=== PATIENT | female | born 1955 | race Hispanic/Latino ===

== ENCOUNTER 2018-01-16 03:42 | Inpatient (IN) | payer BC, MEDICAID ==
[2018-01-16] VITALS (8 sets, daily range): BP systolic 91–148; BP diastolic 48–99
[~2018-01-16] VITALS: Ht 149.9 cm; Wt 116.7 kg
[2018-01-16] MEDS ORDERED: Vancomycin 1.5gm/D5W 250ml 250 ML IVPB ONE ×2 (04:00→04:17)
[2018-01-16] MEDS ORDERED: Morphine Sulfate 4mg/ml Inj (IV USE ONLY) IVP ONE (04:00)
[2018-01-16] MEDS ORDERED: Cefepime HCl 1 GM in D5W 55 ML IVPB ONE (04:00)
[2018-01-16] MEDS ORDERED: Acetaminophen 500mg (ES) tab ORAL ONE ×2 (04:00→04:15)
--- NOTE | 2018-01-16 04:06 | Emergency Room Report ---
History of Present Illness General Chief Complaint: Pain Source: Patient, Family Member Present Illness HPI This is a 62-year-old female who is an unfortunate history of brain and breast cancer. She has inoperable brain cancer that felt to surgery. She currently undergoing chemotherapy twice a week. Also history of breast cancer. She presents with chief complaint of body pain and fever. Start having pain yesterday mostly to the right chest area. Fever started tonight. Also with lower back pain. Pain is 10 out of 10. Nothing made it better. Nothing made it worse. No unconscious or bowel urine. No nausea no vomiting. No radiation. Patient is a DO NOT RESUSCITATE. Allergies: Coded Allergies: No Known Allergies (Unverified , 01/16/18) Patient History Past Medical History: see triage record, old chart reviewed Past Surgical History: other Pertinent Family History: none Social History: Denies: smoking Now: No Immunizations: other Reviewed Nursing Documentation: PMH: Agreed; PSxH: Agreed Nursing Documentation-PMH Hx Cancer: Yes - brain tumor, right breast cancer Review of Systems Constitutional: Reports: fever Eye: Denies: eye pain, blurred vision ENT: Denies: ear pain, nose congestion, throat swelling Respiratory: Denies: cough, shortness of breath Cardiovascular: Reports: chest pain Gastrointestinal: Denies: abdominal pain, diarrhea, nausea, vomiting Musculoskeletal: Reports: back pain Skin: Denies: rash Neurological: Denies: headache, numbness Endocrine: Denies: increased thirst, increased urine Hematologic/Lymphatic: Denies: easy bruising All Other Systems: negative except mentioned in HPI Physical Exam Vital Signs Date Time Temp Pulse Resp B/P (MAP) Pulse Ox O2 Delivery O2 Flow Rate FiO2 01/16/18 03:39 101.6 110 20 124/72 96 Room Air 101.7 vitals with fever Sp02 EP Interpretation: reviewed, normal General Appearance: well appearing, alert, mild distress, obese Head: normocephalic, atraumatic Eyes: bilateral eye PERRL, bilateral eye EOMI ENT: hearing grossly normal, normal pharynx Neck: full range of motion, supple, no meningismus Respiratory: chest non-tender, lungs clear, normal breath sounds, other - Right chest wall: She has a port for chemotherapy. There is some scabbing over that area. There is a purulent discharge around the port. Skin is red and warm to the touch. Cardiovascular #1: regular rate, rhythm, no murmur Gastrointestinal: normal bowel sounds, non tender, no mass, no organomegaly, no bruit, non-distended Musculoskeletal: back normal, gait/station normal, normal range of motion, other - She has scattered ulcerations to the lower extremities and upper extremities. Neurologic: alert, oriented x3 Psychiatric: mood/affect normal Skin: warm/dry Procedures Critical Care Time Critical Care Time Critical care is mandated in this patient who presented with severe sepsis from abscess and pneumonia. Patient require my urgent intervention to attenuate the risks of 35 which may lead to cardiovascular collapse and . Critical care time is 35 minutes excluding any reportable procedure. Critical care time included evaluation, multiple reevaluation, looking at old charts, interpreting laboratory and diagnostic data, discussing case with patient and family and consultants, and charting. Medical Decision Making Diagnostic Impression: Primary Impression: Sepsis Qualified Codes: A41.9 - Sepsis, unspecified organism Additional Impressions: Abscess of chest wall Healthcare-associated pneumonia UTI (urinary tract infection) Qualified Codes: N30.00 - Acute cystitis without hematuria Morbid obesity with BMI of 40.0-44.9, adult Brain cancer Qualified Codes: C71.9 - Malignant neoplasm of brain, unspecified Breast cancer in female Qualified Codes: C50.919 - Malignant neoplasm of unspecified site of unspecified female breast ER Course Patient present with fever and sepsis. She has an obvious source to the right chest wall where her port is. Wound culture and blood culture done from that site. Because of her poor IV access I went ahead and use support for blood work and antibiotics. Vancomycin to cover for MRSA and cefepime for gram negatives. Heart rate improved after IV fluid. Mentation improved. Antibiotic started. I contacted Dr. Christensen and Dr. Lenz for admission. Laboratory Tests Test 01/16/18 04:00 White Blood Count 5.7 K/UL (4.8-10.8) Red Blood Count 4.50 M/UL (4.20-5.40) Hemoglobin 13.4 G/DL (12.0-16.0) Hematocrit 40.4 % (37.0-47.0) Mean Corpuscular Volume 90 FL (80-99) Mean Corpuscular Hemoglobin 29.7 PG (27.0-31.0) Mean Corpuscular Hemoglobin Concent 33.0 G/DL (32.0-36.0) Red Cell Distribution Width 14.9 % (11.6-14.8) H Platelet Count 172 K/UL (150-450) Mean Platelet Volume 5.8 FL (6.5-10.1) L Neutrophils (%) (Auto) 81.6 % (45.0-75.0) H Lymphocytes (%) (Auto) 17.0 % (20.0-45.0) L Monocytes (%) (Auto) 0.7 % (1.0-10.0) L Eosinophils (%) (Auto) 0.2 % (0.0-3.0) Basophils (%) (Auto) 0.4 % (0.0-2.0) Prothrombin Time 10.7 SEC (9.30-11.50) Prothromb Time International Ratio 1.0 (0.9-1.1) Activated Partial Thromboplast Time 22 SEC (23-33) L Urine Color Pale yellow Urine Appearance Slightly cloudy Urine pH 8 (4.5-8.0) Urine Specific [place] 1.015 (1.005-1.035) Urine Protein Negative (NEGATIVE) Urine Glucose (UA) Negative (NEGATIVE) Urine Ketones Negative (NEGATIVE) Urine Occult Blood Negative (NEGATIVE) Urine Nitrite Positive (NEGATIVE) H Urine Bilirubin Negative (NEGATIVE) Urine Urobilinogen Normal MG/DL (0.0-1.0) Urine Leukocyte Esterase 2+ (NEGATIVE) H Urine RBC 2-4 /HPF (0 - 2) H Urine WBC 20-30 /HPF (0 - 2) H Urine Squamous Epithelial Cells Few /LPF (NONE/OCC) Urine Bacteria Many /HPF (NONE) H Sodium Level 136 MMOL/L (136-145) Potassium Level 3.2 MMOL/L (3.5-5.1) L Chloride Level 98 MMOL/L (98-107) Carbon Dioxide Level 25 MMOL/L (21-32) Anion Gap 13 mmol/L (5-15) Blood Urea Nitrogen 20 mg/dL (7-18) H Creatinine 1.0 MG/DL (0.55-1.30) Estimat Glomerular Filtration Rate 56.4 mL/min (>60) Glucose Level 133 MG/DL (74-106) H Lactic Acid Level 4.30 mmol/L (0.4-2.0) H Calcium Level 8.6 MG/DL (8.5-10.1) Total Bilirubin 1.2 MG/DL (0.2-1.0) H Direct Bilirubin 0.3 MG/DL (0.0-0.3) Aspartate Amino Transf (AST/SGOT) 52 U/L (15-37) H Alanine Aminotransferase (ALT/SGPT) 80 U/L (12-78) H Alkaline Phosphatase 158 U/L (46-116) H Total Creatine Kinase 23 U/L (26-308) L Creatine Kinase MB 0.5 NG/ML (0.0-3.6) Creatine Kinase MB Relative Index 2.1 Troponin I 0.000 ng/mL (0.000-0.056) Total Protein 6.9 G/DL (6.4-8.2) Albumin 3.1 G/DL (3.4-5.0) L Globulin 3.8 g/dL Albumin/Globulin Ratio 0.8 (1.0-2.7) L Lab Results Impression labs with elevated lactic acid EKG Diagnostic Results Rate: tachycardiac Rhythm: NSR ST Segments: other - RBBB Rhythm Strip Diag. Results Rhythm Strip Time: 05:33 EP Interpretation: yes Rate: 130 Rhythm: NSR, no PVC's, no ectopy Chest X-Ray Diagnostic Results Chest X-Ray Diagnostic Results : Chest X-Ray Ordered: Yes # of Views/Limited/Complete: 1 View Indication: Shortness of Breath EP Interpretation: Yes Interpretation: no effusion, no pneumothorax, other - RLLL infiltrate Impression: Other - rt lung pneumonia Electronically Signed by: Israel Uriarte MD Last Vital Signs Date Time Temp Pulse Resp B/P (MAP) Pulse Ox O2 Delivery O2 Flow Rate FiO2 01/16/18 03:39 101.6 110 20 124/72 96 Room Air 101.7 Status: improved Disposition: ADMITTED INPATIENT Condition: Serious Scripts Unable to Obtain Active Prescriptions or Reported Meds ISRAEL URIARTE M.D. Jan 16, 2018 04:06
[2018-01-16] MEDS ORDERED: Morphine Sulfate 4mg/ml Inj (IV USE ONLY) ONE (04:16)
[2018-01-16] MEDS ORDERED: Cefepime 1gm vial ONE (04:16)
--- NOTE | 2018-01-16 04:50 | Diagnostic Imaging Report ---
EXAM: XR Chest, 1 View CLINICAL HISTORY: SOB TECHNIQUE: Frontal view of the chest. COMPARISON: 04-20-08 FINDINGS: Lungs: Mild diffuse airspace opacities throughout right lung. Lungs are under inflated. Pleural space: Unremarkable. No pneumothorax. Heart: Unremarkable. No cardiomegaly. Mediastinum: Unremarkable. Bones/joints: Suspect osteopenia. Tubes, lines and devices: MediPort tip projects over the region of superior vena cava, about 2.5 cm above the level of the [place]. IMPRESSION: Right lung pneumonia versus asymmetric pulmonary edema.
[2018-01-16 05:00] LABS: ANION GAP 13 mmol/L (5-15); BILIRUBIN, URINE NEGATIVE (NEGATIVE); BLOOD UREA NITROGEN 20 mg/dL (7-18); CALCIUM 8.6 MG/DL (8.5-10.1); CARBON DIOXIDE 25 MMOL/L (21-32); CHLORIDE 98 MMOL/L (98-107); COLOR,URINE PALE YELLOW; GLUCOSE, URINE (UA) NEGATIVE (NEGATIVE); KETONES,URINE NEGATIVE (NEGATIVE); NITRITE,URINE POSITIVE (NEGATIVE); PH,URINE 8 (4.5-8.0); POTASSIUM 3.2 MMOL/L (3.5-5.1); PROTEIN,URINE NEGATIVE (NEGATIVE); SODIUM 136 MMOL/L (136-145); UROBILINOGEN,URINE NORMAL MG/DL (0.0-1.0)
[2018-01-16 05:06] LABS: BASOPHILS % (AUTO) 0.4 % (0.0-2.0); EOSINOPHILS % (AUTO) 0.2 % (0.0-3.0); HEMATOCRIT 40.4 % (37.0-47.0); HEMOGLOBIN 13.4 G/DL (12.0-16.0); MEAN CORPUSCULAR VOLUME 90 FL (80-99); MONOCYTES % (AUTO) 0.7 % (1.0-10.0); NEUTROPHILS % (AUTO) 81.6 % (45.0-75.0); PLATELET COUNT 172 K/UL (150-450); RED CELL DISTRIBUTION WIDTH 14.9 % (11.6-14.8); WHITE BLOOD COUNT 5.7 K/UL (4.8-10.8)
[2018-01-16 05:11] LABS: APPEARANCE,URINE SLIGHTLY CLOUDY
[2018-01-16 05:12] LABS: LEUKOCYTE ESTERASE ,URINE 2+ (NEGATIVE)
[2018-01-16 05:14] LABS: ALANINE AMINOTRANSFERASE 80 U/L (12-78); ALBUMIN 3.1 G/DL (3.4-5.0); ALBUMIN/GLOBULIN RATIO 0.8 (1.0-2.7); ALKALINE PHOSPHATASE 158 U/L (46-116); ASPARTATE AMINO TRANSFERASE 52 U/L (15-37); BILIRUBIN,TOTAL 1.2 MG/DL (0.2-1.0); CKMB 0.5 NG/ML (0.0-3.6); CREATINE KINASE 23 U/L (26-308)
[2018-01-16 05:20] LABS: BILIRUBIN,DIRECT 0.3 MG/DL (0.0-0.3)
[2018-01-16] MEDS ORDERED: LORazepam Inj 2mg/ml 1ml IV ONE (05:30)
[2018-01-16] MEDS ORDERED: LORazepam Inj 2mg/ml 1ml ONE (05:31)
[2018-01-16] MEDS ORDERED: Albuterol/Ipratropium 3ml neb HHN PRN ×2 (06:45→19:00)
[2018-01-16] MEDS ORDERED: Milk of Magnesia 30ml Ud ORAL PRN (06:45)
[2018-01-16] MEDS ORDERED: Piperacillin/Tazobactam 3.375 GM in NS 110 ML IVPB SCH (06:45)
[2018-01-16] MEDS ORDERED: Mylanta II UD 30ml ORAL PRN ×2 (06:45→16:45)
[2018-01-16] MEDS ORDERED: Isovue-300 100ml vial INJ PRN (06:45)
[2018-01-16] MEDS ORDERED: Morphine Sulfate 2mg/ml Inj(IV/IM USE ONLY) IVP PRN ×2 (06:45)
[2018-01-16] MEDS ORDERED: Morphine Sulfate 4mg/ml Inj (IV USE ONLY) IVP PRN ×2 (06:45→17:00)
[2018-01-16] MEDS ORDERED: Miralax 17gm pkt ORAL PRN (06:45)
[2018-01-16] MEDS ORDERED: Acetaminophen 650 MG SUPP RECTAL PRN ×3 (06:45→16:45)
[2018-01-16] MEDS ORDERED: D5W w/KCl 20mEq 1,000 ML IV SCH (07:31)
[2018-01-16] MEDS: Piperacillin/Tazobactam 3.375 GM in D5W 110 ML IVPB SCH ×3 (08:36→17:05)
[2018-01-16] MEDS ORDERED: Docusate 100mg cap ORAL SCH (09:00)
--- NOTE | 2018-01-16 11:19 | Diagnostic Imaging Report ---
EXAM: CT Chest With Intravenous Contrast CLINICAL HISTORY: Abnormal chest x-ray. Shortness of breath. TECHNIQUE: Axial computed tomography images of the chest with intravenous contrast. CTDI is 70 mGy and DLP is 960 mGy-cm. One or more of the following dose reduction techniques were used: automated exposure control, adjustment of the mA and/or kV according to patient size, use of iterative reconstruction technique. COMPARISON: CT of the chest dated 04/20/08. Chest x-ray dated 01/16/18 FINDINGS: Lungs: Dependent consolidation throughout both lungs, right greater than left, likely related to dependent atelectasis. Pleural space: Unremarkable. No pneumothorax. No significant effusion. Heart: Unremarkable. No cardiomegaly. No significant pericardial effusion. Mediastinum: Small hiatal hernia. Bones/joints: Unremarkable. No acute fracture. No dislocation. Soft tissues: Unremarkable. Vasculature: Unremarkable. No thoracic aortic aneurysm. Lymph nodes: Unremarkable. No enlarged lymph nodes. Gallbladder and bile ducts: Cholelithiasis without gallbladder wall thickening. Kidneys and ureters: Possible nephrolithiasis versus early contrast excretion in the left upper renal pole. Tubes, lines and devices: A right IJ-approach central venous catheter has its tip in the SVC/right atrial junction. IMPRESSION: 1. Dependent consolidation throughout both lungs, right greater than left, likely related to dependent atelectasis. 2. Small hiatal hernia. 3. Cholelithiasis without gallbladder wall thickening. 4. Possible nephrolithiasis versus early contrast excretion in the left upper renal pole.
[2018-01-16] MEDS ORDERED: Vancomycin 1500mg IVPB SCH (12:00)
--- NOTE | 2018-01-16 12:28 | Consultation ---
History of Present Illness General Date patient seen: Jan 16, 2018 Chief Complaint: Pain Present Illness HPI 62-year-old female with hx of brain and breast cancer, currently undergoing chemotherapy twice a week presented with chief complaint of body pain and fever. Start having pain yesterday mostly to the right chest area. She had a CT of chest in ER ruling out PE. CT showed bibasilar infiltrate and atelectasis. She is awake and looks comfortable. Allergies: Coded Allergies: No Known Allergies (Unverified , 01/16/18) Medication History Scheduled Lacosamide (Vimpat), 100 MG PO BID, (Reported) Omeprazole (Omeprazole), Unknown Dose ORAL DAILY, (Reported) Patient History Healthcare decision maker Resuscitation status Full Code Advanced Directive on File Past Medical/Surgical History Past Medical/Surgical History: (1) Breast cancer in female (2) Morbid obesity with BMI of 40.0-44.9, adult (3) Brain cancer Review of Systems Cardiovascular: Reports: chest pain All Other Systems: negative except mentioned in HPI Physical Exam General Appearance: WD/WN, no apparent distress Lines, tubes and drains: peripheral HEENT: normocephalic, atraumatic Neck: non-tender, normal alignment, supple Respiratory/Chest: chest wall non-tender, rhonchi - left, rhonchi - right Cardiovascular/Chest: normal peripheral pulses, normal rate Abdomen: normal bowel sounds, non tender Genitourinary/Rectal: normal genital exam Skin Exam: normal pigmentation Last 24 Hour Vital Signs Date Time Temp Pulse Resp B/P (MAP) Pulse Ox O2 Delivery O2 Flow Rate FiO2 01/16/18 11:38 101.8 01/16/18 11:34 101.8 135 20 130/75 (93) 97 101.8 01/16/18 09:20 97.5 01/16/18 09:13 Room Air 2.0 01/16/18 08:50 97.5 01/16/18 08:39 97.5 124 20 110/65 (80) 97 97.5 01/16/18 06:20 100.0 118 20 148/99 Room Air 100.0 01/16/18 06:00 100.0 118 20 148/99 Room Air 100.0 01/16/18 05:29 99.5 01/16/18 05:00 100.2 130 20 142/76 Room Air 100.2 01/16/18 04:32 101.6 01/16/18 04:00 101.6 145 20 139/73 Room Air 101.6 01/16/18 03:39 101.6 110 20 124/72 96 Room Air 101.7 Intake and Output 01/15/18 01/16/18 18:59 06:59 Intake Total 55 ml Output Total 200 ml Balance -145 ml IV Total 55 ml Output Urine Total 200 ml Laboratory Tests Test 01/16/18 04:00 01/16/18 05:50 White Blood Count 5.7 K/UL (4.8-10.8) Red Blood Count 4.50 M/UL (4.20-5.40) Hemoglobin 13.4 G/DL (12.0-16.0) Hematocrit 40.4 % (37.0-47.0) Mean Corpuscular Volume 90 FL (80-99) Mean Corpuscular Hemoglobin 29.7 PG (27.0-31.0) Mean Corpuscular Hemoglobin Concent 33.0 G/DL (32.0-36.0) Red Cell Distribution Width 14.9 % (11.6-14.8) H Platelet Count 172 K/UL (150-450) Mean Platelet Volume 5.8 FL (6.5-10.1) L Neutrophils (%) (Auto) 81.6 % (45.0-75.0) H Lymphocytes (%) (Auto) 17.0 % (20.0-45.0) L Monocytes (%) (Auto) 0.7 % (1.0-10.0) L Eosinophils (%) (Auto) 0.2 % (0.0-3.0) Basophils (%) (Auto) 0.4 % (0.0-2.0) Prothrombin Time 10.7 SEC (9.30-11.50) Prothromb Time International Ratio 1.0 (0.9-1.1) Activated Partial Thromboplast Time 22 SEC (23-33) L Urine Color Pale yellow Urine Appearance Slightly cloudy Urine pH 8 (4.5-8.0) Urine Specific [place] 1.015 (1.005-1.035) Urine Protein Negative (NEGATIVE) Urine Glucose (UA) Negative (NEGATIVE) Urine Ketones Negative (NEGATIVE) Urine Occult Blood Negative (NEGATIVE) Urine Nitrite Positive (NEGATIVE) H Urine Bilirubin Negative (NEGATIVE) Urine Urobilinogen Normal MG/DL (0.0-1.0) Urine Leukocyte Esterase 2+ (NEGATIVE) H Urine RBC 2-4 /HPF (0 - 2) H Urine WBC 20-30 /HPF (0 - 2) H Urine Squamous Epithelial Cells Few /LPF (NONE/OCC) Urine Bacteria Many /HPF (NONE) H Sodium Level 136 MMOL/L (136-145) Potassium Level 3.2 MMOL/L (3.5-5.1) L Chloride Level 98 MMOL/L (98-107) Carbon Dioxide Level 25 MMOL/L (21-32) Anion Gap 13 mmol/L (5-15) Blood Urea Nitrogen 20 mg/dL (7-18) H Creatinine 1.0 MG/DL (0.55-1.30) Estimat Glomerular Filtration Rate 56.4 mL/min (>60) Glucose Level 133 MG/DL (74-106) H Lactic Acid Level 4.30 mmol/L (0.4-2.0) H 4.00 mmol/L (0.66-2.22) H Calcium Level 8.6 MG/DL (8.5-10.1) Total Bilirubin 1.2 MG/DL (0.2-1.0) H Direct Bilirubin 0.3 MG/DL (0.0-0.3) Aspartate Amino Transf (AST/SGOT) 52 U/L (15-37) H Alanine Aminotransferase (ALT/SGPT) 80 U/L (12-78) H Alkaline Phosphatase 158 U/L (46-116) H Total Creatine Kinase 23 U/L (26-308) L Creatine Kinase MB 0.5 NG/ML (0.0-3.6) Creatine Kinase MB Relative Index 2.1 Troponin I 0.000 ng/mL (0.000-0.056) Total Protein 6.9 G/DL (6.4-8.2) Albumin 3.1 G/DL (3.4-5.0) L Globulin 3.8 g/dL Albumin/Globulin Ratio 0.8 (1.0-2.7) L Microbiology Date/Time Source Procedure Growth Status 01/16/18 04:00 Other Gram Stain - Final Resulted 01/16/18 04:00 Other Wound Culture Pending Resulted Height (Feet): 4 Height (Inches): 11.00 Weight (Pounds): 220 Medications Current Medications Medications (Trade) Dose Ordered Sig/Gloria Route PRN Reason Start Time Stop Time Status Last Admin Dose Admin Acetaminophen (Tylenol) 650 mg Q4H PRN ORAL Mild Pain (Pain Scale 1-3) 01/16/18 06:45 02/15/18 06:44 01/16/18 11:38 Acetaminophen (Tylenol) 650 mg Q4H PRN RECTAL Mild Pain (Pain Scale 1-3) 01/16/18 06:45 02/15/18 06:44 Al Hydroxide/Mg Hydroxide (Mylanta II) 30 ml Q6H PRN ORAL dyspepsia 01/16/18 06:45 02/15/18 06:44 Albuterol/ Ipratropium (Albuterol/ Ipratropium) 3 ml Q4HRT PRN HHN Shortness of Breath 01/16/18 06:45 01/21/18 06:44 Dextrose (Dextrose 50%) 25 ml STAT PRN IV Hypoglycemia 01/16/18 06:45 02/15/18 06:44 Dextrose (Dextrose 50%) 50 ml STAT PRN IV Hypoglycemia 01/16/18 06:45 02/15/18 06:44 Dextrose/ Electrolytes 1,000 ml @ 100 mls/hr Q10H IV 01/16/18 07:31 02/15/18 07:30 01/16/18 08:35 Diphenhydramine HCl (Benadryl) 25 mg Q6H PRN ORAL Itching/Pruritis 01/16/18 06:45 02/15/18 06:44 Docusate Sodium (Colace) 100 mg EVERY 12 HOURS ORAL 01/16/18 09:00 02/15/18 08:59 01/16/18 08:35 Heparin Sodium (Porcine) (Heparin 5000 units/ml) 5,000 units EVERY 8 HOURS SUBQ 01/16/18 14:00 02/15/18 13:59 Iopamidol (Isovue-300 100ml) 100 ml NOW PRN INJ Radiology Procedure 01/16/18 06:45 01/18/18 06:31 Magnesium Hydroxide (Mom) 30 ml HSPRN PRN ORAL Constipation 01/16/18 06:45 02/15/18 06:44 Morphine Sulfate (Morphine Sulfate) 1 mg Q4HR PRN IVP For Pain 01/16/18 06:45 01/23/18 06:44 Morphine Sulfate (Morphine Sulfate) 2 mg Q4HR PRN IVP Moderate Pain (Pain Scale 4-6) 01/16/18 06:45 01/23/18 06:44 Morphine Sulfate (Morphine Sulfate) 4 mg Q4HR PRN IVP Severe Pain (Pain Scale 7-10) 01/16/18 06:45 01/23/18 06:44 01/16/18 08:50 Ondansetron HCl (Zofran) 4 mg Q6H PRN IVP Nausea & Vomiting 01/16/18 06:45 02/15/18 06:44 Piperacillin Sod/ Tazobactam Sod 3.375 gm/Dextrose 110 ml @ 27.5 mls/hr Q8H IVPB 01/16/18 08:00 01/23/18 07:59 01/16/18 08:36 Polyethylene Glycol (Miralax) 17 gm HSPRN PRN ORAL Constipation 01/16/18 06:45 02/15/18 06:44 Vancomycin HCl (Vanco rx to dose) 1 ea DAILY PRN MISC Per rx protocol 01/16/18 06:45 02/15/18 06:44 Vancomycin HCl/ Dextrose 250 ml @ 125 mls/hr Q24H IVPB 01/16/18 12:00 01/21/18 11:59 Assessment/Plan Problem List: (1) Healthcare-associated pneumonia ICD Codes: J18.9 - Pneumonia, unspecified organism; Z68.41 - Body mass index ( BMI) 40.0-44.9, adult SNOMED: 631601928, 267513248 (2) Sepsis ICD Codes: A41.9 - Sepsis, unspecified organism SNOMED: 26727724 Qualifiers: Qualified Codes: A41.9 - Sepsis, unspecified organism (3) Tachycardia ICD Codes: R00.0 - Tachycardia, unspecified SNOMED: 5969554 (4) UTI (urinary tract infection) ICD Codes: N39.0 - Urinary tract infection, site not specified SNOMED: 79226190, 795092065 Qualifiers: Qualified Codes: N30.00 - Acute cystitis without hematuria (5) Brain cancer ICD Codes: C71.9 - Malignant neoplasm of brain, unspecified SNOMED: 936499711, 527951420 Qualifiers: Qualified Codes: C71.9 - Malignant neoplasm of brain, unspecified (6) Breast cancer in female ICD Codes: C50.919 - Malignant neoplasm of unspecified site of unspecified female breast SNOMED: 779658070, 845700787 Qualifiers: Qualified Codes: C50.919 - Malignant neoplasm of unspecified site of unspecified female breast (7) Morbid obesity with BMI of 40.0-44.9, adult ICD Codes: E66.01 - Morbid (severe) obesity due to excess calories; Z68.41 - Body mass index (BMI) 40.0-44.9, adult SNOMED: 650078475, 064941881 Assessment/Plan andrade culture iv abx check electrolytes Echo to asses cardiac function f/u Blood cultures dvt prophylaxis. Miguel A Lenz MD Jan 16, 2018 12:28
[2018-01-16] MEDS ORDERED: VIMPAT100 MG PO (13:00)
[2018-01-16] MEDS ORDERED: OMEPRAZOLE10 M1 ORAL (13:02)
[2018-01-16] MEDS ORDERED: Heparin 5000 units/ml inj SUBQ SCH (14:00)
--- NOTE | 2018-01-16 15:26 | History & Physical ---
History and Physical History & Physicial Dictated for Int med-Dr Christensen no. [id number]. Ayo Roth MD Jan 16, 2018 15:26
[2018-01-16] MEDS: D5W w/KCl 20mEq 1,000 ML IV SCH (17:06)
[2018-01-16] MEDS: Dyna-Hex 2% Top Sol 2oz TOPIC SCH (20:03)
[2018-01-16] MEDS ORDERED: Lacosamide 100 MG TABLET ORAL SCH ×2 (21:00)
[2018-01-16] MEDS: Lacosamide 100 MG TABLET ORAL SCH (21:52)
[2018-01-16] MEDS: Heparin 5000 units/ml inj SUBQ SCH (21:53)
[2018-01-17] VITALS: BP 130/79
[2018-01-17] MEDS: Piperacillin/Tazobactam 3.375 GM in D5W 110 ML IVPB SCH ×3 (00:04→15:33)
--- NOTE | 2018-01-17 00:15 | History and Physical Report ---
DATE OF ADMISSION: 01/16/2018 CHIEF COMPLAINT: The patient is a 62-year-old female, who presents with a chief complaint of back pain. HISTORY OF PRESENT ILLNESS: The patient has a history of metastatic breast cancer. The patient is currently undergoing chemotherapy every 3 weeks. The patient states history of present illness began yesterday, 01/15/2018. The patient began to experience low back pain. The patient denies trauma. The patient presented to [place] emergency room. A chest x-ray showed right-sided pneumonia. The patient is admitted for back pain and pneumonia. PAST MEDICAL HISTORY: Significant for right breast cancer with metastases to the brain diagnosed in 2014. PAST SURGICAL HISTORY: Significant for resection of brain tumor in 2016. CURRENT MEDICATIONS: 1. Vimpat 100 mg p.o. twice daily. 2. Omeprazole 40 mg p.o. daily. ALLERGIES: No known drug allergies. SOCIAL HISTORY: The patient is . The patient denies tobacco or alcohol use. REVIEW OF SYSTEMS: CONSTITUTIONAL: The patient denies weight loss or weight gain. The patient denies fevers or chills. HEENT: The patient denies ear or throat pain. The patient denies headache. CARDIOVASCULAR: The patient denies palpitations or chest pain. CHEST: The patient denies wheeze or shortness of breath. ABDOMEN: The patient denies nausea, vomiting, diarrhea, or constipation. GENITOURINARY: The patient denies dysuria or increased frequency of urination. PHYSICAL EXAMINATION: VITAL SIGNS: Temperature 97.5 to 101.8, respirations 20, pulse 135, and blood pressure 130/75. GENERAL: The patient is a well-developed and well-nourished slightly obese female, in no apparent distress. HEENT: Eyes, pupils are equal and responsive to light and accommodation. Extraocular movements are intact. NECK: Supple without lymphadenopathy. CHEST: Decreased breath sounds at bilateral bases with crackles. Otherwise, clear to auscultation without wheezes or rales. CARDIOVASCULAR: Regular rhythm and rate. S1 and S2 are normal without murmurs, rubs, or gallops. ABDOMEN: Soft, nontender, and nondistended. Positive bowel sounds. No evidence of hepatosplenomegaly. Currently, no rebound or guarding noted. EXTREMITIES: Negative for clubbing, cyanosis, or edema. RECTAL/GENITAL: Refused. NEUROLOGIC: Cranial nerves II through XII are grossly intact without focal deficits. Motor strength is 5/5 bilaterally. Deep tendon reflexes are 2+ plantar. LABORATORY STUDIES: WBC 5.7, hemoglobin 13.4, hematocrit 40.4, and platelets 132,000. Sodium 136, potassium 3.2, chloride 98, CO2 25, BUN 20, creatinine 1.0, and glucose 133. Chest x-ray revealed right pneumonia. ASSESSMENT: This is a 62-year-old female. 1. Right-sided pneumonia. 2. Fever. 3. Breast cancer with metastases to the brain. TREATMENT: 1. Right pneumonia/fever. Pulmonary consultation has been obtained with Dr. Miguel A Lenz. The patient has been started empirically on vancomycin and Zosyn. We will follow recommendations of Pulmonary. 2. Breast cancer with metastases. Hematology and Oncology consultation has been obtained with Dr. Moody. Ayo Roth M.D. DR: TINA JOB#: [id number] CC:
[2018-01-17] MEDS: D5W w/KCl 20mEq 1,000 ML IV SCH (02:54)
[2018-01-17 04:00] VITALS: BP 112/82
[2018-01-17 05:09] LABS: HEMATOCRIT 37.3 % (37.0-47.0); HEMOGLOBIN 12.6 G/DL (12.0-16.0); MEAN CORPUSCULAR VOLUME 89 FL (80-99); PLATELET COUNT 72 K/UL (150-450); RED BLOOD COUNT 4.19 M/UL (4.20-5.40); RED CELL DISTRIBUTION WIDTH 14.7 % (11.6-14.8); WHITE BLOOD COUNT 7.5 K/UL (4.8-10.8)
[2018-01-17 05:14] LABS: INR 1.6 (0.9-1.1)
[2018-01-17 05:16] LABS: ALANINE AMINOTRANSFERASE 155 U/L (12-78); ALBUMIN 1.9 G/DL (3.4-5.0); ALBUMIN/GLOBULIN RATIO 0.6 (1.0-2.7); ALKALINE PHOSPHATASE 124 U/L (46-116); ANION GAP 16 mmol/L (5-15); ASPARTATE AMINO TRANSFERASE 121 U/L (15-37); BILIRUBIN,TOTAL 3.2 MG/DL (0.2-1.0); BLOOD UREA NITROGEN 25 mg/dL (7-18); CALCIUM 6.9 MG/DL (8.5-10.1); CARBON DIOXIDE 17 MMOL/L (21-32); CHLORIDE 98 MMOL/L (98-107); CREATININE 1.4 MG/DL (0.55-1.30); PHOSPHORUS 4.5 MG/DL (2.5-4.9); POTASSIUM 3.2 MMOL/L (3.5-5.1); SODIUM 131 MMOL/L (136-145)
[2018-01-17] MEDS: Heparin 5000 units/ml inj SUBQ SCH ×3 (06:00→21:59)
[2018-01-17 06:32] LABS: BILIRUBIN,DIRECT 1.8 MG/DL (0.0-0.3)
[2018-01-17] MEDS ORDERED: Isovue-300 100ml vial INJ PRN (06:45)
[2018-01-17 08:00] VITALS: BP 93/72
[2018-01-17] MEDS: Lacosamide 100 MG TABLET ORAL SCH ×2 (09:49→21:56)
--- NOTE | 2018-01-17 10:31 | Pulmonology Progress Note ---
Assessment/Plan Problems: (1) Healthcare-associated pneumonia (2) Sepsis (3) Tachycardia (4) UTI (urinary tract infection) (5) Brain cancer (6) Breast cancer in female (7) Morbid obesity with BMI of 40.0-44.9, adult (8) Hypokalemia (9) ATN (acute tubular necrosis) Assessment/Plan iv fluids continue abx check cultures check electrolytes check urine lytes renal studies echo pending cardiology evaluation pending Subjective ROS Limited/Unobtainable: No Constitutional: Reports: no symptoms HEENT: Repors: no symptoms Respiratory: Reports: no symptoms Allergies: Coded Allergies: No Known Allergies (Unverified , 01/16/18) Objective Last 24 Hour Vital Signs Date Time Temp Pulse Resp B/P (MAP) Pulse Ox O2 Delivery O2 Flow Rate FiO2 01/17/18 04:00 98.8 130 20 112/82 (92) 100 98.8 01/17/18 04:00 134 01/17/18 04:00 Nasal Cannula 2.0 01/17/18 00:00 Nasal Cannula 2.0 01/17/18 00:00 98.2 133 20 130/79 (96) 96 98.2 01/17/18 00:00 133 01/16/18 20:00 136 01/16/18 20:00 Nasal Cannula 2.0 01/16/18 20:00 98.2 133 20 102/50 (67) 96 98.2 01/16/18 19:06 134 26 Nasal Cannula 2.0 28 01/16/18 19:03 98.2 01/16/18 16:00 139 01/16/18 16:00 98.2 141 20 91/48 (62) 96 98.2 01/16/18 15:32 101.3 01/16/18 15:11 101.3 142 20 115/65 (82) 97 101.3 01/16/18 12:37 100.8 01/16/18 11:38 101.8 01/16/18 11:34 101.8 135 20 130/75 (93) 97 101.8 Intake and Output 01/16/18 01/17/18 19:00 07:00 Intake Total 580.0 ml 1340.0 ml Output Total 300 ml Balance 580.0 ml 1040.0 ml Intake Oral 120 ml 120 ml IV Total 460.0 ml 1220.0 ml Output Urine Total 300 ml # Voids 3 General Appearance: WD/WN HEENT: normocephalic, atraumatic Respiratory/Chest: chest wall non-tender, lungs clear Cardiovascular: normal peripheral pulses, normal rate Abdomen: normal bowel sounds, soft, non tender Skin: other - cold Neurologic/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: director transportation II-XII grossly normal Microbiology Date/Time Source Procedure Growth Status 01/16/18 04:00 Blood Blood Culture - Preliminary NO GROWTH AFTER 24 HOURS Resulted 01/16/18 03:45 Blood Blood Culture - Preliminary NO GROWTH AFTER 24 HOURS Resulted 01/16/18 04:00 Other Gram Stain - Final Resulted 01/16/18 04:00 Other Wound Culture Pending Resulted 01/16/18 04:00 Urine,Clean Catch Urine Culture - Preliminary Gram Negative Bacillus 1 Resulted Laboratory Tests 01/17/18 03:20: White Blood Count 7.5, Red Blood Count 4.19L, Hemoglobin 12.6, Hematocrit 37.3, Mean Corpuscular Volume 89, Mean Corpuscular Hemoglobin 30.1, Mean Corpuscular Hemoglobin Concent 33.8, Red Cell Distribution Width 14.7, Platelet Count 72#L, Mean Platelet Volume 7.4, Neutrophils (%) (Auto) , Lymphocytes (%) (Auto) , Monocytes (%) (Auto) , Eosinophils (%) (Auto) , Basophils (%) (Auto) , Differential Total Cells Counted 100, Neutrophils % (Manual) 72, Lymphocytes % ( Manual) 6L, Monocytes % (Manual) 4, Eosinophils % (Manual) 0, Basophils % ( Manual) 0, Band Neutrophils 18H, Platelet Estimate DecreasedL, Platelet Morphology Normal, Anisocytosis 1+ 01/17/18 04:00: Prothrombin Time 16.2H, Prothromb Time International Ratio 1.6H, Activated Partial Thromboplast Time 46H, Sodium Level 131L, Potassium Level 3.2L, Chloride Level 98, Carbon Dioxide Level 17L, Anion Gap 16H, Blood Urea Nitrogen 25H, Creatinine 1.4H, Estimat Glomerular Filtration Rate 38.2, Glucose Level 89 , Calcium Level 6.9L, Phosphorus Level 4.5, Magnesium Level 1.4L, Total Bilirubin 3.2H, Direct Bilirubin 1.8H, Aspartate Amino Transf (AST/SGOT) 121H, Alanine Aminotransferase (ALT/SGPT) 155H, Alkaline Phosphatase 124H, Total Protein 5.0L, Albumin 1.9L, Globulin 3.1, Albumin/Globulin Ratio 0.6L Current Medications Medications (Trade) Dose Ordered Sig/Gloria Route PRN Reason Start Time Stop Time Status Last Admin Dose Admin Acetaminophen (Tylenol) 650 mg Q4H PRN ORAL Mild Pain (Pain Scale 1-3) 01/16/18 19:30 02/15/18 19:29 01/17/18 05:44 Acetaminophen (Tylenol) 650 mg Q4H PRN RECTAL Mild Pain (Pain Scale 1-3) 01/16/18 16:45 02/15/18 16:44 Al Hydroxide/Mg Hydroxide (Mylanta II) 30 ml Q6H PRN ORAL dyspepsia 01/16/18 16:45 02/15/18 16:44 Albuterol/ Ipratropium (Albuterol/ Ipratropium) 3 ml Q4HRT PRN HHN Shortness of Breath 01/16/18 19:00 01/21/18 06:44 Chlorhexidine Gluconate (Zuleika-Hex 2%) 1 applic DAILY@2000 TOPIC 01/16/18 20:00 02/15/18 19:59 01/16/18 20:03 Dextrose (Dextrose 50%) 25 ml STAT PRN IV Hypoglycemia 01/16/18 16:45 02/15/18 16:44 Dextrose (Dextrose 50%) 50 ml STAT PRN IV Hypoglycemia 01/16/18 16:45 02/15/18 16:44 Dextrose/ Electrolytes 1,000 ml @ 100 mls/hr Q10H IV 01/16/18 16:45 02/15/18 07:30 01/17/18 02:54 Diphenhydramine HCl (Benadryl) 25 mg Q6H PRN ORAL Itching/Pruritis 01/16/18 16:45 02/15/18 16:44 Heparin Sodium (Porcine) (Heparin 5000 units/ml) 5,000 units EVERY 8 HOURS SUBQ 01/16/18 22:00 02/15/18 13:59 01/16/18 21:53 Iopamidol (Isovue-300 100ml) 100 ml NOW PRN INJ Radiology Procedure 01/17/18 06:45 01/18/18 06:31 Lacosamide (Vimpat) 100 mg Q12HR ORAL 01/16/18 21:00 02/15/18 20:59 01/17/18 09:49 Morphine Sulfate (Morphine Sulfate) 4 mg Q4H PRN IVP Severe Pain (Pain Scale 7-10) 01/16/18 17:00 01/23/18 16:59 Ondansetron HCl (Zofran) 4 mg Q6H PRN IVP Nausea & Vomiting 01/16/18 16:45 02/15/18 16:44 Piperacillin Sod/ Tazobactam Sod 3.375 gm/Dextrose 110 ml @ 27.5 mls/hr Q8H IVPB 01/16/18 16:00 01/23/18 15:59 01/17/18 08:00 Vancomycin HCl (Vanco rx to dose) 1 ea DAILY PRN MISC Per rx protocol 01/17/18 09:00 02/15/18 06:44 Vancomycin HCl/ Dextrose 250 ml @ 125 mls/hr Q24H IVPB 01/17/18 12:00 01/21/18 11:59 Miguel A Lenz MD Jan 17, 2018 10:31
[2018-01-17] MEDS ORDERED: NS 275ml ONE (11:00)
--- NOTE | 2018-01-17 11:52 | Internal Med Progress Note ---
Subjective Date of Service: Jan 17, 2018 Physician Name RothAyo Attending Physician Sander Christensen MD Current Medications Medications (Trade) Dose Ordered Sig/Gloria Route PRN Reason Start Time Stop Time Status Last Admin Dose Admin Acetaminophen (Tylenol) 650 mg Q4H PRN ORAL Mild Pain (Pain Scale 1-3) 01/16/18 19:30 02/15/18 19:29 01/17/18 05:44 Acetaminophen (Tylenol) 650 mg Q4H PRN RECTAL Mild Pain (Pain Scale 1-3) 01/16/18 16:45 02/15/18 16:44 Al Hydroxide/Mg Hydroxide (Mylanta II) 30 ml Q6H PRN ORAL dyspepsia 01/16/18 16:45 02/15/18 16:44 Albuterol/ Ipratropium (Albuterol/ Ipratropium) 3 ml Q4HRT PRN HHN Shortness of Breath 01/16/18 19:00 01/21/18 06:44 Chlorhexidine Gluconate (Zuleika-Hex 2%) 1 applic DAILY@2000 TOPIC 01/16/18 20:00 02/15/18 19:59 01/16/18 20:03 Dextrose (Dextrose 50%) 25 ml STAT PRN IV Hypoglycemia 01/16/18 16:45 02/15/18 16:44 Dextrose (Dextrose 50%) 50 ml STAT PRN IV Hypoglycemia 01/16/18 16:45 02/15/18 16:44 Dextrose/ Electrolytes 1,000 ml @ 75 mls/hr [id number] IV 01/17/18 11:30 02/16/18 11:29 Diphenhydramine HCl (Benadryl) 25 mg Q6H PRN ORAL Itching/Pruritis 01/16/18 16:45 02/15/18 16:44 Heparin Sodium (Porcine) (Heparin 5000 units/ml) 5,000 units EVERY 8 HOURS SUBQ 01/16/18 22:00 02/15/18 13:59 01/16/18 21:53 Iopamidol (Isovue-300 100ml) 100 ml NOW PRN INJ Radiology Procedure 01/17/18 06:45 01/18/18 06:31 Lacosamide (Vimpat) 100 mg Q12HR ORAL 01/16/18 21:00 02/15/18 20:59 01/17/18 09:49 Morphine Sulfate (Morphine Sulfate) 4 mg Q4H PRN IVP Severe Pain (Pain Scale 7-10) 01/16/18 17:00 01/23/18 16:59 Ondansetron HCl (Zofran) 4 mg Q6H PRN IVP Nausea & Vomiting 01/16/18 16:45 02/15/18 16:44 Piperacillin Sod/ Tazobactam Sod 3.375 gm/Dextrose 110 ml @ 27.5 mls/hr Q8H IVPB 01/16/18 16:00 01/23/18 15:59 01/17/18 08:00 Vancomycin HCl (Vanco rx to dose) 1 ea DAILY PRN MISC Per rx protocol 01/17/18 09:00 02/15/18 06:44 Vancomycin HCl/ Dextrose 250 ml @ 125 mls/hr Q24H IVPB 01/17/18 12:00 01/21/18 11:59 Allergies: Coded Allergies: No Known Allergies (Unverified , 01/16/18) ROS Limited/Unobtainable: No Constitutional: Reports: no symptoms HEENT: Reports: no symptoms Cardiovascular: Reports: palpitations Respiratory: Reports: shortness of breath Gastrointestinal/Abdominal: Reports: no symptoms Genitourinary: Reports: no symptoms Neurologic/Psychiatric: Reports: no symptoms Subjective 62 YO F admitted with chief complaint fever. Now pneumonia, UTI and sepsis. Tachycardic. Cover for Int Med-Dr Christensen. MEHRDAD Objective Last Vital Signs Date Time Temp Pulse Resp B/P (MAP) Pulse Ox O2 Delivery O2 Flow Rate FiO2 01/17/18 08:00 Nasal Cannula 2.0 01/17/18 08:00 99.1 127 20 93/72 (79) 96 99.1 01/16/18 19:06 28 General Appearance: WD/WN, alert, mild distress EENT: PERRL/EOMI, normal ENT inspection Neck: non-tender, normal alignment, supple, normal inspection Cardiovascular: normal peripheral pulses, regular rhythm, no gallop/murmur, no JVD, tachycardia Respiratory/Chest: chest wall non-tender, accessory muscle use, crackles/rales , rhonchi - bilaterally, expiratory wheezing Abdomen: normal bowel sounds, non tender, soft, no organomegaly, no mass Extremities: normal range of motion, non-tender Neurologic: credit review officer II-XII grossly normal, no motor/sensory deficits Skin: normal pigmentation, warm/dry Laboratory Tests Test 01/17/18 03:20 01/17/18 04:00 White Blood Count 7.5 K/UL (4.8-10.8) Red Blood Count 4.19 M/UL (4.20-5.40) L Hemoglobin 12.6 G/DL (12.0-16.0) Hematocrit 37.3 % (37.0-47.0) Mean Corpuscular Volume 89 FL (80-99) Mean Corpuscular Hemoglobin 30.1 PG (27.0-31.0) Mean Corpuscular Hemoglobin Concent 33.8 G/DL (32.0-36.0) Red Cell Distribution Width 14.7 % (11.6-14.8) Platelet Count 72 K/UL (150-450) #L Mean Platelet Volume 7.4 FL (6.5-10.1) Neutrophils (%) (Auto) % (45.0-75.0) Lymphocytes (%) (Auto) % (20.0-45.0) Monocytes (%) (Auto) % (1.0-10.0) Eosinophils (%) (Auto) % (0.0-3.0) Basophils (%) (Auto) % (0.0-2.0) Differential Total Cells Counted 100 Neutrophils % (Manual) 72 % (45-75) Lymphocytes % (Manual) 6 % (20-45) L Monocytes % (Manual) 4 % (1-10) Eosinophils % (Manual) 0 % (0-3) Basophils % (Manual) 0 % (0-2) Band Neutrophils 18 % (0-8) H Platelet Estimate Decreased L Platelet Morphology Normal Anisocytosis 1+ Prothrombin Time 16.2 SEC (9.30-11.50) H Prothromb Time International Ratio 1.6 (0.9-1.1) H Activated Partial Thromboplast Time 46 SEC (23-33) H Sodium Level 131 MMOL/L (136-145) L Potassium Level 3.2 MMOL/L (3.5-5.1) L Chloride Level 98 MMOL/L (98-107) Carbon Dioxide Level 17 MMOL/L (21-32) L Anion Gap 16 mmol/L (5-15) H Blood Urea Nitrogen 25 mg/dL (7-18) H Creatinine 1.4 MG/DL (0.55-1.30) H Estimat Glomerular Filtration Rate 38.2 mL/min (>60) Glucose Level 89 MG/DL (74-106) Calcium Level 6.9 MG/DL (8.5-10.1) L Phosphorus Level 4.5 MG/DL (2.5-4.9) Magnesium Level 1.4 MG/DL (1.8-2.4) L Total Bilirubin 3.2 MG/DL (0.2-1.0) H Direct Bilirubin 1.8 MG/DL (0.0-0.3) H Aspartate Amino Transf (AST/SGOT) 121 U/L (15-37) H Alanine Aminotransferase (ALT/SGPT) 155 U/L (12-78) H Alkaline Phosphatase 124 U/L (46-116) H Total Protein 5.0 G/DL (6.4-8.2) L Albumin 1.9 G/DL (3.4-5.0) L Globulin 3.1 g/dL Albumin/Globulin Ratio 0.6 (1.0-2.7) L Microbiology Date/Time Source Procedure Growth Status 01/16/18 04:00 Blood Blood Culture - Preliminary NO GROWTH AFTER 24 HOURS Resulted 01/16/18 03:45 Blood Blood Culture - Preliminary NO GROWTH AFTER 24 HOURS Resulted 01/16/18 04:00 Other Gram Stain - Final Resulted 01/16/18 04:00 Wound Culture - Preliminary Gram Negative Bacillus 1 Gram Positive Cocci Resulted 01/16/18 04:00 Urine,Clean Catch Urine Culture - Preliminary Gram Negative Bacillus 1 Resulted Intake and Output 01/16/18 01/17/18 19:00 07:00 Intake Total 580.0 ml 1340.0 ml Output Total 300 ml Balance 580.0 ml 1040.0 ml Intake Oral 120 ml 120 ml IV Total 460.0 ml 1220.0 ml Output Urine Total 300 ml # Voids 3 Assessment/Plan Problem List: (1) UTI (urinary tract infection) Assessment & Plan: Gram neg rods. Await ID and sensitivity. Continue zosyn for now. Await Inf dis consult. (2) Hypokalemia (3) Brain cancer (4) Breast cancer in female Assessment & Plan: Await onc consult. (5) Sepsis Assessment & Plan: Urosepsis. Gram neg la / bottles-await ID and sensitivity. Cont zosyn for now. Await ID consult Status: not improved Ayo Roth MD Jan 17, 2018 11:52
[2018-01-17 12:00] VITALS: BP 135/76
--- NOTE | 2018-01-17 12:07 | Consultation ---
History of Present Illness General Date patient seen: Jan 16, 2018 Chief Complaint: Pain Present Illness HPI 62-year-old female, who presents with a chief complaint of back pain. thept is anxious and tach cardic. the pt stated that she was anxious everyday most of the day Allergies: Coded Allergies: No Known Allergies (Unverified , 01/16/18) Medication History Scheduled Lacosamide (Vimpat), 100 MG PO BID, (Reported) Omeprazole (Omeprazole), Unknown Dose ORAL DAILY, (Reported) Patient History History Provided By: Patient, Medical Record, PMD Healthcare decision maker Resuscitation status Full Code Advanced Directive on File Past Medical/Surgical History Past Medical/Surgical History: (1) Brain cancer (2) Morbid obesity with BMI of 40.0-44.9, adult (3) Breast cancer in female (4) Tachycardia (5) Sepsis (6) UTI (urinary tract infection) (7) Healthcare-associated pneumonia (8) Hypokalemia (9) ATN (acute tubular necrosis) (10) Abscess of chest wall (11) Ulcer of left lower leg Review of Systems Psychiatric: Reports: prior hx, anxiety, depressed feelings, emotional problems Physical Exam General Appearance: no apparent distress, alert Neurologic: oriented x 3, responsive, depressed affect Last 24 Hour Vital Signs Date Time Temp Pulse Resp B/P (MAP) Pulse Ox O2 Delivery O2 Flow Rate FiO2 01/17/18 08:00 Nasal Cannula 2.0 01/17/18 08:00 99.1 127 20 93/72 (79) 96 99.1 01/17/18 08:00 127 01/17/18 04:00 98.8 130 20 112/82 (92) 100 98.8 01/17/18 04:00 134 01/17/18 04:00 Nasal Cannula 2.0 01/17/18 00:00 Nasal Cannula 2.0 01/17/18 00:00 98.2 133 20 130/79 (96) 96 98.2 01/17/18 00:00 133 01/16/18 20:00 136 01/16/18 20:00 Nasal Cannula 2.0 01/16/18 20:00 98.2 133 20 102/50 (67) 96 98.2 01/16/18 19:06 134 26 Nasal Cannula 2.0 28 01/16/18 19:03 98.2 01/16/18 16:00 139 01/16/18 16:00 98.2 141 20 91/48 (62) 96 98.2 01/16/18 15:32 101.3 01/16/18 15:11 101.3 142 20 115/65 (82) 97 101.3 01/16/18 12:37 100.8 Intake and Output 01/16/18 01/17/18 19:00 07:00 Intake Total 580.0 ml 1340.0 ml Output Total 300 ml Balance 580.0 ml 1040.0 ml Intake Oral 120 ml 120 ml IV Total 460.0 ml 1220.0 ml Output Urine Total 300 ml # Voids 3 Laboratory Tests Test 01/17/18 03:20 01/17/18 04:00 White Blood Count 7.5 K/UL (4.8-10.8) Red Blood Count 4.19 M/UL (4.20-5.40) L Hemoglobin 12.6 G/DL (12.0-16.0) Hematocrit 37.3 % (37.0-47.0) Mean Corpuscular Volume 89 FL (80-99) Mean Corpuscular Hemoglobin 30.1 PG (27.0-31.0) Mean Corpuscular Hemoglobin Concent 33.8 G/DL (32.0-36.0) Red Cell Distribution Width 14.7 % (11.6-14.8) Platelet Count 72 K/UL (150-450) #L Mean Platelet Volume 7.4 FL (6.5-10.1) Neutrophils (%) (Auto) % (45.0-75.0) Lymphocytes (%) (Auto) % (20.0-45.0) Monocytes (%) (Auto) % (1.0-10.0) Eosinophils (%) (Auto) % (0.0-3.0) Basophils (%) (Auto) % (0.0-2.0) Differential Total Cells Counted 100 Neutrophils % (Manual) 72 % (45-75) Lymphocytes % (Manual) 6 % (20-45) L Monocytes % (Manual) 4 % (1-10) Eosinophils % (Manual) 0 % (0-3) Basophils % (Manual) 0 % (0-2) Band Neutrophils 18 % (0-8) H Platelet Estimate Decreased L Platelet Morphology Normal Anisocytosis 1+ Prothrombin Time 16.2 SEC (9.30-11.50) H Prothromb Time International Ratio 1.6 (0.9-1.1) H Activated Partial Thromboplast Time 46 SEC (23-33) H Sodium Level 131 MMOL/L (136-145) L Potassium Level 3.2 MMOL/L (3.5-5.1) L Chloride Level 98 MMOL/L (98-107) Carbon Dioxide Level 17 MMOL/L (21-32) L Anion Gap 16 mmol/L (5-15) H Blood Urea Nitrogen 25 mg/dL (7-18) H Creatinine 1.4 MG/DL (0.55-1.30) H Estimat Glomerular Filtration Rate 38.2 mL/min (>60) Glucose Level 89 MG/DL (74-106) Calcium Level 6.9 MG/DL (8.5-10.1) L Phosphorus Level 4.5 MG/DL (2.5-4.9) Magnesium Level 1.4 MG/DL (1.8-2.4) L Total Bilirubin 3.2 MG/DL (0.2-1.0) H Direct Bilirubin 1.8 MG/DL (0.0-0.3) H Aspartate Amino Transf (AST/SGOT) 121 U/L (15-37) H Alanine Aminotransferase (ALT/SGPT) 155 U/L (12-78) H Alkaline Phosphatase 124 U/L (46-116) H Total Protein 5.0 G/DL (6.4-8.2) L Albumin 1.9 G/DL (3.4-5.0) L Globulin 3.1 g/dL Albumin/Globulin Ratio 0.6 (1.0-2.7) L Height (Feet): 4 Height (Inches): 11.00 Weight (Pounds): 220 Medications Current Medications Medications (Trade) Dose Ordered Sig/Gloria Route PRN Reason Start Time Stop Time Status Last Admin Dose Admin Acetaminophen (Tylenol) 650 mg Q4H PRN ORAL Mild Pain (Pain Scale 1-3) 01/16/18 19:30 02/15/18 19:29 01/17/18 05:44 Acetaminophen (Tylenol) 650 mg Q4H PRN RECTAL Mild Pain (Pain Scale 1-3) 01/16/18 16:45 02/15/18 16:44 Al Hydroxide/Mg Hydroxide (Mylanta II) 30 ml Q6H PRN ORAL dyspepsia 01/16/18 16:45 02/15/18 16:44 Albuterol/ Ipratropium (Albuterol/ Ipratropium) 3 ml Q4HRT PRN HHN Shortness of Breath 01/16/18 19:00 01/21/18 06:44 Chlorhexidine Gluconate (Zuleika-Hex 2%) 1 applic DAILY@2000 TOPIC 01/16/18 20:00 02/15/18 19:59 01/16/18 20:03 Dextrose (Dextrose 50%) 25 ml STAT PRN IV Hypoglycemia 01/16/18 16:45 02/15/18 16:44 Dextrose (Dextrose 50%) 50 ml STAT PRN IV Hypoglycemia 01/16/18 16:45 02/15/18 16:44 Dextrose/ Electrolytes 1,000 ml @ 75 mls/hr [id number] IV 01/17/18 11:30 02/16/18 11:29 Diphenhydramine HCl (Benadryl) 25 mg Q6H PRN ORAL Itching/Pruritis 01/16/18 16:45 02/15/18 16:44 Heparin Sodium (Porcine) (Heparin 5000 units/ml) 5,000 units EVERY 8 HOURS SUBQ 01/16/18 22:00 02/15/18 13:59 01/16/18 21:53 Iopamidol (Isovue-300 100ml) 100 ml NOW PRN INJ Radiology Procedure 01/17/18 06:45 01/18/18 06:31 Lacosamide (Vimpat) 100 mg Q12HR ORAL 01/16/18 21:00 02/15/18 20:59 01/17/18 09:49 Morphine Sulfate (Morphine Sulfate) 4 mg Q4H PRN IVP Severe Pain (Pain Scale 7-10) 01/16/18 17:00 01/23/18 16:59 Ondansetron HCl (Zofran) 4 mg Q6H PRN IVP Nausea & Vomiting 01/16/18 16:45 02/15/18 16:44 Piperacillin Sod/ Tazobactam Sod 3.375 gm/Dextrose 110 ml @ 27.5 mls/hr Q8H IVPB 01/16/18 16:00 01/23/18 15:59 01/17/18 08:00 Potassium Chloride (K-Dur) 40 meq ONCE ORAL 01/17/18 11:45 01/17/18 12:45 Vancomycin HCl (Vanco rx to dose) 1 ea DAILY PRN MISC Per rx protocol 01/17/18 09:00 02/15/18 06:44 Vancomycin HCl/ Dextrose 250 ml @ 125 mls/hr Q24H IVPB 01/17/18 12:00 01/21/18 11:59 Assessment/Plan Assessment/Plan MDD Anxiety d/o Prozac klonopin Anna Marie Bowens MD Jan 17, 2018 12:07
--- NOTE | 2018-01-17 12:08 | General Progress Note ---
Assessment/Plan Status: stable Assessment/Plan MDD Anxiety d/o Prozac sylvainonopin ativan Subjective Date patient seen: Jan 17, 2018 Neurologic/Psychiatric: Reports: anxiety, depressed, emotional problems Allergies: Coded Allergies: No Known Allergies (Unverified , 01/16/18) Objective Last 24 Hour Vital Signs Date Time Temp Pulse Resp B/P (MAP) Pulse Ox O2 Delivery O2 Flow Rate FiO2 01/17/18 08:00 Nasal Cannula 2.0 01/17/18 08:00 99.1 127 20 93/72 (79) 96 99.1 01/17/18 08:00 127 01/17/18 04:00 98.8 130 20 112/82 (92) 100 98.8 01/17/18 04:00 134 01/17/18 04:00 Nasal Cannula 2.0 01/17/18 00:00 Nasal Cannula 2.0 01/17/18 00:00 98.2 133 20 130/79 (96) 96 98.2 01/17/18 00:00 133 01/16/18 20:00 136 01/16/18 20:00 Nasal Cannula 2.0 01/16/18 20:00 98.2 133 20 102/50 (67) 96 98.2 01/16/18 19:06 134 26 Nasal Cannula 2.0 28 01/16/18 19:03 98.2 01/16/18 16:00 139 01/16/18 16:00 98.2 141 20 91/48 (62) 96 98.2 01/16/18 15:32 101.3 01/16/18 15:11 101.3 142 20 115/65 (82) 97 101.3 01/16/18 12:37 100.8 Intake and Output 01/16/18 01/17/18 19:00 07:00 Intake Total 580.0 ml 1340.0 ml Output Total 300 ml Balance 580.0 ml 1040.0 ml Intake Oral 120 ml 120 ml IV Total 460.0 ml 1220.0 ml Output Urine Total 300 ml # Voids 3 Laboratory Tests 01/17/18 03:20: White Blood Count 7.5, Red Blood Count 4.19L, Hemoglobin 12.6, Hematocrit 37.3, Mean Corpuscular Volume 89, Mean Corpuscular Hemoglobin 30.1, Mean Corpuscular Hemoglobin Concent 33.8, Red Cell Distribution Width 14.7, Platelet Count 72#L, Mean Platelet Volume 7.4, Neutrophils (%) (Auto) , Lymphocytes (%) (Auto) , Monocytes (%) (Auto) , Eosinophils (%) (Auto) , Basophils (%) (Auto) , Differential Total Cells Counted 100, Neutrophils % (Manual) 72, Lymphocytes % ( Manual) 6L, Monocytes % (Manual) 4, Eosinophils % (Manual) 0, Basophils % ( Manual) 0, Band Neutrophils 18H, Platelet Estimate DecreasedL, Platelet Morphology Normal, Anisocytosis 1+ 01/17/18 04:00: Prothrombin Time 16.2H, Prothromb Time International Ratio 1.6H, Activated Partial Thromboplast Time 46H, Sodium Level 131L, Potassium Level 3.2L, Chloride Level 98, Carbon Dioxide Level 17L, Anion Gap 16H, Blood Urea Nitrogen 25H, Creatinine 1.4H, Estimat Glomerular Filtration Rate 38.2, Glucose Level 89 , Calcium Level 6.9L, Phosphorus Level 4.5, Magnesium Level 1.4L, Total Bilirubin 3.2H, Direct Bilirubin 1.8H, Aspartate Amino Transf (AST/SGOT) 121H, Alanine Aminotransferase (ALT/SGPT) 155H, Alkaline Phosphatase 124H, Total Protein 5.0L, Albumin 1.9L, Globulin 3.1, Albumin/Globulin Ratio 0.6L Height (Feet): 4 Height (Inches): 11.00 Weight (Pounds): 220 General Appearance: no apparent distress, alert Neurologic: oriented x 3, responsive, depressed affect Anna Marie Rodgers MD Jan 17, 2018 12:08
[2018-01-17] MEDS ORDERED: LORazepam 1mg tab ORAL SCH (12:15)
--- NOTE | 2018-01-17 14:05 | Consultation ---
History of Present Illness General Date patient seen: Jan 17, 2018 Time patient seen: 14:00 Chief Complaint: Pain Present Illness HPI 62 year old female brought in by ambulance from home with daughter for c/o acute lower back pain 01/04. Patient has a history of inoperable brain tumor which is causing left sided weakness, and breast cancer that she is currently receiving chemotherapy. She had a CT of chest in ER ruling out PE. CT showed bibasilar infiltrate and atelectasis. Cardiology consulted for tachycardia. Initial troponin negative, EKG sinus tachycardia, UA dirty with gram negative rods, antibiotics started for urosepsis . Allergies: Coded Allergies: No Known Allergies (Unverified , 01/16/18) Medication History Scheduled Lacosamide (Vimpat), 100 MG PO BID, (Reported) Omeprazole (Omeprazole), Unknown Dose ORAL DAILY, (Reported) Patient History Healthcare decision maker Resuscitation status Full Code Advanced Directive on File Review of Systems Constitutional: Reports: chills, fever, weakness Eye: Reports: no symptoms ENT: Reports: no symptoms Respiratory: Reports: no symptoms Cardiovascular: Reports: palpitations Gastrointestinal: Reports: abdominal pain Genitourinary: Reports: no symptoms Musculoskeletal: Reports: muscle pain Skin: Reports: no symptoms Psychiatric: Reports: no symptoms Neurological: Reports: headache Endocrine: Reports: no symptoms Hematologic/Lymphatic: Reports: no symptoms Physical Exam General Appearance: mild distress Lines, tubes and drains: peripheral HEENT: normocephalic Neck: non-tender Respiratory/Chest: chest wall non-tender Cardiovascular/Chest: normal peripheral pulses, tachycardia Abdomen: normal bowel sounds Extremities: normal range of motion, non-tender Skin Exam: normal pigmentation, warm/dry 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 Last 24 Hour Vital Signs Date Time Temp Pulse Resp B/P (MAP) Pulse Ox O2 Delivery O2 Flow Rate FiO2 01/17/18 12:31 99.1 01/17/18 08:00 Nasal Cannula 2.0 01/17/18 08:00 99.1 127 20 93/72 (79) 96 99.1 01/17/18 08:00 127 01/17/18 04:00 98.8 130 20 112/82 (92) 100 98.8 01/17/18 04:00 134 01/17/18 04:00 Nasal Cannula 2.0 01/17/18 00:00 Nasal Cannula 2.0 01/17/18 00:00 98.2 133 20 130/79 (96) 96 98.2 01/17/18 00:00 133 01/16/18 20:00 136 01/16/18 20:00 Nasal Cannula 2.0 01/16/18 20:00 98.2 133 20 102/50 (67) 96 98.2 01/16/18 19:06 134 26 Nasal Cannula 2.0 28 01/16/18 19:03 98.2 01/16/18 16:00 139 01/16/18 16:00 98.2 141 20 91/48 (62) 96 98.2 01/16/18 15:32 101.3 01/16/18 15:11 101.3 142 20 115/65 (82) 97 101.3 Intake and Output 01/16/18 01/17/18 19:00 07:00 Intake Total 580.0 ml 1340.0 ml Output Total 300 ml Balance 580.0 ml 1040.0 ml Intake Oral 120 ml 120 ml IV Total 460.0 ml 1220.0 ml Output Urine Total 300 ml # Voids 3 Laboratory Tests Test 01/17/18 03:20 01/17/18 04:00 White Blood Count 7.5 K/UL (4.8-10.8) Red Blood Count 4.19 M/UL (4.20-5.40) L Hemoglobin 12.6 G/DL (12.0-16.0) Hematocrit 37.3 % (37.0-47.0) Mean Corpuscular Volume 89 FL (80-99) Mean Corpuscular Hemoglobin 30.1 PG (27.0-31.0) Mean Corpuscular Hemoglobin Concent 33.8 G/DL (32.0-36.0) Red Cell Distribution Width 14.7 % (11.6-14.8) Platelet Count 72 K/UL (150-450) #L Mean Platelet Volume 7.4 FL (6.5-10.1) Neutrophils (%) (Auto) % (45.0-75.0) Lymphocytes (%) (Auto) % (20.0-45.0) Monocytes (%) (Auto) % (1.0-10.0) Eosinophils (%) (Auto) % (0.0-3.0) Basophils (%) (Auto) % (0.0-2.0) Differential Total Cells Counted 100 Neutrophils % (Manual) 72 % (45-75) Lymphocytes % (Manual) 6 % (20-45) L Monocytes % (Manual) 4 % (1-10) Eosinophils % (Manual) 0 % (0-3) Basophils % (Manual) 0 % (0-2) Band Neutrophils 18 % (0-8) H Platelet Estimate Decreased L Platelet Morphology Normal Anisocytosis 1+ Prothrombin Time 16.2 SEC (9.30-11.50) H Prothromb Time International Ratio 1.6 (0.9-1.1) H Activated Partial Thromboplast Time 46 SEC (23-33) H Sodium Level 131 MMOL/L (136-145) L Potassium Level 3.2 MMOL/L (3.5-5.1) L Chloride Level 98 MMOL/L (98-107) Carbon Dioxide Level 17 MMOL/L (21-32) L Anion Gap 16 mmol/L (5-15) H Blood Urea Nitrogen 25 mg/dL (7-18) H Creatinine 1.4 MG/DL (0.55-1.30) H Estimat Glomerular Filtration Rate 38.2 mL/min (>60) Glucose Level 89 MG/DL (74-106) Calcium Level 6.9 MG/DL (8.5-10.1) L Phosphorus Level 4.5 MG/DL (2.5-4.9) Magnesium Level 1.4 MG/DL (1.8-2.4) L Total Bilirubin 3.2 MG/DL (0.2-1.0) H Direct Bilirubin 1.8 MG/DL (0.0-0.3) H Aspartate Amino Transf (AST/SGOT) 121 U/L (15-37) H Alanine Aminotransferase (ALT/SGPT) 155 U/L (12-78) H Alkaline Phosphatase 124 U/L (46-116) H Total Protein 5.0 G/DL (6.4-8.2) L Albumin 1.9 G/DL (3.4-5.0) L Globulin 3.1 g/dL Albumin/Globulin Ratio 0.6 (1.0-2.7) L Height (Feet): 4 Height (Inches): 11.00 Weight (Pounds): 220 Medications Current Medications Medications (Trade) Dose Ordered Sig/Gloria Route PRN Reason Start Time Stop Time Status Last Admin Dose Admin Acetaminophen (Tylenol) 650 mg Q4H PRN ORAL Mild Pain (Pain Scale 1-3) 01/16/18 19:30 02/15/18 19:29 01/17/18 12:31 Acetaminophen (Tylenol) 650 mg Q4H PRN RECTAL Mild Pain (Pain Scale 1-3) 01/16/18 16:45 02/15/18 16:44 Al Hydroxide/Mg Hydroxide (Mylanta II) 30 ml Q6H PRN ORAL dyspepsia 01/16/18 16:45 02/15/18 16:44 Albuterol/ Ipratropium (Albuterol/ Ipratropium) 3 ml Q4HRT PRN HHN Shortness of Breath 01/16/18 19:00 01/21/18 06:44 Chlorhexidine Gluconate (Zuleika-Hex 2%) 1 applic DAILY@2000 TOPIC 01/16/18 20:00 02/15/18 19:59 01/16/18 20:03 Dextrose (Dextrose 50%) 25 ml STAT PRN IV Hypoglycemia 01/16/18 16:45 02/15/18 16:44 Dextrose (Dextrose 50%) 50 ml STAT PRN IV Hypoglycemia 01/16/18 16:45 02/15/18 16:44 Dextrose/ Electrolytes 1,000 ml @ 75 mls/hr [id number] IV 01/17/18 11:30 02/16/18 11:29 01/17/18 12:28 Diphenhydramine HCl (Benadryl) 25 mg Q6H PRN ORAL Itching/Pruritis 01/16/18 16:45 02/15/18 16:44 Fluoxetine HCl (PROzac) 20 mg DAILY ORAL 01/17/18 12:15 02/16/18 12:14 01/17/18 12:34 Heparin Sodium (Porcine) (Heparin 5000 units/ml) 5,000 units EVERY 8 HOURS SUBQ 01/16/18 22:00 02/15/18 13:59 01/16/18 21:53 Iopamidol (Isovue-300 100ml) 100 ml NOW PRN INJ Radiology Procedure 01/17/18 06:45 01/18/18 06:31 Lacosamide (Vimpat) 100 mg Q12HR ORAL 01/16/18 21:00 02/15/18 20:59 01/17/18 09:49 Mirtazapine (Remeron) 7.5 mg BEDTIME ORAL 01/17/18 21:00 02/16/18 20:59 Morphine Sulfate (Morphine Sulfate) 4 mg Q4H PRN IVP Severe Pain (Pain Scale 7-10) 01/16/18 17:00 01/23/18 16:59 Ondansetron HCl (Zofran) 4 mg Q6H PRN IVP Nausea & Vomiting 01/16/18 16:45 02/15/18 16:44 Piperacillin Sod/ Tazobactam Sod 3.375 gm/Dextrose 110 ml @ 27.5 mls/hr Q8H IVPB 01/16/18 16:00 01/23/18 15:59 01/17/18 08:00 Vancomycin HCl (Vanco rx to dose) 1 ea DAILY PRN MISC Per rx protocol 01/17/18 09:00 02/15/18 06:44 Vancomycin HCl/ Dextrose 250 ml @ 125 mls/hr Q24H IVPB 01/17/18 12:00 01/21/18 11:59 Assessment/Plan Status: stable Assessment/Plan Assessment (1) Healthcare-associated pneumonia (2) Sepsis (3) Tachycardia (4) UTI (urinary tract infection) (5) Brain cancer (6) Breast cancer in female (7) Morbid obesity with BMI of 40.0-44.9, adult (8) Hypokalemia (9) ATN (acute tubular necrosis) (10) Tachycardia Echocardiogram reviewed, normal LV function, troponin unremarkable, EKG with no ischemia Tachycardia from sepsis and pain, no not treat heart rate as it is compensatory Continue antibiotics Pain control physical therapy Supportive care No ischemia work up needed at this juncture. Ismael Brown M.D. Jan 17, 2018 14:05
--- NOTE | 2018-01-17 14:13 | Consultation ---
History of Present Illness General Date patient seen: Jan 17, 2018 Chief Complaint: Pain Reason for Consultation: pain Present Illness HPI 62 year old female with multiple medical comorbidities as noted below and in history presented with acutely worsening lower back pain. Admitted for care and management. Upon admission noted to have multiple wounds which were at different stages of healing. Surgery called to evaluate and assist with wound management. patient seen, chart reviewed, patient examined. Allergies: Coded Allergies: No Known Allergies (Unverified , 01/16/18) Medication History Scheduled Lacosamide (Vimpat), 100 MG PO BID, (Reported) Omeprazole (Omeprazole), Unknown Dose ORAL DAILY, (Reported) Patient History History Provided By: Patient, Medical Record, PMD Healthcare decision maker Resuscitation status Full Code Advanced Directive on File Past Medical/Surgical History Past Medical/Surgical History: (1) Abscess of chest wall (2) Brain cancer (3) Morbid obesity with BMI of 40.0-44.9, adult (4) Breast cancer in female (5) Tachycardia (6) Sepsis (7) UTI (urinary tract infection) (8) Healthcare-associated pneumonia (9) Hypokalemia (10) ATN (acute tubular necrosis) Review of Systems All Other Systems: negative except mentioned in HPI Physical Exam General Appearance: no apparent distress HEENT: mucous membranes moist Neck: normal inspection Respiratory/Chest: normal breath sounds, no respiratory distress, no accessory muscle use Cardiovascular/Chest: normal peripheral pulses, normal rate Abdomen: soft, no organomegaly, no mass Extremities: non-tender, normal inspection Skin Exam: warm/dry, other - see wound care photos Neurologic: alert, responsive Last 24 Hour Vital Signs Date Time Temp Pulse Resp B/P (MAP) Pulse Ox O2 Delivery O2 Flow Rate FiO2 01/17/18 12:31 99.1 01/17/18 08:00 Nasal Cannula 2.0 01/17/18 08:00 99.1 127 20 93/72 (79) 96 99.1 01/17/18 08:00 127 01/17/18 04:00 98.8 130 20 112/82 (92) 100 98.8 01/17/18 04:00 134 01/17/18 04:00 Nasal Cannula 2.0 01/17/18 00:00 Nasal Cannula 2.0 01/17/18 00:00 98.2 133 20 130/79 (96) 96 98.2 7/23/18 00:00 133 01/16/18 20:00 136 01/16/18 20:00 Nasal Cannula 2.0 01/16/18 20:00 98.2 133 20 102/50 (67) 96 98.2 01/16/18 19:06 134 26 Nasal Cannula 2.0 28 01/16/18 19:03 98.2 01/16/18 16:00 139 01/16/18 16:00 98.2 141 20 91/48 (62) 96 98.2 01/16/18 15:32 101.3 01/16/18 15:11 101.3 142 20 115/65 (82) 97 101.3 Intake and Output 01/16/18 01/17/18 19:00 07:00 Intake Total 580.0 ml 1340.0 ml Output Total 300 ml Balance 580.0 ml 1040.0 ml Intake Oral 120 ml 120 ml IV Total 460.0 ml 1220.0 ml Output Urine Total 300 ml # Voids 3 Laboratory Tests Test 01/17/18 03:20 01/17/18 04:00 White Blood Count 7.5 K/UL (4.8-10.8) Red Blood Count 4.19 M/UL (4.20-5.40) L Hemoglobin 12.6 G/DL (12.0-16.0) Hematocrit 37.3 % (37.0-47.0) Mean Corpuscular Volume 89 FL (80-99) Mean Corpuscular Hemoglobin 30.1 PG (27.0-31.0) Mean Corpuscular Hemoglobin Concent 33.8 G/DL (32.0-36.0) Red Cell Distribution Width 14.7 % (11.6-14.8) Platelet Count 72 K/UL (150-450) #L Mean Platelet Volume 7.4 FL (6.5-10.1) Neutrophils (%) (Auto) % (45.0-75.0) Lymphocytes (%) (Auto) % (20.0-45.0) Monocytes (%) (Auto) % (1.0-10.0) Eosinophils (%) (Auto) % (0.0-3.0) Basophils (%) (Auto) % (0.0-2.0) Differential Total Cells Counted 100 Neutrophils % (Manual) 72 % (45-75) Lymphocytes % (Manual) 6 % (20-45) L Monocytes % (Manual) 4 % (1-10) Eosinophils % (Manual) 0 % (0-3) Basophils % (Manual) 0 % (0-2) Band Neutrophils 18 % (0-8) H Platelet Estimate Decreased L Platelet Morphology Normal Anisocytosis 1+ Prothrombin Time 16.2 SEC (9.30-11.50) H Prothromb Time International Ratio 1.6 (0.9-1.1) H Activated Partial Thromboplast Time 46 SEC (23-33) H Sodium Level 131 MMOL/L (136-145) L Potassium Level 3.2 MMOL/L (3.5-5.1) L Chloride Level 98 MMOL/L (98-107) Carbon Dioxide Level 17 MMOL/L (21-32) L Anion Gap 16 mmol/L (5-15) H Blood Urea Nitrogen 25 mg/dL (7-18) H Creatinine 1.4 MG/DL (0.55-1.30) H Estimat Glomerular Filtration Rate 38.2 mL/min (>60) Glucose Level 89 MG/DL (74-106) Calcium Level 6.9 MG/DL (8.5-10.1) L Phosphorus Level 4.5 MG/DL (2.5-4.9) Magnesium Level 1.4 MG/DL (1.8-2.4) L Total Bilirubin 3.2 MG/DL (0.2-1.0) H Direct Bilirubin 1.8 MG/DL (0.0-0.3) H Aspartate Amino Transf (AST/SGOT) 121 U/L (15-37) H Alanine Aminotransferase (ALT/SGPT) 155 U/L (12-78) H Alkaline Phosphatase 124 U/L (46-116) H Total Protein 5.0 G/DL (6.4-8.2) L Albumin 1.9 G/DL (3.4-5.0) L Globulin 3.1 g/dL Albumin/Globulin Ratio 0.6 (1.0-2.7) L Height (Feet): 4 Height (Inches): 11.00 Weight (Pounds): 220 Medications Current Medications Medications (Trade) Dose Ordered Sig/Gloria Route PRN Reason Start Time Stop Time Status Last Admin Dose Admin Acetaminophen (Tylenol) 650 mg Q4H PRN ORAL Mild Pain (Pain Scale 1-3) 01/16/18 19:30 02/15/18 19:29 01/17/18 12:31 Acetaminophen (Tylenol) 650 mg Q4H PRN RECTAL Mild Pain (Pain Scale 1-3) 01/16/18 16:45 02/15/18 16:44 Al Hydroxide/Mg Hydroxide (Mylanta II) 30 ml Q6H PRN ORAL dyspepsia 01/16/18 16:45 02/15/18 16:44 Albuterol/ Ipratropium (Albuterol/ Ipratropium) 3 ml Q4HRT PRN HHN Shortness of Breath 01/16/18 19:00 01/21/18 06:44 Chlorhexidine Gluconate (Zuleika-Hex 2%) 1 applic DAILY@2000 TOPIC 01/16/18 20:00 02/15/18 19:59 01/16/18 20:03 Dextrose (Dextrose 50%) 25 ml STAT PRN IV Hypoglycemia 01/16/18 16:45 02/15/18 16:44 Dextrose (Dextrose 50%) 50 ml STAT PRN IV Hypoglycemia 01/16/18 16:45 02/15/18 16:44 Dextrose/ Electrolytes 1,000 ml @ 75 mls/hr [id number] IV 01/17/18 11:30 02/16/18 11:29 01/17/18 12:28 Diphenhydramine HCl (Benadryl) 25 mg Q6H PRN ORAL Itching/Pruritis 01/16/18 16:45 02/15/18 16:44 Fluoxetine HCl (PROzac) 20 mg DAILY ORAL 01/17/18 12:15 02/16/18 12:14 01/17/18 12:34 Heparin Sodium (Porcine) (Heparin 5000 units/ml) 5,000 units EVERY 8 HOURS SUBQ 01/16/18 22:00 02/15/18 13:59 01/16/18 21:53 Iopamidol (Isovue-300 100ml) 100 ml NOW PRN INJ Radiology Procedure 01/17/18 06:45 01/18/18 06:31 Lacosamide (Vimpat) 100 mg Q12HR ORAL 01/16/18 21:00 02/15/18 20:59 01/17/18 09:49 Mirtazapine (Remeron) 7.5 mg BEDTIME ORAL 01/17/18 21:00 02/16/18 20:59 Morphine Sulfate (Morphine Sulfate) 4 mg Q4H PRN IVP Severe Pain (Pain Scale 7-10) 01/16/18 17:00 01/23/18 16:59 Ondansetron HCl (Zofran) 4 mg Q6H PRN IVP Nausea & Vomiting 01/16/18 16:45 02/15/18 16:44 Piperacillin Sod/ Tazobactam Sod 3.375 gm/Dextrose 110 ml @ 27.5 mls/hr Q8H IVPB 01/16/18 16:00 01/23/18 15:59 01/17/18 08:00 Vancomycin HCl (Vanco rx to dose) 1 ea DAILY PRN MISC Per rx protocol 01/17/18 09:00 02/15/18 06:44 Vancomycin HCl/ Dextrose 250 ml @ 125 mls/hr Q24H IVPB 01/17/18 12:00 01/21/18 11:59 Assessment/Plan Problem List: (1) Ulcer of left lower leg Assessment & Plan: Left posterior distal loeg with 5cm x 4cm stage II slowly healing ulceration possibly from pressure or trauma. no active infection. wound bed with fibrinous tissue forming eschar no drainage no odor. present on admission Left inner proximal thigh with 4cm x 2cm stage II slowly healing skin ulceration likely from trauma no active infection. wound bed with fibrinous tissue forming eschar no drainage no odor. present on admission Right upper arm 5cm x 4cm stage III ulceration with exposed fat. slowly healing. etiology likely trauma. no active infection. no drainage no odor. present on admission wounds unlikely etiology of sepsis. clean wounds daily skin protectant and foam dressings. will monitor for need of debridement ICD Codes: L97.929 - Non-pressure chronic ulcer of unspecified part of left lower leg with unspecified severity SNOMED: [id number], [id number] Qualifiers: Qualified Codes: L97.921 - Non-pressure chronic ulcer of unspecified part of left lower leg limited to breakdown of skin (2) Sepsis Assessment & Plan: wounds unlikely etiology of sepsis. clean wounds daily skin protectant and foam dressings. will monitor for need of debridement ICD Codes: A41.9 - Sepsis, unspecified organism SNOMED: [id number] Qualifiers: Qualified Codes: A41.9 - Sepsis, unspecified organism Status: stable Juanito Rodriguez Jan 17, 2018 14:13
[2018-01-17] MEDS: Vancomycin 1.5gm/D5W 250ml 250 ML IVPB SCH (15:33)
[2018-01-17 16:00] VITALS: BP 107/60
--- NOTE | 2018-01-17 18:43 | Consultation ---
History of Present Illness General Date patient seen: Jan 17, 2018 Chief Complaint: Pain Reason for Consultation: pain Present Illness HPI 62 y/o F with hx of metastatic breast cancer (dx 2015) to brain s/p resection of brain tumor (2016) w/ resultant L side weakness currently undergoing chemotherapy twice a week, decubitus ulcers presents with acute worsening lower back pain and fever. Denies n/v, dysuria febrile to 101.7, now afebrile in 24hrs bacteremic GNRs no leukocytosis Allergies: Coded Allergies: No Known Allergies (Unverified , 01/16/18) Medication History Scheduled Lacosamide (Vimpat), 100 MG PO BID, (Reported) Omeprazole (Omeprazole), Unknown Dose ORAL DAILY, (Reported) Patient History Healthcare decision maker Resuscitation status Full Code Advanced Directive on File Patient History Narrative Pmhx: as above Shx: The patient is . The patient denies tobacco or alcohol use. Fhx: non contributory Review of Systems All Other Systems: negative except mentioned in HPI Physical Exam Physical Exam Narrative GENERAL: The patient is a well-developed and well-nourished slightly obese female, in no apparent distress. HEENT: Eyes, pupils are equal and responsive to light and accommodation. Extraocular movements are intact. NECK: Supple without lymphadenopathy. CHEST: Decreased breath sounds at bilateral bases with crackles. Otherwise, clear to auscultation without wheezes or rales. CARDIOVASCULAR: Regular rhythm and rate. S1 and S2 are normal without murmurs, rubs, or gallops. ABDOMEN: Soft, nontender, and nondistended. Positive bowel sounds. No evidence of hepatosplenomegaly. Currently, no rebound or guarding noted. EXTREMITIES: Negative for clubbing, cyanosis, or edema. Last 24 Hour Vital Signs Date Time Temp Pulse Resp B/P (MAP) Pulse Ox O2 Delivery O2 Flow Rate FiO2 01/17/18 17:58 133 01/17/18 17:52 125 28 Nasal Cannula 2.0 28 01/17/18 16:00 98.0 130 22 107/60 (76) 98 98.0 01/17/18 16:00 Nasal Cannula 2.0 01/17/18 13:30 98.0 01/17/18 12:31 99.1 01/17/18 12:00 129 01/17/18 12:00 99.5 120 20 135/76 (95) 97 99.5 01/17/18 12:00 Nasal Cannula 2.0 01/17/18 08:00 Nasal Cannula 2.0 01/17/18 08:00 99.1 127 20 93/72 (79) 96 99.1 01/17/18 08:00 127 01/17/18 04:00 98.8 130 20 112/82 (92) 100 98.8 01/17/18 04:00 134 01/17/18 04:00 Nasal Cannula 2.0 01/17/18 00:00 Nasal Cannula 2.0 01/17/18 00:00 98.2 133 20 130/79 (96) 96 98.2 01/17/18 00:00 133 01/16/18 20:00 136 01/16/18 20:00 Nasal Cannula 2.0 01/16/18 20:00 98.2 133 20 102/50 (67) 96 98.2 01/16/18 19:06 134 26 Nasal Cannula 2.0 28 01/16/18 19:03 98.2 Intake and Output 01/16/18 01/17/18 18:59 06:59 Intake Total 480.0 ml 1440.0 ml Output Total 300 ml Balance 480.0 ml 1140.0 ml Intake Oral 120 ml 120 ml IV Total 360.0 ml 1320.0 ml Output Urine Total 300 ml # Voids 3 Laboratory Tests Test 01/17/18 03:20 01/17/18 04:00 White Blood Count 7.5 K/UL (4.8-10.8) Red Blood Count 4.19 M/UL (4.20-5.40) L Hemoglobin 12.6 G/DL (12.0-16.0) Hematocrit 37.3 % (37.0-47.0) Mean Corpuscular Volume 89 FL (80-99) Mean Corpuscular Hemoglobin 30.1 PG (27.0-31.0) Mean Corpuscular Hemoglobin Concent 33.8 G/DL (32.0-36.0) Red Cell Distribution Width 14.7 % (11.6-14.8) Platelet Count 72 K/UL (150-450) #L Mean Platelet Volume 7.4 FL (6.5-10.1) Neutrophils (%) (Auto) % (45.0-75.0) Lymphocytes (%) (Auto) % (20.0-45.0) Monocytes (%) (Auto) % (1.0-10.0) Eosinophils (%) (Auto) % (0.0-3.0) Basophils (%) (Auto) % (0.0-2.0) Differential Total Cells Counted 100 Neutrophils % (Manual) 72 % (45-75) Lymphocytes % (Manual) 6 % (20-45) L Monocytes % (Manual) 4 % (1-10) Eosinophils % (Manual) 0 % (0-3) Basophils % (Manual) 0 % (0-2) Band Neutrophils 18 % (0-8) H Platelet Estimate Decreased L Platelet Morphology Normal Anisocytosis 1+ Prothrombin Time 16.2 SEC (9.30-11.50) H Prothromb Time International Ratio 1.6 (0.9-1.1) H Activated Partial Thromboplast Time 46 SEC (23-33) H Sodium Level 131 MMOL/L (136-145) L Potassium Level 3.2 MMOL/L (3.5-5.1) L Chloride Level 98 MMOL/L (98-107) Carbon Dioxide Level 17 MMOL/L (21-32) L Anion Gap 16 mmol/L (5-15) H Blood Urea Nitrogen 25 mg/dL (7-18) H Creatinine 1.4 MG/DL (0.55-1.30) H Estimat Glomerular Filtration Rate 38.2 mL/min (>60) Glucose Level 89 MG/DL (74-106) Calcium Level 6.9 MG/DL (8.5-10.1) L Phosphorus Level 4.5 MG/DL (2.5-4.9) Magnesium Level 1.4 MG/DL (1.8-2.4) L Total Bilirubin 3.2 MG/DL (0.2-1.0) H Direct Bilirubin 1.8 MG/DL (0.0-0.3) H Aspartate Amino Transf (AST/SGOT) 121 U/L (15-37) H Alanine Aminotransferase (ALT/SGPT) 155 U/L (12-78) H Alkaline Phosphatase 124 U/L (46-116) H Total Protein 5.0 G/DL (6.4-8.2) L Albumin 1.9 G/DL (3.4-5.0) L Globulin 3.1 g/dL Albumin/Globulin Ratio 0.6 (1.0-2.7) L Height (Feet): 4 Height (Inches): 11.00 Weight (Pounds): 220 Medications Current Medications Medications (Trade) Dose Ordered Sig/Gloria Route PRN Reason Start Time Stop Time Status Last Admin Dose Admin Acetaminophen (Tylenol) 650 mg Q4H PRN ORAL Mild Pain (Pain Scale 1-3) 01/16/18 19:30 02/15/18 19:29 01/17/18 12:31 Acetaminophen (Tylenol) 650 mg Q4H PRN RECTAL Mild Pain (Pain Scale 1-3) 01/16/18 16:45 02/15/18 16:44 Al Hydroxide/Mg Hydroxide (Mylanta II) 30 ml Q6H PRN ORAL dyspepsia 01/16/18 16:45 02/15/18 16:44 Albuterol/ Ipratropium (Albuterol/ Ipratropium) 3 ml Q4HRT PRN HHN Shortness of Breath 01/16/18 19:00 01/21/18 06:44 Chlorhexidine Gluconate (Zuleika-Hex 2%) 1 applic DAILY@2000 TOPIC 01/16/18 20:00 02/15/18 19:59 01/16/18 20:03 Dextrose (Dextrose 50%) 25 ml STAT PRN IV Hypoglycemia 01/16/18 16:45 02/15/18 16:44 Dextrose (Dextrose 50%) 50 ml STAT PRN IV Hypoglycemia 01/16/18 16:45 02/15/18 16:44 Dextrose/ Electrolytes 1,000 ml @ 75 mls/hr [id number] IV 01/17/18 11:30 02/16/18 11:29 01/17/18 12:28 Diphenhydramine HCl (Benadryl) 25 mg Q6H PRN ORAL Itching/Pruritis 01/16/18 16:45 02/15/18 16:44 Fluoxetine HCl (PROzac) 20 mg DAILY ORAL 01/17/18 12:15 02/16/18 12:14 01/17/18 12:34 Heparin Sodium (Porcine) (Heparin 5000 units/ml) 5,000 units EVERY 8 HOURS SUBQ 01/16/18 22:00 02/15/18 13:59 01/16/18 21:53 Iopamidol (Isovue-300 100ml) 100 ml NOW PRN INJ Radiology Procedure 01/17/18 06:45 01/18/18 06:31 Lacosamide (Vimpat) 100 mg Q12HR ORAL 01/16/18 21:00 02/15/18 20:59 01/17/18 09:49 Mirtazapine (Remeron) 7.5 mg BEDTIME ORAL 01/17/18 21:00 02/16/18 20:59 Morphine Sulfate (Morphine Sulfate) 4 mg Q4H PRN IVP Severe Pain (Pain Scale 7-10) 01/16/18 17:00 01/23/18 16:59 Ondansetron HCl (Zofran) 4 mg Q6H PRN IVP Nausea & Vomiting 01/16/18 16:45 02/15/18 16:44 Piperacillin Sod/ Tazobactam Sod 3.375 gm/Dextrose 110 ml @ 27.5 mls/hr Q8H IVPB 01/16/18 16:00 01/23/18 15:59 01/17/18 15:33 Vancomycin HCl (Vanco rx to dose) 1 ea DAILY PRN MISC Per rx protocol 01/17/18 09:00 02/15/18 06:44 Vancomycin HCl/ Dextrose 250 ml @ 125 mls/hr Q24H IVPB 01/17/18 12:00 01/21/18 11:59 01/17/18 15:33 Assessment/Plan Assessment/Plan Abx: IV Vanco 01/16- Zosyn 01/16- Cefepime x1 01/16 Levaquin x1 01/16 Assessment: Sepsis 2ry to UTI, bacteremia and PNA- ?nephrolithiasis- r/o luciana cath infection (report of purulent discharge per family member, however on my exam no pus or signs of infection) -u/a wbc 20-30, nit +, leuk +2; ucx >100k GNR -BCx 2/4 GNRs -CT chest: Dependent consolidation throughout both lungs, right greater than left, likely related to dependent atelectasis. Small hiatal hernia. Cholelithiasis without gallbladder wall thickening. Possible nephrolithiasis versus early contrast excretion in the left upper renal pole. fever, improving -no leukcoytosis RASHEED, increasing metastatic breast cancer (dx 2014) to brain s/p resection of brain tumor (2016) w/ resultant L side weakness currently undergoing chemotherapy twice a week multiple decubitus ulcers- no signs of infection -wound cx GNRs (likely colonizers) Plan: -Continue empiric IV Vanco #2 pending sputum cx -Switch Zosyn #2 to Meropenem for ESBL coverage penidng Bcx and uCx -repeat 2 sets of Bcxl; obtain 1 set for portacath -Renal US, 2d Echo -f/u cx -Monitor CBC/CMP, temperatures -aspiration precautions -wound care per hosp protocol Thank you for this consultation. Will continue to follow along with you. Discussed with PATRICIA. Yazmin Penn M.D. Jan 17, 2018 18:43
[2018-01-17 20:00] VITALS: BP 121/76
--- NOTE | 2018-01-17 20:59 | Cardiology Report ---
APPROVED REPORT EXAM: Two-dimensional and M-mode echocardiogram with Doppler and color Doppler. INDICATION Tachycardia M-Mode DIMENSIONS IVSd1.9 (0.7-1.1cm)Left Atrium (MM)3.6 (1.6-4.0cm) LVDd3.3 (3.5-5.6cm)Aortic Root3.1 (2.0-3.7cm) PWd1.4 (0.7-1.1cm)Aortic Cusp Exc.1.8 (1.5-2.0cm) LVDs2.1 (2.5-4.0cm) PWs1.4 cm Normal left ventricular chamber size, systolic function and wall motion to extent visualized. Left ventricular ejection fraction estimated to be 55-60 %. Study quality precludes accurate assessment of regional wall motion. Mild left ventricular hypertrophy by 2-D Anterior Echo-free space, may be due to pericardial fat or effusion. All other cardiac chamber sizes are within normal limits. Focal aortic valve sclerosis with adequate cusp excursion. Thickened mitral valve leaflets with normal excursion. Mitral annulus and aortic root calcification. Pulmonic valve not well visualized. Normal tricuspid valve structure. IVC at normal size with physiologic collapse. A color flow and spectral Doppler study was performed and revealed: Trace mitral regurgitation. Mitral inflow indicates normal left ventricular diastolic function. Trace to mild tricuspid regurgitation. Tricuspid systolic velocities suggests peak right ventricular systolic pressure of 33 mmHg.
[2018-01-17] MEDS: Dyna-Hex 2% Top Sol 2oz TOPIC SCH (21:56)
[2018-01-17] MEDS: Meropenem 1 GM in NS 55 ML IVPB SCH (21:58)
[2018-01-18] VITALS: BP 105/67
--- NOTE | 2018-01-18 01:00 | Consultation ---
DATE OF CONSULTATION: 01/17/2018 NOTE: POOR AUDIO HEMATOLOGY/ONCOLOGY CONSULTATION CONSULTING PHYSICIAN: Diaz Moody M.D. REASON FOR CONSULTATION: Evaluation of metastatic breast cancer. IDENTIFYING DATA: Dear Dr. Ayo Roth and Dr. Lezn, The patient is a pleasant 62-year-old female with history of metastatic breast cancer to the brain, history of low back pain, has been undergoing chemotherapy for a week and looks experiencing lower back pain, denies any trauma, who presents to the [facility]. Chest x-ray showed a right-sided pneumonia, has a history of breast cancer metastasized to the brain, diagnosed in 2016, status post resection in 2016. I have seen her back several months ago . At this time, she presents again with chest pain pneumonia. Oncology Service consulted. PAST MEDICAL HISTORY: Breast cancer with metastasis to the brain in 2016. PAST SURGICAL HISTORY: resection in 2016. CURRENT MEDICATIONS: Vimpat and omeprazole. ALLERGIES: No known drug allergies. SOCIAL HISTORY: No alcohol, tobacco, or illicit drug use. REVIEW OF SYSTEMS: CONSTITUTIONAL: No fevers, chills, or night sweats. SKIN: No rashes, bumps, or itching. HEENT: No headache, hearing or visual changes. BREASTS: . PULMONARY: No cough, sputum, or shortness of breath. GASTROINTESTINAL: No nausea, vomiting, or diarrhea. GENITOURINARY: No dysuria, frequency, or urgency. MUSCULOSKELETAL: No joint swelling, muscle pain, or trauma. PHYSICAL EXAMINATION: VITAL SIGNS: Reviewed. GENERAL: No distress. LUNGS: Decreased breath sounds. CARDIOVASCULAR: Regular rate. No S3 or S4. ABDOMEN: Soft, nontender, and nondistended. EXTREMITIES: A 1+ edema. LABORATORY AND DIAGNOSTIC DATA: Labs reviewed. WBC 7.5, hemoglobin , and platelet count . INR of 1.6. ASSESSMENT AND RECOMMENDATION: 1. Metastatic breast cancer to the brain. Continue to follow up with Oncology Service in the outpatient setting. Closely monitor for improvement. 2. Anemia due to underlying chronic disease. Continue to closely monitor. 3. Thrombocytopenia, likely secondary to urosepsis, gram-negative rods 4/4 bottles. 4. Urinary tract infection, on antibiotics. 5. Hypokalemia, replete as needed. 6. Coagulopathy, potentially secondary to decreased p.o. intake. I appreciate the consultation. Diaz Moody M.D. DR: COREY JOB#: [id number] CC:
[2018-01-18 04:00] VITALS: BP 140/55
[2018-01-18 04:34] LABS: HEMATOCRIT 34.2 % (37.0-47.0); HEMOGLOBIN 11.6 G/DL (12.0-16.0); MEAN CORPUSCULAR VOLUME 89 FL (80-99); PLATELET COUNT 63 K/UL (150-450); RED BLOOD COUNT 3.86 M/UL (4.20-5.40); RED CELL DISTRIBUTION WIDTH 14.7 % (11.6-14.8); WHITE BLOOD COUNT 6.2 K/UL (4.8-10.8)
[2018-01-18 04:58] LABS: ALANINE AMINOTRANSFERASE 156 U/L (12-78); ALBUMIN/GLOBULIN RATIO 0.6 (1.0-2.7); ALKALINE PHOSPHATASE 138 U/L (46-116); ANION GAP 12 mmol/L (5-15); ASPARTATE AMINO TRANSFERASE 93 U/L (15-37); BILIRUBIN,TOTAL 1.7 MG/DL (0.2-1.0); BLOOD UREA NITROGEN 13 mg/dL (7-18); CALCIUM 7.8 MG/DL (8.5-10.1); CARBON DIOXIDE 23 MMOL/L (21-32); CHLORIDE 105 MMOL/L (98-107); CREATININE 1.1 MG/DL (0.55-1.30); POTASSIUM 3.1 MMOL/L (3.5-5.1); SODIUM 140 MMOL/L (136-145)
[2018-01-18 05:01] LABS: BILIRUBIN,DIRECT 0.8 MG/DL (0.0-0.3)
[2018-01-18] MEDS: Heparin 5000 units/ml inj SUBQ SCH ×3 (05:57→21:36)
[2018-01-18 08:00] VITALS: BP 140/81
--- NOTE | 2018-01-18 08:55 | General Progress Note ---
Assessment/Plan Status: unchanged Assessment/Plan 1. Metastatic breast cancer to the brain. Currently on treatment with Dr. Verma --> Continue to follow up with Oncology Service in the outpatient setting. --> Closely monitor for improvement. 2. Anemia due to underlying chronic disease. --> Continue to closely monitor. --> Anemia w/u has been reviewed. Will trend cbc daily. --> Hgb goal >7 3. Thrombocytopenia, likely secondary to urosepsis, gram-negative rods 4/4 bottles. 4. Urinary tract infection, on antibiotics. 5. Hypokalemia, replete as needed. 6. Coagulopathy, potentially secondary to decreased p.o. intake. The time the note was entered does not necessarily correspond to the time the patient was seen. Subjective Date patient seen: Jan 18, 2018 ROS Limited/Unobtainable: Yes Hematologic/Lymphatic: Reports: anemia Allergies: Coded Allergies: No Known Allergies (Unverified , 01/16/18) All Systems: reviewed and negative except above Subjective Pt awake and alert. No acute events. Vitals are stable. Objective Last 24 Hour Vital Signs Date Time Temp Pulse Resp B/P (MAP) Pulse Ox O2 Delivery O2 Flow Rate FiO2 01/18/18 04:00 99.0 129 20 140/55 (83) 95 99.0 01/18/18 04:00 Nasal Cannula 2.0 01/18/18 04:00 119 01/18/18 00:00 133 01/18/18 00:00 99.4 130 22 105/67 (80) 99 99.4 01/18/18 00:00 Nasal Cannula 2.0 01/17/18 22:56 99.4 01/17/18 21:57 99.3 01/17/18 20:00 Nasal Cannula 2.0 01/17/18 20:00 99.3 129 20 121/76 (91) 97 99.3 01/17/18 20:00 127 01/17/18 17:58 133 01/17/18 17:52 125 28 Nasal Cannula 2.0 28 01/17/18 16:00 98.0 130 22 107/60 (76) 98 98.0 01/17/18 16:00 Nasal Cannula 2.0 01/17/18 12:31 99.1 01/17/18 12:00 129 01/17/18 12:00 99.5 120 20 135/76 (95) 97 99.5 01/17/18 12:00 Nasal Cannula 2.0 Intake and Output 01/17/18 01/18/18 19:00 07:00 Intake Total 325 ml 280 ml Output Total 200 ml 150 ml Balance 125 ml 130 ml IV Total 325 ml 280 ml Output Urine Total 200 ml 150 ml # Voids 2 2 # Bowel Movements 1 2 Laboratory Tests 01/18/18 03:31: White Blood Count 6.2, Red Blood Count 3.86L, Hemoglobin 11.6L, Hematocrit 34.2L , Mean Corpuscular Volume 89, Mean Corpuscular Hemoglobin 30.1, Mean Corpuscular Hemoglobin Concent 33.9, Red Cell Distribution Width 14.7, Platelet Count 63L, Mean Platelet Volume 7.6, Neutrophils (%) (Auto) , Lymphocytes (%) ( Auto) , Monocytes (%) (Auto) , Eosinophils (%) (Auto) , Basophils (%) (Auto) , Neutrophils % (Manual) [Pending], Lymphocytes % (Manual) [Pending], Platelet Estimate [Pending], Platelet Morphology [Pending], Sodium Level 140, Potassium Level 3.1L, Chloride Level 105, Carbon Dioxide Level 23, Anion Gap 12, Blood Urea Nitrogen 13, Creatinine 1.1, Estimat Glomerular Filtration Rate 50.5, Glucose Level 114H, Calcium Level 7.8L, Total Bilirubin 1.7H, Direct Bilirubin 0.8H, Aspartate Amino Transf (AST/SGOT) 93H, Alanine Aminotransferase (ALT/SGPT ) 156H, Alkaline Phosphatase 138H, Pro-B-Type Natriuretic Peptide 353H, Total Protein 5.4L, Albumin 2.0L, Globulin 3.4, Albumin/Globulin Ratio 0.6L Height (Feet): 4 Height (Inches): 11.00 Weight (Pounds): 220 General Appearance: no apparent distress, alert EENT: PERRL/EOMI Neck: normal alignment Cardiovascular: normal peripheral pulses Respiratory/Chest: no respiratory distress Abdomen: soft Diaz Moody MD Jan 18, 2018 08:55
--- NOTE | 2018-01-18 09:42 | Cardiology Progress Note ---
Assessment/Plan Status: stable Assessment/Plan Assessment (1) Healthcare-associated pneumonia (2) Sepsis (3) Tachycardia (4) UTI (urinary tract infection) (5) Brain cancer (6) Breast cancer in female (7) Morbid obesity with BMI of 40.0-44.9, adult (8) Hypokalemia (9) ATN (acute tubular necrosis) (10) Tachycardia Echocardiogram reviewed, normal LV function, troponin unremarkable, EKG with no ischemia Tachycardia from sepsis and pain, no not treat heart rate as it is compensatory Continue antibiotics Pain control physical therapy Wound care empiric antibiotics Supportive care No ischemia work up needed at this juncture. Subjective Cardiovascular: Reports: no symptoms Respiratory: Reports: no symptoms Gastrointestinal/Abdominal: Reports: no symptoms Genitourinary: Reports: no symptoms Subjective NO acute events, remains tachycardic, vitals otherwise stable. No distress, on nasal canula Objective Last 24 Hour Vital Signs Date Time Temp Pulse Resp B/P (MAP) Pulse Ox O2 Delivery O2 Flow Rate FiO2 01/18/18 07:46 133 01/18/18 04:00 99.0 129 20 140/55 (83) 95 99.0 01/18/18 04:00 Nasal Cannula 2.0 01/18/18 04:00 119 01/18/18 00:00 133 01/18/18 00:00 99.4 130 22 105/67 (80) 99 99.4 01/18/18 00:00 Nasal Cannula 2.0 01/17/18 22:56 99.4 01/17/18 21:57 99.3 01/17/18 20:00 Nasal Cannula 2.0 01/17/18 20:00 99.3 129 20 121/76 (91) 97 99.3 01/17/18 20:00 127 01/17/18 17:58 133 01/17/18 17:52 125 28 Nasal Cannula 2.0 28 01/17/18 16:00 98.0 130 22 107/60 (76) 98 98.0 01/17/18 16:00 Nasal Cannula 2.0 01/17/18 12:31 99.1 01/17/18 12:00 129 01/17/18 12:00 99.5 120 20 135/76 (95) 97 99.5 01/17/18 12:00 Nasal Cannula 2.0 General Appearance: no apparent distress EENT: PERRL/EOMI Neck: non-tender Rhythm: NSR Cardiovascular: normal peripheral pulses Respiratory/Chest: chest wall non-tender, lungs clear, normal breath sounds Abdomen: normal bowel sounds Extremities: normal range of motion 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8) Platelet Count 63 K/UL (150-450) L Mean Platelet Volume 7.6 FL (6.5-10.1) Neutrophils (%) (Auto) % (45.0-75.0) Lymphocytes (%) (Auto) % (20.0-45.0) Monocytes (%) (Auto) % (1.0-10.0) Eosinophils (%) (Auto) % (0.0-3.0) Basophils (%) (Auto) % (0.0-2.0) Neutrophils % (Manual) Pending Lymphocytes % (Manual) Pending Platelet Estimate Pending Platelet Morphology Pending Sodium Level 140 MMOL/L (136-145) Potassium Level 3.1 MMOL/L (3.5-5.1) L Chloride Level 105 MMOL/L (98-107) Carbon Dioxide Level 23 MMOL/L (21-32) Anion Gap 12 mmol/L (5-15) Blood Urea Nitrogen 13 mg/dL (7-18) Creatinine 1.1 MG/DL (0.55-1.30) Estimat Glomerular Filtration Rate 50.5 mL/min (>60) Glucose Level 114 MG/DL (74-106) H Calcium Level 7.8 MG/DL (8.5-10.1) L Total Bilirubin 1.7 MG/DL (0.2-1.0) H Direct Bilirubin 0.8 MG/DL (0.0-0.3) H Aspartate Amino Transf (AST/SGOT) 93 U/L (15-37) H Alanine Aminotransferase (ALT/SGPT) 156 U/L (12-78) H Alkaline Phosphatase 138 U/L (46-116) H Pro-B-Type Natriuretic Peptide 353 pg/mL (0-125) H Total Protein 5.4 G/DL (6.4-8.2) L Albumin 2.0 G/DL (3.4-5.0) L Globulin 3.4 g/dL Albumin/Globulin Ratio 0.6 (1.0-2.7) L Microbiology Date/Time Source Procedure Growth Status 01/16/18 04:00 Blood Blood Culture - Preliminary Gram Negative Bacillus 1 Resulted 01/16/18 03:45 Blood Blood Culture - Preliminary Gram Negative Bacillus 1 Resulted 01/16/18 04:00 Other Gram Stain - Final Resulted 01/16/18 04:00 Wound Culture - Preliminary Gram Negative Bacillus 1 Gram Positive Cocci Resulted 01/16/18 04:00 Urine,Clean Catch Urine Culture - Final Escherichia Coli Complete Ismael Brown M.D. Jan 18, 2018 09:42
[2018-01-18] MEDS: Lacosamide 100 MG TABLET ORAL SCH ×2 (09:49→20:46)
[2018-01-18] MEDS: Meropenem 1 GM in NS 55 ML IVPB SCH ×2 (10:09→20:46)
--- NOTE | 2018-01-18 10:46 | Pulmonology Progress Note ---
Assessment/Plan Problems: (1) Healthcare-associated pneumonia (2) Sepsis (3) Tachycardia (4) UTI (urinary tract infection) (5) Brain cancer (6) Breast cancer in female (7) Morbid obesity with BMI of 40.0-44.9, adult (8) Hypokalemia (9) ATN (acute tubular necrosis) Assessment/Plan iv fluids continue abx check cultures, BC positive for GNR check electrolytes check urine lytes renal studies, renal function improving echo reviewed cardiology evaluation appreciated Subjective ROS Limited/Unobtainable: Yes Interval Events: somnolent Allergies: Coded Allergies: No Known Allergies (Unverified , 01/16/18) Objective Last 24 Hour Vital Signs Date Time Temp Pulse Resp B/P (MAP) Pulse Ox O2 Delivery O2 Flow Rate FiO2 01/18/18 09:49 98.0 01/18/18 09:00 Nasal Cannula 2.0 01/18/18 07:46 133 01/18/18 04:00 99.0 129 20 140/55 (83) 95 99.0 01/18/18 04:00 Nasal Cannula 2.0 01/18/18 04:00 119 01/18/18 00:00 133 01/18/18 00:00 99.4 130 22 105/67 (80) 99 99.4 01/18/18 00:00 Nasal Cannula 2.0 01/17/18 22:56 99.4 01/17/18 21:57 99.3 01/17/18 20:00 Nasal Cannula 2.0 01/17/18 20:00 99.3 129 20 121/76 (91) 97 99.3 01/17/18 20:00 127 01/17/18 17:58 133 01/17/18 17:52 125 28 Nasal Cannula 2.0 28 01/17/18 16:00 98.0 130 22 107/60 (76) 98 98.0 01/17/18 16:00 Nasal Cannula 2.0 01/17/18 12:31 99.1 01/17/18 12:00 129 01/17/18 12:00 99.5 120 20 135/76 (95) 97 99.5 01/17/18 12:00 Nasal Cannula 2.0 Intake and Output 01/17/18 01/18/18 19:00 07:00 Intake Total 325 ml 280 ml Output Total 200 ml 150 ml Balance 125 ml 130 ml IV Total 325 ml 280 ml Output Urine Total 200 ml 150 ml # Voids 2 2 # Bowel Movements 1 2 General Appearance: WD/WN HEENT: normocephalic, atraumatic Respiratory/Chest: chest wall non-tender, lungs clear Breasts: no masses Cardiovascular: normal peripheral pulses, normal rate Abdomen: normal bowel sounds, soft, non tender, no organomegaly Genitourinary: normal external genitalia Extremities: no cyanosis, no clubbing Neurologic/Psychiatric: lockstitch lining setter II-XII grossly normal, no motor/sensory deficits Lymphatic: no neck adenopathy, no groin adenopathy Musculoskeletal: no effusion Microbiology Date/Time Source Procedure Growth Status 01/16/18 04:00 Blood Blood Culture - Preliminary Gram Negative Bacillus 1 Resulted 01/16/18 03:45 Blood Blood Culture - Preliminary Gram Negative Bacillus 1 Resulted 01/16/18 04:00 Other Gram Stain - Final Resulted 01/16/18 04:00 Wound Culture - Preliminary Gram Negative Bacillus 1 Gram Positive Cocci Resulted 01/16/18 04:00 Urine,Clean Catch Urine Culture - Final Escherichia Coli Complete Laboratory Tests 01/18/18 03:31: White Blood Count 6.2, Red Blood Count 3.86L, Hemoglobin 11.6L, Hematocrit 34.2L , Mean Corpuscular Volume 89, Mean Corpuscular Hemoglobin 30.1, Mean Corpuscular Hemoglobin Concent 33.9, Red Cell Distribution Width 14.7, Platelet Count 63L, Mean Platelet Volume 7.6, Neutrophils (%) (Auto) , Lymphocytes (%) ( Auto) , Monocytes (%) (Auto) , Eosinophils (%) (Auto) , Basophils (%) (Auto) , Differential Total Cells Counted 100, Neutrophils % (Manual) 82H, Lymphocytes % (Manual) 7L, Monocytes % (Manual) 4, Eosinophils % (Manual) 0, Basophils % ( Manual) 0, Band Neutrophils 7, Platelet Estimate DecreasedL, Platelet Morphology Normal, Anisocytosis 1+, Sodium Level 140, Potassium Level 3.1L, Chloride Level 105, Carbon Dioxide Level 23, Anion Gap 12, Blood Urea Nitrogen 13, Creatinine 1.1, Estimat Glomerular Filtration Rate 50.5, Glucose Level 114H , Calcium Level 7.8L, Total Bilirubin 1.7H, Direct Bilirubin 0.8H, Aspartate Amino Transf (AST/SGOT) 93H, Alanine Aminotransferase (ALT/SGPT) 156H, Alkaline Phosphatase 138H, Pro-B-Type Natriuretic Peptide 353H, Total Protein 5.4L, Albumin 2.0L, Globulin 3.4, Albumin/Globulin Ratio 0.6L Current Medications Medications (Trade) Dose Ordered Sig/Gloria Route PRN Reason Start Time Stop Time Status Last Admin Dose Admin Acetaminophen (Tylenol) 650 mg Q4H PRN ORAL Mild Pain (Pain Scale 1-3) 01/16/18 19:30 02/15/18 19:29 01/18/18 09:49 Acetaminophen (Tylenol) 650 mg Q4H PRN RECTAL Mild Pain (Pain Scale 1-3) 01/16/18 16:45 02/15/18 16:44 Al Hydroxide/Mg Hydroxide (Mylanta II) 30 ml Q6H PRN ORAL dyspepsia 01/16/18 16:45 02/15/18 16:44 Albuterol/ Ipratropium (Albuterol/ Ipratropium) 3 ml Q4HRT PRN HHN Shortness of Breath 01/16/18 19:00 01/21/18 06:44 Chlorhexidine Gluconate (Zuleika-Hex 2%) 1 applic DAILY@2000 TOPIC 01/16/18 20:00 02/15/18 19:59 01/17/18 21:56 Dextrose (Dextrose 50%) 25 ml STAT PRN IV Hypoglycemia 01/16/18 16:45 02/15/18 16:44 Dextrose (Dextrose 50%) 50 ml STAT PRN IV Hypoglycemia 01/16/18 16:45 02/15/18 16:44 Dextrose/ Electrolytes 1,000 ml @ 75 mls/hr [id number] IV 01/17/18 11:30 02/16/18 11:29 01/18/18 01:57 Diphenhydramine HCl (Benadryl) 25 mg Q6H PRN ORAL Itching/Pruritis 01/16/18 16:45 02/15/18 16:44 Fluoxetine HCl (PROzac) 20 mg DAILY ORAL 01/17/18 12:15 02/16/18 12:14 01/18/18 09:49 Heparin Sodium (Porcine) (Heparin 5000 units/ml) 5,000 units EVERY 8 HOURS SUBQ 01/16/18 22:00 02/15/18 13:59 01/16/18 21:53 Lacosamide (Vimpat) 100 mg Q12HR ORAL 01/16/18 21:00 02/15/18 20:59 01/18/18 09:49 Meropenem 1 gm/ Sodium Chloride 55 ml @ 110 mls/hr Q12HR IVPB 01/17/18 21:00 01/22/18 20:59 01/18/18 10:09 Mirtazapine (Remeron) 7.5 mg BEDTIME ORAL 01/17/18 21:00 02/16/18 20:59 01/17/18 21:57 Morphine Sulfate (Morphine Sulfate) 4 mg Q4H PRN IVP Severe Pain (Pain Scale 7-10) 01/16/18 17:00 01/23/18 16:59 Ondansetron HCl (Zofran) 4 mg Q6H PRN IVP Nausea & Vomiting 01/16/18 16:45 02/15/18 16:44 Vancomycin HCl (Vanco rx to dose) 1 ea DAILY PRN MISC Per rx protocol 01/17/18 09:00 02/15/18 06:44 Vancomycin HCl/ Dextrose 250 ml @ 125 mls/hr Q24H IVPB 01/17/18 12:00 01/21/18 11:59 01/17/18 15:33 Miguel A Lenz MD Jan 18, 2018 10:46
[2018-01-18 11:57] VITALS: BP 167/112
--- NOTE | 2018-01-18 12:22 | Diagnostic Imaging Report ---
Indication: Cough Technique: One view of the chest Comparison: 01/16/2018 Findings: Right chest port catheter is again demonstrated. The heart is borderline enlarged. Central bronchial wall thickening is again noted. Infiltrates currently. Previously demonstrated right sided opacities have improved No definite Impression: Improved right lung parenchymal disease. No definite acute process currently.
[2018-01-18] MEDS ORDERED: HydrALAZINE 10mg Tab ORAL SCH (12:30)
[2018-01-18] MEDS ORDERED: HydrALAZINE 10mg Tab ORAL PRN (13:00)
--- NOTE | 2018-01-18 13:14 | General Surgery Progress Note ---
General Surgery-Progress Note Subjective Additional Comments no acute events. comfortable. Objective Last 24 Hour Vital Signs Date Time Temp Pulse Resp B/P (MAP) Pulse Ox O2 Delivery O2 Flow Rate FiO2 01/18/18 12:53 167/112 01/18/18 12:47 Nasal Cannula 2.0 01/18/18 11:57 98.2 122 20 167/112 (130) 99 98.2 01/18/18 11:42 117 01/18/18 10:48 98.0 01/18/18 09:49 98.0 01/18/18 09:00 Nasal Cannula 2.0 01/18/18 08:00 97.7 130 20 140/81 (100) 98 97.7 01/18/18 07:46 133 01/18/18 04:00 99.0 129 20 140/55 (83) 95 99.0 01/18/18 04:00 Nasal Cannula 2.0 01/18/18 04:00 119 01/18/18 00:00 133 01/18/18 00:00 99.4 130 22 105/67 (80) 99 99.4 01/18/18 00:00 Nasal Cannula 2.0 01/17/18 21:57 99.3 01/17/18 20:00 Nasal Cannula 2.0 01/17/18 20:00 99.3 129 20 121/76 (91) 97 99.3 01/17/18 20:00 127 01/17/18 17:58 133 01/17/18 17:52 125 28 Nasal Cannula 2.0 28 01/17/18 16:00 98.0 130 22 107/60 (76) 98 98.0 01/17/18 16:00 Nasal Cannula 2.0 I&O Intake and Output 01/17/18 01/18/18 19:00 07:00 Intake Total 325 ml 280 ml Output Total 200 ml 150 ml Balance 125 ml 130 ml IV Total 325 ml 280 ml Output Urine Total 200 ml 150 ml # Voids 2 2 # Bowel Movements 1 2 Wound: clean, dry Drains: none Cardiovascular: RSR Respiratory: clear Abdomen: soft, flat, non-tender, present bowel sounds Extremities: edema, tenderness, pulses Laboratory Tests Test 01/18/18 03:31 01/18/18 11:15 White Blood Count 6.2 K/UL (4.8-10.8) Red Blood Count 3.86 M/UL (4.20-5.40) L Hemoglobin 11.6 G/DL (12.0-16.0) L Hematocrit 34.2 % (37.0-47.0) L Mean Corpuscular Volume 89 FL (80-99) Mean Corpuscular Hemoglobin 30.1 PG (27.0-31.0) Mean Corpuscular Hemoglobin Concent 33.9 G/DL (32.0-36.0) Red Cell Distribution Width 14.7 % (11.6-14.8) Platelet Count 63 K/UL (150-450) L Mean Platelet Volume 7.6 FL (6.5-10.1) Neutrophils (%) (Auto) % (45.0-75.0) Lymphocytes (%) (Auto) % (20.0-45.0) Monocytes (%) (Auto) % (1.0-10.0) Eosinophils (%) (Auto) % (0.0-3.0) Basophils (%) (Auto) % (0.0-2.0) Differential Total Cells Counted 100 Neutrophils % (Manual) 82 % (45-75) H Lymphocytes % (Manual) 7 % (20-45) L Monocytes % (Manual) 4 % (1-10) Eosinophils % (Manual) 0 % (0-3) Basophils % (Manual) 0 % (0-2) Band Neutrophils 7 % (0-8) Platelet Estimate Decreased L Platelet Morphology Normal Anisocytosis 1+ Sodium Level 140 MMOL/L (136-145) Potassium Level 3.1 MMOL/L (3.5-5.1) L Chloride Level 105 MMOL/L (98-107) Carbon Dioxide Level 23 MMOL/L (21-32) Anion Gap 12 mmol/L (5-15) Blood Urea Nitrogen 13 mg/dL (7-18) Creatinine 1.1 MG/DL (0.55-1.30) Estimat Glomerular Filtration Rate 50.5 mL/min (>60) Glucose Level 114 MG/DL (74-106) H Calcium Level 7.8 MG/DL (8.5-10.1) L Total Bilirubin 1.7 MG/DL (0.2-1.0) H Direct Bilirubin 0.8 MG/DL (0.0-0.3) H Aspartate Amino Transf (AST/SGOT) 93 U/L (15-37) H Alanine Aminotransferase (ALT/SGPT) 156 U/L (12-78) H Alkaline Phosphatase 138 U/L (46-116) H Pro-B-Type Natriuretic Peptide 353 pg/mL (0-125) H Total Protein 5.4 G/DL (6.4-8.2) L Albumin 2.0 G/DL (3.4-5.0) L Globulin 3.4 g/dL Albumin/Globulin Ratio 0.6 (1.0-2.7) L Vancomycin Level Trough 8.6 ug/mL (5.0-12.0) Plan Problems: (1) Ulcer of left lower leg Assessment & Plan: Left posterior distal loeg with 5cm x 4cm stage II slowly healing ulceration possibly from pressure or trauma. no active infection. wound bed with fibrinous tissue forming eschar no drainage no odor. present on admission Left inner proximal thigh with 4cm x 2cm stage II slowly healing skin ulceration likely from trauma no active infection. wound bed with fibrinous tissue forming eschar no drainage no odor. present on admission Right upper arm 5cm x 4cm stage III ulceration with exposed fat. slowly healing. etiology likely trauma. no active infection. no drainage no odor. present on admission Arterial duplex okay wounds unlikely etiology of sepsis. clean wounds daily skin protectant and foam dressings. will monitor for need of debridement (2) Sepsis Assessment & Plan: wounds unlikely etiology of sepsis. clean wounds daily skin protectant and foam dressings. will monitor for need of debridement Juanito Rodriguez Jan 18, 2018 13:14
[2018-01-18] MEDS: Vancomycin 1.5gm/D5W 250ml 250 ML IVPB SCH (13:28)
--- NOTE | 2018-01-18 14:37 | Diagnostic Imaging Report ---
Indication: Acute renal failure Technique: Grayscale and duplex images of the kidneys, retroperitoneum, and bladder were obtained. Comparison: none Findings: Right kidney measures 11.1 cm in length. Left kidney measures 11.1cm in length. Both kidneys demonstrate normal echogenicity. No hydronephrosis. No focal abnormality. Normal inferior vena cava. Bladder is normal. Impression: negative.
--- NOTE | 2018-01-18 15:37 | General Progress Note ---
Assessment/Plan Status: stable Assessment/Plan MDD Anxiety d/o Prozac klonopin ativan d/w son Subjective Date patient seen: Jan 18, 2018 Neurologic/Psychiatric: Reports: anxiety, depressed, emotional problems Allergies: Coded Allergies: No Known Allergies (Unverified , 01/16/18) Subjective the pt is anxious. has multiple organ failure Objective Last 24 Hour Vital Signs Date Time Temp Pulse Resp B/P (MAP) Pulse Ox O2 Delivery O2 Flow Rate FiO2 01/18/18 12:53 167/112 01/18/18 12:47 Nasal Cannula 2.0 01/18/18 11:57 98.2 122 20 167/112 (130) 99 98.2 01/18/18 11:42 117 01/18/18 10:48 98.0 01/18/18 09:49 98.0 01/18/18 09:00 Nasal Cannula 2.0 01/18/18 08:00 97.7 130 20 140/81 (100) 98 97.7 01/18/18 07:46 133 01/18/18 04:00 99.0 129 20 140/55 (83) 95 99.0 01/18/18 04:00 Nasal Cannula 2.0 01/18/18 04:00 119 01/18/18 00:00 133 01/18/18 00:00 99.4 130 22 105/67 (80) 99 99.4 01/18/18 00:00 Nasal Cannula 2.0 01/17/18 21:57 99.3 01/17/18 20:00 Nasal Cannula 2.0 01/17/18 20:00 99.3 129 20 121/76 (91) 97 99.3 01/17/18 20:00 127 01/17/18 17:58 133 01/17/18 17:52 125 28 Nasal Cannula 2.0 28 01/17/18 16:00 98.0 130 22 107/60 (76) 98 98.0 01/17/18 16:00 Nasal Cannula 2.0 Intake and Output 01/17/18 01/18/18 19:00 07:00 Intake Total 325 ml 280 ml Output Total 200 ml 150 ml Balance 125 ml 130 ml IV Total 325 ml 280 ml Output Urine Total 200 ml 150 ml # Voids 2 2 # Bowel Movements 1 2 Laboratory Tests 01/18/18 03:31: White Blood Count 6.2, Red Blood Count 3.86L, Hemoglobin 11.6L, Hematocrit 34.2L , Mean Corpuscular Volume 89, Mean Corpuscular Hemoglobin 30.1, Mean Corpuscular Hemoglobin Concent 33.9, Red Cell Distribution Width 14.7, Platelet Count 63L, Mean Platelet Volume 7.6, Neutrophils (%) (Auto) , Lymphocytes (%) ( Auto) , Monocytes (%) (Auto) , Eosinophils (%) (Auto) , Basophils (%) (Auto) , Differential Total Cells Counted 100, Neutrophils % (Manual) 82H, Lymphocytes % (Manual) 7L, Monocytes % (Manual) 4, Eosinophils % (Manual) 0, Basophils % ( Manual) 0, Band Neutrophils 7, Platelet Estimate DecreasedL, Platelet Morphology Normal, Anisocytosis 1+, Sodium Level 140, Potassium Level 3.1L, Chloride Level 105, Carbon Dioxide Level 23, Anion Gap 12, Blood Urea Nitrogen 13, Creatinine 1.1, Estimat Glomerular Filtration Rate 50.5, Glucose Level 114H , Calcium Level 7.8L, Total Bilirubin 1.7H, Direct Bilirubin 0.8H, Aspartate Amino Transf (AST/SGOT) 93H, Alanine Aminotransferase (ALT/SGPT) 156H, Alkaline Phosphatase 138H, Pro-B-Type Natriuretic Peptide 353H, Total Protein 5.4L, Albumin 2.0L, Globulin 3.4, Albumin/Globulin Ratio 0.6L 01/18/18 11:15: Vancomycin Level Trough 8.6 Height (Feet): 4 Height (Inches): 11.00 Weight (Pounds): 220 General Appearance: alert, agitated Anna Marie Rodgers MD Jan 18, 2018 15:37
--- NOTE | 2018-01-18 15:43 | Internal Med Progress Note ---
Subjective Date of Service: Jan 18, 2018 Physician Name Ayo Roth Attending Physician Sander Christensen MD Current Medications Medications (Trade) Dose Ordered Sig/Gloria Route PRN Reason Start Time Stop Time Status Last Admin Dose Admin Acetaminophen (Tylenol) 650 mg Q4H PRN ORAL Mild Pain (Pain Scale 1-3) 01/16/18 19:30 02/15/18 19:29 01/18/18 09:49 Acetaminophen (Tylenol) 650 mg Q4H PRN RECTAL Mild Pain (Pain Scale 1-3) 01/16/18 16:45 02/15/18 16:44 Al Hydroxide/Mg Hydroxide (Mylanta II) 30 ml Q6H PRN ORAL dyspepsia 01/16/18 16:45 02/15/18 16:44 Albuterol/ Ipratropium (Albuterol/ Ipratropium) 3 ml Q4HRT PRN HHN Shortness of Breath 01/16/18 19:00 01/21/18 06:44 Chlorhexidine Gluconate (Zuleika-Hex 2%) 1 applic DAILY@2000 TOPIC 01/16/18 20:00 02/15/18 19:59 01/17/18 21:56 Dextrose (Dextrose 50%) 25 ml STAT PRN IV Hypoglycemia 01/16/18 16:45 02/15/18 16:44 Dextrose (Dextrose 50%) 50 ml STAT PRN IV Hypoglycemia 01/16/18 16:45 02/15/18 16:44 Dextrose/ Electrolytes 1,000 ml @ 75 mls/hr [id number] IV 01/17/18 11:30 02/16/18 11:29 01/18/18 12:53 Diphenhydramine HCl (Benadryl) 25 mg Q6H PRN ORAL Itching/Pruritis 01/16/18 16:45 02/15/18 16:44 Fluoxetine HCl (PROzac) 20 mg DAILY ORAL 01/17/18 12:15 02/16/18 12:14 01/18/18 09:49 Heparin Sodium (Porcine) (Heparin 5000 units/ml) 5,000 units EVERY 8 HOURS SUBQ 01/16/18 22:00 02/15/18 13:59 01/16/18 21:53 Hydralazine HCl (Apresoline) 10 mg Q6H PRN ORAL SBP>160 01/18/18 13:00 02/17/18 12:59 01/18/18 12:53 Lacosamide (Vimpat) 100 mg Q12HR ORAL 01/16/18 21:00 02/15/18 20:59 01/18/18 09:49 Meropenem 1 gm/ Sodium Chloride 55 ml @ 110 mls/hr Q12HR IVPB 01/17/18 21:00 01/22/18 20:59 01/18/18 10:09 Mirtazapine (Remeron) 7.5 mg BEDTIME ORAL 01/17/18 21:00 02/16/18 20:59 01/17/18 21:57 Morphine Sulfate (Morphine Sulfate) 4 mg Q4H PRN IVP Severe Pain (Pain Scale 7-10) 01/16/18 17:00 01/23/18 16:59 Ondansetron HCl (Zofran) 4 mg Q6H PRN IVP Nausea & Vomiting 01/16/18 16:45 02/15/18 16:44 Vancomycin HCl (Vanco rx to dose) 1 ea DAILY PRN MISC Per rx protocol 01/17/18 09:00 02/15/18 06:44 Vancomycin HCl/ Dextrose 250 ml @ 125 mls/hr Q24H IVPB 01/17/18 12:00 01/21/18 11:59 01/18/18 13:28 Allergies: Coded Allergies: No Known Allergies (Unverified , 01/16/18) Constitutional: Reports: chills, fever HEENT: Reports: no symptoms Cardiovascular: Reports: no symptoms Respiratory: Reports: no symptoms Gastrointestinal/Abdominal: Reports: no symptoms Genitourinary: Reports: no symptoms Neurologic/Psychiatric: Reports: no symptoms Subjective 62 YO F admitted with chief complaint fever. Now pneumonia, UTI and sepsis. Tachycardic. Cover for Int [facility]-Dr Christensen. MEHRDAD Objective Last Vital Signs Date Time Temp Pulse Resp B/P (MAP) Pulse Ox O2 Delivery O2 Flow Rate FiO2 01/18/18 12:53 167/112 01/18/18 12:47 Nasal Cannula 2.0 01/18/18 11:57 98.2 122 20 99 98.2 01/17/18 17:52 28 Laboratory Tests Test 01/18/18 03:31 7/24/18 11:15 White Blood Count 6.2 K/UL (4.8-10.8) Red Blood Count 3.86 M/UL (4.20-5.40) L Hemoglobin 11.6 G/DL (12.0-16.0) L Hematocrit 34.2 % (37.0-47.0) L Mean Corpuscular Volume 89 FL (80-99) Mean Corpuscular Hemoglobin 30.1 PG (27.0-31.0) Mean Corpuscular Hemoglobin Concent 33.9 G/DL (32.0-36.0) Red Cell Distribution Width 14.7 % (11.6-14.8) Platelet Count 63 K/UL (150-450) L Mean Platelet Volume 7.6 FL (6.5-10.1) Neutrophils (%) (Auto) % (45.0-75.0) Lymphocytes (%) (Auto) % (20.0-45.0) Monocytes (%) (Auto) % (1.0-10.0) Eosinophils (%) (Auto) % (0.0-3.0) Basophils (%) (Auto) % (0.0-2.0) Differential Total Cells Counted 100 Neutrophils % (Manual) 82 % (45-75) H Lymphocytes % (Manual) 7 % (20-45) L Monocytes % (Manual) 4 % (1-10) Eosinophils % (Manual) 0 % (0-3) Basophils % (Manual) 0 % (0-2) Band Neutrophils 7 % (0-8) Platelet Estimate Decreased L Platelet Morphology Normal Anisocytosis 1+ Sodium Level 140 MMOL/L (136-145) Potassium Level 3.1 MMOL/L (3.5-5.1) L Chloride Level 105 MMOL/L (98-107) Carbon Dioxide Level 23 MMOL/L (21-32) Anion Gap 12 mmol/L (5-15) Blood Urea Nitrogen 13 mg/dL (7-18) Creatinine 1.1 MG/DL (0.55-1.30) Estimat Glomerular Filtration Rate 50.5 mL/min (>60) Glucose Level 114 MG/DL (74-106) H Calcium Level 7.8 MG/DL (8.5-10.1) L Total Bilirubin 1.7 MG/DL (0.2-1.0) H Direct Bilirubin 0.8 MG/DL (0.0-0.3) H Aspartate Amino Transf (AST/SGOT) 93 U/L (15-37) H Alanine Aminotransferase (ALT/SGPT) 156 U/L (12-78) H Alkaline Phosphatase 138 U/L (46-116) H Pro-B-Type Natriuretic Peptide 353 pg/mL (0-125) H Total Protein 5.4 G/DL (6.4-8.2) L Albumin 2.0 G/DL (3.4-5.0) L Globulin 3.4 g/dL Albumin/Globulin Ratio 0.6 (1.0-2.7) L Vancomycin Level Trough 8.6 ug/mL (5.0-12.0) Microbiology Date/Time Source Procedure Growth Status 01/16/18 04:00 Blood Blood Culture - Preliminary Gram Negative Bacillus 1 Resulted 01/16/18 03:45 Blood Blood Culture - Preliminary Gram Negative Bacillus 1 Resulted 01/18/18 07:40 Wound Gram Stain - Final Resulted 01/18/18 07:40 Wound Wound Culture Pending Resulted 01/16/18 04:00 Other Gram Stain - Final Resulted 01/16/18 04:00 Wound Culture - Preliminary Proteus Mirabilis Enterococcus Faecalis Resulted 01/16/18 04:00 Urine,Clean Catch Urine Culture - Final Escherichia Coli Complete Intake and Output 01/17/18 01/18/18 19:00 07:00 Intake Total 325 ml 280 ml Output Total 200 ml 150 ml Balance 125 ml 130 ml IV Total 325 ml 280 ml Output Urine Total 200 ml 150 ml # Voids 2 2 # Bowel Movements 1 2 Objective General Appearance: WD/WN, alert, mild distress EENT: PERRL/EOMI, normal ENT inspection Neck: non-tender, normal alignment, supple, normal inspection Cardiovascular: normal peripheral pulses, regular rhythm, no gallop/murmur, no JVD, tachycardia Respiratory/Chest: chest wall non-tender, accessory muscle use, crackles/rales , rhonchi - bilaterally, expiratory wheezing Abdomen: normal bowel sounds, non tender, soft, no organomegaly, no mass Extremities: normal range of motion, non-tender Neurologic: white spooler II-XII grossly normal, no motor/sensory deficits Skin: normal pigmentation, warm/dry Assessment/Plan Problem List: (1) UTI (urinary tract infection) Assessment & Plan: E.Coli. Continue zosyn - see Inf dis consult. (2) Hypokalemia (3) Brain cancer (4) Breast cancer in female Assessment & Plan: Await onc consult. (5) Sepsis Assessment & Plan: Urosepsis. Gram neg la 09/29 bottles-await ID and sensitivity. Cont zosyn -see ID consult Status: not improved Assessment/Plan Transfer to [facility]-Dr Maguire- per son, Watson request Ayo Roth MD Jan 18, 2018 15:42
[2018-01-18 16:00] VITALS: BP 144/90
--- NOTE | 2018-01-18 18:41 | Infectious Diseases Prog Note ---
Assessment/Plan Assessment/Plan Abx: IV Vanco 01/16- Zosyn 01/16- Cefepime x1 01/16 Levaquin x1 01/16 Assessment: Sepsis 2ry to UTI, bacteremia and PNA- ?nephrolithiasis- pOssible luciana cath infection- bloody purulent discharge- wound cx p (per family , recurrent episodes of drainage at other hospitals as well) -u/a wbc 20-30, nit +, leuk +2; ucx >100k E.coli (andrade S) -BCx 09/29 GNRs; 01/17 Bcx p -CXR 01/18: Improved right lung parenchymal disease. No definite acute process currently. -CT chest: Dependent consolidation throughout both lungs, right greater than left, likely related to dependent atelectasis. Small hiatal hernia. Cholelithiasis without gallbladder wall thickening. Possible nephrolithiasis versus early contrast excretion in the left upper renal pole. -2d E cho: no vegetations seen _Rnal US: unremarkable fever, improving -no leukcoytosis RASHEED, improving metastatic breast cancer (dx 2014) to brain s/p resection of brain tumor (2015) w/ resultant L side weakness currently undergoing chemotherapy twice a week multiple decubitus ulcers- no signs of infection -wound cx GNRs (likely colonizers) Plan: -Continue empiric IV Vanco #3 pending sputum cx -Continue Meropenem abx #3 for ESBL coverage penidng Bcx and uCx -01/17 SP Zosyn #2 -f/u repeat 2 sets of Bcxl; obtain 1 set for portacath -f/u cx -Monitor CBC/CMP, temperatures -aspiration precautions -wound care per hosp protocol -US R chest -Will likely require removal of R luciana cath Thank you for this consultation. Will continue to follow along with you. Discussed with RN. Subjective Allergies: Coded Allergies: No Known Allergies (Unverified , 01/16/18) Subjective afebrile in 48hs no leukcoytosis repeat Bcx p Objective Vital Signs Last 24 Hour Vital Signs Date Time Temp Pulse Resp B/P (MAP) Pulse Ox O2 Delivery O2 Flow Rate FiO2 01/18/18 16:00 Nasal Cannula 2.0 01/18/18 16:00 115 01/18/18 16:00 99.2 117 20 144/90 (108) 98 99.2 01/18/18 12:53 167/112 01/18/18 12:47 Nasal Cannula 2.0 01/18/18 11:57 98.2 122 20 167/112 (130) 99 98.2 01/18/18 11:42 117 01/18/18 10:48 98.0 01/18/18 09:49 98.0 01/18/18 09:00 Nasal Cannula 2.0 01/18/18 08:00 97.7 130 20 140/81 (100) 98 97.7 01/18/18 07:46 133 01/18/18 04:00 99.0 129 20 140/55 (83) 95 99.0 01/18/18 04:00 Nasal Cannula 2.0 01/18/18 04:00 119 01/18/18 00:00 133 01/18/18 00:00 99.4 130 22 105/67 (80) 99 99.4 01/18/18 00:00 Nasal Cannula 2.0 01/17/18 21:57 99.3 01/17/18 20:00 Nasal Cannula 2.0 01/17/18 20:00 99.3 129 20 121/76 (91) 97 99.3 01/17/18 20:00 127 Height (Feet): 4 Height (Inches): 11.00 Weight (Pounds): 220 Objective GENERAL: The patient is a well-developed and well-nourished slightly obese female, in no apparent distress. HEENT: Eyes, pupils are equal and responsive to light and accommodation. Extraocular movements are intact. NECK: Supple without lymphadenopathy. CHEST: Decreased breath sounds at bilateral bases with crackles. Otherwise, clear to auscultation without wheezes or rales. CARDIOVASCULAR: Regular rhythm and rate. S1 and S2 are normal without murmurs, rubs, or gallops. ABDOMEN: Soft, nontender, and nondistended. Positive bowel sounds. No evidence of hepatosplenomegaly. Currently, no rebound or guarding noted. EXTREMITIES: Negative for clubbing, cyanosis, or edema. Microbiology Date/Time Source Procedure Growth Status 01/16/18 04:00 Blood Blood Culture - Preliminary Gram Negative Bacillus 1 Resulted 01/16/18 03:45 Blood Blood Culture - Preliminary Gram Negative Bacillus 1 Resulted 01/18/18 07:40 Wound Gram Stain - Final Resulted 01/18/18 07:40 Wound Wound Culture Pending Resulted 01/16/18 04:00 Other Gram Stain - Final Resulted 01/16/18 04:00 Wound Culture - Preliminary Proteus Mirabilis Enterococcus Faecalis Resulted 01/16/18 04:00 Urine,Clean Catch Urine Culture - Final Escherichia Coli Complete Laboratory Tests Test 01/18/18 03:31 01/18/18 11:15 White Blood Count 6.2 K/UL (4.8-10.8) Red Blood Count 3.86 M/UL (4.20-5.40) L Hemoglobin 11.6 G/DL (12.0-16.0) L Hematocrit 34.2 % (37.0-47.0) L Mean Corpuscular Volume 89 FL (80-99) Mean Corpuscular Hemoglobin 30.1 PG (27.0-31.0) Mean Corpuscular Hemoglobin Concent 33.9 G/DL (32.0-36.0) Red Cell Distribution Width 14.7 % (11.6-14.8) Platelet Count 63 K/UL (150-450) L Mean Platelet Volume 7.6 FL (6.5-10.1) Neutrophils (%) (Auto) % (45.0-75.0) Lymphocytes (%) (Auto) % (20.0-45.0) Monocytes (%) (Auto) % (1.0-10.0) Eosinophils (%) (Auto) % (0.0-3.0) Basophils (%) (Auto) % (0.0-2.0) Differential Total Cells Counted 100 Neutrophils % (Manual) 82 % (45-75) H Lymphocytes % (Manual) 7 % (20-45) L Monocytes % (Manual) 4 % (1-10) Eosinophils % (Manual) 0 % (0-3) Basophils % (Manual) 0 % (0-2) Band Neutrophils 7 % (0-8) Platelet Estimate Decreased L Platelet Morphology Normal Anisocytosis 1+ Sodium Level 140 MMOL/L (136-145) Potassium Level 3.1 MMOL/L (3.5-5.1) L Chloride Level 105 MMOL/L (98-107) Carbon Dioxide Level 23 MMOL/L (21-32) Anion Gap 12 mmol/L (5-15) Blood Urea Nitrogen 13 mg/dL (7-18) Creatinine 1.1 MG/DL (0.55-1.30) Estimat Glomerular Filtration Rate 50.5 mL/min (>60) Glucose Level 114 MG/DL (74-106) H Calcium Level 7.8 MG/DL (8.5-10.1) L Total Bilirubin 1.7 MG/DL (0.2-1.0) H Direct Bilirubin 0.8 MG/DL (0.0-0.3) H Aspartate Amino Transf (AST/SGOT) 93 U/L (15-37) H Alanine Aminotransferase (ALT/SGPT) 156 U/L (12-78) H Alkaline Phosphatase 138 U/L (46-116) H Pro-B-Type Natriuretic Peptide 353 pg/mL (0-125) H Total Protein 5.4 G/DL (6.4-8.2) L Albumin 2.0 G/DL (3.4-5.0) L Globulin 3.4 g/dL Albumin/Globulin Ratio 0.6 (1.0-2.7) L Vancomycin Level Trough 8.6 ug/mL (5.0-12.0) Current Medications Medications (Trade) Dose Ordered Sig/Gloria Route PRN Reason Start Time Stop Time Status Last Admin Dose Admin Acetaminophen (Tylenol) 650 mg Q4H PRN ORAL Mild Pain (Pain Scale 1-3) 01/16/18 19:30 02/15/18 19:29 01/18/18 09:49 Acetaminophen (Tylenol) 650 mg Q4H PRN RECTAL Mild Pain (Pain Scale 1-3) 01/16/18 16:45 02/15/18 16:44 Al Hydroxide/Mg Hydroxide (Mylanta II) 30 ml Q6H PRN ORAL dyspepsia 01/16/18 16:45 02/15/18 16:44 Albuterol/ Ipratropium (Albuterol/ Ipratropium) 3 ml Q4HRT PRN HHN Shortness of Breath 01/16/18 19:00 01/21/18 06:44 Chlorhexidine Gluconate (Zuleika-Hex 2%) 1 applic DAILY@1999 TOPIC 01/16/18 20:00 02/15/18 19:59 01/17/18 21:56 Dextrose (Dextrose 50%) 25 ml STAT PRN IV Hypoglycemia 01/16/18 16:45 02/15/18 16:44 Dextrose (Dextrose 50%) 50 ml STAT PRN IV Hypoglycemia 01/16/18 16:45 02/15/18 16:44 Dextrose/ Electrolytes 1,000 ml @ 75 mls/hr [id number] IV 01/17/18 11:30 02/16/18 11:29 01/18/18 12:53 Diphenhydramine HCl (Benadryl) 25 mg Q6H PRN ORAL Itching/Pruritis 01/16/18 16:45 02/15/18 16:44 Fluoxetine HCl (PROzac) 20 mg DAILY ORAL 01/17/18 12:15 02/16/18 12:14 01/18/18 09:49 Heparin Sodium (Porcine) (Heparin 5000 units/ml) 5,000 units EVERY 8 HOURS SUBQ 01/16/18 22:00 02/15/18 13:59 01/16/18 21:53 Hydralazine HCl (Apresoline) 10 mg Q6H PRN ORAL SBP>160 01/18/18 13:00 02/17/18 12:59 01/18/18 12:53 Lacosamide (Vimpat) 100 mg Q12HR ORAL 01/16/18 21:00 02/15/18 20:59 01/18/18 09:49 Meropenem 1 gm/ Sodium Chloride 55 ml @ 110 mls/hr Q12HR IVPB 01/17/18 21:00 01/22/18 20:59 01/18/18 10:09 Mirtazapine (Remeron) 7.5 mg BEDTIME ORAL 01/17/18 21:00 02/16/18 20:59 01/17/18 21:57 Morphine Sulfate (Morphine Sulfate) 4 mg Q4H PRN IVP Severe Pain (Pain Scale 7-10) 01/16/18 17:00 01/23/18 16:59 Ondansetron HCl (Zofran) 4 mg Q6H PRN IVP Nausea & Vomiting 01/16/18 16:45 02/15/18 16:44 Vancomycin HCl (Vanco rx to dose) 1 ea DAILY PRN MISC Per rx protocol 01/17/18 09:00 02/15/18 06:44 Vancomycin/Sodium Chloride 250 ml @ 166.667 mls/hr Q12HR@0600,1800 IVPB 01/19/18 06:00 01/24/18 05:59 Yazmin Pnen M.D. Jan 18, 2018 18:41
[2018-01-18 20:00] VITALS: BP 122/88
[2018-01-18] MEDS: Dyna-Hex 2% Top Sol 2oz TOPIC SCH (20:46)
[2018-01-19] VITALS: BP 133/97
[2018-01-19 04:00] VITALS: BP 139/72
[2018-01-19 05:11] LABS: HEMATOCRIT 32.9 % (37.0-47.0); HEMOGLOBIN 10.9 G/DL (12.0-16.0); MEAN CORPUSCULAR VOLUME 90 FL (80-99); PLATELET COUNT 48 K/UL (150-450); RED BLOOD COUNT 3.65 M/UL (4.20-5.40); RED CELL DISTRIBUTION WIDTH 15.3 % (11.6-14.8)
[2018-01-19 05:34] LABS: ALANINE AMINOTRANSFERASE 128 U/L (12-78); ALBUMIN 1.9 G/DL (3.4-5.0); ALBUMIN/GLOBULIN RATIO 0.6 (1.0-2.7); ALKALINE PHOSPHATASE 123 U/L (46-116); ANION GAP 7 mmol/L (5-15); ASPARTATE AMINO TRANSFERASE 60 U/L (15-37); BLOOD UREA NITROGEN 8 mg/dL (7-18); CALCIUM 7.7 MG/DL (8.5-10.1); CARBON DIOXIDE 26 MMOL/L (21-32); CHLORIDE 102 MMOL/L (98-107); CREATININE 0.7 MG/DL (0.55-1.30); PHOSPHORUS 1.3 MG/DL (2.5-4.9); SODIUM 135 MMOL/L (136-145)
[2018-01-19] MEDS: Heparin 5000 units/ml inj SUBQ SCH ×3 (05:41→21:01)
[2018-01-19] MEDS ORDERED: Vancomycin 750mg/NS 250ml IVPB SCH (06:00)
[2018-01-19 08:00] VITALS: BP 131/70
[2018-01-19] MEDS: Meropenem 1 GM in NS 55 ML IVPB SCH (08:16)
[2018-01-19] MEDS: Vancomycin 750mg/NS 250ml IVPB SCH ×2 (09:28→20:57)
[2018-01-19] MEDS: Lacosamide 100 MG TABLET ORAL SCH ×2 (09:28→20:23)
--- NOTE | 2018-01-19 10:45 | Pulmonology Progress Note ---
Assessment/Plan Problems: (1) Healthcare-associated pneumonia (2) Sepsis (3) Tachycardia (4) UTI (urinary tract infection) (5) Brain cancer (6) Breast cancer in female (7) Morbid obesity with BMI of 40.0-44.9, adult (8) Hypokalemia (9) ATN (acute tubular necrosis) Assessment/Plan Blood cultures are available now afebrile heart rate coming down iv fluids continue abx check cultures, BC positive for GNR check electrolytes check urine lytes renal studies, renal function improving echo reviewed cardiology evaluation appreciated Subjective ROS Limited/Unobtainable: No Constitutional: Reports: no symptoms HEENT: Repors: no symptoms Allergies: Coded Allergies: No Known Allergies (Unverified , 01/16/18) Objective Last 24 Hour Vital Signs Date Time Temp Pulse Resp B/P (MAP) Pulse Ox O2 Delivery O2 Flow Rate FiO2 01/19/18 09:11 110 01/19/18 08:00 98.4 114 21 131/70 (90) 98 98.4 01/19/18 08:00 Nasal Cannula 2.0 01/19/18 04:00 Nasal Cannula 2.0 01/19/18 04:00 117 01/19/18 04:00 98.4 112 16 139/72 (94) 99 98.4 01/19/18 00:00 98.2 120 18 133/97 (109) 100 98.2 01/19/18 00:00 116 01/19/18 00:00 Nasal Cannula 2.0 01/18/18 20:00 Nasal Cannula 2.0 01/18/18 20:00 98.9 116 18 122/88 (99) 99 98.9 01/18/18 20:00 121 01/18/18 19:30 121 20 Nasal Cannula 2.0 28 01/18/18 19:30 Nasal Cannula 2.0 28 01/18/18 19:30 93 Nasal Cannula 2.0 28 01/18/18 16:00 Nasal Cannula 2.0 01/18/18 16:00 115 01/18/18 16:00 99.2 117 20 144/90 (108) 98 99.2 01/18/18 12:53 167/112 01/18/18 12:47 Nasal Cannula 2.0 01/18/18 11:57 98.2 122 20 167/112 (130) 99 98.2 01/18/18 11:42 117 01/18/18 10:48 98.0 Intake and Output 01/18/18 01/19/18 19:00 07:00 Intake Total 75 ml 960 ml Output Total 200 ml Balance -125 ml 960 ml IV Total 75 ml 960 ml Output Urine Total 200 ml # Voids 2 # Bowel Movements 1 1 General Appearance: WD/WN HEENT: normocephalic, atraumatic Respiratory/Chest: chest wall non-tender, lungs clear Breasts: no masses Cardiovascular: normal peripheral pulses Abdomen: normal bowel sounds, no organomegaly Genitourinary: normal external genitalia Extremities: no clubbing Skin: no lesions Microbiology Date/Time Source Procedure Growth Status 01/17/18 23:05 Blood Blood Culture - Preliminary NO GROWTH AFTER 24 HOURS Resulted 01/17/18 23:00 Blood Blood Culture - Preliminary NO GROWTH AFTER 24 HOURS Resulted 01/17/18 19:20 Blood Blood Culture - Preliminary NO GROWTH AFTER 24 HOURS Resulted 01/17/18 19:00 Blood Blood Culture - Preliminary NO GROWTH AFTER 24 HOURS Resulted 01/18/18 07:40 Wound Gram Stain - Final Resulted 01/18/18 07:40 Wound Wound Culture Pending Resulted Laboratory Tests 01/18/18 11:15: Vancomycin Level Trough 8.6 01/19/18 03:47: White Blood Count 4.0L, Red Blood Count 3.65L, Hemoglobin 10.9L, Hematocrit 32.9L, Mean Corpuscular Volume 90, Mean Corpuscular Hemoglobin 29.8, Mean Corpuscular Hemoglobin Concent 33.1, Red Cell Distribution Width 15.3H, Platelet Count 48L, Mean Platelet Volume 8.0, Neutrophils (%) (Auto) , Lymphocytes (%) (Auto) , Monocytes (%) (Auto) , Eosinophils (%) (Auto) , Basophils (%) (Auto) , Differential Total Cells Counted 100, Neutrophils % ( Manual) 71, Lymphocytes % (Manual) 12L, Monocytes % (Manual) 4, Eosinophils % ( Manual) 3, Basophils % (Manual) 1, Band Neutrophils 9H, Platelet Estimate DecreasedL, Platelet Morphology Normal, Anisocytosis 1+, Sodium Level 135L, Potassium Level 3.0L, Chloride Level 102, Carbon Dioxide Level 26, Anion Gap 7, Blood Urea Nitrogen 8, Creatinine 0.7, Estimat Glomerular Filtration Rate > 60, Glucose Level 124H, Calcium Level 7.7L, Phosphorus Level 1.3L, Magnesium Level 1.6L, Total Bilirubin 1.0, Aspartate Amino Transf (AST/SGOT) 60H, Alanine Aminotransferase (ALT/SGPT) 128H, Alkaline Phosphatase 123H, Total Protein 5.3L , Albumin 1.9L, Globulin 3.4, Albumin/Globulin Ratio 0.6L Current Medications Medications (Trade) Dose Ordered Sig/Gloria Route PRN Reason Start Time Stop Time Status Last Admin Dose Admin Acetaminophen (Tylenol) 650 mg Q4H PRN ORAL Mild Pain (Pain Scale 1-3) 01/16/18 19:30 02/15/18 19:29 01/18/18 09:49 Acetaminophen (Tylenol) 650 mg Q4H PRN RECTAL Mild Pain (Pain Scale 1-3) 01/16/18 16:45 02/15/18 16:44 Al Hydroxide/Mg Hydroxide (Mylanta II) 30 ml Q6H PRN ORAL dyspepsia 01/16/18 16:45 02/15/18 16:44 Albuterol/ Ipratropium (Albuterol/ Ipratropium) 3 ml Q4HRT PRN HHN Shortness of Breath 01/16/18 19:00 01/21/18 06:44 Chlorhexidine Gluconate (Zuleika-Hex 2%) 1 applic DAILY@2000 TOPIC 01/16/18 20:00 02/15/18 19:59 01/18/18 20:46 Dextrose (Dextrose 50%) 25 ml STAT PRN IV Hypoglycemia 01/16/18 16:45 02/15/18 16:44 Dextrose (Dextrose 50%) 50 ml STAT PRN IV Hypoglycemia 01/16/18 16:45 02/15/18 16:44 Dextrose/ Electrolytes 1,000 ml @ 75 mls/hr [id number] IV 01/17/18 11:30 02/16/18 11:29 01/19/18 02:41 Diphenhydramine HCl (Benadryl) 25 mg Q6H PRN ORAL Itching/Pruritis 01/16/18 16:45 02/15/18 16:44 Fluoxetine HCl (PROzac) 20 mg DAILY ORAL 01/17/18 12:15 02/16/18 12:14 01/19/18 09:28 Heparin Sodium (Porcine) (Heparin 5000 units/ml) 5,000 units EVERY 8 HOURS SUBQ 01/16/18 22:00 02/15/18 13:59 01/16/18 21:53 Hydralazine HCl (Apresoline) 10 mg Q6H PRN ORAL SBP>160 01/18/18 13:00 02/17/18 12:59 01/18/18 12:53 Lacosamide (Vimpat) 100 mg Q12HR ORAL 01/16/18 21:00 02/15/18 20:59 01/19/18 09:28 Magnesium Sulfate 100 ml @ 100 mls/hr Q1H IV 01/19/18 12:45 01/19/18 14:44 UNV Meropenem 1 gm/ Sodium Chloride 55 ml @ 110 mls/hr Q12HR IVPB 01/17/18 21:00 01/22/18 20:59 01/19/18 08:16 Mirtazapine (Remeron) 7.5 mg BEDTIME ORAL 01/17/18 21:00 02/16/18 20:59 01/18/18 20:46 Morphine Sulfate (Morphine Sulfate) 4 mg Q4H PRN IVP Severe Pain (Pain Scale 7-10) 01/16/18 17:00 01/23/18 16:59 Ondansetron HCl (Zofran) 4 mg Q6H PRN IVP Nausea & Vomiting 01/16/18 16:45 02/15/18 16:44 Potassium Chloride 40 meq/ Sodium Chloride 570 ml @ 142.5 mls/ hr ONCE ONCE IVPB 01/19/18 10:45 01/19/18 14:44 UNV Sodium Phosphate 30 mm/Sodium Chloride 285 ml @ 47.5 mls/hr ONCE ONCE IV 01/19/18 12:45 01/19/18 18:44 UNV Vancomycin HCl (Vanco rx to dose) 1 ea DAILY PRN MISC Per rx protocol 01/17/18 09:00 02/15/18 06:44 Vancomycin/Sodium Chloride 250 ml @ 166.667 mls/hr Q12HR@0800,2000 IVPB 01/19/18 08:00 01/24/18 07:59 01/19/18 09:28 Miguel A Lenz MD Jan 19, 2018 10:45
[2018-01-19] MEDS ORDERED: Potassium Chloride 40 MEQ in Sodium Chloride 500ML 550 ML IVPB ONE (11:30)
--- NOTE | 2018-01-19 11:43 | Internal Med Progress Note ---
Subjective Date of Service: Jan 19, 2018 Physician Name Ayo Roth Attending Physician Sander Christensen MD Current Medications Medications (Trade) Dose Ordered Sig/Gloria Route PRN Reason Start Time Stop Time Status Last Admin Dose Admin Acetaminophen (Tylenol) 650 mg Q4H PRN ORAL Mild Pain (Pain Scale 1-3) 01/16/18 19:30 02/15/18 19:29 01/18/18 09:49 Acetaminophen (Tylenol) 650 mg Q4H PRN RECTAL Mild Pain (Pain Scale 1-3) 01/16/18 16:45 02/15/18 16:44 Al Hydroxide/Mg Hydroxide (Mylanta II) 30 ml Q6H PRN ORAL dyspepsia 01/16/18 16:45 02/15/18 16:44 Albuterol/ Ipratropium (Albuterol/ Ipratropium) 3 ml Q4HRT PRN HHN Shortness of Breath 01/16/18 19:00 01/21/18 06:44 Chlorhexidine Gluconate (Zuleika-Hex 2%) 1 applic DAILY@2000 TOPIC 01/16/18 20:00 02/15/18 19:59 01/18/18 20:46 Dextrose (Dextrose 50%) 25 ml STAT PRN IV Hypoglycemia 01/16/18 16:45 02/15/18 16:44 Dextrose (Dextrose 50%) 50 ml STAT PRN IV Hypoglycemia 01/16/18 16:45 02/15/18 16:44 Dextrose/ Electrolytes 1,000 ml @ 75 mls/hr [id number] IV 01/17/18 11:30 02/16/18 11:29 01/19/18 02:41 Diphenhydramine HCl (Benadryl) 25 mg Q6H PRN ORAL Itching/Pruritis 01/16/18 16:45 02/15/18 16:44 Fluoxetine HCl (PROzac) 20 mg DAILY ORAL 01/17/18 12:15 02/16/18 12:14 01/19/18 09:28 Heparin Sodium (Porcine) (Heparin 5000 units/ml) 5,000 units EVERY 8 HOURS SUBQ 01/16/18 22:00 02/15/18 13:59 01/16/18 21:53 Hydralazine HCl (Apresoline) 10 mg Q6H PRN ORAL SBP>160 01/18/18 13:00 02/17/18 12:59 01/18/18 12:53 Lacosamide (Vimpat) 100 mg Q12HR ORAL 01/16/18 21:00 02/15/18 20:59 01/19/18 09:28 Magnesium Sulfate 100 ml @ 100 mls/hr Q1H IVPB 01/19/18 12:45 01/19/18 14:44 Meropenem 1 gm/ Sodium Chloride 55 ml @ 110 mls/hr Q12HR IVPB 01/17/18 21:00 01/22/18 20:59 01/19/18 08:16 Mirtazapine (Remeron) 7.5 mg BEDTIME ORAL 01/17/18 21:00 02/16/18 20:59 01/18/18 20:46 Morphine Sulfate (Morphine Sulfate) 4 mg Q4H PRN IVP Severe Pain (Pain Scale 7-10) 01/16/18 17:00 01/23/18 16:59 Ondansetron HCl (Zofran) 4 mg Q6H PRN IVP Nausea & Vomiting 01/16/18 16:45 02/15/18 16:44 Potassium Chloride 40 meq/ Sodium Chloride 570 ml @ 142.5 mls/ hr ONCE ONCE IVPB 01/19/18 11:30 01/19/18 15:29 Sodium Phosphate 30 mm/Sodium Chloride 285 ml @ 47.5 mls/hr ONCE ONCE IV 01/19/18 15:30 01/19/18 21:29 Vancomycin HCl (Vanco rx to dose) 1 ea DAILY PRN MISC Per rx protocol 01/17/18 09:00 02/15/18 06:44 Vancomycin/Sodium Chloride 250 ml @ 166.667 mls/hr Q12HR@0800,2000 IVPB 01/19/18 08:00 01/24/18 07:59 01/19/18 09:28 Allergies: Coded Allergies: No Known Allergies (Unverified , 01/16/18) ROS Limited/Unobtainable: No Constitutional: Reports: chills, fever HEENT: Reports: no symptoms Cardiovascular: Reports: no symptoms Respiratory: Reports: no symptoms Gastrointestinal/Abdominal: Reports: no symptoms Genitourinary: Reports: no symptoms Neurologic/Psychiatric: Reports: no symptoms Subjective 62 YO F admitted with chief complaint fever. Now pneumonia, UTI and sepsis. Tachycardic. Cover for Int [facility]-Dr Christensen. MEHRDAD Objective Last Vital Signs Date Time Temp Pulse Resp B/P (MAP) Pulse Ox O2 Delivery O2 Flow Rate FiO2 01/19/18 09:11 110 01/19/18 08:00 98.4 21 131/70 (90) 98 98.4 01/19/18 08:00 Nasal Cannula 2.0 01/18/18 19:30 28 Laboratory Tests Test 01/19/18 03:47 White Blood Count 4.0 K/UL (4.8-10.8) L Red Blood Count 3.65 M/UL (4.20-5.40) L Hemoglobin 10.9 G/DL (12.0-16.0) L Hematocrit 32.9 % (37.0-47.0) L Mean Corpuscular Volume 90 FL (80-99) Mean Corpuscular Hemoglobin 29.8 PG (27.0-31.0) Mean Corpuscular Hemoglobin Concent 33.1 G/DL (32.0-36.0) Red Cell Distribution Width 15.3 % (11.6-14.8) H Platelet Count 48 K/UL (150-450) L Mean Platelet Volume 8.0 FL (6.5-10.1) Neutrophils (%) (Auto) % (45.0-75.0) Lymphocytes (%) (Auto) % (20.0-45.0) Monocytes (%) (Auto) % (1.0-10.0) Eosinophils (%) (Auto) % (0.0-3.0) Basophils (%) (Auto) % (0.0-2.0) Differential Total Cells Counted 100 Neutrophils % (Manual) 71 % (45-75) Lymphocytes % (Manual) 12 % (20-45) L Monocytes % (Manual) 4 % (1-10) Eosinophils % (Manual) 3 % (0-3) Basophils % (Manual) 1 % (0-2) Band Neutrophils 9 % (0-8) H Platelet Estimate Decreased L Platelet Morphology Normal Anisocytosis 1+ Sodium Level 135 MMOL/L (136-145) L Potassium Level 3.0 MMOL/L (3.5-5.1) L Chloride Level 102 MMOL/L (98-107) Carbon Dioxide Level 26 MMOL/L (21-32) Anion Gap 7 mmol/L (5-15) Blood Urea Nitrogen 8 mg/dL (7-18) Creatinine 0.7 MG/DL (0.55-1.30) Estimat Glomerular Filtration Rate > 60 mL/min (>60) Glucose Level 124 MG/DL (74-106) H Calcium Level 7.7 MG/DL (8.5-10.1) L Phosphorus Level 1.3 MG/DL (2.5-4.9) L Magnesium Level 1.6 MG/DL (1.8-2.4) L Total Bilirubin 1.0 MG/DL (0.2-1.0) Aspartate Amino Transf (AST/SGOT) 60 U/L (15-37) H Alanine Aminotransferase (ALT/SGPT) 128 U/L (12-78) H Alkaline Phosphatase 123 U/L (46-116) H Total Protein 5.3 G/DL (6.4-8.2) L Albumin 1.9 G/DL (3.4-5.0) L Globulin 3.4 g/dL Albumin/Globulin Ratio 0.6 (1.0-2.7) L Microbiology Date/Time Source Procedure Growth Status 01/17/18 23:05 Blood Blood Culture - Preliminary NO GROWTH AFTER 24 HOURS Resulted 01/17/18 23:00 Blood Blood Culture - Preliminary NO GROWTH AFTER 24 HOURS Resulted 01/17/18 19:20 Blood Blood Culture - Preliminary NO GROWTH AFTER 24 HOURS Resulted 01/17/18 19:00 Blood Blood Culture - Preliminary NO GROWTH AFTER 24 HOURS Resulted 01/18/18 07:40 Wound Gram Stain - Final Resulted 01/18/18 07:40 Wound Wound Culture Pending Resulted Intake and Output 01/18/18 01/19/18 19:00 07:00 Intake Total 75 ml 960 ml Output Total 200 ml Balance -125 ml 960 ml IV Total 75 ml 960 ml Output Urine Total 200 ml # Voids 2 # Bowel Movements 1 1 Objective General Appearance: WD/WN, alert, mild distress EENT: PERRL/EOMI, normal ENT inspection Neck: non-tender, normal alignment, supple, normal inspection Cardiovascular: normal peripheral pulses, regular rhythm, no gallop/murmur, no JVD, tachycardia Respiratory/Chest: chest wall non-tender, accessory muscle use, crackles/rales , rhonchi - bilaterally, expiratory wheezing Abdomen: normal bowel sounds, non tender, soft, no organomegaly, no mass Extremities: normal range of motion, non-tender Neurologic: behaviorist II-XII grossly normal, no motor/sensory deficits Skin: normal pigmentation, warm/dry Assessment/Plan Problem List: (1) UTI (urinary tract infection) Assessment & Plan: E.Coli. Continue meropenem - see Inf dis consult. (2) Hypokalemia (3) Brain cancer (4) Breast cancer in female Assessment & Plan: Await onc consult. (5) Sepsis Assessment & Plan: Proteus- 4/4 bottles. Cont meropenem -see ID consult Status: not improved Assessment/Plan Transfer to [facility]-Dr Maguire- per son, Ayo Chan MD Jan 19, 2018 11:43
[2018-01-19 12:00] VITALS: BP 153/67
--- NOTE | 2018-01-19 12:09 | Diagnostic Imaging Report ---
Indication: Infected Port-A-Cath Technique: Grayscale and duplex images in the region of port catheter Comparison: none Findings: Shadowing from reservoir of right chest port catheter is demonstrated. No fluid is seen surrounding the reservoir Impression: No evidence of abnormal fluid collection to suggest abscess related to port catheter
--- NOTE | 2018-01-19 13:46 | General Surgery Progress Note ---
General Surgery-Progress Note Subjective Additional Comments concerns for line infection as well. wound stable. Objective Last 24 Hour Vital Signs Date Time Temp Pulse Resp B/P (MAP) Pulse Ox O2 Delivery O2 Flow Rate FiO2 01/19/18 13:16 109 01/19/18 12:00 98.0 94 21 153/67 (95) 97 98.0 01/19/18 12:00 Nasal Cannula 3.0 01/19/18 09:11 110 01/19/18 08:00 98.4 114 21 131/70 (90) 98 98.4 01/19/18 08:00 Nasal Cannula 2.0 01/19/18 04:00 Nasal Cannula 2.0 01/19/18 04:00 117 01/19/18 04:00 98.4 112 16 139/72 (94) 99 98.4 01/19/18 00:00 98.2 120 18 133/97 (109) 100 98.2 01/19/18 00:00 116 01/19/18 00:00 Nasal Cannula 2.0 01/18/18 20:00 Nasal Cannula 2.0 01/18/18 20:00 98.9 116 18 122/88 (99) 99 98.9 01/18/18 20:00 121 01/18/18 19:30 121 20 Nasal Cannula 2.0 28 01/18/18 19:30 Nasal Cannula 2.0 28 01/18/18 19:30 93 Nasal Cannula 2.0 28 01/18/18 16:00 Nasal Cannula 2.0 01/18/18 16:00 115 01/18/18 16:00 99.2 117 20 144/90 (108) 98 99.2 I&O Intake and Output 01/18/18 01/19/18 19:00 07:00 Intake Total 75 ml 960 ml Output Total 200 ml Balance -125 ml 960 ml IV Total 75 ml 960 ml Output Urine Total 200 ml # Voids 2 # Bowel Movements 1 1 Dressing: saturated Wound: clean Drains: none Cardiovascular: RSR Respiratory: clear Abdomen: soft, flat, distended, present bowel sounds Extremities: edema, no tenderness Laboratory Tests Test 01/19/18 03:47 White Blood Count 4.0 K/UL (4.8-10.8) L Red Blood Count 3.65 M/UL (4.20-5.40) L Hemoglobin 10.9 G/DL (12.0-16.0) L Hematocrit 32.9 % (37.0-47.0) L Mean Corpuscular Volume 90 FL (80-99) Mean Corpuscular Hemoglobin 29.8 PG (27.0-31.0) Mean Corpuscular Hemoglobin Concent 33.1 G/DL (32.0-36.0) Red Cell Distribution Width 15.3 % (11.6-14.8) H Platelet Count 48 K/UL (150-450) L Mean Platelet Volume 8.0 FL (6.5-10.1) Neutrophils (%) (Auto) % (45.0-75.0) Lymphocytes (%) (Auto) % (20.0-45.0) Monocytes (%) (Auto) % (1.0-10.0) Eosinophils (%) (Auto) % (0.0-3.0) Basophils (%) (Auto) % (0.0-2.0) Differential Total Cells Counted 100 Neutrophils % (Manual) 71 % (45-75) Lymphocytes % (Manual) 12 % (20-45) L Monocytes % (Manual) 4 % (1-10) Eosinophils % (Manual) 3 % (0-3) Basophils % (Manual) 1 % (0-2) Band Neutrophils 9 % (0-8) H Platelet Estimate Decreased L Platelet Morphology Normal Anisocytosis 1+ Sodium Level 135 MMOL/L (136-145) L Potassium Level 3.0 MMOL/L (3.5-5.1) L Chloride Level 102 MMOL/L (98-107) Carbon Dioxide Level 26 MMOL/L (21-32) Anion Gap 7 mmol/L (5-15) Blood Urea Nitrogen 8 mg/dL (7-18) Creatinine 0.7 MG/DL (0.55-1.30) Estimat Glomerular Filtration Rate > 60 mL/min (>60) Glucose Level 124 MG/DL (74-106) H Calcium Level 7.7 MG/DL (8.5-10.1) L Phosphorus Level 1.3 MG/DL (2.5-4.9) L Magnesium Level 1.6 MG/DL (1.8-2.4) L Total Bilirubin 1.0 MG/DL (0.2-1.0) Aspartate Amino Transf (AST/SGOT) 60 U/L (15-37) H Alanine Aminotransferase (ALT/SGPT) 128 U/L (12-78) H Alkaline Phosphatase 123 U/L (46-116) H Total Protein 5.3 G/DL (6.4-8.2) L Albumin 1.9 G/DL (3.4-5.0) L Globulin 3.4 g/dL Albumin/Globulin Ratio 0.6 (1.0-2.7) L Plan Problems: (1) Ulcer of left lower leg Assessment & Plan: Left posterior distal loeg with 5cm x 4cm stage II slowly healing ulceration possibly from pressure or trauma. no active infection. wound bed with fibrinous tissue forming eschar no drainage no odor. present on admission Left inner proximal thigh with 4cm x 2cm stage II slowly healing skin ulceration likely from trauma no active infection. wound bed with fibrinous tissue forming eschar no drainage no odor. present on admission Right upper arm 5cm x 4cm stage III ulceration with exposed fat. slowly healing. etiology likely trauma. no active infection. no drainage no odor. present on admission Arterial duplex okay wounds unlikely etiology of sepsis. clean wounds daily skin protectant and foam dressings. will monitor for need of debridement (2) Sepsis Assessment & Plan: wounds unlikely etiology of sepsis. clean wounds daily skin protectant and foam dressings. will monitor for need of debridement concerns for port line infection. no abscess on ultrasound. will consider removing line and placing new line a few days later. thank you Juanito Rodriguez Jan 19, 2018 13:46
--- NOTE | 2018-01-19 14:38 | Cardiology Progress Note ---
Assessment/Plan Status: stable Assessment/Plan Assessment (1) Healthcare-associated pneumonia (2) Sepsis (3) Tachycardia (4) UTI (urinary tract infection) (5) Brain cancer (6) Breast cancer in female (7) Morbid obesity with BMI of 40.0-44.9, adult (8) Hypokalemia (9) ATN (acute tubular necrosis) (10) Tachycardia Echocardiogram reviewed, normal LV function, troponin unremarkable, EKG with no ischemia No clinical findings to suggest endocarditis Tachycardia from sepsis and pain, do not treat heart rate as it is compensatory Continue antibiotics, follow culturs Wound care Pain control physical therapy Supportive care No ischemia work up needed at this juncture. Transfer to [facility] in progress Subjective Cardiovascular: Reports: no symptoms Respiratory: Reports: no symptoms Gastrointestinal/Abdominal: Reports: no symptoms Genitourinary: Reports: no symptoms Subjective NO acute events, on IV abx, no distress, WBC normal. recent cultures negative Objective Last 24 Hour Vital Signs Date Time Temp Pulse Resp B/P (MAP) Pulse Ox O2 Delivery O2 Flow Rate FiO2 01/19/18 13:16 109 01/19/18 12:00 98.0 94 21 153/67 (95) 97 98.0 01/19/18 12:00 Nasal Cannula 3.0 01/19/18 09:11 110 01/19/18 08:00 98.4 114 21 131/70 (90) 98 98.4 01/19/18 08:00 Nasal Cannula 2.0 01/19/18 04:00 Nasal Cannula 2.0 01/19/18 04:00 117 01/19/18 04:00 98.4 112 16 139/72 (94) 99 98.4 01/19/18 00:00 98.2 120 18 133/97 (109) 100 98.2 01/19/18 00:00 116 01/19/18 00:00 Nasal Cannula 2.0 01/18/18 20:00 Nasal Cannula 2.0 01/18/18 20:00 98.9 116 18 122/88 (99) 99 98.9 01/18/18 20:00 121 01/18/18 19:30 121 20 Nasal Cannula 2.0 28 01/18/18 19:30 Nasal Cannula 2.0 28 01/18/18 19:30 93 Nasal Cannula 2.0 28 01/18/18 16:00 Nasal Cannula 2.0 01/18/18 16:00 115 01/18/18 16:00 99.2 117 20 144/90 (108) 98 99.2 General Appearance: no apparent distress EENT: PERRL/EOMI Neck: non-tender Rhythm: ST Cardiovascular: normal peripheral pulses Respiratory/Chest: chest wall non-tender Abdomen: normal bowel sounds Extremities: normal range of motion Neurologic: dress operator II-XII grossly normal Intake and Output 01/18/18 01/19/18 19:00 07:00 Intake Total 75 ml 960 ml Output Total 200 ml Balance -125 ml 960 ml IV Total 75 ml 960 ml Output Urine Total 200 ml # Voids 2 # Bowel Movements 1 1 Laboratory Tests Test 01/19/18 03:47 White Blood Count 4.0 K/UL (4.8-10.8) L Red Blood Count 3.65 M/UL (4.20-5.40) L Hemoglobin 10.9 G/DL (12.0-16.0) L Hematocrit 32.9 % (37.0-47.0) L Mean Corpuscular Volume 90 FL (80-99) Mean Corpuscular Hemoglobin 29.8 PG (27.0-31.0) Mean Corpuscular Hemoglobin Concent 33.1 G/DL (32.0-36.0) Red Cell Distribution Width 15.3 % (11.6-14.8) H Platelet Count 48 K/UL (150-450) L Mean Platelet Volume 8.0 FL (6.5-10.1) Neutrophils (%) (Auto) % (45.0-75.0) Lymphocytes (%) (Auto) % (20.0-45.0) Monocytes (%) (Auto) % (1.0-10.0) Eosinophils (%) (Auto) % (0.0-3.0) Basophils (%) (Auto) % (0.0-2.0) Differential Total Cells Counted 100 Neutrophils % (Manual) 71 % (45-75) Lymphocytes % (Manual) 12 % (20-45) L Monocytes % (Manual) 4 % (1-10) Eosinophils % (Manual) 3 % (0-3) Basophils % (Manual) 1 % (0-2) Band Neutrophils 9 % (0-8) H Platelet Estimate Decreased L Platelet Morphology Normal Anisocytosis 1+ Sodium Level 135 MMOL/L (136-145) L Potassium Level 3.0 MMOL/L (3.5-5.1) L Chloride Level 102 MMOL/L (98-107) Carbon Dioxide Level 26 MMOL/L (21-32) Anion Gap 7 mmol/L (5-15) Blood Urea Nitrogen 8 mg/dL (7-18) Creatinine 0.7 MG/DL (0.55-1.30) Estimat Glomerular Filtration Rate > 60 mL/min (>60) Glucose Level 124 MG/DL (74-106) H Calcium Level 7.7 MG/DL (8.5-10.1) L Phosphorus Level 1.3 MG/DL (2.5-4.9) L Magnesium Level 1.6 MG/DL (1.8-2.4) L Total Bilirubin 1.0 MG/DL (0.2-1.0) Aspartate Amino Transf (AST/SGOT) 60 U/L (15-37) H Alanine Aminotransferase (ALT/SGPT) 128 U/L (12-78) H Alkaline Phosphatase 123 U/L (46-116) H Total Protein 5.3 G/DL (6.4-8.2) L Albumin 1.9 G/DL (3.4-5.0) L Globulin 3.4 g/dL Albumin/Globulin Ratio 0.6 (1.0-2.7) L Microbiology Date/Time Source Procedure Growth Status 01/17/18 23:05 Blood Blood Culture - Preliminary NO GROWTH AFTER 24 HOURS Resulted 01/17/18 23:00 Blood Blood Culture - Preliminary NO GROWTH AFTER 24 HOURS Resulted 01/17/18 19:20 Blood Blood Culture - Preliminary NO GROWTH AFTER 24 HOURS Resulted 01/17/18 19:00 Blood Blood Culture - Preliminary NO GROWTH AFTER 24 HOURS Resulted 01/18/18 07:40 Wound Gram Stain - Final Resulted 01/18/18 07:40 Wound Wound Culture Pending Resulted Ismael Brown M.D. Jan 19, 2018 14:38
--- NOTE | 2018-01-19 14:45 | General Progress Note ---
Assessment/Plan Status: stable, progressing Assessment/Plan MDD Anxiety d/o Prozac klonopin ativan d/w son Subjective Allergies: Coded Allergies: No Known Allergies (Unverified , 01/16/18) Subjective the pt is improved no anxiety Objective Last 24 Hour Vital Signs Date Time Temp Pulse Resp B/P (MAP) Pulse Ox O2 Delivery O2 Flow Rate FiO2 01/19/18 13:16 109 01/19/18 12:00 98.0 94 21 153/67 (95) 97 98.0 01/19/18 12:00 Nasal Cannula 3.0 01/19/18 09:11 110 01/19/18 08:00 98.4 114 21 131/70 (90) 98 98.4 01/19/18 08:00 Nasal Cannula 2.0 01/19/18 04:00 Nasal Cannula 2.0 01/19/18 04:00 117 01/19/18 04:00 98.4 112 16 139/72 (94) 99 98.4 01/19/18 00:00 98.2 120 18 133/97 (109) 100 98.2 01/19/18 00:00 116 01/19/18 00:00 Nasal Cannula 2.0 01/18/18 20:00 Nasal Cannula 2.0 01/18/18 20:00 98.9 116 18 122/88 (99) 99 98.9 01/18/18 20:00 121 01/18/18 19:30 121 20 Nasal Cannula 2.0 28 01/18/18 19:30 Nasal Cannula 2.0 28 01/18/18 19:30 93 Nasal Cannula 2.0 28 01/18/18 16:00 Nasal Cannula 2.0 01/18/18 16:00 115 01/18/18 16:00 99.2 117 20 144/90 (108) 98 99.2 Intake and Output 01/18/18 01/19/18 19:00 07:00 Intake Total 75 ml 960 ml Output Total 200 ml Balance -125 ml 960 ml IV Total 75 ml 960 ml Output Urine Total 200 ml # Voids 2 # Bowel Movements 1 1 Laboratory Tests 01/19/18 03:47: White Blood Count 4.0L, Red Blood Count 3.65L, Hemoglobin 10.9L, Hematocrit 32.9L, Mean Corpuscular Volume 90, Mean Corpuscular Hemoglobin 29.8, Mean Corpuscular Hemoglobin Concent 33.1, Red Cell Distribution Width 15.3H, Platelet Count 48L, Mean Platelet Volume 8.0, Neutrophils (%) (Auto) , Lymphocytes (%) (Auto) , Monocytes (%) (Auto) , Eosinophils (%) (Auto) , Basophils (%) (Auto) , Differential Total Cells Counted 100, Neutrophils % ( Manual) 71, Lymphocytes % (Manual) 12L, Monocytes % (Manual) 4, Eosinophils % ( Manual) 3, Basophils % (Manual) 1, Band Neutrophils 9H, Platelet Estimate DecreasedL, Platelet Morphology Normal, Anisocytosis 1+, Sodium Level 135L, Potassium Level 3.0L, Chloride Level 102, Carbon Dioxide Level 26, Anion Gap 7, Blood Urea Nitrogen 8, Creatinine 0.7, Estimat Glomerular Filtration Rate > 60, Glucose Level 124H, Calcium Level 7.7L, Phosphorus Level 1.3L, Magnesium Level 1.6L, Total Bilirubin 1.0, Aspartate Amino Transf (AST/SGOT) 60H, Alanine Aminotransferase (ALT/SGPT) 128H, Alkaline Phosphatase 123H, Total Protein 5.3L , Albumin 1.9L, Globulin 3.4, Albumin/Globulin Ratio 0.6L Height (Feet): 4 Height (Inches): 11.00 Weight (Pounds): 257 General Appearance: no apparent distress, alert Neurologic: alert, oriented x 3, depressed affect Anna Marie Rodgers MD Jan 19, 2018 14:45
[2018-01-19] MEDS ORDERED: Sodium Phosphate 30 MM in NS 275 ML IV ONE (15:30)
[2018-01-19 16:00] VITALS: BP 141/68
--- NOTE | 2018-01-19 17:05 | Infectious Diseases Prog Note ---
Assessment/Plan Assessment/Plan Assessment: Sepsis 2ry to UTI, bacteremia and PNA- ?nephrolithiasis- pOssible luciana cath infection- bloody purulent discharge- wound cx p (per family , recurrent episodes of drainage at other hospitals as well) -u/a wbc 20-30, nit +, leuk +2; ucx >100k E.coli (andrade S) -BCx 09/29 P. mirabilis (S Ceftriaxone, R amp, Bactrim; I Ancef); 01/17 Bcx NTD ( peripheral) x4, NTD x4 (luciana cath); Pathogen in blood different from urine, while this same pathogen was isolated from wound culture there is no signs of infection in the wound and possibly patient colonized with proteus on the skin; suspicious for infected luciana cath -CXR 01/18: Improved right lung parenchymal disease. No definite acute process currently. -CT chest: Dependent consolidation throughout both lungs, right greater than left, likely related to dependent atelectasis. Small hiatal hernia. Cholelithiasis without gallbladder wall thickening. Possible nephrolithiasis versus early contrast excretion in the left upper renal pole. -2d E cho: no vegetations seen _Rnal US: unremarkable fever, recurrent Pancytopenia RASHEED, improving metastatic breast cancer (dx 2015) to brain s/p resection of brain tumor (2016) w/ resultant L side weakness currently undergoing chemotherapy twice a week multiple decubitus ulcers- no signs of infection -wound cx P. mirabilis (S Ceftriaxone, R amp, Bactrim; I Ancef), E, fecalis (S Vanco, amp) (likely colonizers) Plan: -Continue empiric IV Vanco #4 pending sputum cx and luciana cath wound cx -Switch Meropenem abx #4 to Ceftriaxone for E.coli UTI and Proteus Bacteremia based on sensitivities -01/17 SP Zosyn #2 -01/16 SP Cefepime x1, Levaquin x1 -Repeat 2 sets of Bcx -f/u cx -Monitor CBC/CMP, temperatures -aspiration precautions -wound care per hosp protocol -ESR, CRP am -f/u luciana cath wound cx -will likely need removal of luciana cath Thank you for this consultation. Will continue to follow along with you. Discussed with RN and Dr Rodriguez. Subjective Allergies: Coded Allergies: No Known Allergies (Unverified , 01/16/18) Subjective Tm 101.5 pancytopenic repeat BCx NTD Objective Vital Signs Last 24 Hour Vital Signs Date Time Temp Pulse Resp B/P (MAP) Pulse Ox O2 Delivery O2 Flow Rate FiO2 01/19/18 16:00 101.5 103 17 141/68 (92) 99 101.5 01/19/18 16:00 Nasal Cannula 3.0 01/19/18 15:25 104 01/19/18 13:16 109 01/19/18 12:00 98.0 94 21 153/67 (95) 97 98.0 01/19/18 12:00 Nasal Cannula 3.0 01/19/18 09:43 99 20 Nasal Cannula 2.0 28 01/19/18 09:43 Nasal Cannula 2.0 28 01/19/18 09:43 94 Nasal Cannula 2.0 28 01/19/18 09:11 110 01/19/18 08:00 98.4 114 21 131/70 (90) 98 98.4 01/19/18 08:00 Nasal Cannula 2.0 01/19/18 04:00 Nasal Cannula 2.0 01/19/18 04:00 117 01/19/18 04:00 98.4 112 16 139/72 (94) 99 98.4 01/19/18 00:00 98.2 120 18 133/97 (109) 100 98.2 01/19/18 00:00 116 01/19/18 00:00 Nasal Cannula 2.0 01/18/18 20:00 Nasal Cannula 2.0 01/18/18 20:00 98.9 116 18 122/88 (99) 99 98.9 01/18/18 20:00 121 01/18/18 19:30 121 20 Nasal Cannula 2.0 28 01/18/18 19:30 Nasal Cannula 2.0 28 01/18/18 19:30 93 Nasal Cannula 2.0 28 Height (Feet): 4 Height (Inches): 11.00 Weight (Pounds): 257 Objective GENERAL: The patient is a well-developed and well-nourished slightly obese female, in no apparent distress. HEENT: Eyes, pupils are equal and responsive to light and accommodation. Extraocular movements are intact. NECK: Supple without lymphadenopathy. CHEST: Decreased breath sounds at bilateral bases with crackles. Otherwise, clear to auscultation without wheezes or rales. CARDIOVASCULAR: Regular rhythm and rate. S1 and S2 are normal without murmurs, rubs, or gallops. ABDOMEN: Soft, nontender, and nondistended. Positive bowel sounds. No evidence of hepatosplenomegaly. Currently, no rebound or guarding noted. EXTREMITIES: Negative for clubbing, cyanosis, or edema. Microbiology Date/Time Source Procedure Growth Status 01/17/18 23:05 Blood Blood Culture - Preliminary NO GROWTH AFTER 24 HOURS Resulted 01/17/18 23:00 Blood Blood Culture - Preliminary NO GROWTH AFTER 24 HOURS Resulted 01/17/18 19:20 Blood Blood Culture - Preliminary NO GROWTH AFTER 24 HOURS Resulted 01/17/18 19:00 Blood Blood Culture - Preliminary NO GROWTH AFTER 24 HOURS Resulted 01/18/18 07:40 Wound Gram Stain - Final Resulted 01/18/18 07:40 Wound Wound Culture Pending Resulted Laboratory Tests Test 01/19/18 03:47 White Blood Count 4.0 K/UL (4.8-10.8) L Red Blood Count 3.65 M/UL (4.20-5.40) L Hemoglobin 10.9 G/DL (12.0-16.0) L Hematocrit 32.9 % (37.0-47.0) L Mean Corpuscular Volume 90 FL (80-99) Mean Corpuscular Hemoglobin 29.8 PG (27.0-31.0) Mean Corpuscular Hemoglobin Concent 33.1 G/DL (32.0-36.0) Red Cell Distribution Width 15.3 % (11.6-14.8) H Platelet Count 48 K/UL (150-450) L Mean Platelet Volume 8.0 FL (6.5-10.1) Neutrophils (%) (Auto) % (45.0-75.0) Lymphocytes (%) (Auto) % (20.0-45.0) Monocytes (%) (Auto) % (1.0-10.0) Eosinophils (%) (Auto) % (0.0-3.0) Basophils (%) (Auto) % (0.0-2.0) Differential Total Cells Counted 100 Neutrophils % (Manual) 71 % (45-75) Lymphocytes % (Manual) 12 % (20-45) L Monocytes % (Manual) 4 % (1-10) Eosinophils % (Manual) 3 % (0-3) Basophils % (Manual) 1 % (0-2) Band Neutrophils 9 % (0-8) H Platelet Estimate Decreased L Platelet Morphology Normal Anisocytosis 1+ Sodium Level 135 MMOL/L (136-145) L Potassium Level 3.0 MMOL/L (3.5-5.1) L Chloride Level 102 MMOL/L (98-107) Carbon Dioxide Level 26 MMOL/L (21-32) Anion Gap 7 mmol/L (5-15) Blood Urea Nitrogen 8 mg/dL (7-18) Creatinine 0.7 MG/DL (0.55-1.30) Estimat Glomerular Filtration Rate > 60 mL/min (>60) Glucose Level 124 MG/DL (74-106) H Calcium Level 7.7 MG/DL (8.5-10.1) L Phosphorus Level 1.3 MG/DL (2.5-4.9) L Magnesium Level 1.6 MG/DL (1.8-2.4) L Total Bilirubin 1.0 MG/DL (0.2-1.0) Aspartate Amino Transf (AST/SGOT) 60 U/L (15-37) H Alanine Aminotransferase (ALT/SGPT) 128 U/L (12-78) H Alkaline Phosphatase 123 U/L (46-116) H Total Protein 5.3 G/DL (6.4-8.2) L Albumin 1.9 G/DL (3.4-5.0) L Globulin 3.4 g/dL Albumin/Globulin Ratio 0.6 (1.0-2.7) L Current Medications Medications (Trade) Dose Ordered Sig/Gloria Route PRN Reason Start Time Stop Time Status Last Admin Dose Admin Acetaminophen (Tylenol) 650 mg Q4H PRN RECTAL Mild Pain (Pain Scale 1-3) 01/16/18 16:45 02/15/18 16:44 Acetaminophen (Tylenol) 650 mg Q6H PRN ORAL Mild Pain/Temp > 100.5 01/19/18 16:30 02/18/18 16:29 Al Hydroxide/Mg Hydroxide (Mylanta II) 30 ml Q6H PRN ORAL dyspepsia 01/16/18 16:45 02/15/18 16:44 Albuterol/ Ipratropium (Albuterol/ Ipratropium) 3 ml Q4HRT PRN HHN Shortness of Breath 01/16/18 19:00 01/21/18 06:44 Chlorhexidine Gluconate (Zuleika-Hex 2%) 1 applic DAILY@2000 TOPIC 01/16/18 20:00 02/15/18 19:59 01/18/18 20:46 Dextrose (Dextrose 50%) 25 ml STAT PRN IV Hypoglycemia 01/16/18 16:45 02/15/18 16:44 Dextrose (Dextrose 50%) 50 ml STAT PRN IV Hypoglycemia 01/16/18 16:45 02/15/18 16:44 Dextrose/ Electrolytes 1,000 ml @ 75 mls/hr [id number] IV 01/17/18 11:30 02/16/18 11:29 01/19/18 02:41 Diphenhydramine HCl (Benadryl) 25 mg Q6H PRN ORAL Itching/Pruritis 01/16/18 16:45 02/15/18 16:44 Fluoxetine HCl (PROzac) 20 mg DAILY ORAL 01/17/18 12:15 02/16/18 12:14 01/19/18 09:28 Heparin Sodium (Porcine) (Heparin 5000 units/ml) 5,000 units EVERY 8 HOURS SUBQ 01/16/18 22:00 02/15/18 13:59 01/16/18 21:53 Hydralazine HCl (Apresoline) 10 mg Q6H PRN ORAL SBP>160 01/18/18 13:00 02/17/18 12:59 01/18/18 12:53 Lacosamide (Vimpat) 100 mg Q12HR ORAL 01/16/18 21:00 02/15/18 20:59 01/19/18 09:28 Meropenem 1 gm/ Sodium Chloride 55 ml @ 110 mls/hr Q12HR IVPB 01/17/18 21:00 01/22/18 20:59 01/19/18 08:16 Mirtazapine (Remeron) 7.5 mg BEDTIME ORAL 01/17/18 21:00 02/16/18 20:59 01/18/18 20:46 Morphine Sulfate (Morphine Sulfate) 4 mg Q4H PRN IVP Severe Pain (Pain Scale 7-10) 01/16/18 17:00 01/23/18 16:59 Ondansetron HCl (Zofran) 4 mg Q6H PRN IVP Nausea & Vomiting 01/16/18 16:45 02/15/18 16:44 Pantoprazole (Protonix) 40 mg EVERY 12 HOURS ORAL 01/19/18 21:00 02/18/18 20:59 Sodium Phosphate 30 mm/Sodium Chloride 285 ml @ 47.5 mls/hr ONCE ONCE IV 01/19/18 15:30 01/19/18 21:29 Vancomycin HCl (Vanco rx to dose) 1 ea DAILY PRN MISC Per rx protocol 01/17/18 09:00 02/15/18 06:44 Vancomycin/Sodium Chloride 250 ml @ 166.667 mls/hr Q12HR@0800,2000 IVPB 01/19/18 08:00 01/24/18 07:59 01/19/18 09:28 Yazmin Penn M.D. Jan 19, 2018 17:04
--- NOTE | 2018-01-19 18:17 | General Progress Note ---
Assessment/Plan Status: unchanged Assessment/Plan 1. Metastatic breast cancer to the brain. Currently on treatment with Dr. Verma --> Continue to follow up with Oncology Service in the outpatient setting. --> Closely monitor for improvement. 2. Anemia due to underlying chronic disease. --> Continue to closely monitor. --> Anemia w/u has been reviewed. Will trend cbc daily. --> Hgb goal >7 3. Thrombocytopenia, likely secondary to urosepsis, gram-negative rods 4/4 bottles. 4. Urinary tract infection, on antibiotics. 5. Hypokalemia, replete as needed. 6. Coagulopathy, potentially secondary to decreased p.o. intake. The time the note was entered does not necessarily correspond to the time the patient was seen. Subjective Date patient seen: Jan 19, 2018 ROS Limited/Unobtainable: Yes Constitutional: Reports: fever Hematologic/Lymphatic: Reports: anemia Allergies: Coded Allergies: No Known Allergies (Unverified , 01/16/18) All Systems: reviewed and negative except above Subjective Pt awake and alert. No acute events. Vitals are stable. H/H stable. Unable to transfer pt to [facility] today. Objective Last 24 Hour Vital Signs Date Time Temp Pulse Resp B/P (MAP) Pulse Ox O2 Delivery O2 Flow Rate FiO2 01/19/18 16:51 101.5 01/19/18 16:00 101.5 103 17 141/68 (92) 99 101.5 01/19/18 16:00 Nasal Cannula 3.0 01/19/18 15:25 104 01/19/18 13:16 109 01/19/18 12:00 98.0 94 21 153/67 (95) 97 98.0 01/19/18 12:00 Nasal Cannula 3.0 01/19/18 09:43 99 20 Nasal Cannula 2.0 28 01/19/18 09:43 Nasal Cannula 2.0 28 01/19/18 09:43 94 Nasal Cannula 2.0 28 01/19/18 09:11 110 01/19/18 08:00 98.4 114 21 131/70 (90) 98 98.4 01/19/18 08:00 Nasal Cannula 2.0 01/19/18 04:00 Nasal Cannula 2.0 01/19/18 04:00 117 01/19/18 04:00 98.4 112 16 139/72 (94) 99 98.4 01/19/18 00:00 98.2 120 18 133/97 (109) 100 98.2 01/19/18 00:00 116 01/19/18 00:00 Nasal Cannula 2.0 01/18/18 20:00 Nasal Cannula 2.0 01/18/18 20:00 98.9 116 18 122/88 (99) 99 98.9 01/18/18 20:00 121 01/18/18 19:30 121 20 Nasal Cannula 2.0 28 01/18/18 19:30 Nasal Cannula 2.0 28 01/18/18 19:30 93 Nasal Cannula 2.0 28 Intake and Output 01/18/18 01/19/18 19:00 07:00 Intake Total 75 ml 960 ml Output Total 200 ml Balance -125 ml 960 ml IV Total 75 ml 960 ml Output Urine Total 200 ml # Voids 2 # Bowel Movements 1 1 Laboratory Tests 01/19/18 03:47: White Blood Count 4.0L, Red Blood Count 3.65L, Hemoglobin 10.9L, Hematocrit 32.9L, Mean Corpuscular Volume 90, Mean Corpuscular Hemoglobin 29.8, Mean Corpuscular Hemoglobin Concent 33.1, Red Cell Distribution Width 15.3H, Platelet Count 48L, Mean Platelet Volume 8.0, Neutrophils (%) (Auto) , Lymphocytes (%) (Auto) , Monocytes (%) (Auto) , Eosinophils (%) (Auto) , Basophils (%) (Auto) , Differential Total Cells Counted 100, Neutrophils % ( Manual) 71, Lymphocytes % (Manual) 12L, Monocytes % (Manual) 4, Eosinophils % ( Manual) 3, Basophils % (Manual) 1, Band Neutrophils 9H, Platelet Estimate DecreasedL, Platelet Morphology Normal, Anisocytosis 1+, Sodium Level 135L, Potassium Level 3.0L, Chloride Level 102, Carbon Dioxide Level 26, Anion Gap 7, Blood Urea Nitrogen 8, Creatinine 0.7, Estimat Glomerular Filtration Rate > 60, Glucose Level 124H, Calcium Level 7.7L, Phosphorus Level 1.3L, Magnesium Level 1.6L, Total Bilirubin 1.0, Aspartate Amino Transf (AST/SGOT) 60H, Alanine Aminotransferase (ALT/SGPT) 128H, Alkaline Phosphatase 123H, Total Protein 5.3L , Albumin 1.9L, Globulin 3.4, Albumin/Globulin Ratio 0.6L Height (Feet): 4 Height (Inches): 11.00 Weight (Pounds): 257 General Appearance: no apparent distress EENT: PERRL/EOMI Neck: normal alignment Cardiovascular: tachycardia Respiratory/Chest: no respiratory distress Abdomen: normal bowel sounds Diaz Moody MD Jan 19, 2018 18:17
[2018-01-19 20:00] VITALS: BP_SYST 130; BP_SYST 136; BP_DIAS 67
[2018-01-19] MEDS ORDERED: cefTRIAXone 2 GM in D5W 110 ML IVPB SCH (20:00)
[2018-01-19] MEDS: Dyna-Hex 2% Top Sol 2oz TOPIC SCH (20:22)
[2018-01-20] VITALS: BP 152/75
[2018-01-20 04:00] VITALS: BP 132/71
[2018-01-20] MEDS: Heparin 5000 units/ml inj SUBQ SCH ×3 (05:01→21:50)
[2018-01-20 05:18] LABS: HEMATOCRIT 31.4 % (37.0-47.0); HEMOGLOBIN 10.3 G/DL (12.0-16.0); MEAN CORPUSCULAR VOLUME 90 FL (80-99); PLATELET COUNT 51 K/UL (150-450); RED BLOOD COUNT 3.48 M/UL (4.20-5.40); RED CELL DISTRIBUTION WIDTH 15.8 % (11.6-14.8); WHITE BLOOD COUNT 3.8 K/UL (4.8-10.8)
[2018-01-20 05:44] LABS: ANION GAP 6 mmol/L (5-15); BLOOD UREA NITROGEN 5 mg/dL (7-18); CALCIUM 7.7 MG/DL (8.5-10.1); CARBON DIOXIDE 27 MMOL/L (21-32); CHLORIDE 105 MMOL/L (98-107); CREATININE 0.6 MG/DL (0.55-1.30); POTASSIUM 3.1 MMOL/L (3.5-5.1); SODIUM 138 MMOL/L (136-145)
[2018-01-20 08:00] VITALS: BP 130/67
[2018-01-20] MEDS: Vancomycin 750mg/NS 250ml IVPB SCH (08:22)
[2018-01-20] MEDS: Lacosamide 100 MG TABLET ORAL SCH ×2 (08:22→21:51)
--- NOTE | 2018-01-20 11:42 | Pulmonology Progress Note ---
Assessment/Plan Problems: (1) Healthcare-associated pneumonia (2) Sepsis (3) Tachycardia (4) UTI (urinary tract infection) (5) Brain cancer (6) Breast cancer in female (7) Morbid obesity with BMI of 40.0-44.9, adult (8) Hypokalemia (9) ATN (acute tubular necrosis) Assessment/Plan Blood cultures are available now, Ecoli in wound and blood afebrile heart rate coming down iv fluids continue abx check cultures, BC positive for GNR check electrolytes check urine lytes renal studies, renal function improving echo reviewed Subjective ROS Limited/Unobtainable: No Constitutional: Reports: no symptoms HEENT: Repors: no symptoms Respiratory: Reports: no symptoms Allergies: Coded Allergies: No Known Allergies (Unverified , 01/16/18) Objective Last 24 Hour Vital Signs Date Time Temp Pulse Resp B/P (MAP) Pulse Ox O2 Delivery O2 Flow Rate FiO2 01/20/18 08:00 111 01/20/18 08:00 Nasal Cannula 3.0 01/20/18 08:00 100.2 112 19 130/67 (88) 100 100.2 24 01/20/18 04:00 111 01/20/18 04:00 99.1 117 20 132/71 (91) 100 99.1 24 01/20/18 04:00 Nasal Cannula 3.0 01/20/18 00:00 98.3 102 20 152/75 (100) 100 98.3 01/20/18 00:00 104 01/20/18 00:00 Nasal Cannula 3.0 01/19/18 20:00 Nasal Cannula 3.0 01/19/18 20:00 98.4 109 24 136/67 (90) 98 98.4 01/19/18 20:00 107 01/19/18 18:53 Nasal Cannula 2.0 28 01/19/18 18:53 115 20 Nasal Cannula 2.0 28 01/19/18 18:53 96 Nasal Cannula 2.0 28 01/19/18 17:50 97.5 01/19/18 16:51 101.5 01/19/18 16:00 101.5 103 17 141/68 (92) 99 101.5 01/19/18 16:00 Nasal Cannula 3.0 01/19/18 15:25 104 01/19/18 13:16 109 01/19/18 12:00 98.0 94 21 153/67 (95) 97 98.0 01/19/18 12:00 Nasal Cannula 3.0 Intake and Output 01/19/18 01/20/18 19:00 07:00 Intake Total 1647.500 ml 1498.2 ml Balance 1647.500 ml 1498.2 ml IV Total 1647.500 ml 1498.2 ml # Voids 2 2 # Bowel Movements 1 Objective still tachycardic HEENT: normocephalic Respiratory/Chest: chest wall non-tender, lungs clear Breasts: no masses Cardiovascular: normal rate Abdomen: normal bowel sounds, soft, non tender Genitourinary: normal external genitalia Extremities: no cyanosis Skin: no rash 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 Lymphatic: no neck adenopathy Musculoskeletal: normal muscle bulk Microbiology Date/Time Source Procedure Growth Status 01/17/18 23:05 Blood Blood Culture - Preliminary NO GROWTH AFTER 48 HOURS Resulted 01/17/18 23:00 Blood Blood Culture - Preliminary NO GROWTH AFTER 48 HOURS Resulted 01/17/18 19:20 Blood Blood Culture - Preliminary NO GROWTH AFTER 48 HOURS Resulted 01/17/18 19:00 Blood Blood Culture - Preliminary NO GROWTH AFTER 48 HOURS Resulted 01/18/18 07:40 Wound Gram Stain - Final Resulted 01/18/18 07:40 Wound Culture - Preliminary Gram Negative Bacillus 1 Resulted Laboratory Tests 01/20/18 04:38: White Blood Count 3.8L, Red Blood Count 3.48L, Hemoglobin 10.3L, Hematocrit 31.4L, Mean Corpuscular Volume 90, Mean Corpuscular Hemoglobin 29.5, Mean Corpuscular Hemoglobin Concent 32.6, Red Cell Distribution Width 15.8H, Platelet Count 51L, Mean Platelet Volume 7.1, Neutrophils (%) (Auto) , Lymphocytes (%) (Auto) , Monocytes (%) (Auto) , Eosinophils (%) (Auto) , Basophils (%) (Auto) , Differential Total Cells Counted 100, Neutrophils % ( Manual) 76H, Lymphocytes % (Manual) 15L, Monocytes % (Manual) 6, Eosinophils % ( Manual) 2, Basophils % (Manual) 0, Band Neutrophils 1, Platelet Estimate DecreasedL, Platelet Morphology Normal, Anisocytosis 1+, Erythrocyte Sedimentation Rate 72H, Sodium Level 138, Potassium Level 3.1L, Chloride Level 105, Carbon Dioxide Level 27, Anion Gap 6, Blood Urea Nitrogen 5L, Creatinine 0.6, Estimat Glomerular Filtration Rate > 60, Glucose Level 112H, Calcium Level 7.7L, Magnesium Level 1.8, C-Reactive Protein, Quantitative 12.2H Current Medications Medications (Trade) Dose Ordered Sig/Gloria Route PRN Reason Start Time Stop Time Status Last Admin Dose Admin Acetaminophen (Tylenol) 650 mg Q4H PRN RECTAL Mild Pain (Pain Scale 1-3) 01/16/18 16:45 02/15/18 16:44 Acetaminophen (Tylenol) 650 mg Q6H PRN ORAL Mild Pain/Temp > 100.5 01/19/18 16:30 02/18/18 16:29 01/19/18 16:51 Al Hydroxide/Mg Hydroxide (Mylanta II) 30 ml Q6H PRN ORAL dyspepsia 01/16/18 16:45 02/15/18 16:44 Albuterol/ Ipratropium (Albuterol/ Ipratropium) 3 ml Q4HRT PRN HHN Shortness of Breath 01/16/18 19:00 01/21/18 06:44 Ceftriaxone Sodium 2 gm/ Dextrose 110 ml @ 220 mls/hr Q24H IVPB 01/19/18 20:00 01/26/18 19:59 01/19/18 20:23 Chlorhexidine Gluconate (Zuleika-Hex 2%) 1 applic DAILY@2000 TOPIC 01/16/18 20:00 02/15/18 19:59 01/19/18 20:22 Dextrose (Dextrose 50%) 25 ml STAT PRN IV Hypoglycemia 01/16/18 16:45 02/15/18 16:44 Dextrose (Dextrose 50%) 50 ml STAT PRN IV Hypoglycemia 01/16/18 16:45 02/15/18 16:44 Dextrose/ Electrolytes 1,000 ml @ 75 mls/hr [id number] IV 01/17/18 11:30 02/16/18 11:29 01/20/18 05:40 Diphenhydramine HCl (Benadryl) 25 mg Q6H PRN ORAL Itching/Pruritis 01/16/18 16:45 02/15/18 16:44 Fluoxetine HCl (PROzac) 20 mg DAILY ORAL 01/17/18 12:15 02/16/18 12:14 01/20/18 08:22 Heparin Sodium (Porcine) (Heparin 5000 units/ml) 5,000 units EVERY 8 HOURS SUBQ 01/16/18 22:00 02/15/18 13:59 01/16/18 21:53 Hydralazine HCl (Apresoline) 10 mg Q6H PRN ORAL SBP>160 01/18/18 13:00 02/17/18 12:59 01/18/18 12:53 Lacosamide (Vimpat) 100 mg Q12HR ORAL 01/16/18 21:00 02/15/18 20:59 01/20/18 08:22 Mirtazapine (Remeron) 7.5 mg BEDTIME ORAL 01/17/18 21:00 02/16/18 20:59 01/19/18 20:23 Morphine Sulfate (Morphine Sulfate) 4 mg Q4H PRN IVP Severe Pain (Pain Scale 7-10) 01/16/18 17:00 01/23/18 16:59 Ondansetron HCl (Zofran) 4 mg Q6H PRN IVP Nausea & Vomiting 01/16/18 16:45 02/15/18 16:44 Pantoprazole (Protonix) 40 mg EVERY 12 HOURS ORAL 01/19/18 21:00 02/18/18 20:59 01/20/18 08:22 Vancomycin HCl (Vanco rx to dose) 1 ea DAILY PRN MISC Per rx protocol 01/17/18 09:00 02/15/18 06:44 Vancomycin/Sodium Chloride 250 ml @ 166.667 mls/hr Q12HR@0800,2000 IVPB 01/19/18 08:00 01/24/18 07:59 01/20/18 08:22 Miguel A Lenz MD Jan 20, 2018 11:42
[2018-01-20 12:00] VITALS: BP 137/88
--- NOTE | 2018-01-20 12:43 | Diagnostic Imaging Report ---
APPROVED REPORT CPT Code: 94257 Symptoms Comments: Injury R/O Ischemia Comments Technically limited visualization in proximal junction of the left superficial femoral artery, due to a bandage. BILATERAL: Common femoral artery waveform analysis is within normal limits at rest. Color flow duplex sonography reveals patency of the superficial femoral and popliteal, and tibial arteries. There is no evidence of stenosis or occlusion within these segments. Doppler tibial artery waveform analysis is within normal limits bilaterally.
--- NOTE | 2018-01-20 12:45 | General Progress Note ---
Assessment/Plan Assessment/Plan 1. Metastatic breast cancer to the brain. Currently on treatment with Dr. Verma --> Continue to follow up with Oncology Service in the outpatient setting. --> Closely monitor for improvement. 2. Anemia due to underlying chronic disease. --> Continue to closely monitor. --> Anemia w/u has been reviewed. Will trend cbc daily. --> Hgb goal >7 3. Thrombocytopenia, likely secondary to urosepsis, gram-negative rods 4/4 bottles. 4. Urinary tract infection, on antibiotics. 5. Hypokalemia, replete as needed. 6. Coagulopathy, potentially secondary to decreased p.o. intake. The time the note was entered does not necessarily correspond to the time the patient was seen. Subjective Date patient seen: Jan 20, 2018 ROS Limited/Unobtainable: Yes Hematologic/Lymphatic: Reports: anemia Allergies: Coded Allergies: No Known Allergies (Unverified , 01/16/18) All Systems: reviewed and negative except above Subjective Pt awake and alert. No acute events. Vitals are stable. H/H stable. DC planning. Objective Last 24 Hour Vital Signs Date Time Temp Pulse Resp B/P (MAP) Pulse Ox O2 Delivery O2 Flow Rate FiO2 01/20/18 12:32 100.2 01/20/18 08:00 111 01/20/18 08:00 Nasal Cannula 3.0 01/20/18 08:00 100.2 112 19 130/67 (88) 100 100.2 24 01/20/18 04:00 111 01/20/18 04:00 99.1 117 20 132/71 (91) 100 99.1 24 01/20/18 04:00 Nasal Cannula 3.0 01/20/18 00:00 98.3 102 20 152/75 (100) 100 98.3 01/20/18 00:00 104 01/20/18 00:00 Nasal Cannula 3.0 01/19/18 20:00 Nasal Cannula 3.0 01/19/18 20:00 98.4 109 24 136/67 (90) 98 98.4 01/19/18 20:00 107 01/19/18 18:53 Nasal Cannula 2.0 28 01/19/18 18:53 115 20 Nasal Cannula 2.0 28 01/19/18 18:53 96 Nasal Cannula 2.0 28 01/19/18 17:50 97.5 01/19/18 16:51 101.5 01/19/18 16:00 101.5 103 17 141/68 (92) 99 101.5 01/19/18 16:00 Nasal Cannula 3.0 01/19/18 15:25 104 01/19/18 13:16 109 Intake and Output 01/19/18 01/20/18 19:00 07:00 Intake Total 1647.500 ml 1498.2 ml Balance 1647.500 ml 1498.2 ml IV Total 1647.500 ml 1498.2 ml # Voids 2 2 # Bowel Movements 1 Laboratory Tests 01/20/18 04:38: White Blood Count 3.8L, Red Blood Count 3.48L, Hemoglobin 10.3L, Hematocrit 31.4L, Mean Corpuscular Volume 90, Mean Corpuscular Hemoglobin 29.5, Mean Corpuscular Hemoglobin Concent 32.6, Red Cell Distribution Width 15.8H, Platelet Count 51L, Mean Platelet Volume 7.1, Neutrophils (%) (Auto) , Lymphocytes (%) (Auto) , Monocytes (%) (Auto) , Eosinophils (%) (Auto) , Basophils (%) (Auto) , Differential Total Cells Counted 100, Neutrophils % ( Manual) 76H, Lymphocytes % (Manual) 15L, Monocytes % (Manual) 6, Eosinophils % ( Manual) 2, Basophils % (Manual) 0, Band Neutrophils 1, Platelet Estimate DecreasedL, Platelet Morphology Normal, Anisocytosis 1+, Erythrocyte Sedimentation Rate 72H, Sodium Level 138, Potassium Level 3.1L, Chloride Level 105, Carbon Dioxide Level 27, Anion Gap 6, Blood Urea Nitrogen 5L, Creatinine 0.6, Estimat Glomerular Filtration Rate > 60, Glucose Level 112H, Calcium Level 7.7L, Magnesium Level 1.8, C-Reactive Protein, Quantitative 12.2H Height (Feet): 4 Height (Inches): 11.00 Weight (Pounds): 257 General Appearance: no apparent distress, alert EENT: PERRL/EOMI Neck: normal alignment Cardiovascular: tachycardia Respiratory/Chest: no respiratory distress Abdomen: soft Diaz Moody MD Jan 20, 2018 12:45
[2018-01-20] MEDS ORDERED: Morphine Sulfate 4mg/ml Inj (IV USE ONLY) IVP PRN (16:00)
[2018-01-20] MEDS ORDERED: Mylanta II UD 30ml ORAL PRN (16:00)
[2018-01-20] MEDS ORDERED: HydrALAZINE 10mg Tab ORAL PRN (16:00)
[2018-01-20] MEDS ORDERED: Acetaminophen 650 MG SUPP RECTAL PRN (16:00)
--- NOTE | 2018-01-20 16:02 | General Surgery Progress Note ---
General Surgery-Progress Note Subjective Additional Comments no acute events. comfortable. son states pus from right chest port noted prior Objective Last 24 Hour Vital Signs Date Time Temp Pulse Resp B/P (MAP) Pulse Ox O2 Delivery O2 Flow Rate FiO2 01/20/18 13:31 100.2 01/20/18 12:32 100.2 01/20/18 12:00 Nasal Cannula 3.0 01/20/18 12:00 100.2 110 20 137/88 (104) 98 100.2 24 01/20/18 12:00 106 01/20/18 08:00 111 01/20/18 08:00 Nasal Cannula 3.0 01/20/18 08:00 100.2 112 19 130/67 (88) 100 100.2 24 01/20/18 06:55 98 Nasal Cannula 2.0 28 01/20/18 06:55 Nasal Cannula 2.0 28 01/20/18 06:55 110 20 Nasal Cannula 2.0 28 01/20/18 04:00 111 01/20/18 04:00 99.1 117 20 132/71 (91) 100 99.1 24 01/20/18 04:00 Nasal Cannula 3.0 01/20/18 00:00 98.3 102 20 152/75 (100) 100 98.3 01/20/18 00:00 104 01/20/18 00:00 Nasal Cannula 3.0 01/19/18 20:00 Nasal Cannula 3.0 01/19/18 20:00 98.4 109 24 136/67 (90) 98 98.4 01/19/18 20:00 107 01/19/18 18:53 Nasal Cannula 2.0 28 01/19/18 18:53 115 20 Nasal Cannula 2.0 28 01/19/18 18:53 96 Nasal Cannula 2.0 28 01/19/18 16:51 101.5 I&O Intake and Output 01/19/18 01/20/18 19:00 07:00 Intake Total 1647.500 ml 1498.2 ml Balance 1647.500 ml 1498.2 ml IV Total 1647.500 ml 1498.2 ml # Voids 2 2 # Bowel Movements 1 Dressing: saturated Wound: clean Drains: none Cardiovascular: RSR Respiratory: clear Abdomen: soft, non-tender, present bowel sounds Extremities: no cyanosis Laboratory Tests Test 01/20/18 04:38 White Blood Count 3.8 K/UL (4.8-10.8) L Red Blood Count 3.48 M/UL (4.20-5.40) L Hemoglobin 10.3 G/DL (12.0-16.0) L Hematocrit 31.4 % (37.0-47.0) L Mean Corpuscular Volume 90 FL (80-99) Mean Corpuscular Hemoglobin 29.5 PG (27.0-31.0) Mean Corpuscular Hemoglobin Concent 32.6 G/DL (32.0-36.0) Red Cell Distribution Width 15.8 % (11.6-14.8) H Platelet Count 51 K/UL (150-450) L Mean Platelet Volume 7.1 FL (6.5-10.1) Neutrophils (%) (Auto) % (45.0-75.0) Lymphocytes (%) (Auto) % (20.0-45.0) Monocytes (%) (Auto) % (1.0-10.0) Eosinophils (%) (Auto) % (0.0-3.0) Basophils (%) (Auto) % (0.0-2.0) Differential Total Cells Counted 100 Neutrophils % (Manual) 76 % (45-75) H Lymphocytes % (Manual) 15 % (20-45) L Monocytes % (Manual) 6 % (1-10) Eosinophils % (Manual) 2 % (0-3) Basophils % (Manual) 0 % (0-2) Band Neutrophils 1 % (0-8) Platelet Estimate Decreased L Platelet Morphology Normal Anisocytosis 1+ Erythrocyte Sedimentation Rate 72 MM/HR (0-30) H Sodium Level 138 MMOL/L (136-145) Potassium Level 3.1 MMOL/L (3.5-5.1) L Chloride Level 105 MMOL/L (98-107) Carbon Dioxide Level 27 MMOL/L (21-32) Anion Gap 6 mmol/L (5-15) Blood Urea Nitrogen 5 mg/dL (7-18) L Creatinine 0.6 MG/DL (0.55-1.30) Estimat Glomerular Filtration Rate > 60 mL/min (>60) Glucose Level 112 MG/DL (74-106) H Calcium Level 7.7 MG/DL (8.5-10.1) L Magnesium Level 1.8 MG/DL (1.8-2.4) C-Reactive Protein, Quantitative 12.2 mg/dL (0.00-0.90) H Plan Problems: (1) Ulcer of left lower leg Assessment & Plan: Left posterior distal loeg with 5cm x 4cm stage II slowly healing ulceration possibly from pressure or trauma. no active infection. wound bed with fibrinous tissue forming eschar no drainage no odor. present on admission Left inner proximal thigh with 4cm x 2cm stage II slowly healing skin ulceration likely from trauma no active infection. wound bed with fibrinous tissue forming eschar no drainage no odor. present on admission Right upper arm 5cm x 4cm stage III ulceration with exposed fat. slowly healing. etiology likely trauma. no active infection. no drainage no odor. present on admission Arterial duplex okay wounds unlikely etiology of sepsis. clean wounds daily skin protectant and foam dressings. will monitor for need of debridement (2) Sepsis Assessment & Plan: wounds unlikely etiology of sepsis. clean wounds daily skin protectant and foam dressings. will monitor for need of debridement concerns for port line infection. no abscess on ultrasound. will consider removing line and placing new line a few days later. son states pus from site prior. wound dehiscence noted on exam esr and crp elevated. will discuss with ID and primary for port removal as I do believe there is good possibility of it being source of infection thank you Juanito Rodriguez Jan 20, 2018 16:02
[2018-01-20 16:19] VITALS: BP 126/79
--- NOTE | 2018-01-20 16:24 | Infectious Diseases Prog Note ---
Assessment/Plan Assessment/Plan Assessment: Sepsis 2ry to UTI, bacteremia and PNA- ?nephrolithiasis- Likely luciana cath infection- bloody purulent discharge- wound cx <1+ GNR (per family, recurrent episodes of drainage at other hospitals as well) -u/a wbc 20-30, nit +, leuk +2; ucx >100k E.coli (andrade S) -BCx 09/29 P. mirabilis (S Ceftriaxone, R amp, Bactrim; I Ancef); 01/17 Bcx NTD ( peripheral) x4, NTD x4 (luciana cath); Pathogen in blood different from urine, while this same pathogen was isolated from wound culture there is no signs of infection in the wound and possibly patient colonized with proteus on the skin; suspicious for infected luciana cath -CXR 01/18: Improved right lung parenchymal disease. No definite acute process currently. -CT chest: Dependent consolidation throughout both lungs, right greater than left, likely related to dependent atelectasis. Small hiatal hernia. Cholelithiasis without gallbladder wall thickening. Possible nephrolithiasis versus early contrast excretion in the left upper renal pole. -2d E cho: no vegetations seen _Renal US: unremarkable -ESR ~70, CRP ~12 fever, recurrent Pancytopenia RASHEED, resolving metastatic breast cancer (dx 2015) to brain s/p resection of brain tumor (2016) w/ resultant L side weakness currently undergoing chemotherapy twice a week multiple decubitus ulcers- no signs of infection -wound cx P. mirabilis (S Ceftriaxone, R amp, Bactrim; I Ancef), E, fecalis (S Vanco, amp) (likely colonizers) Plan: -Continue empiric IV Vanco #4 pending sputum cx and luciana cath wound cx -Continue Ceftriaxone abx #5 for E.coli UTI and Proteus Bacteremia based on sensitivities; will treat for 10-14 from removal of luciana cath -01/18 SP Meropenem #3 -01/17 SP Zosyn #2 -01/16 SP Cefepime x1, Levaquin x1 -f/u Repeat 2 sets of Bcx -f/u cx -Monitor CBC/CMP, temperatures -aspiration precautions -wound care per hosp protocol -Sx f/u: for removal of Luciana cath -culture tip of catheter Thank you for this consultation. Will continue to follow along with you. Discussed with RN, Dr Lenz and Dr Rodriguez. Subjective Allergies: Coded Allergies: No Known Allergies (Unverified , 01/16/18) Subjective remains febrile and tachycardic Tm 100.5 repeat Bcx NTD Pancytopenic elevated ESR and CRP Objective Vital Signs Last 24 Hour Vital Signs Date Time Temp Pulse Resp B/P (MAP) Pulse Ox O2 Delivery O2 Flow Rate FiO2 01/20/18 13:31 100.2 01/20/18 12:32 100.2 01/20/18 12:00 Nasal Cannula 3.0 01/20/18 12:00 100.2 110 20 137/88 (104) 98 100.2 24 01/20/18 12:00 106 01/20/18 08:00 111 01/20/18 08:00 Nasal Cannula 3.0 01/20/18 08:00 100.2 112 19 130/67 (88) 100 100.2 24 01/20/18 06:55 98 Nasal Cannula 2.0 28 01/20/18 06:55 Nasal Cannula 2.0 28 01/20/18 06:55 110 20 Nasal Cannula 2.0 28 01/20/18 04:00 111 01/20/18 04:00 99.1 117 20 132/71 (91) 100 99.1 24 01/20/18 04:00 Nasal Cannula 3.0 01/20/18 00:00 98.3 102 20 152/75 (100) 100 98.3 01/20/18 00:00 104 01/20/18 00:00 Nasal Cannula 3.0 01/19/18 20:00 Nasal Cannula 3.0 01/19/18 20:00 98.4 109 24 136/67 (90) 98 98.4 01/19/18 20:00 107 01/19/18 18:53 Nasal Cannula 2.0 28 01/19/18 18:53 115 20 Nasal Cannula 2.0 28 01/19/18 18:53 96 Nasal Cannula 2.0 28 01/19/18 16:51 101.5 Height (Feet): 4 Height (Inches): 11.00 Weight (Pounds): 257 Objective GENERAL: The patient is a well-developed and well-nourished slightly obese female, in no apparent distress. HEENT: Eyes, pupils are equal and responsive to light and accommodation. Extraocular movements are intact. NECK: Supple without lymphadenopathy. CHEST: Decreased breath sounds at bilateral bases with crackles. Otherwise, clear to auscultation without wheezes or rales. CARDIOVASCULAR: Regular rhythm and rate. S1 and S2 are normal without murmurs, rubs, or gallops. ABDOMEN: Soft, nontender, and nondistended. Positive bowel sounds. No evidence of hepatosplenomegaly. Currently, no rebound or guarding noted. EXTREMITIES: Negative for clubbing, cyanosis, or edema. Microbiology Date/Time Source Procedure Growth Status 01/17/18 23:05 Blood Blood Culture - Preliminary NO GROWTH AFTER 48 HOURS Resulted 01/17/18 23:00 Blood Blood Culture - Preliminary NO GROWTH AFTER 48 HOURS Resulted 01/17/18 19:20 Blood Blood Culture - Preliminary NO GROWTH AFTER 48 HOURS Resulted 01/17/18 19:00 Blood Blood Culture - Preliminary NO GROWTH AFTER 48 HOURS Resulted 01/18/18 07:40 Wound Gram Stain - Final Resulted 01/18/18 07:40 Wound Culture - Preliminary Gram Negative Bacillus 1 Resulted 01/19/18 19:00 Sputum Induced Gram Stain - Final Resulted 01/19/18 19:00 Sputum Induced Sputum Culture Pending Resulted Laboratory Tests Test 01/20/18 04:38 White Blood Count 3.8 K/UL (4.8-10.8) L Red Blood Count 3.48 M/UL (4.20-5.40) L Hemoglobin 10.3 G/DL (12.0-16.0) L Hematocrit 31.4 % (37.0-47.0) L Mean Corpuscular Volume 90 FL (80-99) Mean Corpuscular Hemoglobin 29.5 PG (27.0-31.0) Mean Corpuscular Hemoglobin Concent 32.6 G/DL (32.0-36.0) Red Cell Distribution Width 15.8 % (11.6-14.8) H Platelet Count 51 K/UL (150-450) L Mean Platelet Volume 7.1 FL (6.5-10.1) Neutrophils (%) (Auto) % (45.0-75.0) Lymphocytes (%) (Auto) % (20.0-45.0) Monocytes (%) (Auto) % (1.0-10.0) Eosinophils (%) (Auto) % (0.0-3.0) Basophils (%) (Auto) % (0.0-2.0) Differential Total Cells Counted 100 Neutrophils % (Manual) 76 % (45-75) H Lymphocytes % (Manual) 15 % (20-45) L Monocytes % (Manual) 6 % (1-10) Eosinophils % (Manual) 2 % (0-3) Basophils % (Manual) 0 % (0-2) Band Neutrophils 1 % (0-8) Platelet Estimate Decreased L Platelet Morphology Normal Anisocytosis 1+ Erythrocyte Sedimentation Rate 72 MM/HR (0-30) H Sodium Level 138 MMOL/L (136-145) Potassium Level 3.1 MMOL/L (3.5-5.1) L Chloride Level 105 MMOL/L (98-107) Carbon Dioxide Level 27 MMOL/L (21-32) Anion Gap 6 mmol/L (5-15) Blood Urea Nitrogen 5 mg/dL (7-18) L Creatinine 0.6 MG/DL (0.55-1.30) Estimat Glomerular Filtration Rate > 60 mL/min (>60) Glucose Level 112 MG/DL (74-106) H Calcium Level 7.7 MG/DL (8.5-10.1) L Magnesium Level 1.8 MG/DL (1.8-2.4) C-Reactive Protein, Quantitative 12.2 mg/dL (0.00-0.90) H Current Medications Medications (Trade) Dose Ordered Sig/Gloria Route PRN Reason Start Time Stop Time Status Last Admin Dose Admin Acetaminophen (Tylenol) 650 mg Q4H PRN RECTAL Mild Pain (Pain Scale 1-3) 01/20/18 16:00 02/15/18 15:59 Acetaminophen (Tylenol) 650 mg Q6H PRN ORAL Mild Pain/Temp > 100.5 01/20/18 18:30 02/18/18 18:29 Al Hydroxide/Mg Hydroxide (Mylanta II) 30 ml Q6H PRN ORAL dyspepsia 01/20/18 16:00 02/15/18 15:59 Albuterol/ Ipratropium (Albuterol/ Ipratropium) 3 ml Q4HRT PRN HHN Shortness of Breath 01/20/18 19:00 01/21/18 06:44 Ceftriaxone Sodium 2 gm/ Dextrose 110 ml @ 220 mls/hr Q24H IVPB 01/20/18 20:00 01/26/18 19:59 Chlorhexidine Gluconate (Zuleika-Hex 2%) 1 applic DAILY@2000 TOPIC 01/20/18 20:00 02/15/18 19:59 Dextrose (Dextrose 50%) 25 ml STAT PRN IV Hypoglycemia 01/20/18 16:00 02/15/18 15:59 Dextrose (Dextrose 50%) 50 ml STAT PRN IV Hypoglycemia 01/20/18 16:00 02/15/18 15:59 Dextrose/ Electrolytes 1,000 ml @ 75 mls/hr [id number] IV 01/20/18 16:15 02/16/18 11:29 Diphenhydramine HCl (Benadryl) 25 mg Q6H PRN ORAL Itching/Pruritis 01/20/18 16:00 02/15/18 15:59 Fluoxetine HCl (PROzac) 20 mg DAILY ORAL 01/21/18 09:00 02/16/18 12:14 Heparin Sodium (Porcine) (Heparin 5000 units/ml) 5,000 units EVERY 8 HOURS SUBQ 01/20/18 22:00 02/15/18 13:59 UNV Hydralazine HCl (Apresoline) 10 mg Q6H PRN ORAL SBP>160 01/20/18 16:00 02/17/18 15:59 Lacosamide (Vimpat) 100 mg Q12HR ORAL 01/20/18 21:00 02/15/18 20:59 Mirtazapine (Remeron) 7.5 mg BEDTIME ORAL 01/20/18 21:00 02/16/18 20:59 Morphine Sulfate (Morphine Sulfate) 4 mg Q4H PRN IVP Severe Pain (Pain Scale 7-10) 01/20/18 16:00 01/23/18 15:59 Ondansetron HCl (Zofran) 4 mg Q6H PRN IVP Nausea & Vomiting 01/20/18 16:00 02/15/18 15:59 Pantoprazole (Protonix) 40 mg EVERY 12 HOURS ORAL 01/20/18 21:00 02/18/18 20:59 Vancomycin HCl (Vanco rx to dose) 1 ea DAILY PRN MISC Per rx protocol 01/21/18 09:00 02/15/18 06:44 Vancomycin/Sodium Chloride 250 ml @ 166.667 mls/hr Q12HR@0800,1999 IVPB 01/20/18 20:00 01/24/18 07:59 Yazmin Penn M.D. Jan 20, 2018 16:24
--- NOTE | 2018-01-20 17:09 | Internal Med Progress Note ---
Subjective Date of Service: Jan 20, 2018 Physician Name Ayo Roth Attending Physician Sander Christensen MD Current Medications Medications (Trade) Dose Ordered Sig/Gloria Route PRN Reason Start Time Stop Time Status Last Admin Dose Admin Acetaminophen (Tylenol) 650 mg Q4H PRN RECTAL Mild Pain (Pain Scale 1-3) 01/20/18 16:00 02/15/18 15:59 Acetaminophen (Tylenol) 650 mg Q6H PRN ORAL Mild Pain/Temp > 100.5 01/20/18 18:30 02/18/18 18:29 Al Hydroxide/Mg Hydroxide (Mylanta II) 30 ml Q6H PRN ORAL dyspepsia 01/20/18 16:00 02/15/18 15:59 Albuterol/ Ipratropium (Albuterol/ Ipratropium) 3 ml Q4HRT PRN HHN Shortness of Breath 01/20/18 19:00 01/21/18 06:44 Ceftriaxone Sodium 2 gm/ Dextrose 110 ml @ 220 mls/hr Q24H IVPB 01/20/18 20:00 01/26/18 19:59 Chlorhexidine Gluconate (Zuleika-Hex 2%) 1 applic DAILY@2000 TOPIC 01/20/18 20:00 02/15/18 19:59 Dextrose (Dextrose 50%) 25 ml STAT PRN IV Hypoglycemia 01/20/18 16:00 02/15/18 15:59 Dextrose (Dextrose 50%) 50 ml STAT PRN IV Hypoglycemia 01/20/18 16:00 02/15/18 15:59 Dextrose/ Electrolytes 1,000 ml @ 75 mls/hr [id number] IV 01/20/18 16:15 02/16/18 11:29 01/20/18 16:32 Diphenhydramine HCl (Benadryl) 25 mg Q6H PRN ORAL Itching/Pruritis 01/20/18 16:00 02/15/18 15:59 Fluoxetine HCl (PROzac) 20 mg DAILY ORAL 01/21/18 09:00 02/16/18 12:14 Heparin Sodium (Porcine) (Heparin 5000 units/ml) 5,000 units EVERY 8 HOURS SUBQ 01/20/18 22:00 02/15/18 13:59 Hydralazine HCl (Apresoline) 10 mg Q6H PRN ORAL SBP>160 01/20/18 16:00 02/17/18 15:59 Lacosamide (Vimpat) 100 mg Q12HR ORAL 01/20/18 21:00 02/15/18 20:59 Mirtazapine (Remeron) 7.5 mg BEDTIME ORAL 01/20/18 21:00 02/16/18 20:59 Morphine Sulfate (Morphine Sulfate) 4 mg Q4H PRN IVP Severe Pain (Pain Scale 7-10) 01/20/18 16:00 01/23/18 15:59 Ondansetron HCl (Zofran) 4 mg Q6H PRN IVP Nausea & Vomiting 01/20/18 16:00 02/15/18 15:59 Pantoprazole (Protonix) 40 mg EVERY 12 HOURS ORAL 01/20/18 21:00 02/18/18 20:59 Vancomycin HCl (Vanco rx to dose) 1 ea DAILY PRN MISC Per rx protocol 01/21/18 09:00 02/15/18 06:44 Vancomycin/Sodium Chloride 250 ml @ 166.667 mls/hr Q12HR@0800,2000 IVPB 01/20/18 20:00 01/24/18 07:59 Allergies: Coded Allergies: No Known Allergies (Unverified , 01/16/18) ROS Limited/Unobtainable: No Constitutional: Reports: no symptoms HEENT: Reports: no symptoms Cardiovascular: Reports: no symptoms Respiratory: Reports: no symptoms Gastrointestinal/Abdominal: Reports: no symptoms Genitourinary: Reports: no symptoms Neurologic/Psychiatric: Reports: no symptoms Subjective 62 YO F admitted with chief complaint fever. Now pneumonia, UTI and sepsis. Tachycardic. Cover for Int Yosef-Dr Christensen. C/O insomnia Objective Last Vital Signs Date Time Temp Pulse Resp B/P (MAP) Pulse Ox O2 Delivery O2 Flow Rate FiO2 01/20/18 16:19 98.4 115 18 126/79 (95) 96 98.4 01/20/18 12:00 Nasal Cannula 3.0 01/20/18 06:55 28 Laboratory Tests Test 01/20/18 04:38 White Blood Count 3.8 K/UL (4.8-10.8) L Red Blood Count 3.48 M/UL (4.20-5.40) L Hemoglobin 10.3 G/DL (12.0-16.0) L Hematocrit 31.4 % (37.0-47.0) L Mean Corpuscular Volume 90 FL (80-99) Mean Corpuscular Hemoglobin 29.5 PG (27.0-31.0) Mean Corpuscular Hemoglobin Concent 32.6 G/DL (32.0-36.0) Red Cell Distribution Width 15.8 % (11.6-14.8) H Platelet Count 51 K/UL (150-450) L Mean Platelet Volume 7.1 FL (6.5-10.1) Neutrophils (%) (Auto) % (45.0-75.0) Lymphocytes (%) (Auto) % (20.0-45.0) Monocytes (%) (Auto) % (1.0-10.0) Eosinophils (%) (Auto) % (0.0-3.0) Basophils (%) (Auto) % (0.0-2.0) Differential Total Cells Counted 100 Neutrophils % (Manual) 76 % (45-75) H Lymphocytes % (Manual) 15 % (20-45) L Monocytes % (Manual) 6 % (1-10) Eosinophils % (Manual) 2 % (0-3) Basophils % (Manual) 0 % (0-2) Band Neutrophils 1 % (0-8) Platelet Estimate Decreased L Platelet Morphology Normal Anisocytosis 1+ Erythrocyte Sedimentation Rate 72 MM/HR (0-30) H Sodium Level 138 MMOL/L (136-145) Potassium Level 3.1 MMOL/L (3.5-5.1) L Chloride Level 105 MMOL/L (98-107) Carbon Dioxide Level 27 MMOL/L (21-32) Anion Gap 6 mmol/L (5-15) Blood Urea Nitrogen 5 mg/dL (7-18) L Creatinine 0.6 MG/DL (0.55-1.30) Estimat Glomerular Filtration Rate > 60 mL/min (>60) Glucose Level 112 MG/DL (74-106) H Calcium Level 7.7 MG/DL (8.5-10.1) L Magnesium Level 1.8 MG/DL (1.8-2.4) C-Reactive Protein, Quantitative 12.2 mg/dL (0.00-0.90) H Microbiology Date/Time Source Procedure Growth Status 01/17/18 23:05 Blood Blood Culture - Preliminary NO GROWTH AFTER 48 HOURS Resulted 01/17/18 23:00 Blood Blood Culture - Preliminary NO GROWTH AFTER 48 HOURS Resulted 01/17/18 19:20 Blood Blood Culture - Preliminary NO GROWTH AFTER 48 HOURS Resulted 01/17/18 19:00 Blood Blood Culture - Preliminary NO GROWTH AFTER 48 HOURS Resulted 01/18/18 07:40 Wound Gram Stain - Final Resulted 01/18/18 07:40 Wound Culture - Preliminary Gram Negative Bacillus 1 Resulted 01/19/18 19:00 Sputum Induced Gram Stain - Final Resulted 01/19/18 19:00 Sputum Induced Sputum Culture Pending Resulted Intake and Output 01/19/18 01/20/18 19:00 07:00 Intake Total 1647.500 ml 1498.2 ml Balance 1647.500 ml 1498.2 ml IV Total 1647.500 ml 1498.2 ml # Voids 2 2 # Bowel Movements 1 Objective General Appearance: WD/WN, alert, mild distress EENT: PERRL/EOMI, normal ENT inspection Neck: non-tender, normal alignment, supple, normal inspection Cardiovascular: normal peripheral pulses, regular rhythm, no gallop/murmur, no JVD, tachycardia Respiratory/Chest: chest wall non-tender, accessory muscle use, crackles/rales , rhonchi - bilaterally, expiratory wheezing Abdomen: normal bowel sounds, non tender, soft, no organomegaly, no mass Extremities: normal range of motion, non-tender 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 Continue vanco and ceftriaxone- see Inf dis consult. (2) Hypokalemia (3) Brain cancer (4) Breast cancer in female Assessment & Plan: Await onc consult. (5) Sepsis Assessment & Plan: Proteus- 4/4 bottles. Cont meropenem -see ID consult Status: Ayo Price MD Jan 20, 2018 17:09
[2018-01-20] MEDS ORDERED: Promethazine/Codeine 5ml UD ORAL PRN (17:15)
--- NOTE | 2018-01-20 18:04 | Cardiology Progress Note ---
Assessment/Plan Status: stable, progressing Assessment/Plan Assessment (1) Healthcare-associated pneumonia (2) Sepsis (3) Tachycardia (4) UTI (urinary tract infection) (5) Brain cancer (6) Breast cancer in female (7) Morbid obesity with BMI of 40.0-44.9, adult (8) Hypokalemia (9) ATN (acute tubular necrosis) (10) Tachycardia Echocardiogram reviewed, normal LV function, troponin unremarkable, EKG with no ischemia No clinical findings to suggest endocarditis Tachycardia from sepsis and pain, do not treat heart rate as it is compensatory Continue antibiotics, follow cultures Remove lines and culture Wound care Pain control physical therapy Supportive care No ischemia work up needed at this juncture. Transfer to [facility] in progress Subjective Cardiovascular: Reports: no symptoms Respiratory: Reports: no symptoms Gastrointestinal/Abdominal: Reports: no symptoms Genitourinary: Reports: no symptoms Subjective NO acute events, on IV abx, no distress, WBC normal. recent cultures negative Complain of fatigue and pain Objective Last 24 Hour Vital Signs Date Time Temp Pulse Resp B/P (MAP) Pulse Ox O2 Delivery O2 Flow Rate FiO2 01/20/18 16:19 98.4 115 18 126/79 (95) 96 98.4 01/20/18 16:00 113 01/20/18 13:31 100.2 01/20/18 12:32 100.2 01/20/18 12:00 Nasal Cannula 3.0 01/20/18 12:00 100.2 110 20 137/88 (104) 98 100.2 24 01/20/18 12:00 106 01/20/18 08:00 111 01/20/18 08:00 Nasal Cannula 3.0 01/20/18 08:00 100.2 112 19 130/67 (88) 100 100.2 24 01/20/18 06:55 98 Nasal Cannula 2.0 28 01/20/18 06:55 Nasal Cannula 2.0 28 01/20/18 06:55 110 20 Nasal Cannula 2.0 28 01/20/18 04:00 111 01/20/18 04:00 99.1 117 20 132/71 (91) 100 99.1 24 01/20/18 04:00 Nasal Cannula 3.0 01/20/18 00:00 98.3 102 20 152/75 (100) 100 98.3 01/20/18 00:00 104 01/20/18 00:00 Nasal Cannula 3.0 01/19/18 20:00 Nasal Cannula 3.0 01/19/18 20:00 98.4 109 24 136/67 (90) 98 98.4 01/19/18 20:00 107 01/19/18 18:53 Nasal Cannula 2.0 28 01/19/18 18:53 115 20 Nasal Cannula 2.0 28 01/19/18 18:53 96 Nasal Cannula 2.0 28 General Appearance: no apparent distress EENT: PERRL/EOMI, normal ENT inspection Neck: non-tender, normal alignment Rhythm: NSR Cardiovascular: normal peripheral pulses Respiratory/Chest: chest wall non-tender Abdomen: normal bowel sounds Extremities: normal range of motion 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 grossly normal, no motor/sensory deficits Intake and Output 01/19/18 01/20/18 19:00 07:00 Intake Total 1647.500 ml 1498.2 ml Balance 1647.500 ml 1498.2 ml IV Total 1647.500 ml 1498.2 ml # Voids 2 2 # Bowel Movements 1 Laboratory Tests Test 01/20/18 04:38 White Blood Count 3.8 K/UL (4.8-10.8) L Red Blood Count 3.48 M/UL (4.20-5.40) L Hemoglobin 10.3 G/DL (12.0-16.0) L Hematocrit 31.4 % (37.0-47.0) L Mean Corpuscular Volume 90 FL (80-99) Mean Corpuscular Hemoglobin 29.5 PG (27.0-31.0) Mean Corpuscular Hemoglobin Concent 32.6 G/DL (32.0-36.0) Red Cell Distribution Width 15.8 % (11.6-14.8) H Platelet Count 51 K/UL (150-450) L Mean Platelet Volume 7.1 FL (6.5-10.1) Neutrophils (%) (Auto) % (45.0-75.0) Lymphocytes (%) (Auto) % (20.0-45.0) Monocytes (%) (Auto) % (1.0-10.0) Eosinophils (%) (Auto) % (0.0-3.0) Basophils (%) (Auto) % (0.0-2.0) Differential Total Cells Counted 100 Neutrophils % (Manual) 76 % (45-75) H Lymphocytes % (Manual) 15 % (20-45) L Monocytes % (Manual) 6 % (1-10) Eosinophils % (Manual) 2 % (0-3) Basophils % (Manual) 0 % (0-2) Band Neutrophils 1 % (0-8) Platelet Estimate Decreased L Platelet Morphology Normal Anisocytosis 1+ Erythrocyte Sedimentation Rate 72 MM/HR (0-30) H Sodium Level 138 MMOL/L (136-145) Potassium Level 3.1 MMOL/L (3.5-5.1) L Chloride Level 105 MMOL/L (98-107) Carbon Dioxide Level 27 MMOL/L (21-32) Anion Gap 6 mmol/L (5-15) Blood Urea Nitrogen 5 mg/dL (7-18) L Creatinine 0.6 MG/DL (0.55-1.30) Estimat Glomerular Filtration Rate > 60 mL/min (>60) Glucose Level 112 MG/DL (74-106) H Calcium Level 7.7 MG/DL (8.5-10.1) L Magnesium Level 1.8 MG/DL (1.8-2.4) C-Reactive Protein, Quantitative 12.2 mg/dL (0.00-0.90) H Microbiology Date/Time Source Procedure Growth Status 01/17/18 23:05 Blood Blood Culture - Preliminary NO GROWTH AFTER 48 HOURS Resulted 01/17/18 23:00 Blood Blood Culture - Preliminary NO GROWTH AFTER 48 HOURS Resulted 01/17/18 19:20 Blood Blood Culture - Preliminary NO GROWTH AFTER 48 HOURS Resulted 01/17/18 19:00 Blood Blood Culture - Preliminary NO GROWTH AFTER 48 HOURS Resulted 01/18/18 07:40 Wound Gram Stain - Final Resulted 01/18/18 07:40 Wound Culture - Preliminary Gram Negative Bacillus 1 Resulted 01/19/18 19:00 Sputum Induced Gram Stain - Final Resulted 01/19/18 19:00 Sputum Induced Sputum Culture Pending Resulted Ismael Brown M.D. Jan 20, 2018 18:04
[2018-01-20] MEDS ORDERED: Albuterol/Ipratropium 3ml neb HHN PRN (19:00)
[2018-01-20 20:00] VITALS: BP 127/66
[2018-01-20] MEDS ORDERED: Vancomycin 750mg/NS 250ml 250 ML IVPB SCH (20:00)
[2018-01-20] MEDS: Dyna-Hex 2% Top Sol 2oz TOPIC SCH (20:18)
[2018-01-20] MEDS: Vancomycin 1250mg/D5W 250ml 250 ML IVPB SCH (20:28)
[2018-01-20] MEDS: cefTRIAXone 2 GM in D5W 110 ML IVPB SCH (20:29)
[2018-01-20] MEDS: Zolpidem 5mg tab ORAL PRN (21:56)
[2018-01-21] VITALS (9 sets, daily range): BP systolic 125–144; BP diastolic 64–86
[2018-01-21] MEDS: Heparin 5000 units/ml inj SUBQ SCH ×3 (05:44→20:53)
[2018-01-21 07:28] LABS: HEMATOCRIT 30.2 % (37.0-47.0); HEMOGLOBIN 9.8 G/DL (12.0-16.0); MEAN CORPUSCULAR VOLUME 90 FL (80-99); PLATELET COUNT 85 K/UL (150-450); RED BLOOD COUNT 3.35 M/UL (4.20-5.40); RED CELL DISTRIBUTION WIDTH 15.4 % (11.6-14.8); WHITE BLOOD COUNT 3.5 K/UL (4.8-10.8)
[2018-01-21 07:57] LABS: ALANINE AMINOTRANSFERASE 75 U/L (12-78); ALBUMIN 1.8 G/DL (3.4-5.0); ALBUMIN/GLOBULIN RATIO 0.6 (1.0-2.7); ALKALINE PHOSPHATASE 103 U/L (46-116); ANION GAP 6 mmol/L (5-15); ASPARTATE AMINO TRANSFERASE 30 U/L (15-37); BILIRUBIN,TOTAL 0.6 MG/DL (0.2-1.0); BLOOD UREA NITROGEN 5 mg/dL (7-18); CALCIUM 7.6 MG/DL (8.5-10.1); CARBON DIOXIDE 27 MMOL/L (21-32); CHLORIDE 102 MMOL/L (98-107); CREATININE 0.7 MG/DL (0.55-1.30); PHOSPHORUS 1.2 MG/DL (2.5-4.9); SODIUM 135 MMOL/L (136-145)
[2018-01-21] MEDS: Vancomycin 1250mg/D5W 250ml 250 ML IVPB SCH ×2 (08:25→20:29)
[2018-01-21] MEDS: Lacosamide 100 MG TABLET ORAL SCH ×2 (08:25→20:50)
--- NOTE | 2018-01-21 11:00 | Pulmonology Progress Note ---
Assessment/Plan Problems: (1) Sepsis (2) Healthcare-associated pneumonia (3) Tachycardia (4) UTI (urinary tract infection) (5) Brain cancer (6) Breast cancer in female (7) Morbid obesity with BMI of 40.0-44.9, adult (8) Hypokalemia (9) ATN (acute tubular necrosis) Assessment/Plan no0 new complains Blood cultures are available now, Ecoli in wound and blood afebrile heart rate coming down iv fluids continue abx check cultures, BC positive for GNR check electrolytes check urine lytes renal studies, renal function improving echo reviewed Subjective ROS Limited/Unobtainable: No Constitutional: Reports: no symptoms HEENT: Repors: no symptoms Respiratory: Reports: no symptoms Allergies: Coded Allergies: No Known Allergies (Unverified , 01/16/18) Objective Last 24 Hour Vital Signs Date Time Temp Pulse Resp B/P (MAP) Pulse Ox O2 Delivery O2 Flow Rate FiO2 01/21/18 09:00 Room Air 01/21/18 08:00 116 01/21/18 08:00 98.4 114 20 128/64 (85) 92 98.4 01/21/18 04:00 99.1 116 24 125/73 (90) 99 99.1 24 01/21/18 04:00 113 01/21/18 00:00 77 01/21/18 00:00 99.0 115 24 141/67 (91) 93 99.0 24 01/20/18 21:00 Nasal Cannula 3.0 01/20/18 20:19 97 Nasal Cannula 2.0 28 01/20/18 20:19 Nasal Cannula 2.0 28 01/20/18 20:19 108 20 Nasal Cannula 2.0 28 01/20/18 20:00 99.2 94 20 127/66 (86) 93 99.2 24 01/20/18 20:00 111 01/20/18 16:19 98.4 115 18 126/79 (95) 96 98.4 01/20/18 16:00 113 01/20/18 13:31 100.2 01/20/18 12:32 100.2 01/20/18 12:00 Nasal Cannula 3.0 01/20/18 12:00 100.2 110 20 137/88 (104) 98 100.2 24 01/20/18 12:00 106 Intake and Output 01/20/18 01/21/18 19:00 07:00 Intake Total 1041.000 ml 900 ml Balance 1041.000 ml 900 ml Intake Oral 120 ml IV Total 921.000 ml 900 ml # Bowel Movements 1 Objective still tachycardic General Appearance: WD/WN HEENT: normocephalic Respiratory/Chest: chest wall non-tender, lungs clear Cardiovascular: normal peripheral pulses, normal rate Abdomen: normal bowel sounds, soft, non tender Genitourinary: normal external genitalia Extremities: no cyanosis 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/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 normal Microbiology Date/Time Source Procedure Growth Status 01/19/18 21:15 Blood Blood Culture - Preliminary NO GROWTH AFTER 24 HOURS Resulted 01/19/18 21:00 Blood Blood Culture - Preliminary NO GROWTH AFTER 24 HOURS Resulted 01/19/18 19:00 Sputum Induced Gram Stain - Final Resulted 01/19/18 19:00 Sputum Culture - Preliminary Germaine Albicans Resulted Laboratory Tests 01/20/18 17:40: Vancomycin Level Trough 9.7 01/21/18 07:10: White Blood Count 3.5L, Red Blood Count 3.35L, Hemoglobin 9.8L, Hematocrit 30.2L , Mean Corpuscular Volume 90, Mean Corpuscular Hemoglobin 29.1, Mean Corpuscular Hemoglobin Concent 32.4, Red Cell Distribution Width 15.4H, Platelet Count 85#L, Mean Platelet Volume 7.4, Neutrophils (%) (Auto) , Lymphocytes (%) (Auto) , Monocytes (%) (Auto) , Eosinophils (%) (Auto) , Basophils (%) (Auto) , Differential Total Cells Counted 100, Neutrophils % ( Manual) 52, Lymphocytes % (Manual) 27, Monocytes % (Manual) 16H, Eosinophils % ( Manual) 5H, Basophils % (Manual) 0, Band Neutrophils 0, Platelet Estimate DecreasedL, Platelet Morphology Normal, Sodium Level 135L, Potassium Level 3.0L , Chloride Level 102, Carbon Dioxide Level 27, Anion Gap 6, Blood Urea Nitrogen 5L, Creatinine 0.7, Estimat Glomerular Filtration Rate > 60, Glucose Level 111H , Calcium Level 7.6L, Phosphorus Level 1.2L, Magnesium Level 1.5L, Total Bilirubin 0.6, Aspartate Amino Transf (AST/SGOT) 30, Alanine Aminotransferase ( ALT/SGPT) 75, Alkaline Phosphatase 103, Total Protein 5.0L, Albumin 1.8L, Globulin 3.2, Albumin/Globulin Ratio 0.6L Current Medications Medications (Trade) Dose Ordered Sig/Gloria Route PRN Reason Start Time Stop Time Status Last Admin Dose Admin Acetaminophen (Tylenol) 650 mg Q4H PRN RECTAL Mild Pain (Pain Scale 1-3) 01/20/18 16:00 02/15/18 15:59 Acetaminophen (Tylenol) 650 mg Q6H PRN ORAL Mild Pain/Temp > 100.5 01/20/18 18:30 02/18/18 18:29 Al Hydroxide/Mg Hydroxide (Mylanta II) 30 ml Q6H PRN ORAL dyspepsia 01/20/18 16:00 02/15/18 15:59 Ceftriaxone Sodium 2 gm/ Dextrose 110 ml @ 220 mls/hr Q24H IVPB 01/20/18 20:00 01/26/18 19:59 01/20/18 20:29 Chlorhexidine Gluconate (Zuleika-Hex 2%) 1 applic DAILY@2000 TOPIC 01/20/18 20:00 02/15/18 19:59 01/20/18 20:18 Dextrose (Dextrose 50%) 25 ml STAT PRN IV Hypoglycemia 01/20/18 16:00 02/15/18 15:59 Dextrose (Dextrose 50%) 50 ml STAT PRN IV Hypoglycemia 01/20/18 16:00 02/15/18 15:59 Dextrose/ Electrolytes 1,000 ml @ 75 mls/hr [id number] IV 01/20/18 16:15 02/16/18 11:29 01/20/18 23:22 Diphenhydramine HCl (Benadryl) 25 mg Q6H PRN ORAL Itching/Pruritis 01/20/18 16:00 02/15/18 15:59 Fluoxetine HCl (PROzac) 20 mg DAILY ORAL 01/21/18 09:00 02/16/18 12:14 01/21/18 08:25 Heparin Sodium (Porcine) (Heparin 5000 units/ml) 5,000 units EVERY 8 HOURS SUBQ 01/20/18 22:00 02/15/18 13:59 Hydralazine HCl (Apresoline) 10 mg Q6H PRN ORAL SBP>160 01/20/18 16:00 02/17/18 15:59 Lacosamide (Vimpat) 100 mg Q12HR ORAL 01/20/18 21:00 02/15/18 20:59 01/21/18 08:25 Mirtazapine (Remeron) 7.5 mg BEDTIME ORAL 01/20/18 21:00 02/16/18 20:59 01/20/18 20:29 Morphine Sulfate (Morphine Sulfate) 4 mg Q4H PRN IVP Severe Pain (Pain Scale 7-10) 01/20/18 16:00 01/23/18 15:59 Ondansetron HCl (Zofran) 4 mg Q6H PRN IVP Nausea & Vomiting 01/20/18 16:00 02/15/18 15:59 Pantoprazole (Protonix) 40 mg EVERY 12 HOURS ORAL 01/20/18 21:00 02/18/18 20:59 01/21/18 08:25 Promethazine HCl/ Codeine (Phenergan with Codeine) 5 ml Q4H PRN ORAL For Cough 01/20/18 17:15 02/19/18 17:14 Vancomycin HCl (Vanco rx to dose) 1 ea DAILY PRN MISC Per rx protocol 01/21/18 09:00 02/15/18 06:44 Vancomycin HCl/ Dextrose 250 ml @ 166.667 mls/hr Q12HR@0800,2000 IVPB 01/20/18 20:00 01/25/18 19:59 01/21/18 08:25 Zolpidem Tartrate (Ambien) 5 mg HSPRN PRN ORAL Insomnia 01/20/18 21:00 01/27/18 20:59 01/20/18 21:56 Miguel A Lenz MD Jan 21, 2018 11:00
--- NOTE | 2018-01-21 11:15 | Pre-Procedure Note/Attestation ---
Pre-Procedure Note/Attestation Complete Prior to Procedure Planned Procedure: right Procedure Narrative: removal of infected right chest wall port Indications for Procedure Pre-Operative Diagnosis: infected right chest wall port Attestation I attest that I discussed the nature of the procedure; its benefits; risks and complications; and alternatives (and the risks and benefits of such alternatives ), prior to the procedure, with the patient (or the patient's legal help desk representative). I attest that, if there was a reasonable possibility of needing a blood transfusion, the patient (or the patient's legal help desk representative) was given the [facility] standardized written summary, pursuant to the [place] Blood Safety Act ([place] Health and Safety Code # 1645, as amended). I attest that I re-evaluated the patient just prior to the surgery and that there has been no change in the patient's H&P, except as documented below: Juanito Rodriguez Jan 21, 2018 11:15
--- NOTE | 2018-01-21 12:05 | General Progress Note ---
Assessment/Plan Status: unchanged Assessment/Plan 1. Metastatic breast cancer to the brain. Currently on treatment with Dr. Verma --> Continue to follow up with Oncology Service in the outpatient setting. --> Closely monitor for improvement. 2. Anemia due to underlying chronic disease. --> Continue to closely monitor. --> Anemia w/u has been reviewed. Will trend cbc daily. --> Hgb goal >7 3. Thrombocytopenia, likely secondary to urosepsis, gram-negative rods 4/4 bottles. 4. Urinary tract infection, on IV antibiotics. 5. Hypokalemia, replete as needed. 6. Coagulopathy, potentially secondary to decreased p.o. intake. The time the note was entered does not necessarily correspond to the time the patient was seen. Subjective Date patient seen: Jan 21, 2018 ROS Limited/Unobtainable: Yes Hematologic/Lymphatic: Reports: anemia Allergies: Coded Allergies: No Known Allergies (Unverified , 01/16/18) All Systems: reviewed and negative except above Subjective Pt awake and alert. No acute events. Vitals are stable. H/H stable. DC planning. Objective Last 24 Hour Vital Signs Date Time Temp Pulse Resp B/P (MAP) Pulse Ox O2 Delivery O2 Flow Rate FiO2 01/21/18 09:00 Room Air 01/21/18 08:00 116 01/21/18 08:00 98.4 114 20 128/64 (85) 92 98.4 01/21/18 04:00 99.1 116 24 125/73 (90) 99 99.1 24 01/21/18 04:00 113 01/21/18 00:00 77 01/21/18 00:00 99.0 115 24 141/67 (91) 93 99.0 24 01/20/18 21:00 Nasal Cannula 3.0 01/20/18 20:19 97 Nasal Cannula 2.0 28 01/20/18 20:19 Nasal Cannula 2.0 28 01/20/18 20:19 108 20 Nasal Cannula 2.0 28 01/20/18 20:00 99.2 94 20 127/66 (86) 93 99.2 24 01/20/18 20:00 111 01/20/18 16:19 98.4 115 18 126/79 (95) 96 98.4 01/20/18 16:00 113 01/20/18 13:31 100.2 01/20/18 12:32 100.2 Intake and Output 01/20/18 01/21/18 19:00 07:00 Intake Total 1041.000 ml 900 ml Balance 1041.000 ml 900 ml Intake Oral 120 ml IV Total 921.000 ml 900 ml # Bowel Movements 1 Laboratory Tests 01/20/18 17:40: Vancomycin Level Trough 9.7 01/21/18 07:10: White Blood Count 3.5L, Red Blood Count 3.35L, Hemoglobin 9.8L, Hematocrit 30.2L , Mean Corpuscular Volume 90, Mean Corpuscular Hemoglobin 29.1, Mean Corpuscular Hemoglobin Concent 32.4, Red Cell Distribution Width 15.4H, Platelet Count 85#L, Mean Platelet Volume 7.4, Neutrophils (%) (Auto) , Lymphocytes (%) (Auto) , Monocytes (%) (Auto) , Eosinophils (%) (Auto) , Basophils (%) (Auto) , Differential Total Cells Counted 100, Neutrophils % ( Manual) 52, Lymphocytes % (Manual) 27, Monocytes % (Manual) 16H, Eosinophils % ( Manual) 5H, Basophils % (Manual) 0, Band Neutrophils 0, Platelet Estimate DecreasedL, Platelet Morphology Normal, Sodium Level 135L, Potassium Level 3.0L , Chloride Level 102, Carbon Dioxide Level 27, Anion Gap 6, Blood Urea Nitrogen 5L, Creatinine 0.7, Estimat Glomerular Filtration Rate > 60, Glucose Level 111H , Calcium Level 7.6L, Phosphorus Level 1.2L, Magnesium Level 1.5L, Total Bilirubin 0.6, Aspartate Amino Transf (AST/SGOT) 30, Alanine Aminotransferase ( ALT/SGPT) 75, Alkaline Phosphatase 103, Total Protein 5.0L, Albumin 1.8L, Globulin 3.2, Albumin/Globulin Ratio 0.6L Height (Feet): 4 Height (Inches): 11.00 Weight (Pounds): 257 General Appearance: no apparent distress EENT: PERRL/EOMI Neck: normal alignment Cardiovascular: tachycardia Respiratory/Chest: no respiratory distress Abdomen: soft Diaz Moody MD Jan 21, 2018 12:05
--- NOTE | 2018-01-21 12:23 | Infectious Diseases Prog Note ---
Assessment/Plan Assessment/Plan Assessment: Sepsis; improving- 2ry to UTI, bacteremia and PNA- ?nephrolithiasis- Luciana cath infection- bloody purulent discharge- wound cx <1+ P. mirabilis (per family, recurrent episodes of drainage at other hospitals as well) -u/a wbc 20-30, nit +, leuk +2; ucx >100k E.coli (andrade S) -BCx 09/29 P. mirabilis (S Ceftriaxone, R amp, Bactrim; I Ancef); 01/17 Bcx NTD ( peripheral) x4, NTD x4 (luciana cath); Pathogen in blood different from urine, while this same pathogen was isolated from wound culture there is no signs of infection in the wound and possibly patient colonized with proteus on the skin; suspicious for infected luciana cath -CXR 01/18: Improved right lung parenchymal disease. No definite acute process currently. -CT chest: Dependent consolidation throughout both lungs, right greater than left, likely related to dependent atelectasis. Small hiatal hernia. Cholelithiasis without gallbladder wall thickening. Possible nephrolithiasis versus early contrast excretion in the left upper renal pole. -2d E cho: no vegetations seen _Renal US: unremarkable -ESR ~70, CRP ~12 fever, recurrent; improving Pancytopenia RASHEED, resolving metastatic breast cancer (dx 2015) to brain s/p resection of brain tumor (2016) w/ resultant L side weakness currently undergoing chemotherapy twice a week multiple decubitus ulcers- no signs of infection -wound cx P. mirabilis (S Ceftriaxone, R amp, Bactrim; I Ancef), E, fecalis (S Vanco, amp) (likely colonizers) Plan: -Continue empiric IV Vanco #5 pending sputum cx -if final sputum cx neg for MRSA, will d/c -Continue Ceftriaxone abx #6 for E.coli UTI and Proteus Bacteremia based on sensitivities; will treat for 10-14 from removal of lucaina cath -01/18 SP Meropenem #3 -01/17 SP Zosyn #2 -01/16 SP Cefepime x1, Levaquin x1 -f/u Repeat 2 sets of Bcx -f/u cx -Monitor CBC/CMP, temperatures -aspiration precautions -wound care per hosp protocol -Sx f/u: for removal of Luciana cath today -culture tip of catheter Thank you for this consultation. Will continue to follow along with you. Discussed with RN Subjective Allergies: Coded Allergies: No Known Allergies (Unverified , 01/16/18) Subjective remains febrile and tachycardic Tm 100.5 repeat Bcx NTD Pancytopenic elevated ESR and CRP Objective Vital Signs Last 24 Hour Vital Signs Date Time Temp Pulse Resp B/P (MAP) Pulse Ox O2 Delivery O2 Flow Rate FiO2 01/21/18 09:00 Room Air 01/21/18 08:00 116 01/21/18 08:00 98.4 114 20 128/64 (85) 92 98.4 01/21/18 04:00 99.1 116 24 125/73 (90) 99 99.1 24 01/21/18 04:00 113 01/21/18 00:00 77 01/21/18 00:00 99.0 115 24 141/67 (91) 93 99.0 24 01/20/18 21:00 Nasal Cannula 3.0 01/20/18 20:19 97 Nasal Cannula 2.0 28 01/20/18 20:19 Nasal Cannula 2.0 28 01/20/18 20:19 108 20 Nasal Cannula 2.0 28 01/20/18 20:00 99.2 94 20 127/66 (86) 93 99.2 24 01/20/18 20:00 111 01/20/18 16:19 98.4 115 18 126/79 (95) 96 98.4 01/20/18 16:00 113 01/20/18 13:31 100.2 01/20/18 12:32 100.2 Height (Feet): 4 Height (Inches): 11.00 Weight (Pounds): 257 Objective GENERAL: The patient is a well-developed and well-nourished slightly obese female, in no apparent distress. HEENT: Eyes, pupils are equal and responsive to light and accommodation. Extraocular movements are intact. NECK: Supple without lymphadenopathy. CHEST: Decreased breath sounds at bilateral bases with crackles. Otherwise, clear to auscultation without wheezes or rales. CARDIOVASCULAR: Regular rhythm and rate. S1 and S2 are normal without murmurs, rubs, or gallops. ABDOMEN: Soft, nontender, and nondistended. Positive bowel sounds. No evidence of hepatosplenomegaly. Currently, no rebound or guarding noted. EXTREMITIES: Negative for clubbing, cyanosis, or edema. Microbiology Date/Time Source Procedure Growth Status 01/19/18 21:15 Blood Blood Culture - Preliminary NO GROWTH AFTER 24 HOURS Resulted 01/19/18 21:00 Blood Blood Culture - Preliminary NO GROWTH AFTER 24 HOURS Resulted 01/19/18 19:00 Sputum Induced Gram Stain - Final Resulted 01/19/18 19:00 Sputum Culture - Preliminary Germaine Albicans Resulted Laboratory Tests Test 01/20/18 17:40 01/21/18 07:10 Vancomycin Level Trough 9.7 ug/mL (5.0-12.0) White Blood Count 3.5 K/UL (4.8-10.8) L Red Blood Count 3.35 M/UL (4.20-5.40) L Hemoglobin 9.8 G/DL (12.0-16.0) L Hematocrit 30.2 % (37.0-47.0) L Mean Corpuscular Volume 90 FL (80-99) Mean Corpuscular Hemoglobin 29.1 PG (27.0-31.0) Mean Corpuscular Hemoglobin Concent 32.4 G/DL (32.0-36.0) Red Cell Distribution Width 15.4 % (11.6-14.8) H Platelet Count 85 K/UL (150-450) #L Mean Platelet Volume 7.4 FL (6.5-10.1) Neutrophils (%) (Auto) % (45.0-75.0) Lymphocytes (%) (Auto) % (20.0-45.0) Monocytes (%) (Auto) % (1.0-10.0) Eosinophils (%) (Auto) % (0.0-3.0) Basophils (%) (Auto) % (0.0-2.0) Differential Total Cells Counted 100 Neutrophils % (Manual) 52 % (45-75) Lymphocytes % (Manual) 27 % (20-45) Monocytes % (Manual) 16 % (1-10) H Eosinophils % (Manual) 5 % (0-3) H Basophils % (Manual) 0 % (0-2) Band Neutrophils 0 % (0-8) Platelet Estimate Decreased L Platelet Morphology Normal Sodium Level 135 MMOL/L (136-145) L Potassium Level 3.0 MMOL/L (3.5-5.1) L Chloride Level 102 MMOL/L (98-107) Carbon Dioxide Level 27 MMOL/L (21-32) Anion Gap 6 mmol/L (5-15) Blood Urea Nitrogen 5 mg/dL (7-18) L Creatinine 0.7 MG/DL (0.55-1.30) Estimat Glomerular Filtration Rate > 60 mL/min (>60) Glucose Level 111 MG/DL (74-106) H Calcium Level 7.6 MG/DL (8.5-10.1) L Phosphorus Level 1.2 MG/DL (2.5-4.9) L Magnesium Level 1.5 MG/DL (1.8-2.4) L Total Bilirubin 0.6 MG/DL (0.2-1.0) Aspartate Amino Transf (AST/SGOT) 30 U/L (15-37) Alanine Aminotransferase (ALT/SGPT) 75 U/L (12-78) Alkaline Phosphatase 103 U/L (46-116) Total Protein 5.0 G/DL (6.4-8.2) L Albumin 1.8 G/DL (3.4-5.0) L Globulin 3.2 g/dL Albumin/Globulin Ratio 0.6 (1.0-2.7) L Current Medications Medications (Trade) Dose Ordered Sig/Gloria Route PRN Reason Start Time Stop Time Status Last Admin Dose Admin Acetaminophen (Tylenol) 650 mg Q4H PRN RECTAL Mild Pain (Pain Scale 1-3) 01/20/18 16:00 02/15/18 15:59 Acetaminophen (Tylenol) 650 mg Q6H PRN ORAL Mild Pain/Temp > 100.5 01/20/18 18:30 02/18/18 18:29 Al Hydroxide/Mg Hydroxide (Mylanta II) 30 ml Q6H PRN ORAL dyspepsia 01/20/18 16:00 02/15/18 15:59 Ceftriaxone Sodium 2 gm/ Dextrose 110 ml @ 220 mls/hr Q24H IVPB 01/20/18 20:00 01/26/18 19:59 01/20/18 20:29 Chlorhexidine Gluconate (Zuleika-Hex 2%) 1 applic DAILY@2000 TOPIC 01/20/18 20:00 02/15/18 19:59 01/20/18 20:18 Dexamethasone (Decadron) 2 mg TWICE A DAY ONCE ORAL 01/21/18 18:00 01/21/18 18:01 Dextrose (Dextrose 50%) 25 ml STAT PRN IV Hypoglycemia 01/20/18 16:00 02/15/18 15:59 Dextrose (Dextrose 50%) 50 ml STAT PRN IV Hypoglycemia 01/20/18 16:00 02/15/18 15:59 Dextrose/ Electrolytes 1,000 ml @ 75 mls/hr [id number] IV 01/20/18 16:15 02/16/18 11:29 01/20/18 23:22 Diphenhydramine HCl (Benadryl) 25 mg Q6H PRN ORAL Itching/Pruritis 01/20/18 16:00 02/15/18 15:59 Fluoxetine HCl (PROzac) 20 mg DAILY ORAL 01/21/18 09:00 02/16/18 12:14 01/21/18 08:25 Heparin Sodium (Porcine) (Heparin 5000 units/ml) 5,000 units EVERY 8 HOURS SUBQ 01/20/18 22:00 02/15/18 13:59 Hydralazine HCl (Apresoline) 10 mg Q6H PRN ORAL SBP>160 01/20/18 16:00 02/17/18 15:59 Lacosamide (Vimpat) 100 mg Q12HR ORAL 01/20/18 21:00 02/15/18 20:59 01/21/18 08:25 Magnesium Sulfate 100 ml @ 100 mls/hr Q1H IVPB 01/21/18 13:00 01/21/18 14:59 Mirtazapine (Remeron) 7.5 mg BEDTIME ORAL 01/20/18 21:00 02/16/18 20:59 01/20/18 20:29 Morphine Sulfate (Morphine Sulfate) 4 mg Q4H PRN IVP Severe Pain (Pain Scale 7-10) 01/20/18 16:00 01/23/18 15:59 Ondansetron HCl (Zofran) 4 mg Q6H PRN IVP Nausea & Vomiting 01/20/18 16:00 02/15/18 15:59 Pantoprazole (Protonix) 40 mg EVERY 12 HOURS ORAL 01/20/18 21:00 02/18/18 20:59 01/21/18 08:25 Potassium Chloride 100 ml @ 50 mls/hr Q2H IVPB 01/21/18 12:00 01/21/18 15:59 01/21/18 11:27 Promethazine HCl/ Codeine (Phenergan with Codeine) 5 ml Q4H PRN ORAL For Cough 01/20/18 17:15 02/19/18 17:14 Sodium Phosphate 30 mm/Sodium Chloride 285 ml @ 47.5 mls/hr ONCE ONCE IV 01/21/18 16:00 01/21/18 21:59 Vancomycin HCl (Vanco rx to dose) 1 ea DAILY PRN MISC Per rx protocol 01/21/18 09:00 02/15/18 06:44 Vancomycin HCl/ Dextrose 250 ml @ 166.667 mls/hr Q12HR@0800,2000 IVPB 01/20/18 20:00 01/25/18 19:59 01/21/18 08:25 Zolpidem Tartrate (Ambien) 5 mg HSPRN PRN ORAL Insomnia 01/20/18 21:00 01/27/18 20:59 01/20/18 21:56 Yazmin Penn M.D. Jan 21, 2018 12:23
--- NOTE | 2018-01-21 12:33 | General Progress Note ---
Assessment/Plan Status: stable Assessment/Plan MDD Anxiety d/o Prozac klonopin ativan d/w son Subjective Date patient seen: Jan 21, 2018 Neurologic/Psychiatric: Reports: anxiety, depressed, emotional problems Allergies: Coded Allergies: No Known Allergies (Unverified , 01/16/18) Subjective the pt is improved no anxiety family in room Objective Last 24 Hour Vital Signs Date Time Temp Pulse Resp B/P (MAP) Pulse Ox O2 Delivery O2 Flow Rate FiO2 01/21/18 09:00 Room Air 01/21/18 08:00 116 01/21/18 08:00 98.4 114 20 128/64 (85) 92 98.4 01/21/18 04:00 99.1 116 24 125/73 (90) 99 99.1 24 01/21/18 04:00 113 01/21/18 00:00 77 01/21/18 00:00 99.0 115 24 141/67 (91) 93 99.0 24 01/20/18 21:00 Nasal Cannula 3.0 01/20/18 20:19 97 Nasal Cannula 2.0 28 01/20/18 20:19 Nasal Cannula 2.0 28 01/20/18 20:19 108 20 Nasal Cannula 2.0 28 01/20/18 20:00 99.2 94 20 127/66 (86) 93 99.2 24 01/20/18 20:00 111 01/20/18 16:19 98.4 115 18 126/79 (95) 96 98.4 01/20/18 16:00 113 01/20/18 13:31 100.2 Intake and Output 01/20/18 01/21/18 19:00 07:00 Intake Total 1041.000 ml 900 ml Balance 1041.000 ml 900 ml Intake Oral 120 ml IV Total 921.000 ml 900 ml # Bowel Movements 1 Laboratory Tests 01/20/18 17:40: Vancomycin Level Trough 9.7 01/21/18 07:10: White Blood Count 3.5L, Red Blood Count 3.35L, Hemoglobin 9.8L, Hematocrit 30.2L , Mean Corpuscular Volume 90, Mean Corpuscular Hemoglobin 29.1, Mean Corpuscular Hemoglobin Concent 32.4, Red Cell Distribution Width 15.4H, Platelet Count 85#L, Mean Platelet Volume 7.4, Neutrophils (%) (Auto) , Lymphocytes (%) (Auto) , Monocytes (%) (Auto) , Eosinophils (%) (Auto) , Basophils (%) (Auto) , Differential Total Cells Counted 100, Neutrophils % ( Manual) 52, Lymphocytes % (Manual) 27, Monocytes % (Manual) 16H, Eosinophils % ( Manual) 5H, Basophils % (Manual) 0, Band Neutrophils 0, Platelet Estimate DecreasedL, Platelet Morphology Normal, Sodium Level 135L, Potassium Level 3.0L , Chloride Level 102, Carbon Dioxide Level 27, Anion Gap 6, Blood Urea Nitrogen 5L, Creatinine 0.7, Estimat Glomerular Filtration Rate > 60, Glucose Level 111H , Calcium Level 7.6L, Phosphorus Level 1.2L, Magnesium Level 1.5L, Total Bilirubin 0.6, Aspartate Amino Transf (AST/SGOT) 30, Alanine Aminotransferase ( ALT/SGPT) 75, Alkaline Phosphatase 103, Total Protein 5.0L, Albumin 1.8L, Globulin 3.2, Albumin/Globulin Ratio 0.6L Height (Feet): 4 Height (Inches): 11.00 Weight (Pounds): 257 General Appearance: no apparent distress, alert Neurologic: oriented x 3, responsive, depressed affect Anna Marie Rodgers MD Jan 21, 2018 12:33
[2018-01-21] MEDS ORDERED: Bacitracin 50000 Units Vial ONE (12:51)
[2018-01-21] MEDS ORDERED: Lidocaine 1% Plain 30 ml INJ ONE ×2 (12:51→13:58)
[2018-01-21] MEDS ORDERED: Ketorolac 30mg Inj ONE (14:00)
[2018-01-21] MEDS ORDERED: Heparin 2000 units/Ns 1000ml INJ SCH (14:00)
[2018-01-21] MEDS: Lidocaine 1% Plain 30 ml INJ SCH ×2 (14:00→14:03)
[2018-01-21] MEDS ORDERED: NS Irrig 1000ml ONE (14:00)
[2018-01-21] MEDS ORDERED: LR 1000ml ONE (14:00)
[2018-01-21] MEDS ORDERED: fentaNYL 100 mcg/2 mL IV ONE (14:05)
[2018-01-21] MEDS ORDERED: NS Irrig 1000ml IRRIG ONE (14:21)
--- NOTE | 2018-01-21 14:22 | Immediate Post-Op Evaluation ---
Immediate Post-Op Evalulation Immediate Post-Op Evalulation Procedure: removal of luciana cath. Date of Evaluation: Jan 21, 2018 Time of Evaluation: 14:21 IV Fluids: 300 Blood Pressure Systolic: 129 Blood Pressure Diastolic: 72 Pulse Rate: 111 Respiratory Rate: 14 O2 Sat by Pulse Oximetry: 97 Nausea: No Vomiting: No Complications none Patient Status: awake, reacts, patent Drug: none Darby Owen CRNA Jan 21, 2018 14:21
--- NOTE | 2018-01-21 14:25 | Anethesia Preoperative Eval ---
Anesthesia Pre-op PMH/ROS General Date of Evaluation: Jan 21, 2018 Time of Evaluation: 14:00 Anesthesiologist: endy ASA Score: ASA 4 Mallampati Score Class I : Soft palate, uvula, fauces, pillars visible Class II: Soft palate, uvula, fauces visible Class III: Soft palate, base of uvula visible Class IV: Only hard plate visible Mallampati Classification: Class III Surgeon: Sky Diagnosis: Infected luciana cath Surgical Procedure: removal of luciana cath Anesthesia History: none Family History: no anesthesia problems Allergies: Coded Allergies: No Known Allergies (Unverified , 01/16/18) Medications: see eMAR Past Medical History Cardiovascular: Reports: HTN, CAD Pulmonary: Reports: COPD Gastrointestinal/Genitourinary: Denies: GERD, CRI, ESRD, other Neurologic/Psychiatric: Denies: dementia, CVA, depression/anxiety, TIA, other Endocrine: Reports: hypothyroidism; Denies: DM, steroids, other HEENT: Denies: cataract (L), cataract (R), glaucoma, AKHIOK (L), AKHIOK (R), other Hematology/Immune: Reports: anemia, bleeding disorder; Denies: DVT, other Musculoskeletal/Integumentary: Denies: OA, RA, DJD, DDD, edema, other Other: obesity PMH Narrative: Morbid Obesity; tachycardic; sepsis; pneumonia (2) Hypokalemia (3) Brain cancer (4) Breast cancer in female (5) Sepsis PSxH Narrative: denies Anesthesia Pre-op Phys. Exam Physician Exam Last Vital Signs Date Time Temp Pulse Resp B/P (MAP) Pulse Ox O2 Delivery O2 Flow Rate FiO2 01/21/18 13:15 99.1 01/21/18 12:00 116 24 134/76 (95) 95 01/21/18 09:00 Room Air 01/20/18 21:00 3.0 01/20/18 20:19 28 Constitutional: NAD Neurologic: CN 2-12 intact Cardiovascular: other - ST Respiratory: other - Ronchi Gastrointestinal: S/NT/ND Airway Exam Mallampati Classification 3 Mallampati Score: Class III MO: limited Neck: thick TMD: 1fb ROM: limited Dentures: no upper, no lower Anesthesia Pre-op A/P Labs Hematology Test 01/21/18 07:10 White Blood Count 3.5 K/UL (4.8-10.8) L Red Blood Count 3.35 M/UL (4.20-5.40) L Hemoglobin 9.8 G/DL (12.0-16.0) L Hematocrit 30.2 % (37.0-47.0) L Mean Corpuscular Volume 90 FL (80-99) Mean Corpuscular Hemoglobin 29.1 PG (27.0-31.0) Mean Corpuscular Hemoglobin Concent 32.4 G/DL (32.0-36.0) Red Cell Distribution Width 15.4 % (11.6-14.8) H Platelet Count 85 K/UL (150-450) #L Mean Platelet Volume 7.4 FL (6.5-10.1) Neutrophils (%) (Auto) % (45.0-75.0) Lymphocytes (%) (Auto) % (20.0-45.0) Monocytes (%) (Auto) % (1.0-10.0) Eosinophils (%) (Auto) % (0.0-3.0) Basophils (%) (Auto) % (0.0-2.0) Differential Total Cells Counted 100 Neutrophils % (Manual) 52 % (45-75) Lymphocytes % (Manual) 27 % (20-45) Monocytes % (Manual) 16 % (1-10) H Eosinophils % (Manual) 5 % (0-3) H Basophils % (Manual) 0 % (0-2) Band Neutrophils 0 % (0-8) Platelet Estimate Decreased L Platelet Morphology Normal Chemistry Test 01/21/18 07:10 Sodium Level 135 MMOL/L (136-145) L Potassium Level 3.0 MMOL/L (3.5-5.1) L Chloride Level 102 MMOL/L (98-107) Carbon Dioxide Level 27 MMOL/L (21-32) Anion Gap 6 mmol/L (5-15) Blood Urea Nitrogen 5 mg/dL (7-18) L Creatinine 0.7 MG/DL (0.55-1.30) Estimat Glomerular Filtration Rate > 60 mL/min (>60) Glucose Level 111 MG/DL (74-106) H Calcium Level 7.6 MG/DL (8.5-10.1) L Phosphorus Level 1.2 MG/DL (2.5-4.9) L Magnesium Level 1.5 MG/DL (1.8-2.4) L Total Bilirubin 0.6 MG/DL (0.2-1.0) Aspartate Amino Transf (AST/SGOT) 30 U/L (15-37) Alanine Aminotransferase (ALT/SGPT) 75 U/L (12-78) Alkaline Phosphatase 103 U/L (46-116) Total Protein 5.0 G/DL (6.4-8.2) L Albumin 1.8 G/DL (3.4-5.0) L Globulin 3.2 g/dL Albumin/Globulin Ratio 0.6 (1.0-2.7) L Studies Pre-op Studies: EKG - ST Risk Assessment & Plan Assessment: Morbidly obese female; ST on tele; here for removal of infected luciana cath Plan: local mac Status Change Before Surgery: No Pre-Antibiotics Drug: none Darby Owen CRNA Jan 21, 2018 14:25
--- NOTE | 2018-01-21 14:45 | Brief Operative Note ---
Immediate Post Operative Note Operative Note Pre-op Diagnosis: infected right chest wall port Procedure: removal of infected right chest wall port excisional debridement of right chest wall wound Post-op Diagnosis: same Post-op Diagnosis: same as pre-op Surgeon: shashank Anesthesiologist: kita Anesthesia: local, moderate sedation Specimen: yes Complications: none Condition: stable Fluids: n/a Estimated Blood Loss: minimal Drains: none Implant(s) used?: No Juanito Rodriguez Jan 21, 2018 14:45
--- NOTE | 2018-01-21 15:40 | Internal Med Progress Note ---
Subjective Date of Service: Jan 21, 2018 Physician Name RothAyo Attending Physician Sander Christensen MD Current Medications Medications (Trade) Dose Ordered Sig/Gloria Route PRN Reason Start Time Stop Time Status Last Admin Dose Admin Acetaminophen (Tylenol) 650 mg Q4H PRN RECTAL Mild Pain (Pain Scale 1-3) 01/20/18 16:00 02/15/18 15:59 Acetaminophen (Tylenol) 650 mg Q6H PRN ORAL Mild Pain/Temp > 100.5 01/20/18 18:30 02/18/18 18:29 01/21/18 12:43 Al Hydroxide/Mg Hydroxide (Mylanta II) 30 ml Q6H PRN ORAL dyspepsia 01/20/18 16:00 02/15/18 15:59 Ceftriaxone Sodium 2 gm/ Dextrose 110 ml @ 220 mls/hr Q24H IVPB 01/20/18 20:00 01/26/18 19:59 01/20/18 20:29 Chlorhexidine Gluconate (Zuleika-Hex 2%) 1 applic DAILY@2000 TOPIC 01/20/18 20:00 02/15/18 19:59 01/20/18 20:18 Dexamethasone (Decadron) 2 mg TWICE A DAY ONCE ORAL 01/21/18 18:00 01/21/18 18:01 Dextrose (Dextrose 50%) 25 ml STAT PRN IV Hypoglycemia 01/20/18 16:00 02/15/18 15:59 Dextrose (Dextrose 50%) 50 ml STAT PRN IV Hypoglycemia 01/20/18 16:00 02/15/18 15:59 Dextrose/ Electrolytes 1,000 ml @ 75 mls/hr [id number] IV 01/20/18 16:15 02/16/18 11:29 01/20/18 23:22 Diphenhydramine HCl (Benadryl) 25 mg Q6H PRN ORAL Itching/Pruritis 01/20/18 16:00 02/15/18 15:59 Fluoxetine HCl (PROzac) 20 mg DAILY ORAL 01/21/18 09:00 02/16/18 12:14 01/21/18 08:25 Heparin Sodium (Porcine) (Heparin 5000 units/ml) 5,000 units EVERY 8 HOURS SUBQ 01/20/18 22:00 02/15/18 13:59 Heparin Sodium/ Sodium Chloride (Heparin 2000 units/Ns 1000ml premix) 2,000 unit ONCE INJ 01/21/18 14:00 02/20/18 13:59 Hydralazine HCl (Apresoline) 10 mg Q6H PRN ORAL SBP>160 01/20/18 16:00 02/17/18 15:59 Lacosamide (Vimpat) 100 mg Q12HR ORAL 01/20/18 21:00 02/15/18 20:59 01/21/18 08:25 Lidocaine HCl (Xylocaine 1% 30ml) 30 ml ONCE INJ 01/21/18 14:00 02/20/18 13:59 01/21/18 14:03 Magnesium Sulfate 100 ml @ 100 mls/hr Q1H IVPB 01/21/18 15:00 01/21/18 16:59 Mirtazapine (Remeron) 7.5 mg BEDTIME ORAL 01/20/18 21:00 02/16/18 20:59 01/20/18 20:29 Morphine Sulfate (Morphine Sulfate) 4 mg Q4H PRN IVP Severe Pain (Pain Scale 7-10) 01/20/18 16:00 01/23/18 15:59 Ondansetron HCl (Zofran) 4 mg Q6H PRN IVP Nausea & Vomiting 01/20/18 16:00 02/15/18 15:59 Pantoprazole (Protonix) 40 mg EVERY 12 HOURS ORAL 01/20/18 21:00 02/18/18 20:59 01/21/18 08:25 Potassium Chloride 100 ml @ 50 mls/hr Q2H IVPB 01/21/18 12:00 01/21/18 15:59 01/21/18 11:27 Promethazine HCl/ Codeine (Phenergan with Codeine) 5 ml Q4H PRN ORAL For Cough 01/20/18 17:15 02/19/18 17:14 Sodium Phosphate 30 mm/Sodium Chloride 285 ml @ 47.5 mls/hr ONCE ONCE IV 01/21/18 16:00 01/21/18 21:59 Vancomycin HCl (Vanco rx to dose) 1 ea DAILY PRN MISC Per rx protocol 01/21/18 09:00 02/15/18 06:44 Vancomycin HCl/ Dextrose 250 ml @ 166.667 mls/hr Q12HR@0800,2000 IVPB 01/20/18 20:00 01/25/18 19:59 01/21/18 08:25 Zolpidem Tartrate (Ambien) 5 mg HSPRN PRN ORAL Insomnia 01/20/18 21:00 01/27/18 20:59 01/20/18 21:56 Allergies: Coded Allergies: No Known Allergies (Unverified , 01/16/18) ROS Limited/Unobtainable: No Constitutional: Reports: no symptoms HEENT: Reports: no symptoms Cardiovascular: Reports: no symptoms Respiratory: Reports: no symptoms Gastrointestinal/Abdominal: Reports: no symptoms Genitourinary: Reports: no symptoms Neurologic/Psychiatric: Reports: no symptoms Subjective 62 YO F admitted with chief complaint fever. Now pneumonia, UTI and sepsis. Cover for Int Med-Dr Christensen. S/P removal chest port a cath 01/21/18 Objective Last Vital Signs Date Time Temp Pulse Resp B/P (MAP) Pulse Ox O2 Delivery O2 Flow Rate FiO2 01/21/18 14:21 111 14 97 01/21/18 14:20 98 144/68 Room Air 98.0 01/20/18 21:00 3.0 01/20/18 20:19 28 Laboratory Tests Test 01/20/18 17:40 01/21/18 07:10 Vancomycin Level Trough 9.7 ug/mL (5.0-12.0) White Blood Count 3.5 K/UL (4.8-10.8) L Red Blood Count 3.35 M/UL (4.20-5.40) L Hemoglobin 9.8 G/DL (12.0-16.0) L Hematocrit 30.2 % (37.0-47.0) L Mean Corpuscular Volume 90 FL (80-99) Mean Corpuscular Hemoglobin 29.1 PG (27.0-31.0) Mean Corpuscular Hemoglobin Concent 32.4 G/DL (32.0-36.0) Red Cell Distribution Width 15.4 % (11.6-14.8) H Platelet Count 85 K/UL (150-450) #L Mean Platelet Volume 7.4 FL (6.5-10.1) Neutrophils (%) (Auto) % (45.0-75.0) Lymphocytes (%) (Auto) % (20.0-45.0) Monocytes (%) (Auto) % (1.0-10.0) Eosinophils (%) (Auto) % (0.0-3.0) Basophils (%) (Auto) % (0.0-2.0) Differential Total Cells Counted 100 Neutrophils % (Manual) 52 % (45-75) Lymphocytes % (Manual) 27 % (20-45) Monocytes % (Manual) 16 % (1-10) H Eosinophils % (Manual) 5 % (0-3) H Basophils % (Manual) 0 % (0-2) Band Neutrophils 0 % (0-8) Platelet Estimate Decreased L Platelet Morphology Normal Sodium Level 135 MMOL/L (136-145) L Potassium Level 3.0 MMOL/L (3.5-5.1) L Chloride Level 102 MMOL/L (98-107) Carbon Dioxide Level 27 MMOL/L (21-32) Anion Gap 6 mmol/L (5-15) Blood Urea Nitrogen 5 mg/dL (7-18) L Creatinine 0.7 MG/DL (0.55-1.30) Estimat Glomerular Filtration Rate > 60 mL/min (>60) Glucose Level 111 MG/DL (74-106) H Calcium Level 7.6 MG/DL (8.5-10.1) L Phosphorus Level 1.2 MG/DL (2.5-4.9) L Magnesium Level 1.5 MG/DL (1.8-2.4) L Total Bilirubin 0.6 MG/DL (0.2-1.0) Aspartate Amino Transf (AST/SGOT) 30 U/L (15-37) Alanine Aminotransferase (ALT/SGPT) 75 U/L (12-78) Alkaline Phosphatase 103 U/L (46-116) Total Protein 5.0 G/DL (6.4-8.2) L Albumin 1.8 G/DL (3.4-5.0) L Globulin 3.2 g/dL Albumin/Globulin Ratio 0.6 (1.0-2.7) L Microbiology Date/Time Source Procedure Growth Status 01/19/18 21:15 Blood Blood Culture - Preliminary NO GROWTH AFTER 24 HOURS Resulted 01/19/18 21:00 Blood Blood Culture - Preliminary NO GROWTH AFTER 24 HOURS Resulted 01/19/18 19:00 Sputum Induced Gram Stain - Final Resulted 01/19/18 19:00 Sputum Culture - Preliminary Germaine Albicans Resulted Intake and Output 01/20/18 01/21/18 19:00 07:00 Intake Total 1041.000 ml 900 ml Balance 1041.000 ml 900 ml Intake Oral 120 ml IV Total 921.000 ml 900 ml # Bowel Movements 1 Objective General Appearance: WD/WN, alert, mild distress EENT: PERRL/EOMI, normal ENT inspection Neck: non-tender, normal alignment, supple, normal inspection Cardiovascular: normal peripheral pulses, regular rhythm, no gallop/murmur, no JVD, tachycardia Respiratory/Chest: chest wall non-tender, accessory muscle use, crackles/rales , rhonchi - bilaterally, expiratory wheezing Abdomen: normal bowel sounds, non tender, soft, no organomegaly, no mass Extremities: normal range of motion, non-tender 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 Continue vanco and ceftriaxone- see Inf dis consult. (2) Hypokalemia (3) Brain cancer (4) Breast cancer in female Assessment & Plan: Await onc consult. (5) Sepsis Assessment & Plan: S/P removal of chest port a cath. Proteus- 4/4 bottles. Cont meropenem -see ID consult Status: progressing Ayo Roth MD Jan 21, 2018 15:40
[2018-01-21] MEDS ORDERED: Sodium Phosphate 30 MM in NS 275 ML IV ONE (16:00)
--- NOTE | 2018-01-21 16:58 | Diagnostic Imaging Report ---
Indications: Needs long-term IV access Technique: Ultrasound confirms patent compressible left basilic vein. Total sterile technique, including sterile probe cover and sterile gel, hat, mask, sterile gown, large sterile drape, and preparation with 2% chlorhexidine utilized. Local anesthesia with 1% lidocaine. Under real-time ultrasound guidance, puncture basilic vein using 21-gauge needle, documented and archived, passage 0.018 guidewire under direct fluoroscopy, which was used to determine appropriate catheter length, exchange for 5 Filipino peel-away sheath. 5 Filipino Bard dual-lumen power PICC cut to 45 cm. It was inserted through the peel-away sheath. Peel-away sheath and guidewire removed. Catheter fixed to the skin. Both catheter ports aspirated and flushed. Patient tolerated procedure well, without immediate complication. Digital radiograph documents satisfactory catheter tip position, at the cavoatrial junction. Total fluoroscopy time 0.6 minutes. Total dose area product 36 dGycm2 Total number of images: 1 Impression: Successful placement of left arm PICC under sonographic and fluoroscopic guidance, as described above.
--- NOTE | 2018-01-21 17:00 | Operative Note - Dictated ---
DATE OF OPERATION: 01/21/2018 PREOPERATIVE DIAGNOSES: 1. Sepsis. 2. Infected right chest wall port. POSTOPERATIVE DIAGNOSES: 1. Sepsis. 2. Infected right chest wall port. OPERATION PERFORMED: 1. Chest wall tunneled implantable port with central catheter. 2. Incisional debridement of right chest wall infected wound 3 cm x 2 cm x 2 cm. ATTENDING SURGEON: Juanito Rodriguez M.D. INSPECTOR FABRIC: None. ANESTHESIA: Darby Owen CRNA. ANESTHESIA: Moderate sedation and local. ESTIMATED BLOOD LOSS: Minimal. IV FLUIDS: Please see anesthesia records. COMPLICATIONS: None. WOUND CLASSIFICATION: Class 3. SPECIMENS: 1. Port. 2. Cultures. COMPLICATIONS: None. COUNTS: Sponge and needle count correct x2. ANTIBIOTICS: The patient is on scheduled antibiotics as per Infectious Disease. INDICATIONS FOR PROCEDURE: This is a 62-year-old female with a complex medical history including brain tumor prior and a more recently diagnosed breast cancer, for which had a right chest wall port placed at an outside facility few weeks back to initiate chemotherapy, which she received 2 cycles of. The patient presented to the hospital with sepsis and has since been cared for and monitored by primary team consultants. It was believed and noted the patient had a right chest wall port that could potentially be etiology of sepsis and the source of infection and therefore, surgery was called for evaluation. In speaking with the family, the patient's family states that they had concerns about the prior, which was expressed at an outside facility as well as a noted purulent drainage in the past and on dressings. On my evaluation, the wound from the right chest port had to be dehisced with some drainage. Given above, rectal surgery was indicated and recommended. Risks, benefits, and alternatives were discussed with the patient's family in detail and consented to procedure. OPERATIVE NOTE: The patient was taken to the operating room and made comfortable within the operating room. SCDs were placed. Preoperative time-out was taken in identifying the patient, procedure, operative staff, and surgical staff. The patient is already on scheduled antibiotics prior to entering the operating room. The patient was made comfortable by the anesthesiologist with moderate sedation. The right chest was prepped and draped in standard surgical fashion. Local anesthetic was infiltrated through proposed skin site and around the catheter site. A 1% lidocaine was used. Following this, the prior port site area had been noted and there was dehiscence of the wound with areas of eschar and necrosis. The port was visualized and upon evaluation noted to have a purulent drainage in the port cavity. Cultures were taken. The incision was made in the prior incision and carried down with electrocautery. The port was identified and removed with pressure being held in the access site. The port was sent to pathology for review. Cultures were taken. A 3-0 Vicryl suture was placed at the catheter site entrance. Excision debridement of the necrotic and fibrinous tissues of the wound was carried out in the wound bed and cavity, which was approximately 3 cm x 2 cm x 2 cm using a fresh #15 scalpel. Following this, hemostasis was achieved with electrocautery. The wound was irrigated with copious amounts of warm sterile saline. Given the wound appearance and above, decision was made to leave the wound open with packing and dressing. Gauze packing was placed followed by dressings. The patient tolerated the procedure well. She was taken to postanesthetic care unit in stable condition. Juanito Rodriguez M.D. DR: BLANCA JOB#: [id number] CC:
--- NOTE | 2018-01-21 19:48 | Cardiology Progress Note ---
Assessment/Plan Status: stable Assessment/Plan Assessment (1) Healthcare-associated pneumonia (2) Sepsis (3) Tachycardia (4) UTI (urinary tract infection) (5) Brain cancer (6) Breast cancer in female (7) Morbid obesity with BMI of 40.0-44.9, adult (8) Hypokalemia (9) ATN (acute tubular necrosis) (10) Tachycardia Echocardiogram reviewed, normal LV function, troponin unremarkable, EKG with no ischemia No clinical findings to suggest endocarditis Tachycardia from sepsis and pain, do not treat heart rate as it is compensatory Continue antibiotics, follow cultures Removed [place] and sent for culture , PICC line placed Wound care Pain control physical therapy Supportive care No ischemia work up needed at this juncture. Subjective Cardiovascular: Reports: no symptoms Respiratory: Reports: no symptoms Gastrointestinal/Abdominal: Reports: no symptoms Genitourinary: Reports: no symptoms Subjective Patient is stable after removal of chest wall port and radiology transferred the patient for PICC line insertion. No acute events, no complaints Objective Last 24 Hour Vital Signs Date Time Temp Pulse Resp B/P (MAP) Pulse Ox O2 Delivery O2 Flow Rate FiO2 01/21/18 16:10 108 20 Nasal Cannula 01/21/18 16:10 94 Room Air 21 01/21/18 16:10 21 01/21/18 16:00 111 01/21/18 16:00 100.0 109 24 140/71 (94) 96 100.0 01/21/18 14:21 111 14 97 01/21/18 14:20 98 111 20 144/68 93 Room Air 98.0 01/21/18 14:15 111 18 131/71 93 Room Air 01/21/18 14:10 98 114 14 129/72 93 Room Air 98.0 01/21/18 13:15 99.1 01/21/18 12:43 101.2 01/21/18 12:00 116 01/21/18 12:00 101.2 116 24 134/76 (95) 95 101.2 01/21/18 09:00 Room Air 01/21/18 08:00 116 01/21/18 08:00 98.4 114 20 128/64 (85) 92 98.4 01/21/18 04:00 99.1 116 24 125/73 (90) 99 99.1 24 01/21/18 04:00 113 01/21/18 00:00 77 01/21/18 00:00 99.0 115 24 141/67 (91) 93 99.0 24 01/20/18 21:00 Nasal Cannula 3.0 01/20/18 20:19 97 Nasal Cannula 2.0 28 01/20/18 20:19 Nasal Cannula 2.0 28 01/20/18 20:19 108 20 Nasal Cannula 2.0 28 01/20/18 20:00 99.2 94 20 127/66 (86) 93 99.2 24 01/20/18 20:00 111 General Appearance: WD/WN EENT: PERRL/EOMI Neck: non-tender, normal alignment, supple, no JVD Rhythm: NSR Cardiovascular: normal peripheral pulses, regular rhythm Respiratory/Chest: chest wall non-tender, lungs clear Abdomen: non tender Extremities: normal range of motion 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 Intake and Output 01/20/18 01/21/18 19:00 07:00 Intake Total 1041.000 ml 900 ml Balance 1041.000 ml 900 ml Intake Oral 120 ml IV Total 921.000 ml 900 ml # Bowel Movements 1 Laboratory Tests Test 01/21/18 07:10 White Blood Count 3.5 K/UL (4.8-10.8) L Red Blood Count 3.35 M/UL (4.20-5.40) L Hemoglobin 9.8 G/DL (12.0-16.0) L Hematocrit 30.2 % (37.0-47.0) L Mean Corpuscular Volume 90 FL (80-99) Mean Corpuscular Hemoglobin 29.1 PG (27.0-31.0) Mean Corpuscular Hemoglobin Concent 32.4 G/DL (32.0-36.0) Red Cell Distribution Width 15.4 % (11.6-14.8) H Platelet Count 85 K/UL (150-450) #L Mean Platelet Volume 7.4 FL (6.5-10.1) Neutrophils (%) (Auto) % (45.0-75.0) Lymphocytes (%) (Auto) % (20.0-45.0) Monocytes (%) (Auto) % (1.0-10.0) Eosinophils (%) (Auto) % (0.0-3.0) Basophils (%) (Auto) % (0.0-2.0) Differential Total Cells Counted 100 Neutrophils % (Manual) 52 % (45-75) Lymphocytes % (Manual) 27 % (20-45) Monocytes % (Manual) 16 % (1-10) H Eosinophils % (Manual) 5 % (0-3) H Basophils % (Manual) 0 % (0-2) Band Neutrophils 0 % (0-8) Platelet Estimate Decreased L Platelet Morphology Normal Sodium Level 135 MMOL/L (136-145) L Potassium Level 3.0 MMOL/L (3.5-5.1) L Chloride Level 102 MMOL/L (98-107) Carbon Dioxide Level 27 MMOL/L (21-32) Anion Gap 6 mmol/L (5-15) Blood Urea Nitrogen 5 mg/dL (7-18) L Creatinine 0.7 MG/DL (0.55-1.30) Estimat Glomerular Filtration Rate > 60 mL/min (>60) Glucose Level 111 MG/DL (74-106) H Calcium Level 7.6 MG/DL (8.5-10.1) L Phosphorus Level 1.2 MG/DL (2.5-4.9) L Magnesium Level 1.5 MG/DL (1.8-2.4) L Total Bilirubin 0.6 MG/DL (0.2-1.0) Aspartate Amino Transf (AST/SGOT) 30 U/L (15-37) Alanine Aminotransferase (ALT/SGPT) 75 U/L (12-78) Alkaline Phosphatase 103 U/L (46-116) Total Protein 5.0 G/DL (6.4-8.2) L Albumin 1.8 G/DL (3.4-5.0) L Globulin 3.2 g/dL Albumin/Globulin Ratio 0.6 (1.0-2.7) L Microbiology Date/Time Source Procedure Growth Status 01/19/18 21:15 Blood Blood Culture - Preliminary NO GROWTH AFTER 24 HOURS Resulted 01/19/18 21:00 Blood Blood Culture - Preliminary NO GROWTH AFTER 24 HOURS Resulted 01/19/18 19:00 Sputum Induced Gram Stain - Final Resulted 01/19/18 19:00 Sputum Culture - Preliminary Germaine Albicans Resulted Ismael Brown M.D. Jan 21, 2018 19:48
[2018-01-21] MEDS ORDERED: Dyna-Hex 2% Top Sol 2oz TOPIC SCH (20:00)
[2018-01-21] MEDS: Dyna-Hex 2% Top Sol 2oz TOPIC SCH (20:29)
[2018-01-21] MEDS: cefTRIAXone 2 GM in D5W 110 ML IVPB SCH (20:29)
[2018-01-22] VITALS: BP 161/99
[2018-01-22 04:00] VITALS: BP 167/105
[2018-01-22] MEDS: Heparin 5000 units/ml inj SUBQ SCH ×3 (05:49→22:00)
[2018-01-22 06:40] LABS: HEMATOCRIT 31.1 % (37.0-47.0); HEMOGLOBIN 10.8 G/DL (12.0-16.0); MEAN CORPUSCULAR VOLUME 89 FL (80-99); PLATELET COUNT 146 K/UL (150-450); RED BLOOD COUNT 3.49 M/UL (4.20-5.40); WHITE BLOOD COUNT 2.5 K/UL (4.8-10.8)
[2018-01-22 06:57] LABS: ALANINE AMINOTRANSFERASE 65 U/L (12-78); ALBUMIN 2.1 G/DL (3.4-5.0); ALBUMIN/GLOBULIN RATIO 0.6 (1.0-2.7); ALKALINE PHOSPHATASE 108 U/L (46-116); ANION GAP 5 mmol/L (5-15); ASPARTATE AMINO TRANSFERASE 29 U/L (15-37); BILIRUBIN,TOTAL 0.5 MG/DL (0.2-1.0); BLOOD UREA NITROGEN 4 mg/dL (7-18); CARBON DIOXIDE 28 MMOL/L (21-32); CHLORIDE 106 MMOL/L (98-107); CREATININE 0.7 MG/DL (0.55-1.30); PHOSPHORUS 2.5 MG/DL (2.5-4.9); POTASSIUM 3.4 MMOL/L (3.5-5.1); SODIUM 139 MMOL/L (136-145)
--- NOTE | 2018-01-22 07:09 | Pulmonology Progress Note ---
Assessment/Plan Assessment/Plan ASSESSMENT Sepsis with Proteus bacteremia ( secondary to UTI , pneumonia and infected PAC) Healthcare associated pneumonia Escherichia coli UTI Infected luciana-cath ( s/p removal) Metastatic breast CA to brain Anemia of underlying chronic disease Pancytopenia Morbid obesity Acute tubular necrosis-resolved Electrolyte imbalance)( hypokalemia, hypophosphatemia, hypomagnesemia) Tachycardia-compensatory Transaminitis-resolved Seizure disorder PLAN OF CARE Abx ID follows blood culture +Proteus wound cx Port site drainage +Proteus urine cx +E coli repeated blood culture negative O2 HHN prn f/up CXR some improvement Antitussive prn f/up with CXR on Wednesday strict aspiration reflux precaution DVT prophylaxis pain management cardio follows tachycardia secondary to sepsis, compensatory no treatment needed no ischemia eval at this time ECHO with pEF, no WMA seizure precaution continue Vimpat steroids bowel regimen GI prophylaxis monitor renal parameters electrolytes , avoid nephrotoxic, correct electrolytes as needed acute tubular necrosis resolved, likely secondary to unstable hemodynamics renal ultrasound negative floor tiling professional follows thrombocytopenia likely secondary to sepsis and coagulopathy likely secondary to poor oral intake monitor HH, goal to keep Hgb above 7 ? transfer to [facility] case discussed and evaluated by supervising physician Subjective Allergies: Coded Allergies: No Known Allergies (Unverified , 01/16/18) Subjective afebrile, leukopenic remained tachy, ST on tele no CP no SOB Objective Last 24 Hour Vital Signs Date Time Temp Pulse Resp B/P (MAP) Pulse Ox O2 Delivery O2 Flow Rate FiO2 01/22/18 04:00 100 01/22/18 00:00 97.7 108 20 161/99 (119) 99 97.7 20 01/22/18 00:00 116 01/21/18 21:00 Nasal Cannula 3.0 01/21/18 20:00 113 01/21/18 20:00 99.2 113 20 138/86 (103) 99 99.2 24 01/21/18 16:10 108 20 Nasal Cannula 01/21/18 16:10 94 Room Air 21 01/21/18 16:10 21 01/21/18 16:00 111 01/21/18 16:00 100.0 109 24 140/71 (94) 96 100.0 01/21/18 14:21 111 14 97 01/21/18 14:20 98 111 20 144/68 93 Room Air 98.0 01/21/18 14:15 111 18 131/71 93 Room Air 01/21/18 14:10 98 114 14 129/72 93 Room Air 98.0 01/21/18 13:15 99.1 01/21/18 12:43 101.2 01/21/18 12:00 116 01/21/18 12:00 101.2 116 24 134/76 (95) 95 101.2 01/21/18 09:00 Room Air 01/21/18 08:00 116 01/21/18 08:00 98.4 114 20 128/64 (85) 92 98.4 Intake and Output 01/21/18 01/22/18 19:00 07:00 Intake Total 1062.500 ml 647.5 ml Output Total 0 ml 1400 ml Balance 1062.500 ml -752.5 ml Intake Oral 0 ml IV Total 1062.500 ml 647.5 ml Output Urine Total 1400 ml Estimated Blood Loss 0 ml # Voids 5 General Appearance: no acute distress, other - A/A/O x 3 morbidly obese Latvian speaking female HEENT: normocephalic, atraumatic, anicteric Respiratory/Chest: lungs clear, no respiratory distress Cardiovascular: regular rhythm - SR, tachycardia - ST on yele, other - LUE PICC intact Abdomen: normal bowel sounds, soft, non tender - obese Extremities: other Neurologic/Psychiatric: abnormal gait, alert, responsive Microbiology Date/Time Source Procedure Growth Status 01/19/18 21:15 Blood Blood Culture - Preliminary NO GROWTH AFTER 48 HOURS Resulted 01/19/18 21:00 Blood Blood Culture - Preliminary NO GROWTH AFTER 48 HOURS Resulted 01/19/18 19:00 Sputum Induced Gram Stain - Final Resulted 01/19/18 19:00 Sputum Culture - Preliminary Germaine Albicans Resulted 01/21/18 16:00 Chest Gram Stain - Final Resulted 01/21/18 16:00 Chest Aerobic Culture Pending Resulted 01/21/18 16:00 Chest Anaerobic Culture Pending Resulted Laboratory Tests 01/21/18 07:10: White Blood Count 3.5L, Red Blood Count 3.35L, Hemoglobin 9.8L, Hematocrit 30.2L , Mean Corpuscular Volume 90, Mean Corpuscular Hemoglobin 29.1, Mean Corpuscular Hemoglobin Concent 32.4, Red Cell Distribution Width 15.4H, Platelet Count 85#L, Mean Platelet Volume 7.4, Neutrophils (%) (Auto) , Lymphocytes (%) (Auto) , Monocytes (%) (Auto) , Eosinophils (%) (Auto) , Basophils (%) (Auto) , Differential Total Cells Counted 100, Neutrophils % ( Manual) 52, Lymphocytes % (Manual) 27, Monocytes % (Manual) 16H, Eosinophils % ( Manual) 5H, Basophils % (Manual) 0, Band Neutrophils 0, Platelet Estimate DecreasedL, Platelet Morphology Normal, Sodium Level 135L, Potassium Level 3.0L , Chloride Level 102, Carbon Dioxide Level 27, Anion Gap 6, Blood Urea Nitrogen 5L, Creatinine 0.7, Estimat Glomerular Filtration Rate > 60, Glucose Level 111H , Calcium Level 7.6L, Phosphorus Level 1.2L, Magnesium Level 1.5L, Total Bilirubin 0.6, Aspartate Amino Transf (AST/SGOT) 30, Alanine Aminotransferase ( ALT/SGPT) 75, Alkaline Phosphatase 103, Total Protein 5.0L, Albumin 1.8L, Globulin 3.2, Albumin/Globulin Ratio 0.6L 01/22/18 06:31: White Blood Count 2.5L, Red Blood Count 3.49L, Hemoglobin 10.8L, Hematocrit 31.1L, Mean Corpuscular Volume 89, Mean Corpuscular Hemoglobin 31.0, Mean Corpuscular Hemoglobin Concent 34.8, Red Cell Distribution Width 15.0H, Platelet Count 146#L, Mean Platelet Volume 6.3L, Neutrophils (%) (Auto) , Lymphocytes (%) (Auto) , Monocytes (%) (Auto) , Eosinophils (%) (Auto) , Basophils (%) (Auto) , Neutrophils % (Manual) [Pending], Lymphocytes % (Manual) [Pending], Platelet Estimate [Pending], Platelet Morphology [Pending], Sodium Level 139, Potassium Level 3.4L, Chloride Level 106, Carbon Dioxide Level 28, Anion Gap 5, Blood Urea Nitrogen 4L, Creatinine 0.7, Estimat Glomerular Filtration Rate > 60, Glucose Level 142H, Calcium Level 8.0L, Phosphorus Level 2.5, Magnesium Level 2.1, Total Bilirubin 0.5, Aspartate Amino Transf (AST/SGOT ) 29, Alanine Aminotransferase (ALT/SGPT) 65, Alkaline Phosphatase 108, Total Protein 5.9L, Albumin 2.1L, Globulin 3.8, Albumin/Globulin Ratio 0.6L, Vancomycin Level Trough 17.4H Current Medications Medications (Trade) Dose Ordered Sig/Gloria Route PRN Reason Start Time Stop Time Status Last Admin Dose Admin Acetaminophen (Tylenol) 650 mg Q4H PRN RECTAL Mild Pain (Pain Scale 1-3) 01/20/18 16:00 02/15/18 15:59 Acetaminophen (Tylenol) 650 mg Q6H PRN ORAL Mild Pain/Temp > 100.5 01/20/18 18:30 02/18/18 18:29 01/21/18 20:51 Al Hydroxide/Mg Hydroxide (Mylanta II) 30 ml Q6H PRN ORAL dyspepsia 01/20/18 16:00 02/15/18 15:59 Ceftriaxone Sodium 2 gm/ Dextrose 110 ml @ 220 mls/hr Q24H IVPB 01/20/18 20:00 01/26/18 19:59 01/21/18 20:29 Chlorhexidine Gluconate (Zuleika-Hex 2%) 1 applic DAILY@2000 TOPIC 01/20/18 20:00 02/15/18 19:59 01/21/18 20:29 Dextrose (Dextrose 50%) 25 ml STAT PRN IV Hypoglycemia 01/20/18 16:00 02/15/18 15:59 Dextrose (Dextrose 50%) 50 ml STAT PRN IV Hypoglycemia 01/20/18 16:00 02/15/18 15:59 Dextrose/ Electrolytes 1,000 ml @ 75 mls/hr [id number] IV 01/20/18 16:15 02/16/18 11:29 01/21/18 20:30 Diphenhydramine HCl (Benadryl) 25 mg Q6H PRN ORAL Itching/Pruritis 01/20/18 16:00 02/15/18 15:59 Fluoxetine HCl (PROzac) 20 mg DAILY ORAL 01/21/18 09:00 02/16/18 12:14 01/21/18 08:25 Heparin Sodium (Porcine) (Heparin 5000 units/ml) 5,000 units EVERY 8 HOURS SUBQ 01/20/18 22:00 02/15/18 13:59 Hydralazine HCl (Apresoline) 10 mg Q6H PRN ORAL SBP>160 01/20/18 16:00 02/17/18 15:59 Lacosamide (Vimpat) 100 mg Q12HR ORAL 01/20/18 21:00 02/15/18 20:59 01/21/18 20:50 Lidocaine HCl (Xylocaine 1% 30ml) 30 ml ONCE INJ 01/21/18 14:00 02/20/18 13:59 01/21/18 14:03 Mirtazapine (Remeron) 7.5 mg BEDTIME ORAL 01/20/18 21:00 02/16/18 20:59 01/21/18 20:50 Morphine Sulfate (Morphine Sulfate) 4 mg Q4H PRN IVP Severe Pain (Pain Scale 7-10) 01/20/18 16:00 01/23/18 15:59 Ondansetron HCl (Zofran) 4 mg Q6H PRN IVP Nausea & Vomiting 01/20/18 16:00 02/15/18 15:59 Pantoprazole (Protonix) 40 mg EVERY 12 HOURS ORAL 01/20/18 21:00 02/18/18 20:59 01/21/18 20:50 Promethazine HCl/ Codeine (Phenergan with Codeine) 5 ml Q4H PRN ORAL For Cough 01/20/18 17:15 02/19/18 17:14 Vancomycin HCl (Vanco rx to dose) 1 ea DAILY PRN MISC Per rx protocol 01/21/18 09:00 02/15/18 06:44 Vancomycin HCl/ Dextrose 250 ml @ 166.667 mls/hr Q12HR@0800,2000 IVPB 01/20/18 20:00 01/25/18 19:59 01/21/18 20:29 Zolpidem Tartrate (Ambien) 5 mg HSPRN PRN ORAL Insomnia 01/20/18 21:00 01/27/18 20:59 01/20/18 21:56 Diana Virk [employer] DEV[employer]OP[employer] Jan 22, 2018 07:09
[2018-01-22 08:34] VITALS: BP 162/95
[2018-01-22] MEDS: Lacosamide 100 MG TABLET ORAL SCH ×2 (09:04→21:11)
[2018-01-22] MEDS: Vancomycin 1250mg/D5W 250ml 250 ML IVPB SCH ×2 (09:04→19:42)
--- NOTE | 2018-01-22 10:09 | Cardiology Progress Note ---
Assessment/Plan Status: stable, progressing Assessment/Plan Assessment (1) Healthcare-associated pneumonia (2) Sepsis (3) Tachycardia (4) UTI (urinary tract infection) (5) Brain cancer (6) Breast cancer in female (7) Morbid obesity with BMI of 40.0-44.9, adult (8) Hypokalemia (9) ATN (acute tubular necrosis) (10) Tachycardia Echocardiogram reviewed, normal LV function, troponin unremarkable, EKG with no ischemia No clinical findings to suggest endocarditis Tachycardia from sepsis and pain, do not treat heart rate as it is compensatory Continue antibiotics, follow cultures Removed [place] and sent for culture , PICC line placed Wound care Pain control physical therapy Supportive care No ischemia work up needed at this juncture. Start anti hypertensive therapy Subjective Cardiovascular: Reports: no symptoms Respiratory: Reports: no symptoms Gastrointestinal/Abdominal: Reports: no symptoms Genitourinary: Reports: no symptoms Subjective No acute events, no complaints, vitals stable Objective Last 24 Hour Vital Signs Date Time Temp Pulse Resp B/P (MAP) Pulse Ox O2 Delivery O2 Flow Rate FiO2 01/22/18 09:42 21 01/22/18 09:42 106 20 Room Air 01/22/18 09:42 95 Room Air 21 01/22/18 09:00 Nasal Cannula 3.0 01/22/18 08:34 98.3 119 20 162/95 (117) 96 98.3 01/22/18 04:00 100 01/22/18 04:00 98.1 108 24 167/105 (125) 96 98.1 01/22/18 00:00 97.7 108 20 161/99 (119) 99 97.7 20 01/22/18 00:00 116 01/21/18 21:00 Nasal Cannula 3.0 01/21/18 20:00 113 01/21/18 20:00 99.2 113 20 138/86 (103) 99 99.2 24 01/21/18 16:10 108 20 Nasal Cannula 01/21/18 16:10 94 Room Air 21 01/21/18 16:10 21 01/21/18 16:00 111 01/21/18 16:00 100.0 109 24 140/71 (94) 96 100.0 01/21/18 14:21 111 14 97 01/21/18 14:20 98 111 20 144/68 93 Room Air 98.0 01/21/18 14:15 111 18 131/71 93 Room Air 01/21/18 14:10 98 114 14 129/72 93 Room Air 98.0 01/21/18 13:15 99.1 01/21/18 12:43 101.2 01/21/18 12:00 116 01/21/18 12:00 101.2 116 24 134/76 (95) 95 101.2 General Appearance: no apparent distress, alert EENT: PERRL/EOMI, normal ENT inspection Neck: non-tender, normal alignment Rhythm: NSR Cardiovascular: normal peripheral pulses, normal rate, regular rhythm Respiratory/Chest: chest wall non-tender, lungs clear Abdomen: normal bowel sounds, non tender Extremities: normal range of motion, non-tender Neurologic: hospital staff pharmacist II-XII grossly normal Intake and Output 01/21/18 01/22/18 19:00 07:00 Intake Total 1062.500 ml 647.5 ml Output Total 0 ml 1400 ml Balance 1062.500 ml -752.5 ml Intake Oral 0 ml IV Total 1062.500 ml 647.5 ml Output Urine Total 1400 ml Estimated Blood Loss 0 ml # Voids 5 Laboratory Tests Test 01/22/18 06:31 White Blood Count 2.5 K/UL (4.8-10.8) L Red Blood Count 3.49 M/UL (4.20-5.40) L Hemoglobin 10.8 G/DL (12.0-16.0) L Hematocrit 31.1 % (37.0-47.0) L Mean Corpuscular Volume 89 FL (80-99) Mean Corpuscular Hemoglobin 31.0 PG (27.0-31.0) Mean Corpuscular Hemoglobin Concent 34.8 G/DL (32.0-36.0) Red Cell Distribution Width 15.0 % (11.6-14.8) H Platelet Count 146 K/UL (150-450) #L Mean Platelet Volume 6.3 FL (6.5-10.1) L Neutrophils (%) (Auto) % (45.0-75.0) Lymphocytes (%) (Auto) % (20.0-45.0) Monocytes (%) (Auto) % (1.0-10.0) Eosinophils (%) (Auto) % (0.0-3.0) Basophils (%) (Auto) % (0.0-2.0) Differential Total Cells Counted 100 Neutrophils % (Manual) 42 % (45-75) L Lymphocytes % (Manual) 41 % (20-45) Monocytes % (Manual) 17 % (1-10) H Eosinophils % (Manual) 0 % (0-3) Basophils % (Manual) 0 % (0-2) Band Neutrophils 0 % (0-8) Platelet Estimate Decreased L Platelet Morphology Normal Hypochromasia Anisocytosis 1+ Sodium Level 139 MMOL/L (136-145) Potassium Level 3.4 MMOL/L (3.5-5.1) L Chloride Level 106 MMOL/L (98-107) Carbon Dioxide Level 28 MMOL/L (21-32) Anion Gap 5 mmol/L (5-15) Blood Urea Nitrogen 4 mg/dL (7-18) L Creatinine 0.7 MG/DL (0.55-1.30) Estimat Glomerular Filtration Rate > 60 mL/min (>60) Glucose Level 142 MG/DL (74-106) H Calcium Level 8.0 MG/DL (8.5-10.1) L Phosphorus Level 2.5 MG/DL (2.5-4.9) Magnesium Level 2.1 MG/DL (1.8-2.4) Total Bilirubin 0.5 MG/DL (0.2-1.0) Aspartate Amino Transf (AST/SGOT) 29 U/L (15-37) Alanine Aminotransferase (ALT/SGPT) 65 U/L (12-78) Alkaline Phosphatase 108 U/L (46-116) Total Protein 5.9 G/DL (6.4-8.2) L Albumin 2.1 G/DL (3.4-5.0) L Globulin 3.8 g/dL Albumin/Globulin Ratio 0.6 (1.0-2.7) L Vancomycin Level Trough 17.4 ug/mL (5.0-12.0) H Microbiology Date/Time Source Procedure Growth Status 01/19/18 21:15 Blood Blood Culture - Preliminary NO GROWTH AFTER 48 HOURS Resulted 01/19/18 21:00 Blood Blood Culture - Preliminary NO GROWTH AFTER 48 HOURS Resulted 01/19/18 19:00 Sputum Induced Gram Stain - Final Complete 01/19/18 19:00 Sputum Culture - Final Germaine Albicans Complete 01/21/18 16:00 Chest Gram Stain - Final Resulted 01/21/18 16:00 Chest Aerobic Culture Pending Resulted 01/21/18 16:00 Chest Anaerobic Culture Pending Resulted Ismael Brown M.D. Jan 22, 2018 10:09
[2018-01-22] MEDS ORDERED: Lisinopril 20mg tab ORAL ONE (10:15)
--- NOTE | 2018-01-22 10:20 | 48 Hour Post Anesthesia Eval ---
Post Anesthesia Evaluation Procedure: removal of luciana cath. Date of Evaluation: Jan 22, 2018 Time of Evaluation: 10:19 Blood Pressure Systolic: 156 0: 78 Pulse Rate: 64 Respiratory Rate: 22 Temperature (Fahrenheit): 97.6 O2 Sat by Pulse Oximetry: 98 Airway: patent Nausea: No Vomiting: No Pain Intensity: 3 Hydration Status: adequate Cardiopulmonary Status: stable Mental Status/LOC: patient returned to baseline Follow-up Care/Observations: n/a Post-Anesthesia Complications: none Follow-up care needed: N/A Irving Epps MD Jan 22, 2018 10:20
--- NOTE | 2018-01-22 10:31 | General Progress Note ---
Assessment/Plan Status: stable Assessment/Plan 1. Metastatic breast cancer to the brain. Currently on treatment with Dr. Verma --> Continue to follow up with Oncology Service in the outpatient setting. --> Closely monitor for improvement. 2. Anemia due to underlying chronic disease. --> Continue to closely monitor. --> Anemia w/u has been reviewed. Will trend cbc daily. --> Hgb goal >7 3. Thrombocytopenia, likely secondary to urosepsis, gram-negative rods 4/4 bottles. 4. Urinary tract infection, on IV antibiotics. 5. Hypokalemia, replete as needed. 6. Coagulopathy, potentially secondary to decreased p.o. intake. The time the note was entered does not necessarily correspond to the time the patient was seen. Subjective Date patient seen: Jan 22, 2018 ROS Limited/Unobtainable: Yes Allergies: Coded Allergies: No Known Allergies (Unverified , 01/16/18) All Systems: reviewed and negative except above Subjective Pt now on tele unit. Pt awake and alert. No acute events. Objective Last 24 Hour Vital Signs Date Time Temp Pulse Resp B/P (MAP) Pulse Ox O2 Delivery O2 Flow Rate FiO2 01/22/18 10:20 207.7 64 22 98 01/22/18 09:42 21 01/22/18 09:42 106 20 Room Air 01/22/18 09:42 95 Room Air 21 01/22/18 09:00 Nasal Cannula 3.0 01/22/18 08:34 98.3 119 20 162/95 (117) 96 98.3 01/22/18 04:00 100 01/22/18 04:00 98.1 108 24 167/105 (125) 96 98.1 01/22/18 00:00 97.7 108 20 161/99 (119) 99 97.7 20 01/22/18 00:00 116 01/21/18 21:00 Nasal Cannula 3.0 01/21/18 20:00 113 01/21/18 20:00 99.2 113 20 138/86 (103) 99 99.2 24 01/21/18 16:10 108 20 Nasal Cannula 01/21/18 16:10 94 Room Air 21 01/21/18 16:10 21 01/21/18 16:00 111 01/21/18 16:00 100.0 109 24 140/71 (94) 96 100.0 01/21/18 14:21 111 14 97 01/21/18 14:20 98 111 20 144/68 93 Room Air 98.0 01/21/18 14:15 111 18 131/71 93 Room Air 01/21/18 14:10 98 114 14 129/72 93 Room Air 98.0 01/21/18 13:15 99.1 01/21/18 12:43 101.2 01/21/18 12:00 116 01/21/18 12:00 101.2 116 24 134/76 (95) 95 101.2 Intake and Output 01/21/18 01/22/18 19:00 07:00 Intake Total 1062.500 ml 647.5 ml Output Total 0 ml 1400 ml Balance 1062.500 ml -752.5 ml Intake Oral 0 ml IV Total 1062.500 ml 647.5 ml Output Urine Total 1400 ml Estimated Blood Loss 0 ml # Voids 5 Laboratory Tests 01/22/18 06:31: White Blood Count 2.5L, Red Blood Count 3.49L, Hemoglobin 10.8L, Hematocrit 31.1L, Mean Corpuscular Volume 89, Mean Corpuscular Hemoglobin 31.0, Mean Corpuscular Hemoglobin Concent 34.8, Red Cell Distribution Width 15.0H, Platelet Count 146#L, Mean Platelet Volume 6.3L, Neutrophils (%) (Auto) , Lymphocytes (%) (Auto) , Monocytes (%) (Auto) , Eosinophils (%) (Auto) , Basophils (%) (Auto) , Differential Total Cells Counted 100, Neutrophils % ( Manual) 42L, Lymphocytes % (Manual) 41, Monocytes % (Manual) 17H, Eosinophils % (Manual) 0, Basophils % (Manual) 0, Band Neutrophils 0, Platelet Estimate DecreasedL, Platelet Morphology Normal, Hypochromasia , Anisocytosis 1+, Sodium Level 139, Potassium Level 3.4L, Chloride Level 106, Carbon Dioxide Level 28, Anion Gap 5, Blood Urea Nitrogen 4L, Creatinine 0.7, Estimat Glomerular Filtration Rate > 60, Glucose Level 142H, Calcium Level 8.0L, Phosphorus Level 2.5, Magnesium Level 2.1, Total Bilirubin 0.5, Aspartate Amino Transf (AST/SGOT ) 29, Alanine Aminotransferase (ALT/SGPT) 65, Alkaline Phosphatase 108, Total Protein 5.9L, Albumin 2.1L, Globulin 3.8, Albumin/Globulin Ratio 0.6L, Vancomycin Level Trough 17.4H Height (Feet): 4 Height (Inches): 11.00 Weight (Pounds): 257 General Appearance: no apparent distress EENT: PERRL/EOMI Neck: normal alignment Cardiovascular: tachycardia Respiratory/Chest: no respiratory distress Abdomen: normal bowel sounds, no mass Diaz Moody MD Jan 22, 2018 10:31
[2018-01-22 12:00] VITALS: BP 138/77
--- NOTE | 2018-01-22 12:31 | Infectious Diseases Prog Note ---
Assessment/Plan Assessment/Plan Assessment: Sepsis; improving- 2ry to UTI, bacteremia and PNA- ?nephrolithiasis- and luciana cath infection -u/a wbc 20-30, nit +, leuk +2; ucx >100k E.coli (andrade S) -CXR 01/18: Improved right lung parenchymal disease. No definite acute process currently. -CT chest: Dependent consolidation throughout both lungs, right greater than left, likely related to dependent atelectasis. Small hiatal hernia. Cholelithiasis without gallbladder wall thickening. Possible nephrolithiasis versus early contrast excretion in the left upper renal pole. -Renal US: unremarkable Luciana cath infection- bloody purulent discharge- wound cx <1+ P. mirabilis (per family, recurrent episodes of drainage at other hospitals as well) -s/p removal luciana cath and I+D infected wound 3 cm x 2 cm x 2 cm. 01/21 -OR findings: dehiscence of the wound with areas of eschar and necrosis. purulent drainage in the port cavity; cx p -BCx 09/29 P. mirabilis (S Ceftriaxone, R amp, Bactrim; I Ancef); 01/17 Bcx NTD ( peripheral) x4, NTD x4 (lcuiana cath); Pathogen in blood different from urine, while this same pathogen was isolated from wound culture there is no signs of infection in the wound and possibly patient colonized with proteus on the skin; suspicious for infected luciana cath -2d E cho: no vegetations seen -ESR ~70, CRP ~12 fever, recurrent; improving Pancytopenia RASHEED, resolving metastatic breast cancer (dx 2015) to brain s/p resection of brain tumor (2016) w/ resultant L side weakness currently undergoing chemotherapy twice a week multiple decubitus ulcers- no signs of infection -wound cx P. mirabilis (S Ceftriaxone, R amp, Bactrim; I Ancef), E, fecalis (S Vanco, amp) (likely colonizers) Plan: -D/c empiric IV Vanco #6 -Continue Ceftriaxone abx #7 for E.coli UTI and Proteus Bacteremia and luciana cath infection based on sensitivities; will treat for 14 days from removal of luciana cath; expected end date 02/03/18 -01/18 SP Meropenem #3 -01/17 SP Zosyn #2 -01/16 SP Cefepime x1, Levaquin x1 -f/u Repeat 2 sets of Bcx -f/u cx, port wound cx (OR) -Monitor CBC/CMP, temperatures -aspiration precautions -wound care per hosp protocol -Bcx if T>100 Thank you for this consultation. Will continue to follow along with you. Discussed with RN Subjective Allergies: Coded Allergies: No Known Allergies (Unverified , 01/16/18) Subjective Tm 100 at RA s/p luciana cath removed yesterday, purulent discharge upon exploration Objective Vital Signs Last 24 Hour Vital Signs Date Time Temp Pulse Resp B/P (MAP) Pulse Ox O2 Delivery O2 Flow Rate FiO2 01/22/18 11:26 156/78 01/22/18 10:20 207.7 64 22 98 01/22/18 09:42 21 01/22/18 09:42 106 20 Room Air 01/22/18 09:42 95 Room Air 21 01/22/18 09:00 Nasal Cannula 3.0 01/22/18 08:34 98.3 119 20 162/95 (117) 96 98.3 01/22/18 04:00 100 01/22/18 04:00 98.1 108 24 167/105 (125) 96 98.1 01/22/18 00:00 97.7 108 20 161/99 (119) 99 97.7 20 01/22/18 00:00 116 01/21/18 21:00 Nasal Cannula 3.0 01/21/18 20:00 113 01/21/18 20:00 99.2 113 20 138/86 (103) 99 99.2 24 01/21/18 16:10 108 20 Nasal Cannula 01/21/18 16:10 94 Room Air 21 01/21/18 16:10 21 01/21/18 16:00 111 01/21/18 16:00 100.0 109 24 140/71 (94) 96 100.0 01/21/18 14:21 111 14 97 01/21/18 14:20 98 111 20 144/68 93 Room Air 98.0 01/21/18 14:15 111 18 131/71 93 Room Air 01/21/18 14:10 98 114 14 129/72 93 Room Air 98.0 01/21/18 13:15 99.1 01/21/18 12:43 101.2 Height (Feet): 4 Height (Inches): 11.00 Weight (Pounds): 257 Objective GENERAL: The patient is a well-developed and well-nourished slightly obese female, in no apparent distress. HEENT: Eyes, pupils are equal and responsive to light and accommodation. Extraocular movements are intact. NECK: Supple without lymphadenopathy. CHEST: Decreased breath sounds at bilateral bases with crackles. Otherwise, clear to auscultation without wheezes or rales. CARDIOVASCULAR: Regular rhythm and rate. S1 and S2 are normal without murmurs, rubs, or gallops. ABDOMEN: Soft, nontender, and nondistended. Positive bowel sounds. No evidence of hepatosplenomegaly. Currently, no rebound or guarding noted. EXTREMITIES: Negative for clubbing, cyanosis, or edema. Microbiology Date/Time Source Procedure Growth Status 01/19/18 21:15 Blood Blood Culture - Preliminary NO GROWTH AFTER 48 HOURS Resulted 01/19/18 21:00 Blood Blood Culture - Preliminary NO GROWTH AFTER 48 HOURS Resulted 01/19/18 19:00 Sputum Induced Gram Stain - Final Complete 01/19/18 19:00 Sputum Culture - Final Germaine Albicans Complete 01/21/18 16:00 Chest Gram Stain - Final Resulted 01/21/18 16:00 Chest Aerobic Culture - Preliminary NO GROWTH Resulted 01/21/18 16:00 Chest Anaerobic Culture Pending Resulted Laboratory Tests Test 01/22/18 06:31 White Blood Count 2.5 K/UL (4.8-10.8) L Red Blood Count 3.49 M/UL (4.20-5.40) L Hemoglobin 10.8 G/DL (12.0-16.0) L Hematocrit 31.1 % (37.0-47.0) L Mean Corpuscular Volume 89 FL (80-99) Mean Corpuscular Hemoglobin 31.0 PG (27.0-31.0) Mean Corpuscular Hemoglobin Concent 34.8 G/DL (32.0-36.0) Red Cell Distribution Width 15.0 % (11.6-14.8) H Platelet Count 146 K/UL (150-450) #L Mean Platelet Volume 6.3 FL (6.5-10.1) L Neutrophils (%) (Auto) % (45.0-75.0) Lymphocytes (%) (Auto) % (20.0-45.0) Monocytes (%) (Auto) % (1.0-10.0) Eosinophils (%) (Auto) % (0.0-3.0) Basophils (%) (Auto) % (0.0-2.0) Differential Total Cells Counted 100 Neutrophils % (Manual) 42 % (45-75) L Lymphocytes % (Manual) 41 % (20-45) Monocytes % (Manual) 17 % (1-10) H Eosinophils % (Manual) 0 % (0-3) Basophils % (Manual) 0 % (0-2) Band Neutrophils 0 % (0-8) Platelet Estimate Decreased L Platelet Morphology Normal Hypochromasia Anisocytosis 1+ Sodium Level 139 MMOL/L (136-145) Potassium Level 3.4 MMOL/L (3.5-5.1) L Chloride Level 106 MMOL/L (98-107) Carbon Dioxide Level 28 MMOL/L (21-32) Anion Gap 5 mmol/L (5-15) Blood Urea Nitrogen 4 mg/dL (7-18) L Creatinine 0.7 MG/DL (0.55-1.30) Estimat Glomerular Filtration Rate > 60 mL/min (>60) Glucose Level 142 MG/DL (74-106) H Calcium Level 8.0 MG/DL (8.5-10.1) L Phosphorus Level 2.5 MG/DL (2.5-4.9) Magnesium Level 2.1 MG/DL (1.8-2.4) Total Bilirubin 0.5 MG/DL (0.2-1.0) Aspartate Amino Transf (AST/SGOT) 29 U/L (15-37) Alanine Aminotransferase (ALT/SGPT) 65 U/L (12-78) Alkaline Phosphatase 108 U/L (46-116) Total Protein 5.9 G/DL (6.4-8.2) L Albumin 2.1 G/DL (3.4-5.0) L Globulin 3.8 g/dL Albumin/Globulin Ratio 0.6 (1.0-2.7) L Vancomycin Level Trough 17.4 ug/mL (5.0-12.0) H Current Medications Medications (Trade) Dose Ordered Sig/Gloria Route PRN Reason Start Time Stop Time Status Last Admin Dose Admin Acetaminophen (Tylenol) 650 mg Q4H PRN RECTAL Mild Pain (Pain Scale 1-3) 01/20/18 16:00 02/15/18 15:59 Acetaminophen (Tylenol) 650 mg Q6H PRN ORAL Mild Pain/Temp > 100.5 01/20/18 18:30 02/18/18 18:29 01/21/18 20:51 Al Hydroxide/Mg Hydroxide (Mylanta II) 30 ml Q6H PRN ORAL dyspepsia 01/20/18 16:00 02/15/18 15:59 Ceftriaxone Sodium 2 gm/ Dextrose 110 ml @ 220 mls/hr Q24H IVPB 01/20/18 20:00 01/26/18 19:59 01/21/18 20:29 Chlorhexidine Gluconate (Zuleika-Hex 2%) 1 applic DAILY@2000 TOPIC 01/20/18 20:00 02/15/18 19:59 01/21/18 20:29 Dextrose (Dextrose 50%) 25 ml STAT PRN IV Hypoglycemia 01/20/18 16:00 02/15/18 15:59 Dextrose (Dextrose 50%) 50 ml STAT PRN IV Hypoglycemia 01/20/18 16:00 02/15/18 15:59 Dextrose/ Electrolytes 1,000 ml @ 75 mls/hr [id number] IV 01/20/18 16:15 02/16/18 11:29 01/22/18 09:03 Diphenhydramine HCl (Benadryl) 25 mg Q6H PRN ORAL Itching/Pruritis 01/20/18 16:00 02/15/18 15:59 Fluoxetine HCl (PROzac) 20 mg DAILY ORAL 01/21/18 09:00 02/16/18 12:14 01/22/18 09:04 Heparin Sodium (Porcine) (Heparin 5000 units/ml) 5,000 units EVERY 8 HOURS SUBQ 01/20/18 22:00 02/15/18 13:59 Hydralazine HCl (Apresoline) 10 mg Q6H PRN ORAL SBP>160 01/20/18 16:00 02/17/18 15:59 Lacosamide (Vimpat) 100 mg Q12HR ORAL 01/20/18 21:00 02/15/18 20:59 01/22/18 09:04 Lidocaine HCl (Xylocaine 1% 30ml) 30 ml ONCE INJ 01/21/18 14:00 02/20/18 13:59 01/21/18 14:03 Mirtazapine (Remeron) 7.5 mg BEDTIME ORAL 01/20/18 21:00 02/16/18 20:59 01/21/18 20:50 Morphine Sulfate (Morphine Sulfate) 4 mg Q4H PRN IVP Severe Pain (Pain Scale 7-10) 01/20/18 16:00 01/23/18 15:59 Ondansetron HCl (Zofran) 4 mg Q6H PRN IVP Nausea & Vomiting 01/20/18 16:00 02/15/18 15:59 Pantoprazole (Protonix) 40 mg EVERY 12 HOURS ORAL 01/20/18 21:00 02/18/18 20:59 01/22/18 09:04 Promethazine HCl/ Codeine (Phenergan with Codeine) 5 ml Q4H PRN ORAL For Cough 01/20/18 17:15 02/19/18 17:14 Vancomycin HCl (Vanco rx to dose) 1 ea DAILY PRN MISC Per rx protocol 01/21/18 09:00 02/15/18 06:44 Vancomycin HCl/ Dextrose 250 ml @ 166.667 mls/hr Q12HR@0800,2000 IVPB 01/20/18 20:00 01/25/18 19:59 01/22/18 09:04 Zolpidem Tartrate (Ambien) 5 mg HSPRN PRN ORAL Insomnia 01/20/18 21:00 01/27/18 20:59 01/20/18 21:56 Yazmin Penn M.D. Jan 22, 2018 12:31
--- NOTE | 2018-01-22 13:13 | Internal Med Progress Note ---
Subjective Date of Service: Jan 22, 2018 Physician Name RothAyo Attending Physician Sander Christensen MD Current Medications Medications (Trade) Dose Ordered Sig/Gloria Route PRN Reason Start Time Stop Time Status Last Admin Dose Admin Acetaminophen (Tylenol) 650 mg Q4H PRN RECTAL Mild Pain (Pain Scale 1-3) 01/20/18 16:00 02/15/18 15:59 Acetaminophen (Tylenol) 650 mg Q6H PRN ORAL Mild Pain/Temp > 100.5 01/20/18 18:30 02/18/18 18:29 01/21/18 20:51 Al Hydroxide/Mg Hydroxide (Mylanta II) 30 ml Q6H PRN ORAL dyspepsia 01/20/18 16:00 02/15/18 15:59 Ceftriaxone Sodium 2 gm/ Dextrose 110 ml @ 220 mls/hr Q24H IVPB 01/20/18 20:00 01/26/18 19:59 01/21/18 20:29 Chlorhexidine Gluconate (Zuleika-Hex 2%) 1 applic DAILY@2000 TOPIC 01/20/18 20:00 02/15/18 19:59 01/21/18 20:29 Dextrose (Dextrose 50%) 25 ml STAT PRN IV Hypoglycemia 01/20/18 16:00 02/15/18 15:59 Dextrose (Dextrose 50%) 50 ml STAT PRN IV Hypoglycemia 01/20/18 16:00 02/15/18 15:59 Dextrose/ Electrolytes 1,000 ml @ 75 mls/hr [id number] IV 01/20/18 16:15 02/16/18 11:29 01/22/18 09:03 Diphenhydramine HCl (Benadryl) 25 mg Q6H PRN ORAL Itching/Pruritis 01/20/18 16:00 02/15/18 15:59 Fluoxetine HCl (PROzac) 20 mg DAILY ORAL 01/21/18 09:00 02/16/18 12:14 01/22/18 09:04 Heparin Sodium (Porcine) (Heparin 5000 units/ml) 5,000 units EVERY 8 HOURS SUBQ 01/20/18 22:00 02/15/18 13:59 Hydralazine HCl (Apresoline) 10 mg Q6H PRN ORAL SBP>160 01/20/18 16:00 02/17/18 15:59 Lacosamide (Vimpat) 100 mg Q12HR ORAL 01/20/18 21:00 02/15/18 20:59 01/22/18 09:04 Lidocaine HCl (Xylocaine 1% 30ml) 30 ml ONCE INJ 01/21/18 14:00 02/20/18 13:59 01/21/18 14:03 Mirtazapine (Remeron) 7.5 mg BEDTIME ORAL 01/20/18 21:00 02/16/18 20:59 01/21/18 20:50 Morphine Sulfate (Morphine Sulfate) 4 mg Q4H PRN IVP Severe Pain (Pain Scale 7-10) 01/20/18 16:00 01/23/18 15:59 Ondansetron HCl (Zofran) 4 mg Q6H PRN IVP Nausea & Vomiting 01/20/18 16:00 02/15/18 15:59 Pantoprazole (Protonix) 40 mg EVERY 12 HOURS ORAL 01/20/18 21:00 02/18/18 20:59 01/22/18 09:04 Promethazine HCl/ Codeine (Phenergan with Codeine) 5 ml Q4H PRN ORAL For Cough 01/20/18 17:15 02/19/18 17:14 Vancomycin HCl (Vanco rx to dose) 1 ea DAILY PRN MISC Per rx protocol 01/21/18 09:00 02/15/18 06:44 Vancomycin HCl/ Dextrose 250 ml @ 166.667 mls/hr Q12HR@0800,2000 IVPB 01/20/18 20:00 01/25/18 19:59 01/22/18 09:04 Zolpidem Tartrate (Ambien) 5 mg HSPRN PRN ORAL Insomnia 01/20/18 21:00 01/27/18 20:59 01/20/18 21:56 Allergies: Coded Allergies: No Known Allergies (Unverified , 01/16/18) ROS Limited/Unobtainable: No Constitutional: Reports: no symptoms HEENT: Reports: no symptoms Respiratory: Reports: no symptoms Gastrointestinal/Abdominal: Reports: no symptoms Genitourinary: Reports: no symptoms Neurologic/Psychiatric: Reports: no symptoms Subjective 62 YO F admitted with chief complaint fever. Now pneumonia, UTI and sepsis. Cover for Int Med-Dr Christensen. S/P removal chest port a cath 01/21/18 Objective Last Vital Signs Date Time Temp Pulse Resp B/P (MAP) Pulse Ox O2 Delivery O2 Flow Rate FiO2 01/22/18 11:26 156/78 01/22/18 10:20 207.7 64 22 98 01/22/18 09:42 21 01/22/18 09:42 Room Air 01/22/18 09:00 3.0 Laboratory Tests Test 01/22/18 06:31 White Blood Count 2.5 K/UL (4.8-10.8) L Red Blood Count 3.49 M/UL (4.20-5.40) L Hemoglobin 10.8 G/DL (12.0-16.0) L Hematocrit 31.1 % (37.0-47.0) L Mean Corpuscular Volume 89 FL (80-99) Mean Corpuscular Hemoglobin 31.0 PG (27.0-31.0) Mean Corpuscular Hemoglobin Concent 34.8 G/DL (32.0-36.0) Red Cell Distribution Width 15.0 % (11.6-14.8) H Platelet Count 146 K/UL (150-450) #L Mean Platelet Volume 6.3 FL (6.5-10.1) L Neutrophils (%) (Auto) % (45.0-75.0) Lymphocytes (%) (Auto) % (20.0-45.0) Monocytes (%) (Auto) % (1.0-10.0) Eosinophils (%) (Auto) % (0.0-3.0) Basophils (%) (Auto) % (0.0-2.0) Differential Total Cells Counted 100 Neutrophils % (Manual) 42 % (45-75) L Lymphocytes % (Manual) 41 % (20-45) Monocytes % (Manual) 17 % (1-10) H Eosinophils % (Manual) 0 % (0-3) Basophils % (Manual) 0 % (0-2) Band Neutrophils 0 % (0-8) Platelet Estimate Decreased L Platelet Morphology Normal Hypochromasia Anisocytosis 1+ Sodium Level 139 MMOL/L (136-145) Potassium Level 3.4 MMOL/L (3.5-5.1) L Chloride Level 106 MMOL/L (98-107) Carbon Dioxide Level 28 MMOL/L (21-32) Anion Gap 5 mmol/L (5-15) Blood Urea Nitrogen 4 mg/dL (7-18) L Creatinine 0.7 MG/DL (0.55-1.30) Estimat Glomerular Filtration Rate > 60 mL/min (>60) Glucose Level 142 MG/DL (74-106) H Calcium Level 8.0 MG/DL (8.5-10.1) L Phosphorus Level 2.5 MG/DL (2.5-4.9) Magnesium Level 2.1 MG/DL (1.8-2.4) Total Bilirubin 0.5 MG/DL (0.2-1.0) Aspartate Amino Transf (AST/SGOT) 29 U/L (15-37) Alanine Aminotransferase (ALT/SGPT) 65 U/L (12-78) Alkaline Phosphatase 108 U/L (46-116) Total Protein 5.9 G/DL (6.4-8.2) L Albumin 2.1 G/DL (3.4-5.0) L Globulin 3.8 g/dL Albumin/Globulin Ratio 0.6 (1.0-2.7) L Vancomycin Level Trough 17.4 ug/mL (5.0-12.0) H Microbiology Date/Time Source Procedure Growth Status 01/19/18 21:15 Blood Blood Culture - Preliminary NO GROWTH AFTER 48 HOURS Resulted 01/19/18 21:00 Blood Blood Culture - Preliminary NO GROWTH AFTER 48 HOURS Resulted 01/19/18 19:00 Sputum Induced Gram Stain - Final Complete 01/19/18 19:00 Sputum Culture - Final Germaine Albicans Complete 01/21/18 16:00 Chest Gram Stain - Final Resulted 01/21/18 16:00 Chest Aerobic Culture - Preliminary NO GROWTH Resulted 01/21/18 16:00 Chest Anaerobic Culture Pending Resulted Intake and Output 01/21/18 01/22/18 19:00 07:00 Intake Total 1062.500 ml 647.5 ml Output Total 0 ml 1400 ml Balance 1062.500 ml -752.5 ml Intake Oral 0 ml IV Total 1062.500 ml 647.5 ml Output Urine Total 1400 ml Estimated Blood Loss 0 ml # Voids 5 Objective General Appearance: WD/WN, alert, mild distress EENT: PERRL/EOMI, normal ENT inspection Neck: non-tender, normal alignment, supple, normal inspection Cardiovascular: normal peripheral pulses, regular rhythm, no gallop/murmur, no JVD, tachycardia Respiratory/Chest: chest wall non-tender, accessory muscle use, crackles/rales , rhonchi - bilaterally, expiratory wheezing Abdomen: normal bowel sounds, non tender, soft, no organomegaly, no mass Extremities: normal range of motion, non-tender 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 Continue vanco and ceftriaxone- see Inf dis consult. (2) Hypokalemia Assessment & Plan: Replace potassium. (3) Brain cancer (4) Breast cancer in female Assessment & Plan: Await onc consult. (5) Sepsis Assessment & Plan: S/P removal of chest port a cath. Proteus- 4/4 bottles. Cont meropenem -see ID consult (6) Tachycardia Assessment & Plan: see cardiology note. Status: progressing Ayo Roth MD Jan 22, 2018 13:13
[2018-01-22] MEDS: Lidocaine 1% Plain 30 ml INJ SCH (14:00)
--- NOTE | 2018-01-22 14:35 | General Surgery Progress Note ---
General Surgery-Progress Note Subjective Procedure Performed removal of infected right chest wall port excisional debridement of right chest wall wound Additional Comments no acute events. doing well. wound site clean Objective Last 24 Hour Vital Signs Date Time Temp Pulse Resp B/P (MAP) Pulse Ox O2 Delivery O2 Flow Rate FiO2 01/22/18 12:00 111 01/22/18 12:00 97.5 56 20 138/77 (97) 99 97.5 01/22/18 11:26 156/78 01/22/18 10:20 207.7 64 22 98 01/22/18 09:42 21 01/22/18 09:42 106 20 Room Air 01/22/18 09:42 95 Room Air 21 01/22/18 09:00 Nasal Cannula 3.0 01/22/18 08:34 98.3 119 20 162/95 (117) 96 98.3 01/22/18 08:00 115 01/22/18 04:00 100 01/22/18 04:00 98.1 108 24 167/105 (125) 96 98.1 01/22/18 00:00 97.7 108 20 161/99 (119) 99 97.7 20 01/22/18 00:00 116 01/21/18 21:00 Nasal Cannula 3.0 01/21/18 20:00 113 01/21/18 20:00 99.2 113 20 138/86 (103) 99 99.2 24 01/21/18 16:10 108 20 Nasal Cannula 01/21/18 16:10 94 Room Air 21 01/21/18 16:10 21 01/21/18 16:00 111 01/21/18 16:00 100.0 109 24 140/71 (94) 96 100.0 I&O Intake and Output 01/21/18 01/22/18 19:00 07:00 Intake Total 1062.500 ml 647.5 ml Output Total 0 ml 1400 ml Balance 1062.500 ml -752.5 ml Intake Oral 0 ml IV Total 1062.500 ml 647.5 ml Output Urine Total 1400 ml Estimated Blood Loss 0 ml # Voids 5 Wound: clean, dry Drains: none Cardiovascular: RSR Respiratory: clear Abdomen: soft, non-tender, present bowel sounds Extremities: no cyanosis Laboratory Tests Test 01/22/18 06:31 White Blood Count 2.5 K/UL (4.8-10.8) L Red Blood Count 3.49 M/UL (4.20-5.40) L Hemoglobin 10.8 G/DL (12.0-16.0) L Hematocrit 31.1 % (37.0-47.0) L Mean Corpuscular Volume 89 FL (80-99) Mean Corpuscular Hemoglobin 31.0 PG (27.0-31.0) Mean Corpuscular Hemoglobin Concent 34.8 G/DL (32.0-36.0) Red Cell Distribution Width 15.0 % (11.6-14.8) H Platelet Count 146 K/UL (150-450) #L Mean Platelet Volume 6.3 FL (6.5-10.1) L Neutrophils (%) (Auto) % (45.0-75.0) Lymphocytes (%) (Auto) % (20.0-45.0) Monocytes (%) (Auto) % (1.0-10.0) Eosinophils (%) (Auto) % (0.0-3.0) Basophils (%) (Auto) % (0.0-2.0) Differential Total Cells Counted 100 Neutrophils % (Manual) 42 % (45-75) L Lymphocytes % (Manual) 41 % (20-45) Monocytes % (Manual) 17 % (1-10) H Eosinophils % (Manual) 0 % (0-3) Basophils % (Manual) 0 % (0-2) Band Neutrophils 0 % (0-8) Platelet Estimate Decreased L Platelet Morphology Normal Hypochromasia Anisocytosis 1+ Sodium Level 139 MMOL/L (136-145) Potassium Level 3.4 MMOL/L (3.5-5.1) L Chloride Level 106 MMOL/L (98-107) Carbon Dioxide Level 28 MMOL/L (21-32) Anion Gap 5 mmol/L (5-15) Blood Urea Nitrogen 4 mg/dL (7-18) L Creatinine 0.7 MG/DL (0.55-1.30) Estimat Glomerular Filtration Rate > 60 mL/min (>60) Glucose Level 142 MG/DL (74-106) H Calcium Level 8.0 MG/DL (8.5-10.1) L Phosphorus Level 2.5 MG/DL (2.5-4.9) Magnesium Level 2.1 MG/DL (1.8-2.4) Total Bilirubin 0.5 MG/DL (0.2-1.0) Aspartate Amino Transf (AST/SGOT) 29 U/L (15-37) Alanine Aminotransferase (ALT/SGPT) 65 U/L (12-78) Alkaline Phosphatase 108 U/L (46-116) Total Protein 5.9 G/DL (6.4-8.2) L Albumin 2.1 G/DL (3.4-5.0) L Globulin 3.8 g/dL Albumin/Globulin Ratio 0.6 (1.0-2.7) L Vancomycin Level Trough 17.4 ug/mL (5.0-12.0) H Assessment Post-op Diagnosis same Plan Problems: (1) Ulcer of left lower leg Assessment & Plan: Left posterior distal loeg with 5cm x 4cm stage II slowly healing ulceration possibly from pressure or trauma. no active infection. wound bed with fibrinous tissue forming eschar no drainage no odor. present on admission Left inner proximal thigh with 4cm x 2cm stage II slowly healing skin ulceration likely from trauma no active infection. wound bed with fibrinous tissue forming eschar no drainage no odor. present on admission Right upper arm 5cm x 4cm stage III ulceration with exposed fat. slowly healing. etiology likely trauma. no active infection. no drainage no odor. present on admission Arterial duplex okay wounds unlikely etiology of sepsis. clean wounds daily skin protectant and foam dressings. will monitor for need of debridement (2) Sepsis Assessment & Plan: wounds unlikely etiology of sepsis. clean wounds daily skin protectant and foam dressings. will monitor for need of debridement concerns for port line infection. no abscess on ultrasound. will consider removing line and placing new line a few days later. son states pus from site prior. wound dehiscence noted on exam esr and crp elevated. POD #1 s/p removal of infected right chest wall port. cultures pending wound clean packing and dressings BID thank you thank you Juanito Rodriguez Jan 22, 2018 14:35
[2018-01-22] MEDS ORDERED: Tubing IV Secondary IV ONE (15:33)
[2018-01-22 16:00] VITALS: BP 143/80
[2018-01-22] MEDS: cefTRIAXone 2 GM in D5W 110 ML IVPB SCH (19:41)
[2018-01-22] MEDS: Dyna-Hex 2% Top Sol 2oz TOPIC SCH (19:50)
[2018-01-22 20:00] VITALS: BP 157/80
[2018-01-23] VITALS: BP 152/90
[2018-01-23] MEDS: Zolpidem 5mg tab ORAL PRN (01:22)
[2018-01-23 04:00] VITALS: BP 158/96
[2018-01-23] MEDS: Heparin 5000 units/ml inj SUBQ SCH (05:16)
[2018-01-23 07:16] LABS: BASOPHILS % (AUTO) 2.4 % (0.0-2.0); EOSINOPHILS % (AUTO) 6.6 % (0.0-3.0); HEMATOCRIT 28.9 % (37.0-47.0); HEMOGLOBIN 9.6 G/DL (12.0-16.0); LYMPHOCYTES % (AUTO) 34.9 % (20.0-45.0); MEAN CORPUSCULAR VOLUME 91 FL (80-99); MONOCYTES % (AUTO) 19.3 % (1.0-10.0); NEUTROPHILS % (AUTO) 36.8 % (45.0-75.0); PLATELET COUNT 208 K/UL (150-450); RED BLOOD COUNT 3.18 M/UL (4.20-5.40); RED CELL DISTRIBUTION WIDTH 15.9 % (11.6-14.8); WHITE BLOOD COUNT 4.6 K/UL (4.8-10.8)
[2018-01-23 07:31] LABS: ANION GAP 8 mmol/L (5-15); BLOOD UREA NITROGEN 4 mg/dL (7-18); CARBON DIOXIDE 27 MMOL/L (21-32); CHLORIDE 109 MMOL/L (98-107); CREATININE 0.7 MG/DL (0.55-1.30); POTASSIUM 3.1 MMOL/L (3.5-5.1); SODIUM 144 MMOL/L (136-145)
--- NOTE | 2018-01-23 07:59 | Pulmonology Progress Note ---
Assessment/Plan Assessment/Plan ASSESSMENT Sepsis with Proteus bacteremia ( secondary to UTI , pneumonia and infected PAC) Healthcare associated pneumonia Escherichia coli UTI Infected luciana-cath ( s/p removal) Metastatic breast CA to brain Anemia of underlying chronic disease Pancytopenia Morbid obesity Acute tubular necrosis-resolved Electrolyte imbalance)( hypokalemia, hypophosphatemia, hypomagnesemia) Tachycardia-compensatory Transaminitis-resolved Seizure disorder Hypokalemia PLAN OF CARE Abx ID follows blood culture +Proteus wound cx Port site drainage +Proteus urine cx +E coli repeated blood culture negative O2 HHN prn f/up CXR some improvement Antitussive prn f/up with CXR on Wednesday strict aspiration reflux precaution DVT prophylaxis pain management cardio follows tachycardia secondary to sepsis, compensatory no treatment needed as per cardio no ischemia eval at this time ECHO with pEF, no WMA seizure precaution continue Vimpat steroids bowel regimen GI prophylaxis monitor renal parameters electrolytes , avoid nephrotoxic, correct electrolytes as needed replace K today, check K and Mg in am acute tubular necrosis resolved, likely secondary to unstable hemodynamics renal ultrasound negative core winder follows thrombocytopenia likely secondary to sepsis, resolved and coagulopathy likely secondary to poor oral intake monitor HH, goal to keep Hgb above 7 WBC trending up,leukopenia resolving ? transfer to [facility] transfer to [place] floor if ok with cardio case discussed and evaluated by supervising physician Subjective Allergies: Coded Allergies: No Known Allergies (Unverified , 01/16/18) Subjective afebrile, remained tachy, ST on tele no CP no SOB K-3.1 Objective Last 24 Hour Vital Signs Date Time Temp Pulse Resp B/P (MAP) Pulse Ox O2 Delivery O2 Flow Rate FiO2 01/23/18 04:00 115 01/23/18 04:00 98.2 115 18 158/96 (116) 94 98.2 01/23/18 00:00 98.3 115 20 152/90 (110) 94 98.3 01/23/18 00:00 108 01/22/18 21:00 Nasal Cannula 3.0 01/22/18 20:00 99.2 109 20 157/80 (105) 95 99.2 01/22/18 20:00 108 01/22/18 19:24 Room Air 21 01/22/18 19:24 94 Room Air 21 01/22/18 19:23 108 18 Room Air 21 01/22/18 16:00 98.2 111 20 143/80 (101) 93 98.2 01/22/18 16:00 112 01/22/18 12:00 111 01/22/18 12:00 97.5 56 20 138/77 (97) 99 97.5 01/22/18 11:26 156/78 01/22/18 10:20 207.7 64 22 98 01/22/18 09:42 21 01/22/18 09:42 106 20 Room Air 01/22/18 09:42 95 Room Air 21 01/22/18 09:00 Nasal Cannula 3.0 01/22/18 08:34 98.3 119 20 162/95 (117) 96 98.3 01/22/18 08:00 115 Intake and Output 01/22/18 01/23/18 19:00 07:00 Intake Total 1350 ml 195 ml Output Total 2200 ml 1100 ml Balance -850 ml -905 ml Intake Oral 600 ml 120 ml IV Total 750 ml 75 ml Output Urine Total 2200 ml 1100 ml # Bowel Movements 3 1 Objective General Appearance: no acute distress, A/A/O x 3 morbidly obese Austrian speaking female HEENT: normocephalic, atraumatic, anicteric Respiratory/Chest: lungs clear, no respiratory distress Cardiovascular: regular rhythm - SR, tachycardia - ST on tele, LUE PICC intact Abdomen: normal bowel sounds, soft, non tender - obese Extremities: other Neurologic/Psychiatric: abnormal gait, alert, responsive Microbiology Date/Time Source Procedure Growth Status 01/21/18 16:00 Chest Gram Stain - Final Resulted 01/21/18 16:00 Chest Aerobic Culture - Preliminary NO GROWTH Resulted 01/21/18 16:00 Chest Anaerobic Culture Pending Resulted Laboratory Tests 01/23/18 05:20: White Blood Count 4.6#L, Red Blood Count 3.18L, Hemoglobin 9.6L, Hematocrit 28.9L, Mean Corpuscular Volume 91, Mean Corpuscular Hemoglobin 30.3, Mean Corpuscular Hemoglobin Concent 33.3, Red Cell Distribution Width 15.9H, Platelet Count 208, Mean Platelet Volume 6.1L, Neutrophils (%) (Auto) 36.8L, Lymphocytes (%) (Auto) 34.9, Monocytes (%) (Auto) 19.3H, Eosinophils (%) (Auto) 6.6H, Basophils (%) (Auto) 2.4H, Sodium Level 144, Potassium Level 3.1L, Chloride Level 109H, Carbon Dioxide Level 27, Anion Gap 8, Blood Urea Nitrogen 4L, Creatinine 0.7, Estimat Glomerular Filtration Rate > 60, Glucose Level 110H , Calcium Level 8.0L Current Medications Medications (Trade) Dose Ordered Sig/Gloria Route PRN Reason Start Time Stop Time Status Last Admin Dose Admin Acetaminophen (Tylenol) 650 mg Q4H PRN RECTAL Mild Pain (Pain Scale 1-3) 01/20/18 16:00 02/15/18 15:59 Acetaminophen (Tylenol) 650 mg Q6H PRN ORAL Mild Pain/Temp > 100.5 01/20/18 18:30 02/18/18 18:29 01/21/18 20:51 Al Hydroxide/Mg Hydroxide (Mylanta II) 30 ml Q6H PRN ORAL dyspepsia 01/20/18 16:00 02/15/18 15:59 Ceftriaxone Sodium 2 gm/ Dextrose 110 ml @ 220 mls/hr Q24H IVPB 01/20/18 20:00 01/26/18 19:59 01/22/18 19:41 Chlorhexidine Gluconate (Zuleika-Hex 2%) 1 applic DAILY@2000 TOPIC 01/20/18 20:00 02/15/18 19:59 01/22/18 19:50 Dextrose (Dextrose 50%) 25 ml STAT PRN IV Hypoglycemia 01/20/18 16:00 02/15/18 15:59 Dextrose (Dextrose 50%) 50 ml STAT PRN IV Hypoglycemia 01/20/18 16:00 02/15/18 15:59 Dextrose/ Electrolytes 1,000 ml @ 75 mls/hr [id number] IV 01/20/18 16:15 02/16/18 11:29 01/23/18 05:16 Diphenhydramine HCl (Benadryl) 25 mg Q6H PRN ORAL Itching/Pruritis 01/20/18 16:00 02/15/18 15:59 Fluoxetine HCl (PROzac) 20 mg DAILY ORAL 01/21/18 09:00 02/16/18 12:14 01/22/18 09:04 Heparin Sodium (Porcine) (Heparin 5000 units/ml) 5,000 units EVERY 8 HOURS SUBQ 01/20/18 22:00 02/15/18 13:59 Hydralazine HCl (Apresoline) 10 mg Q6H PRN ORAL SBP>160 01/20/18 16:00 02/17/18 15:59 Lacosamide (Vimpat) 100 mg Q12HR ORAL 01/20/18 21:00 02/15/18 20:59 01/22/18 21:11 Lidocaine HCl (Xylocaine 1% 30ml) 30 ml ONCE INJ 01/21/18 14:00 02/20/18 13:59 01/21/18 14:03 Mirtazapine (Remeron) 7.5 mg BEDTIME ORAL 01/20/18 21:00 02/16/18 20:59 01/22/18 21:11 Morphine Sulfate (Morphine Sulfate) 4 mg Q4H PRN IVP Severe Pain (Pain Scale 7-10) 01/20/18 16:00 01/23/18 15:59 Ondansetron HCl (Zofran) 4 mg Q6H PRN IVP Nausea & Vomiting 01/20/18 16:00 02/15/18 15:59 Pantoprazole (Protonix) 40 mg EVERY 12 HOURS ORAL 01/20/18 21:00 02/18/18 20:59 01/22/18 21:11 Promethazine HCl/ Codeine (Phenergan with Codeine) 5 ml Q4H PRN ORAL For Cough 01/20/18 17:15 02/19/18 17:14 Vancomycin HCl (Vanco rx to dose) 1 ea DAILY PRN MISC Per rx protocol 01/21/18 09:00 02/15/18 06:44 Vancomycin HCl/ Dextrose 250 ml @ 166.667 mls/hr Q12HR@0800,2000 IVPB 01/20/18 20:00 01/25/18 19:59 01/22/18 19:42 Zolpidem Tartrate (Ambien) 5 mg HSPRN PRN ORAL Insomnia 01/20/18 21:00 01/27/18 20:59 01/23/18 01:22 Diana Virk [employer]INE [employer] Jan 23, 2018 07:59
[2018-01-23 08:00] VITALS: BP_SYST 142; BP_SYST 163; BP_DIAS 80; BP_DIAS 99
[2018-01-23] MEDS ORDERED: Morphine Sulfate 4mg/ml Inj (IV USE ONLY) IVP PRN ×2 (08:00→16:00)
[2018-01-23] MEDS: Vancomycin 1250mg/D5W 250ml 250 ML IVPB SCH (08:35)
[2018-01-23] MEDS: Lacosamide 100 MG TABLET ORAL SCH (08:35)
[2018-01-23 12:00] VITALS: BP 109/52
--- NOTE | 2018-01-23 12:28 | General Progress Note ---
Progress Note Progress Note Surgery: no acute events. had left upper arm PICC line placed which is functional. right chest wall wound clean. slow healing; on chronic steroids. -packing and dressings to right chest wall wound BID and prn -can use PICC for meds and treatment. will need to discuss with her oncologist and outside treatment team about another port placement after discharge. -thank you. Juanito Rodriguez Jan 23, 2018 12:28
[2018-01-23] MEDS: Lidocaine 1% Plain 30 ml INJ SCH (13:33)
[2018-01-23] MEDS ORDERED: Mylanta II UD 30ml ORAL PRN (13:44)
[2018-01-23] MEDS ORDERED: Heparin 5000 units/ml inj SUBQ SCH (14:00)
--- NOTE | 2018-01-23 14:04 | Internal Med Progress Note ---
Subjective Date of Service: Jan 23, 2018 Physician Name RothAyo Attending Physician Sander Christensen MD Current Medications Medications (Trade) Dose Ordered Sig/Gloria Route PRN Reason Start Time Stop Time Status Last Admin Dose Admin Acetaminophen (Tylenol) 650 mg Q4H PRN RECTAL Mild Pain (Pain Scale 1-3) 01/23/18 16:00 02/15/18 15:59 Acetaminophen (Tylenol) 650 mg Q6H PRN ORAL Mild Pain/Temp > 100.5 01/23/18 18:30 02/18/18 18:29 Al Hydroxide/Mg Hydroxide (Mylanta II) 30 ml Q6H PRN ORAL dyspepsia 01/23/18 13:44 02/15/18 13:43 Ceftriaxone Sodium 2 gm/ Dextrose 110 ml @ 220 mls/hr Q24H IVPB 01/23/18 20:00 01/26/18 19:59 Chlorhexidine Gluconate (Zuleika-Hex 2%) 1 applic DAILY@2000 TOPIC 01/23/18 20:00 02/15/18 19:59 Dextrose (Dextrose 50%) 25 ml STAT PRN IV Hypoglycemia 01/23/18 13:45 02/15/18 13:44 Dextrose (Dextrose 50%) 50 ml STAT PRN IV Hypoglycemia 01/23/18 13:45 02/15/18 13:44 Dextrose/ Electrolytes 1,000 ml @ 75 mls/hr [id number] IV 01/23/18 13:43 02/16/18 13:42 Diphenhydramine HCl (Benadryl) 25 mg Q6H PRN ORAL Itching/Pruritis 01/23/18 16:00 02/15/18 15:59 Fluoxetine HCl (PROzac) 20 mg DAILY ORAL 01/24/18 09:00 02/16/18 12:14 Heparin Sodium (Porcine) (Heparin 5000 units/ml) 5,000 units EVERY 8 HOURS SUBQ 01/23/18 14:00 02/15/18 13:59 Hydralazine HCl (Apresoline) 10 mg Q6H PRN ORAL SBP>160 01/23/18 13:46 02/17/18 13:45 Lacosamide (Vimpat) 100 mg Q12HR ORAL 01/23/18 21:00 02/15/18 20:59 Mirtazapine (Remeron) 7.5 mg BEDTIME ORAL 01/23/18 21:00 02/16/18 20:59 Morphine Sulfate (Morphine Sulfate) 4 mg Q4H PRN IVP Severe Pain (Pain Scale 7-10) 01/23/18 16:00 01/26/18 07:59 Ondansetron HCl (Zofran) 4 mg Q6H PRN IVP Nausea & Vomiting 01/23/18 16:00 02/15/18 15:59 Pantoprazole (Protonix) 40 mg EVERY 12 HOURS ORAL 01/23/18 21:00 02/18/18 20:59 Promethazine HCl/ Codeine (Phenergan with Codeine) 5 ml Q4H PRN ORAL For Cough 01/23/18 17:15 02/19/18 17:14 Zolpidem Tartrate (Ambien) 5 mg HSPRN PRN ORAL Insomnia 01/23/18 21:00 01/27/18 20:59 Allergies: Coded Allergies: No Known Allergies (Unverified , 01/16/18) ROS Limited/Unobtainable: No Constitutional: Reports: chills, fever HEENT: Reports: no symptoms Cardiovascular: Reports: no symptoms Respiratory: Reports: shortness of breath Gastrointestinal/Abdominal: Reports: no symptoms Genitourinary: Reports: no symptoms Neurologic/Psychiatric: Reports: no symptoms Subjective 62 YO F admitted with chief complaint fever. Now pneumonia, UTI and sepsis. Cover for Int Med-Dr Christensen. S/P removal chest port a cath 01/21/18 Objective Last Vital Signs Date Time Temp Pulse Resp B/P (MAP) Pulse Ox O2 Delivery O2 Flow Rate FiO2 01/23/18 12:00 97.6 96 24 109/52 (71) 94 97.6 01/23/18 09:00 Room Air 01/23/18 07:15 21 01/22/18 21:00 3.0 Laboratory Tests Test 01/23/18 05:20 White Blood Count 4.6 K/UL (4.8-10.8) #L Red Blood Count 3.18 M/UL (4.20-5.40) L Hemoglobin 9.6 G/DL (12.0-16.0) L Hematocrit 28.9 % (37.0-47.0) L Mean Corpuscular Volume 91 FL (80-99) Mean Corpuscular Hemoglobin 30.3 PG (27.0-31.0) Mean Corpuscular Hemoglobin Concent 33.3 G/DL (32.0-36.0) Red Cell Distribution Width 15.9 % (11.6-14.8) H Platelet Count 208 K/UL (150-450) Mean Platelet Volume 6.1 FL (6.5-10.1) L Neutrophils (%) (Auto) 36.8 % (45.0-75.0) L Lymphocytes (%) (Auto) 34.9 % (20.0-45.0) Monocytes (%) (Auto) 19.3 % (1.0-10.0) H Eosinophils (%) (Auto) 6.6 % (0.0-3.0) H Basophils (%) (Auto) 2.4 % (0.0-2.0) H Sodium Level 144 MMOL/L (136-145) Potassium Level 3.1 MMOL/L (3.5-5.1) L Chloride Level 109 MMOL/L (98-107) H Carbon Dioxide Level 27 MMOL/L (21-32) Anion Gap 8 mmol/L (5-15) Blood Urea Nitrogen 4 mg/dL (7-18) L Creatinine 0.7 MG/DL (0.55-1.30) Estimat Glomerular Filtration Rate > 60 mL/min (>60) Glucose Level 110 MG/DL (74-106) H Calcium Level 8.0 MG/DL (8.5-10.1) L Microbiology Date/Time Source Procedure Growth Status 01/21/18 16:00 Chest Gram Stain - Final Resulted 01/21/18 16:00 Chest Aerobic Culture - Preliminary NO GROWTH AFTER 48 HOURS Resulted 01/21/18 16:00 Chest Anaerobic Culture - Preliminary NO GROWTH AFTER 48 HOURS Resulted Intake and Output 01/22/18 01/23/18 19:00 07:00 Intake Total 1350 ml 195 ml Output Total 2200 ml 1100 ml Balance -850 ml -905 ml Intake Oral 600 ml 120 ml IV Total 750 ml 75 ml Output Urine Total 2200 ml 1100 ml # Bowel Movements 3 1 Objective General Appearance: WD/WN, alert, mild distress EENT: PERRL/EOMI, normal ENT inspection Neck: non-tender, normal alignment, supple, normal inspection Cardiovascular: normal peripheral pulses, regular rhythm, no gallop/murmur, no JVD, tachycardia Respiratory/Chest: chest wall non-tender, accessory muscle use, crackles/rales , rhonchi - bilaterally, expiratory wheezing Abdomen: normal bowel sounds, non tender, soft, no organomegaly, no mass Extremities: normal range of motion, non-tender Neurologic: search engine optimizer II-XII grossly normal, no motor/sensory deficits Skin: normal pigmentation, warm/dry Assessment/Plan Problem List: (1) UTI (urinary tract infection) Assessment & Plan: E.Coli. D/C vanco and continue ceftriaxone- see Inf dis consult. (2) Hypokalemia Assessment & Plan: Replace potassium. (3) Brain cancer (4) Breast cancer in female Assessment & Plan: Await onc consult. (5) Sepsis Assessment & Plan: S/P removal of chest port a cath. Proteus- 4/4 bottles. Cont ceftriaxone -see ID consult (6) Tachycardia Assessment & Plan: see cardiology note. Status: progressing Ayo Roth MD Jan 23, 2018 14:04
[2018-01-23 15:57] VITALS: BP 122/73
[2018-01-23] MEDS ORDERED: Acetaminophen 650 MG SUPP RECTAL PRN (16:00)
[2018-01-23] MEDS ORDERED: Tubing IV Secondary IV ONE (16:02)
[2018-01-23] MEDS ORDERED: NS 275ml ONE (16:02)
[2018-01-23] MEDS ORDERED: Promethazine/Codeine 5ml UD ORAL PRN (17:15)
--- NOTE | 2018-01-23 17:23 | General Progress Note ---
Assessment/Plan Status: not improved Assessment/Plan 1. Metastatic breast cancer to the brain. Currently on treatment with Dr. Verma --> Continue to follow up with Oncology Service in the outpatient setting. --> Closely monitor for improvement. 2. Anemia due to underlying chronic disease. --> Continue to closely monitor. --> Anemia w/u has been reviewed. Will trend cbc daily. --> Hgb goal >7 3. Thrombocytopenia, likely secondary to urosepsis, gram-negative rods 4/4 bottles. 4. Urinary tract infection, on IV antibiotics. 5. Hypokalemia, replete as needed. 6. Coagulopathy, potentially secondary to decreased p.o. intake. The time the note was entered does not necessarily correspond to the time the patient was seen. Subjective Date patient seen: Jan 23, 2018 ROS Limited/Unobtainable: Yes Hematologic/Lymphatic: Reports: anemia Allergies: Coded Allergies: No Known Allergies (Unverified , 01/16/18) All Systems: reviewed and negative except above Subjective Pt awake and alert. No acute events. WBC trending upwards. Objective Last 24 Hour Vital Signs Date Time Temp Pulse Resp B/P (MAP) Pulse Ox O2 Delivery O2 Flow Rate FiO2 01/23/18 15:57 99.2 112 20 122/73 (89) 90 99.2 01/23/18 12:00 97.6 96 24 109/52 (71) 94 97.6 01/23/18 12:00 101 01/23/18 09:00 Room Air 01/23/18 08:00 116 01/23/18 08:00 98.2 114 24 142/80 (100) 94 98.2 01/23/18 07:15 Room Air 01/23/18 07:15 94 Room Air 21 01/23/18 04:00 115 01/23/18 04:00 98.2 115 18 158/96 (116) 94 98.2 01/23/18 00:00 98.3 115 20 152/90 (110) 94 98.3 01/23/18 00:00 108 01/22/18 21:00 Nasal Cannula 3.0 01/22/18 20:00 99.2 109 20 157/80 (105) 95 99.2 01/22/18 20:00 108 01/22/18 19:24 Room Air 21 01/22/18 19:24 94 Room Air 21 01/22/18 19:23 108 18 Room Air 21 Intake and Output 01/22/18 01/23/18 19:00 07:00 Intake Total 1350 ml 195 ml Output Total 2200 ml 1100 ml Balance -850 ml -905 ml Intake Oral 600 ml 120 ml IV Total 750 ml 75 ml Output Urine Total 2200 ml 1100 ml # Bowel Movements 3 1 Laboratory Tests 01/23/18 05:20: White Blood Count 4.6#L, Red Blood Count 3.18L, Hemoglobin 9.6L, Hematocrit 28.9L, Mean Corpuscular Volume 91, Mean Corpuscular Hemoglobin 30.3, Mean Corpuscular Hemoglobin Concent 33.3, Red Cell Distribution Width 15.9H, Platelet Count 208, Mean Platelet Volume 6.1L, Neutrophils (%) (Auto) 36.8L, Lymphocytes (%) (Auto) 34.9, Monocytes (%) (Auto) 19.3H, Eosinophils (%) (Auto) 6.6H, Basophils (%) (Auto) 2.4H, Sodium Level 144, Potassium Level 3.1L, Chloride Level 109H, Carbon Dioxide Level 27, Anion Gap 8, Blood Urea Nitrogen 4L, Creatinine 0.7, Estimat Glomerular Filtration Rate > 60, Glucose Level 110H , Calcium Level 8.0L Height (Feet): 4 Height (Inches): 11.00 Weight (Pounds): 257 General Appearance: no apparent distress, alert EENT: PERRL/EOMI Neck: normal alignment Cardiovascular: tachycardia, irregularly irregular Respiratory/Chest: no respiratory distress Abdomen: soft Diaz Moody MD Jan 23, 2018 17:23
--- NOTE | 2018-01-23 17:56 | Cardiology Progress Note ---
Assessment/Plan Status: stable Assessment/Plan Assessment (1) Healthcare-associated pneumonia (2) Sepsis (3) Tachycardia (4) UTI (urinary tract infection) (5) Brain cancer (6) Breast cancer in female (7) Morbid obesity with BMI of 40.0-44.9, adult (8) Hypokalemia (9) ATN (acute tubular necrosis) (10) Tachycardia Echocardiogram reviewed, normal LV function, troponin unremarkable, EKG with no ischemia No clinical findings to suggest endocarditis Tachycardia from sepsis and pain, do not treat heart rate as it is compensatory Continue antibiotics, follow cultures Removed [place] and sent for culture , PICC line placed Wound care Pain control physical therapy Supportive care No ischemia work up needed at this juncture. Start anti hypertensive therapy Subjective Cardiovascular: Reports: no symptoms Respiratory: Reports: no symptoms Gastrointestinal/Abdominal: Reports: no symptoms Genitourinary: Reports: no symptoms Subjective Pt awake/alert in bed, breathing easily on room air, denies SOB and denies pain at this time. IV D5NS + 20K running into lumen of PICC line at 75 ml/hr. Abx running into other lumen. Portacath removal with dry/intact dressing on upper right chest Objective Last 24 Hour Vital Signs Date Time Temp Pulse Resp B/P (MAP) Pulse Ox O2 Delivery O2 Flow Rate FiO2 01/23/18 15:57 99.2 112 20 122/73 (89) 90 99.2 01/23/18 12:00 97.6 96 24 109/52 (71) 94 97.6 01/23/18 12:00 101 01/23/18 09:00 Room Air 01/23/18 08:00 116 01/23/18 08:00 98.2 114 24 142/80 (100) 94 98.2 01/23/18 07:15 Room Air 01/23/18 07:15 94 Room Air 21 01/23/18 04:00 115 01/23/18 04:00 98.2 115 18 158/96 (116) 94 98.2 01/23/18 00:00 98.3 115 20 152/90 (110) 94 98.3 01/23/18 00:00 108 01/22/18 21:00 Nasal Cannula 3.0 01/22/18 20:00 99.2 109 20 157/80 (105) 95 99.2 01/22/18 20:00 108 7/28/18 19:24 Room Air 21 01/22/18 19:24 94 Room Air 21 01/22/18 19:23 108 18 Room Air 21 General Appearance: no apparent distress, alert EENT: PERRL/EOMI, normal ENT inspection, TMs normal, pharynx normal Neck: non-tender, normal alignment, supple Rhythm: NSR Cardiovascular: normal peripheral pulses, normal rate, regular rhythm Respiratory/Chest: chest wall non-tender, lungs clear, normal breath sounds, no respiratory distress Abdomen: normal bowel sounds, non tender, soft, no organomegaly Extremities: normal range of motion, non-tender Neurologic: learning development specialist II-XII grossly normal, no motor/sensory deficits Intake and Output 01/22/18 01/23/18 19:00 07:00 Intake Total 1350 ml 195 ml Output Total 2200 ml 1100 ml Balance -850 ml -905 ml Intake Oral 600 ml 120 ml IV Total 750 ml 75 ml Output Urine Total 2200 ml 1100 ml # Bowel Movements 3 1 Laboratory Tests Test 01/23/18 05:20 White Blood Count 4.6 K/UL (4.8-10.8) #L Red Blood Count 3.18 M/UL (4.20-5.40) L Hemoglobin 9.6 G/DL (12.0-16.0) L Hematocrit 28.9 % (37.0-47.0) L Mean Corpuscular Volume 91 FL (80-99) Mean Corpuscular Hemoglobin 30.3 PG (27.0-31.0) Mean Corpuscular Hemoglobin Concent 33.3 G/DL (32.0-36.0) Red Cell Distribution Width 15.9 % (11.6-14.8) H Platelet Count 208 K/UL (150-450) Mean Platelet Volume 6.1 FL (6.5-10.1) L Neutrophils (%) (Auto) 36.8 % (45.0-75.0) L Lymphocytes (%) (Auto) 34.9 % (20.0-45.0) Monocytes (%) (Auto) 19.3 % (1.0-10.0) H Eosinophils (%) (Auto) 6.6 % (0.0-3.0) H Basophils (%) (Auto) 2.4 % (0.0-2.0) H Sodium Level 144 MMOL/L (136-145) Potassium Level 3.1 MMOL/L (3.5-5.1) L Chloride Level 109 MMOL/L (98-107) H Carbon Dioxide Level 27 MMOL/L (21-32) Anion Gap 8 mmol/L (5-15) Blood Urea Nitrogen 4 mg/dL (7-18) L Creatinine 0.7 MG/DL (0.55-1.30) Estimat Glomerular Filtration Rate > 60 mL/min (>60) Glucose Level 110 MG/DL (74-106) H Calcium Level 8.0 MG/DL (8.5-10.1) L Microbiology Date/Time Source Procedure Growth Status 01/21/18 16:00 Chest Gram Stain - Final Resulted 01/21/18 16:00 Chest Aerobic Culture - Preliminary NO GROWTH AFTER 48 HOURS Resulted 01/21/18 16:00 Chest Anaerobic Culture - Preliminary NO GROWTH AFTER 48 HOURS Resulted Ismael Brown M.D. Jan 23, 2018 17:56
[2018-01-23 20:22] VITALS: BP 151/83
[2018-01-23] MEDS: cefTRIAXone 2 GM in D5W 110 ML IVPB SCH (20:23)
[2018-01-23] MEDS: Dyna-Hex 2% Top Sol 2oz TOPIC SCH (20:38)
[2018-01-23] MEDS: Lacosamide 50mg tablet ORAL SCH (20:39)
[2018-01-23] MEDS ORDERED: Zolpidem 5mg tab ORAL PRN (21:00)
[2018-01-24] VITALS (8 sets, daily range): BP systolic 130–165; BP diastolic 69–96
[2018-01-24] MEDS: Heparin 5000 units/ml inj SUBQ SCH ×2 (06:23→18:01)
[2018-01-24 07:07] LABS: BASOPHILS % (AUTO) 3.6 % (0.0-2.0); EOSINOPHILS % (AUTO) 7.7 % (0.0-3.0); HEMATOCRIT 29.7 % (37.0-47.0); HEMOGLOBIN 9.7 G/DL (12.0-16.0); LYMPHOCYTES % (AUTO) 33.9 % (20.0-45.0); MEAN CORPUSCULAR VOLUME 92 FL (80-99); MONOCYTES % (AUTO) 18.1 % (1.0-10.0); NEUTROPHILS % (AUTO) 36.7 % (45.0-75.0); PLATELET COUNT 248 K/UL (150-450); RED BLOOD COUNT 3.24 M/UL (4.20-5.40); RED CELL DISTRIBUTION WIDTH 16.1 % (11.6-14.8); WHITE BLOOD COUNT 5.9 K/UL (4.8-10.8)
[2018-01-24 07:19] LABS: ANION GAP 7 mmol/L (5-15); BLOOD UREA NITROGEN 4 mg/dL (7-18); CALCIUM 8.3 MG/DL (8.5-10.1); CARBON DIOXIDE 29 MMOL/L (21-32); CHLORIDE 106 MMOL/L (98-107); CREATININE 0.8 MG/DL (0.55-1.30); POTASSIUM 3.3 MMOL/L (3.5-5.1); SODIUM 142 MMOL/L (136-145)
[2018-01-24] MEDS: Lacosamide 50mg tablet ORAL SCH ×2 (07:44→20:15)
--- NOTE | 2018-01-24 10:36 | Internal Med Progress Note ---
Subjective Date of Service: Jan 24, 2018 Physician Name Ayo Roth Attending Physician Sander Christensen MD Current Medications Medications (Trade) Dose Ordered Sig/Gloria Route PRN Reason Start Time Stop Time Status Last Admin Dose Admin Acetaminophen (Tylenol) 650 mg Q4H PRN RECTAL Mild Pain (Pain Scale 1-3) 01/23/18 16:00 02/15/18 15:59 Acetaminophen (Tylenol) 650 mg Q6H PRN ORAL Mild Pain/Temp > 100.5 01/23/18 18:30 02/18/18 18:29 Al Hydroxide/Mg Hydroxide (Mylanta II) 30 ml Q6H PRN ORAL dyspepsia 01/23/18 13:44 02/15/18 13:43 Ceftriaxone Sodium 2 gm/ Dextrose 110 ml @ 220 mls/hr Q24H IVPB 01/23/18 20:00 01/26/18 19:59 01/23/18 20:23 Chlorhexidine Gluconate (Zuleika-Hex 2%) 1 applic DAILY@2000 TOPIC 01/23/18 20:00 02/15/18 19:59 01/23/18 20:38 Dextrose (Dextrose 50%) 25 ml STAT PRN IV Hypoglycemia 01/23/18 13:45 02/15/18 13:44 Dextrose (Dextrose 50%) 50 ml STAT PRN IV Hypoglycemia 01/23/18 13:45 02/15/18 13:44 Dextrose/ Electrolytes 1,000 ml @ 75 mls/hr [id number] IV 01/23/18 13:43 02/16/18 13:42 01/23/18 18:57 Diphenhydramine HCl (Benadryl) 25 mg Q6H PRN ORAL Itching/Pruritis 01/23/18 16:00 02/15/18 15:59 Fluoxetine HCl (PROzac) 20 mg DAILY ORAL 01/24/18 09:00 02/16/18 12:14 01/24/18 08:22 Heparin Sodium (Porcine) (Heparin 5000 units/ml) 5,000 units Q12H SUBQ 01/24/18 05:00 02/23/18 04:59 01/24/18 06:23 Hydralazine HCl (Apresoline) 10 mg Q6H PRN ORAL SBP>160 01/23/18 13:46 02/17/18 13:45 Lacosamide (Vimpat) 100 mg Q12HR ORAL 01/23/18 21:00 02/15/18 20:59 01/24/18 07:44 Mirtazapine (Remeron) 7.5 mg BEDTIME ORAL 01/23/18 21:00 02/16/18 20:59 01/23/18 20:38 Morphine Sulfate (Morphine Sulfate) 4 mg Q4H PRN IVP Severe Pain (Pain Scale 7-10) 01/23/18 16:00 01/26/18 07:59 Ondansetron HCl (Zofran) 4 mg Q6H PRN IVP Nausea & Vomiting 01/23/18 16:00 02/15/18 15:59 Pantoprazole (Protonix) 40 mg EVERY 12 HOURS ORAL 01/23/18 21:00 02/18/18 20:59 01/24/18 07:44 Promethazine HCl/ Codeine (Phenergan with Codeine) 5 ml Q4H PRN ORAL For Cough 01/23/18 17:15 02/19/18 17:14 Zolpidem Tartrate (Ambien) 5 mg HSPRN PRN ORAL Insomnia 01/23/18 21:00 01/27/18 20:59 01/24/18 00:05 Allergies: Coded Allergies: No Known Allergies (Unverified , 01/16/18) ROS Limited/Unobtainable: No Constitutional: Reports: no symptoms HEENT: Reports: no symptoms Cardiovascular: Reports: no symptoms Respiratory: Reports: no symptoms Gastrointestinal/Abdominal: Reports: no symptoms Genitourinary: Reports: no symptoms Neurologic/Psychiatric: Reports: no symptoms Subjective 62 YO F admitted with chief complaint fever. Now pneumonia, UTI and sepsis. Cover for Int Med-Dr Christensen. S/P removal chest port a cath 01/21/18. Await discharge home. Objective Last Vital Signs Date Time Temp Pulse Resp B/P (MAP) Pulse Ox O2 Delivery O2 Flow Rate FiO2 01/24/18 08:00 97.9 100 20 130/77 (94) 95 97.9 01/24/18 07:00 Room Air 01/23/18 19:03 21 01/22/18 21:00 3.0 Laboratory Tests Test 01/24/18 06:30 White Blood Count 5.9 K/UL (4.8-10.8) Red Blood Count 3.24 M/UL (4.20-5.40) L Hemoglobin 9.7 G/DL (12.0-16.0) L Hematocrit 29.7 % (37.0-47.0) L Mean Corpuscular Volume 92 FL (80-99) Mean Corpuscular Hemoglobin 29.9 PG (27.0-31.0) Mean Corpuscular Hemoglobin Concent 32.6 G/DL (32.0-36.0) Red Cell Distribution Width 16.1 % (11.6-14.8) H Platelet Count 248 K/UL (150-450) Mean Platelet Volume 5.4 FL (6.5-10.1) L Neutrophils (%) (Auto) 36.7 % (45.0-75.0) L Lymphocytes (%) (Auto) 33.9 % (20.0-45.0) Monocytes (%) (Auto) 18.1 % (1.0-10.0) H Eosinophils (%) (Auto) 7.7 % (0.0-3.0) H Basophils (%) (Auto) 3.6 % (0.0-2.0) H Erythrocyte Sedimentation Rate 64 MM/HR (0-30) H Sodium Level 142 MMOL/L (136-145) Potassium Level 3.3 MMOL/L (3.5-5.1) L Chloride Level 106 MMOL/L (98-107) Carbon Dioxide Level 29 MMOL/L (21-32) Anion Gap 7 mmol/L (5-15) Blood Urea Nitrogen 4 mg/dL (7-18) L Creatinine 0.8 MG/DL (0.55-1.30) Estimat Glomerular Filtration Rate > 60 mL/min (>60) Glucose Level 89 MG/DL (74-106) Calcium Level 8.3 MG/DL (8.5-10.1) L Magnesium Level 1.6 MG/DL (1.8-2.4) L C-Reactive Protein, Quantitative 2.6 mg/dL (0.00-0.90) H Microbiology Date/Time Source Procedure Growth Status 01/21/18 16:00 Chest Gram Stain - Final Resulted 01/21/18 16:00 Chest Aerobic Culture - Preliminary NO GROWTH AFTER 48 HOURS Resulted 01/21/18 16:00 Chest Anaerobic Culture - Preliminary NO GROWTH AFTER 48 HOURS Resulted Intake and Output 01/23/18 01/24/18 19:00 07:00 Intake Total 120 ml 1265 ml Output Total 1000 ml 650 ml Balance -880 ml 615 ml Intake Oral 120 ml 180 ml IV Total 1085 ml Output Urine Total 1000 ml 650 ml # Voids 1 1 # Bowel Movements 1 1 Objective General Appearance: WD/WN, alert, mild distress EENT: PERRL/EOMI, normal ENT inspection Neck: non-tender, normal alignment, supple, normal inspection Cardiovascular: normal peripheral pulses, regular rhythm, no gallop/murmur, no JVD, tachycardia Respiratory/Chest: chest wall non-tender, accessory muscle use, crackles/rales , rhonchi - bilaterally, expiratory wheezing Abdomen: normal bowel sounds, non tender, soft, no organomegaly, no mass Extremities: normal range of motion, non-tender 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 D/C vanco and continue ceftriaxone until 02/03/18- see Inf dis consult. (2) Hypokalemia Assessment & Plan: Replace potassium. (3) Brain cancer (4) Breast cancer in female Assessment & Plan: Await onc consult. (5) Sepsis Assessment & Plan: S/P removal of chest port a cath. Proteus- 4/4 bottles. Cont ceftriaxone -see ID consult (6) Tachycardia Assessment & Plan: see cardiology note. Status: stable Assessment/Plan Discharge home today with home health; previous provider. Will need IV ceftriaxone unitl 02/03/18 by home health Ayo Roth MD Jan 24, 2018 10:36
--- NOTE | 2018-01-24 10:37 | Infectious Diseases Prog Note ---
Assessment/Plan Assessment/Plan Assessment: Sepsis; improving- 2ry to UTI, bacteremia and PNA- ?nephrolithiasis- and luciana cath infection -u/a wbc 20-30, nit +, leuk +2; ucx >100k E.coli (andrade S) -CXR 01/18: Improved right lung parenchymal disease. No definite acute process currently. -CT chest: Dependent consolidation throughout both lungs, right greater than left, likely related to dependent atelectasis. Small hiatal hernia. Cholelithiasis without gallbladder wall thickening. Possible nephrolithiasis versus early contrast excretion in the left upper renal pole. -Renal US: unremarkable Luciana cath infection- bloody purulent discharge- wound cx <1+ P. mirabilis (per family, recurrent episodes of drainage at other hospitals as well) -s/p removal luciana cath and I+D infected wound 3 cm x 2 cm x 2 cm. 01/21 -OR findings: dehiscence of the wound with areas of eschar and necrosis. purulent drainage in the port cavity; cx p -BCx 09/29 P. mirabilis (S Ceftriaxone, R amp, Bactrim; I Ancef); 01/17 Bcx NTD ( peripheral) x4, NTD x4 (luciana cath); Pathogen in blood different from urine, while this same pathogen was isolated from wound culture there is no signs of infection in the wound and possibly patient colonized with proteus on the skin; suspicious for infected luciana cath -2d E cho: no vegetations seen -ESR ~70, CRP ~12 fever, recurrent; improving Pancytopenia RASHEED, resolving metastatic breast cancer (dx 2015) to brain s/p resection of brain tumor (2016) w/ resultant L side weakness currently undergoing chemotherapy twice a week multiple decubitus ulcers- no signs of infection -wound cx P. mirabilis (S Ceftriaxone, R amp, Bactrim; I Ancef), E, fecalis (S Vanco, amp) (likely colonizers) Plan: -D/c empiric IV Vanco #6 -Continue Ceftriaxone abx #9 for E.coli UTI and Proteus Bacteremia and luciana cath infection based on sensitivities; will treat for 14 days from removal of luciana cath; expected end date 02/03/18 -01/18 SP Meropenem #3 -01/17 SP Zosyn #2 -01/16 SP Cefepime x1, Levaquin x1 -f/u Repeat 2 sets of Bcx - NGTD -f/u cx, port wound cx (OR) -Monitor CBC/CMP, temperatures -aspiration precautions -wound care per hosp protocol -Bcx if T>100 Thank you for this consultation. Will continue to follow along with you. Subjective Allergies: Coded Allergies: No Known Allergies (Unverified , 01/16/18) Subjective Patient please with NAD Denies N/V/D and fever Objective Vital Signs Last 24 Hour Vital Signs Date Time Temp Pulse Resp B/P (MAP) Pulse Ox O2 Delivery O2 Flow Rate FiO2 01/24/18 08:00 97.9 100 20 130/77 (94) 95 97.9 01/24/18 07:00 Room Air 01/24/18 04:00 98.8 108 20 137/69 (91) 92 98.8 01/24/18 00:00 98.9 106 20 158/86 (110) 96 98.9 01/23/18 21:00 Room Air 01/23/18 20:22 98.2 111 20 151/83 (105) 96 98.2 111 01/23/18 19:03 Room Air 21 01/23/18 19:03 94 Room Air 21 01/23/18 15:57 99.2 112 20 122/73 (89) 90 99.2 01/23/18 12:00 97.6 96 24 109/52 (71) 94 97.6 01/23/18 12:00 101 Height (Feet): 4 Height (Inches): 11.00 Weight (Pounds): 257 Objective GENERAL: no apparent distress. HEENT: Eyes, pupils are equal and responsive to light and accommodation. Extraocular movements are intact. No oral lesions NECK: Supple without lymphadenopathy. CHEST: CTAB. CARDIOVASCULAR: Regular rhythm and rate. S1 and S2 are normal without murmurs, rubs, or gallops. ABDOMEN: Soft, nontender, and nondistended. Positive bowel sounds. EXTREMITIES: Negative for clubbing, cyanosis, or edema. Microbiology Date/Time Source Procedure Growth Status 01/21/18 16:00 Chest Gram Stain - Final Resulted 01/21/18 16:00 Chest Aerobic Culture - Preliminary NO GROWTH AFTER 48 HOURS Resulted 01/21/18 16:00 Chest Anaerobic Culture - Preliminary NO GROWTH AFTER 48 HOURS Resulted Laboratory Tests Test 01/24/18 06:30 White Blood Count 5.9 K/UL (4.8-10.8) Red Blood Count 3.24 M/UL (4.20-5.40) L Hemoglobin 9.7 G/DL (12.0-16.0) L Hematocrit 29.7 % (37.0-47.0) L Mean Corpuscular Volume 92 FL (80-99) Mean Corpuscular Hemoglobin 29.9 PG (27.0-31.0) Mean Corpuscular Hemoglobin Concent 32.6 G/DL (32.0-36.0) Red Cell Distribution Width 16.1 % (11.6-14.8) H Platelet Count 248 K/UL (150-450) Mean Platelet Volume 5.4 FL (6.5-10.1) L Neutrophils (%) (Auto) 36.7 % (45.0-75.0) L Lymphocytes (%) (Auto) 33.9 % (20.0-45.0) Monocytes (%) (Auto) 18.1 % (1.0-10.0) H Eosinophils (%) (Auto) 7.7 % (0.0-3.0) H Basophils (%) (Auto) 3.6 % (0.0-2.0) H Erythrocyte Sedimentation Rate 64 MM/HR (0-30) H Sodium Level 142 MMOL/L (136-145) Potassium Level 3.3 MMOL/L (3.5-5.1) L Chloride Level 106 MMOL/L (98-107) Carbon Dioxide Level 29 MMOL/L (21-32) Anion Gap 7 mmol/L (5-15) Blood Urea Nitrogen 4 mg/dL (7-18) L Creatinine 0.8 MG/DL (0.55-1.30) Estimat Glomerular Filtration Rate > 60 mL/min (>60) Glucose Level 89 MG/DL (74-106) Calcium Level 8.3 MG/DL (8.5-10.1) L Magnesium Level 1.6 MG/DL (1.8-2.4) L C-Reactive Protein, Quantitative 2.6 mg/dL (0.00-0.90) H Current Medications Medications (Trade) Dose Ordered Sig/Gloria Route PRN Reason Start Time Stop Time Status Last Admin Dose Admin Acetaminophen (Tylenol) 650 mg Q4H PRN RECTAL Mild Pain (Pain Scale 1-3) 01/23/18 16:00 02/15/18 15:59 Acetaminophen (Tylenol) 650 mg Q6H PRN ORAL Mild Pain/Temp > 100.5 01/23/18 18:30 02/18/18 18:29 Al Hydroxide/Mg Hydroxide (Mylanta II) 30 ml Q6H PRN ORAL dyspepsia 01/23/18 13:44 02/15/18 13:43 Ceftriaxone Sodium 2 gm/ Dextrose 110 ml @ 220 mls/hr Q24H IVPB 01/23/18 20:00 01/26/18 19:59 01/23/18 20:23 Chlorhexidine Gluconate (Zuleika-Hex 2%) 1 applic DAILY@2000 TOPIC 01/23/18 20:00 02/15/18 19:59 01/23/18 20:38 Dextrose (Dextrose 50%) 25 ml STAT PRN IV Hypoglycemia 01/23/18 13:45 02/15/18 13:44 Dextrose (Dextrose 50%) 50 ml STAT PRN IV Hypoglycemia 01/23/18 13:45 02/15/18 13:44 Dextrose/ Electrolytes 1,000 ml @ 75 mls/hr [id number] IV 01/23/18 13:43 02/16/18 13:42 01/23/18 18:57 Diphenhydramine HCl (Benadryl) 25 mg Q6H PRN ORAL Itching/Pruritis 01/23/18 16:00 02/15/18 15:59 Fluoxetine HCl (PROzac) 20 mg DAILY ORAL 01/24/18 09:00 02/16/18 12:14 01/24/18 08:22 Heparin Sodium (Porcine) (Heparin 5000 units/ml) 5,000 units Q12H SUBQ 01/24/18 05:00 02/23/18 04:59 01/24/18 06:23 Hydralazine HCl (Apresoline) 10 mg Q6H PRN ORAL SBP>160 01/23/18 13:46 02/17/18 13:45 Lacosamide (Vimpat) 100 mg Q12HR ORAL 01/23/18 21:00 02/15/18 20:59 01/24/18 07:44 Mirtazapine (Remeron) 7.5 mg BEDTIME ORAL 01/23/18 21:00 02/16/18 20:59 01/23/18 20:38 Morphine Sulfate (Morphine Sulfate) 4 mg Q4H PRN IVP Severe Pain (Pain Scale 7-10) 01/23/18 16:00 01/26/18 07:59 Ondansetron HCl (Zofran) 4 mg Q6H PRN IVP Nausea & Vomiting 01/23/18 16:00 02/15/18 15:59 Pantoprazole (Protonix) 40 mg EVERY 12 HOURS ORAL 01/23/18 21:00 02/18/18 20:59 01/24/18 07:44 Promethazine HCl/ Codeine (Phenergan with Codeine) 5 ml Q4H PRN ORAL For Cough 01/23/18 17:15 02/19/18 17:14 Zolpidem Tartrate (Ambien) 5 mg HSPRN PRN ORAL Insomnia 01/23/18 21:00 01/27/18 20:59 01/24/18 00:05 Ismael Galeana M.D. Jan 24, 2018 10:37
[2018-01-24] MEDS ORDERED: FLUOXETINE HCL20 MG ORAL (10:44)
[2018-01-24] MEDS ORDERED: VIMPAT50 MG ORAL (10:44)
[2018-01-24] MEDS ORDERED: MIRTAZAPINE15 M3 ORAL (10:44)
--- NOTE | 2018-01-24 10:57 | Diagnostic Imaging Report ---
Indication: Shortness of breath Technique: One view of the chest Comparison: 01/18/2018 Findings: Interim removal of previously demonstrated port catheter. Interim placement of left arm PICC. Lungs and pleural spaces remain clear. The heart is borderline enlarged Impression: No acute process
[2018-01-24] MEDS ORDERED: ROCEPHIN2 GM/50 ML IV (11:10)
--- NOTE | 2018-01-24 14:24 | General Progress Note ---
Assessment/Plan Status: stable Assessment/Plan 1. Metastatic breast cancer to the brain. Currently on treatment with Dr. Verma --> Continue to follow up with Oncology Service in the outpatient setting. --> Closely monitor for improvement. 2. Anemia due to underlying chronic disease. --> Continue to closely monitor. --> Anemia w/u has been reviewed. Will trend cbc daily. --> Hgb goal >7 3. Thrombocytopenia, likely secondary to urosepsis, gram-negative rods 4/4 bottles. --> 01/24 PLT count normalized. 4. Urinary tract infection, on IV antibiotics. --> Improved. 5. Hypokalemia, replete as needed. 6. Coagulopathy, potentially secondary to decreased p.o. intake. The time the note was entered does not necessarily correspond to the time the patient was seen. Subjective Date patient seen: Jan 24, 2018 ROS Limited/Unobtainable: Yes Allergies: Coded Allergies: No Known Allergies (Unverified , 01/16/18) All Systems: reviewed and negative except above Subjective Pt awake and alert. No acute events. WBC normalized. CXR today shows no acute process. Objective Last 24 Hour Vital Signs Date Time Temp Pulse Resp B/P (MAP) Pulse Ox O2 Delivery O2 Flow Rate FiO2 01/24/18 12:00 97.7 107 20 138/87 (104) 94 97.7 01/24/18 08:00 97.9 100 20 130/77 (94) 95 97.9 01/24/18 07:00 Room Air 01/24/18 04:00 98.8 108 20 137/69 (91) 92 98.8 01/24/18 00:00 98.9 106 20 158/86 (110) 96 98.9 01/23/18 21:00 Room Air 01/23/18 20:22 98.2 111 20 151/83 (105) 96 98.2 111 01/23/18 19:03 Room Air 21 01/23/18 19:03 94 Room Air 21 01/23/18 15:57 99.2 112 20 122/73 (89) 90 99.2 Intake and Output 01/23/18 01/24/18 19:00 07:00 Intake Total 120 ml 1265 ml Output Total 1000 ml 650 ml Balance -880 ml 615 ml Intake Oral 120 ml 180 ml IV Total 1085 ml Output Urine Total 1000 ml 650 ml # Voids 1 1 # Bowel Movements 1 1 Laboratory Tests 01/24/18 06:30: White Blood Count 5.9, Red Blood Count 3.24L, Hemoglobin 9.7L, Hematocrit 29.7L , Mean Corpuscular Volume 92, Mean Corpuscular Hemoglobin 29.9, Mean Corpuscular Hemoglobin Concent 32.6, Red Cell Distribution Width 16.1H, Platelet Count 248, Mean Platelet Volume 5.4L, Neutrophils (%) (Auto) 36.7L, Lymphocytes (%) (Auto) 33.9, Monocytes (%) (Auto) 18.1H, Eosinophils (%) (Auto) 7.7H, Basophils (%) (Auto) 3.6H, Erythrocyte Sedimentation Rate 64H, Sodium Level 142, Potassium Level 3.3L, Chloride Level 106, Carbon Dioxide Level 29, Anion Gap 7, Blood Urea Nitrogen 4L, Creatinine 0.8, Estimat Glomerular Filtration Rate > 60, Glucose Level 89, Calcium Level 8.3L, Magnesium Level 1.6L , C-Reactive Protein, Quantitative 2.6H Height (Feet): 4 Height (Inches): 11.00 Weight (Pounds): 257 General Appearance: no apparent distress EENT: PERRL/EOMI Neck: normal alignment Cardiovascular: tachycardia Respiratory/Chest: normal breath sounds, no respiratory distress Abdomen: soft Diaz Moody MD Jan 24, 2018 14:24
--- NOTE | 2018-01-24 15:30 | Pulmonology Progress Note ---
Assessment/Plan Problems: (1) Sepsis (2) Healthcare-associated pneumonia (3) Tachycardia (4) UTI (urinary tract infection) (5) Brain cancer (6) Breast cancer in female (7) Morbid obesity with BMI of 40.0-44.9, adult (8) Hypokalemia (9) ATN (acute tubular necrosis) Assessment/Plan bibiana cath was removedno new complains Blood cultures are available now, Ecoli in wound and blood afebrile heart rate coming down iv fluids continue abx check cultures, BC positive for GNR check electrolytes check urine lytes renal studies, renal function improving echo reviewed Subjective ROS Limited/Unobtainable: No Constitutional: Reports: no symptoms HEENT: Repors: no symptoms Allergies: Coded Allergies: No Known Allergies (Unverified , 01/16/18) Objective Last 24 Hour Vital Signs Date Time Temp Pulse Resp B/P (MAP) Pulse Ox O2 Delivery O2 Flow Rate FiO2 01/24/18 12:00 97.7 107 20 138/87 (104) 94 97.7 01/24/18 08:00 97.9 100 20 130/77 (94) 95 97.9 01/24/18 07:00 Room Air 01/24/18 04:00 98.8 108 20 137/69 (91) 92 98.8 01/24/18 00:00 98.9 106 20 158/86 (110) 96 98.9 01/23/18 21:00 Room Air 01/23/18 20:22 98.2 111 20 151/83 (105) 96 98.2 111 01/23/18 19:03 Room Air 21 01/23/18 19:03 94 Room Air 21 01/23/18 15:57 99.2 112 20 122/73 (89) 90 99.2 Intake and Output 01/23/18 01/24/18 19:00 07:00 Intake Total 120 ml 1265 ml Output Total 1000 ml 650 ml Balance -880 ml 615 ml Intake Oral 120 ml 180 ml IV Total 1085 ml Output Urine Total 1000 ml 650 ml # Voids 1 1 # Bowel Movements 1 1 Objective still tachycardic General Appearance: WD/WN HEENT: normocephalic, atraumatic Breasts: no masses Cardiovascular: normal rate Abdomen: soft, non tender, non distended Extremities: no cyanosis 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4L, Neutrophils (%) (Auto) 36.7L, Lymphocytes (%) (Auto) 33.9, Monocytes (%) (Auto) 18.1H, Eosinophils (%) (Auto) 7.7H, Basophils (%) (Auto) 3.6H, Erythrocyte Sedimentation Rate 64H, Sodium Level 142, Potassium Level 3.3L, Chloride Level 106, Carbon Dioxide Level 29, Anion Gap 7, Blood Urea Nitrogen 4L, Creatinine 0.8, Estimat Glomerular Filtration Rate > 60, Glucose Level 89, Calcium Level 8.3L, Magnesium Level 1.6L , C-Reactive Protein, Quantitative 2.6H Current Medications Medications (Trade) Dose Ordered Sig/Glroia Route PRN Reason Start Time Stop Time Status Last Admin Dose Admin Acetaminophen (Tylenol) 650 mg Q4H PRN RECTAL Mild Pain (Pain Scale 1-3) 01/23/18 16:00 02/15/18 15:59 Acetaminophen (Tylenol) 650 mg Q6H PRN ORAL Mild Pain/Temp > 100.5 01/23/18 18:30 02/18/18 18:29 Al Hydroxide/Mg Hydroxide (Mylanta II) 30 ml Q6H PRN ORAL dyspepsia 01/23/18 13:44 02/15/18 13:43 Ceftriaxone Sodium 2 gm/ Dextrose 110 ml @ 220 mls/hr Q24H IVPB 01/23/18 20:00 01/26/18 19:59 01/23/18 20:23 Chlorhexidine Gluconate (Zuleika-Hex 2%) 1 applic DAILY@1999 TOPIC 01/23/18 20:00 02/15/18 19:59 01/23/18 20:38 Dextrose (Dextrose 50%) 25 ml STAT PRN IV Hypoglycemia 01/23/18 13:45 02/15/18 13:44 Dextrose (Dextrose 50%) 50 ml STAT PRN IV Hypoglycemia 01/23/18 13:45 02/15/18 13:44 Dextrose/ Electrolytes 1,000 ml @ 75 mls/hr [id number] IV 01/23/18 13:43 02/16/18 13:42 01/24/18 12:22 Diphenhydramine HCl (Benadryl) 25 mg Q6H PRN ORAL Itching/Pruritis 01/23/18 16:00 02/15/18 15:59 Fluoxetine HCl (PROzac) 20 mg DAILY ORAL 01/24/18 09:00 02/16/18 12:14 01/24/18 08:22 Heparin Sodium (Porcine) (Heparin 5000 units/ml) 5,000 units Q12H SUBQ 01/24/18 05:00 02/23/18 04:59 01/24/18 06:23 Hydralazine HCl (Apresoline) 10 mg Q6H PRN ORAL SBP>160 01/23/18 13:46 02/17/18 13:45 Lacosamide (Vimpat) 100 mg Q12HR ORAL 01/23/18 21:00 02/15/18 20:59 01/24/18 07:44 Mirtazapine (Remeron) 7.5 mg BEDTIME ORAL 01/23/18 21:00 02/16/18 20:59 01/23/18 20:38 Morphine Sulfate (Morphine Sulfate) 4 mg Q4H PRN IVP Severe Pain (Pain Scale 7-10) 01/23/18 16:00 01/26/18 07:59 Ondansetron HCl (Zofran) 4 mg Q6H PRN IVP Nausea & Vomiting 01/23/18 16:00 02/15/18 15:59 Pantoprazole (Protonix) 40 mg EVERY 12 HOURS ORAL 01/23/18 21:00 02/18/18 20:59 01/24/18 07:44 Promethazine HCl/ Codeine (Phenergan with Codeine) 5 ml Q4H PRN ORAL For Cough 01/23/18 17:15 8/25/18 17:14 Zolpidem Tartrate (Ambien) 5 mg HSPRN PRN ORAL Insomnia 01/23/18 21:00 01/27/18 20:59 01/24/18 00:05 Miguel A Lenz MD Jan 24, 2018 15:30
[2018-01-24] MEDS: HydrALAZINE 10mg Tab ORAL PRN ×2 (15:52→21:24)
--- NOTE | 2018-01-24 19:48 | Cardiology Report ---
APPROVED REPORT EKG Measurement Heart [id number] [place] [id number] Sinus tachycardia Right bundle branch block Abnormal ECG
--- NOTE | 2018-01-24 19:50 | Cardiology Report ---
APPROVED REPORT EKG Measurement Heart [id number] [place] 118P4 [id number] Sinus tachycardia Left axis deviation Right bundle branch block and left anterior hemiblock (Bifascicular block) T wave abnormality, consider lateral ischemia Abnormal ECG
[2018-01-24] MEDS: Dyna-Hex 2% Top Sol 2oz TOPIC SCH (20:14)
[2018-01-24] MEDS: cefTRIAXone 2 GM in D5W 110 ML IVPB SCH (20:14)
[2018-01-24] MEDS ORDERED: HydrALAZINE 10mg Tab ORAL SCH (21:30)
--- NOTE | 2018-01-26 08:46 | Discharge Summary ---
Discharge Summary Discharge Summary _ DATE OF ADMISSION: 01/16/2018 DATE OF DISCHARGE: 01/24/2018 REASON FOR ADMISSION: 62 years old female with history of metastatic breast cancer with metastasis to brain, status post resection of brain tumor at 2016 with resulting left-sided weakness, seizure disorder, presented with chief complaint of fever and generalized body pain. Pain was present for 1 day and moved to the right chest area. Patient also reported low back pain . Pain described as 10 out of 10 on a scale 1-10 . No shortness of breath, no loss of consciousness ,no dizziness, no blackouts, no seizures. c No bowel or urine incontinence. No nausea ,no vomiting . Patient with DNR/DNI status. Upon evaluation patient was febrile and tachycardic. No leukocytosis, stable hemoglobin and hematocrit . Urinalysis with evidence of infection. Lactic acid 4.3. Potassium 3.2. Troponin negative. EKG revealed sinus tachycardia with right bundle branch block. Chest x-ray revealed right lower lobe infiltrate. Patient admitted with diagnoses of sepsis, healthcare associated pneumonia, urinary tract infection, chest wall infection, metastatic breast cancer with metastasis to brain. CONSULTANTS: seafood and service meat manager dr. Brown pulmonary Dr. Lenz ID specialist Dr. Boateng curb setter helper/oncologist Dr. Moody surgery Dr. Rodriguez psychiatrist [facility] COURSE: Patient admitted . Patient started on IV fluids and empiric antibiotics. ID specialist closely followed. Initial blood culture grew Proteus mirabilis. Urine culture was positive for Escherichia coli. Sputum culture revealed Germaine. Repeated blood culture were negative. Patient with evidence of infected port with bloody purulent discharge. Wound culture grew Proteus mirabilis . Surgeon closely followed. Patient undergone removal of luciana-catheter and incisional debridement of right chest wall infected wound. Wound care provided as per surgeon's recommendations. Repeated blood culture were negative. Patient will need antibiotic for 14 days from removal of luciana-catheter, estimated end of the therapy February 03. Supplemental oxygen provided as needed to keep pulse oximetry above 92%. Pulmonary toilet provided as needed basis. Unbundler closely followed. Follow-up chest x-ray showed some improvement. Antitussive provided as needed. Strict aspiration reflux precautions were maintained. DVT prophylaxis provided. Last chest x-ray revealed resolution of acute process. Pain management was addressed , and pain was controlled. Sonography Technologist closely followed. Echocardiogram revealed preserved ejection fraction and normal wall motion. Per seafood and service meat manager , tachycardia was secondary to sepsis ,compensatory, no treatment was needed. Per seafood and service meat manager, no ischemic evaluation at this time required, as chest wall pain was due to infected site. Seizure precautions were maintained. Patient was on steroids . Vimpat was continued . No seizure activity while in the hospital . Bowel regimen instituted . GI prophylaxis provided. On 01/17 patient had evidence of acute renal failure with creatinine 1.4 from 1.0 on previous day. Patient was on IV hydration, renal parameters and electrolytes were closely monitored. Nephrotoxins were avoided. Electrolytes replaced as needed. Acute kidney injury resolved, likely acute tubular necrosis due to unstable hemodynamics. Renal ultrasound was negative. Design Printer Balloon /oncologist closely follow. Thrombocytopenia was likely secondary to sepsis and resolved. Hemoglobin and hematocrit were closely monitored with goal to keep hemoglobin above 7. Patient had anemia of chronic disease. Leukopenia resolved. Pancytopenia was transient, likely due to undergoing chemotherapy, resolved.. Wound care was provided as per surgeon's recommendation for multiply pressure ulcers present on admission. No evidence of active infection, no drainage, no odor. Psychiatrist seen and evaluated patient. Psychiatrist diagnosed patient with major depressive disorder and anxiety disorder. Reality orientation and supportive therapy provided. Psychiatrist optimized psychiatric medication regimen. Patient clinically improved and was stable for discharge home with home health services for IV antibiotics. FINAL DIAGNOSES: Sepsis with Proteus bacteremia Healthcare associated pneumonia Escherichia coli UTI Infected port, Status post removal of portal, and incisional debridement of right chest wall Metastatic breast cancer to brain Anemia of underlying chronic disease Pancytopenia, resolved Morbid obesity Acute tubular necrosis, resolved Electrolyte imbalance) hypomagnesemia, hypophosphatemia, hypomagnesemia) Tachycardia, compensatory Transaminitis, resolved Seizure disorder Multiply pressure ulcer present on admission Major depressive disorder and anxiety disorder DISCHARGE MEDICATIONS: See Medication Reconciliation list. DISCHARGE INSTRUCTIONS: Patient was discharged home with home health services. Follow-up with primary care provider and oncologist Diana Virk NP Jan 26, 2018 08:46
== END 2018-01-24 21:30 | disposition home health service (06) | DRG 264 ==
LOC: EDBD 03:42 → EMR 04:23 → 4W 04:35 → EDBEDREQ 05:10 → 2W 15:50 → 2E 01-20 16:03 → 4W 01-23 13:14
PROC: 02HV33Z Insertion of Infusion Device into Superior Vena Cava, Percutaneous Approach (ICD-10-PCS; principal; 2018-01-21 13:00)
PROC: B518ZZA Fluoroscopy of Superior Vena Cava, Guidance (ICD-10-PCS; principal; 2018-01-21 13:00)
PROC: 0JB60ZZ Excision of Chest Subcutaneous Tissue and Fascia, Open Approach (ICD-10-PCS; principal; 2018-01-21 13:00)
PROC: 0JPT3WZ Removal of Totally Implantable Vascular Access Device from Trunk Subcutaneous Tissue and Fascia, Percutaneous Approach (ICD-10-PCS; principal; 2018-01-21 13:00)
DX: T80.211A Bloodstream infection due to central venous catheter, initial encounter (principal); A41.9 Sepsis, unspecified organism; L89.893 Pressure ulcer of other site, stage 3; J18.9 Pneumonia, unspecified organism; N17.0 Acute kidney failure with tubular necrosis; D61.810 Antineoplastic chemotherapy induced pancytopenia; N39.0 Urinary tract infection, site not specified; C79.31 Secondary malignant neoplasm of brain; J98.11 Atelectasis; Z68.41 Body mass index [BMI] 40.0-44.9, adult; D68.9 Coagulation defect, unspecified; T81.31XA Disruption of external operation (surgical) wound, not elsewhere classified, initial encounter; C50.919 Malignant neoplasm of unspecified site of unspecified female breast; M54.5 Low back pain; B96.20 Unspecified Escherichia coli [E. coli] as the cause of diseases classified elsewhere; E66.01 Morbid (severe) obesity due to excess calories; F32.9 Major depressive disorder, single episode, unspecified; F41.9 Anxiety disorder, unspecified; E87.6 Hypokalemia; L89.892 Pressure ulcer of other site, stage 2; D64.9 Anemia, unspecified; E83.42 Hypomagnesemia; E83.39 Other disorders of phosphorus metabolism; G40.909 Epilepsy, unspecified, not intractable, without status epilepticus; Z66 Do not resuscitate; D69.6 Thrombocytopenia, unspecified
CPT/HCPCS: 36415; 36569; 71045; 71260; 76604; 76770; 76937; 80048; 80053; 80202; 81003; 82248; 82550; 82553; 83605; 83735; 83880; 84100; 84484; 85007; 85025; 85610; 85651; 85730; 86140; 87040; 87070; 87075; 87086; 87181; 87205; 93005; 93306; 93925; 94003; 94150; 94664; 94760; 99291; J2405; J8499

== ENCOUNTER 2018-06-07 22:17 | Inpatient (IN) | payer MEDICARE, MEDICAID ==
[~2018-06-07] VITALS: Ht 152.4 cm; Wt 111.6 kg
[~2018-06-07 22:17] MED LIST: FLUOXETINE HCL20 MG ORAL; MIRTAZAPINE15 M3 ORAL; OMEPRAZOLE10 M1 ORAL; ROCEPHIN2 GM/50 ML IV; VIMPAT100 MG PO; VIMPAT50 MG ORAL
[2018-06-08 00:30] VITALS: BP 154/99
[2018-06-08] MEDS: NS w/KCl 20mEq 1,000 ML IV SCH ×3 (03:15→21:36)
[2018-06-08 04:00] VITALS: BP 139/89
[2018-06-08 05:14] LABS: BASOPHILS % (AUTO) 0.3 % (0.0-2.0); EOSINOPHILS % (AUTO) 0.8 % (0.0-3.0); HEMATOCRIT 35.8 % (37.0-47.0); LYMPHOCYTES % (AUTO) 21.9 % (20.0-45.0); MEAN CORPUSCULAR VOLUME 88 FL (80-99); MONOCYTES % (AUTO) 7.2 % (1.0-10.0); NEUTROPHILS % (AUTO) 69.8 % (45.0-75.0); PLATELET COUNT 243 K/UL (150-450); RED BLOOD COUNT 4.05 M/UL (4.20-5.40); WHITE BLOOD COUNT 8.8 K/UL (4.8-10.8)
[2018-06-08 05:50] LABS: ALANINE AMINOTRANSFERASE 64 U/L (12-78); ALBUMIN 2.5 G/DL (3.4-5.0); ALBUMIN/GLOBULIN RATIO 0.7 (1.0-2.7); ALKALINE PHOSPHATASE 97 U/L (46-116); ANION GAP 11 mmol/L (5-15); ASPARTATE AMINO TRANSFERASE 27 U/L (15-37); BILIRUBIN,TOTAL 0.4 MG/DL (0.2-1.0); BLOOD UREA NITROGEN 8 mg/dL (7-18); CALCIUM 8.7 MG/DL (8.5-10.1); CARBON DIOXIDE 27 MMOL/L (21-32); CHLORIDE 103 MMOL/L (98-107); CREATININE 0.4 MG/DL (0.55-1.30); PHOSPHORUS 3.1 MG/DL (2.5-4.9); POTASSIUM 2.9 MMOL/L (3.5-5.1); SODIUM 141 MMOL/L (136-145)
[2018-06-08] MEDS: Heparin 5000 units/ml inj SUBQ SCH ×3 (05:59→21:30)
[2018-06-08] MEDS: LORazepam Inj 2mg/ml 1ml IV PRN ×2 (07:57→13:45)
[2018-06-08 08:00] VITALS: BP 152/88
[2018-06-08] MEDS ORDERED: levETIRAcetam 1,000mg/NS100ml 100 ML IVPB SCH ×2 (09:00→21:00)
--- NOTE | 2018-06-08 09:59 | Consultation ---
History of Present Illness General Date patient seen: Jun 08, 2018 Present Illness HPI 62-year-old female with hx of brain and breast cancer, reportedly on hospice care at home was taken to [facility] with chief complaint of uncontrolled seizures. On arrival to [place] she was still postictal. After initial therapy, she was transferred to [facility] for further treatment. Allergies: Coded Allergies: No Known Allergies (Unverified , 01/16/18) Medication History Scheduled Ceftriaxone Sod (Ceftriaxone 2 gm-D5w Bag), 2 GM IV DAILY, (Reported) Fluoxetine Hcl* (Fluoxetine Hcl*), 20 MG ORAL DAILY Lacosamide (Vimpat), 100 MG PO BID, (Reported) Lacosamide (Vimpat), 100 MG ORAL Q12HR Mirtazapine* (Mirtazapine*), 7.5 MG ORAL BEDTIME Omeprazole (Omeprazole), Unknown Dose ORAL DAILY, (Reported) Patient History Healthcare decision maker Resuscitation status Advanced Directive on File Past Medical/Surgical History Past Medical/Surgical History: (1) Breast cancer (2) History of seizure (3) Ulcer of left lower leg Review of Systems All Other Systems: negative except mentioned in HPI Physical Exam General Appearance: WD/WN Lines, tubes and drains: peripheral HEENT: normocephalic, anicteric Neck: non-tender, supple Respiratory/Chest: chest wall non-tender, lungs clear Breasts: no masses Cardiovascular/Chest: normal peripheral pulses, normal rate Abdomen: normal bowel sounds Genitourinary/Rectal: normal genital exam, normal prostate exam Last 24 Hour Vital Signs Date Time Temp Pulse Resp B/P (MAP) Pulse Ox O2 Delivery O2 Flow Rate FiO2 06/08/18 08:03 89 06/08/18 08:00 97.7 94 18 152/88 (109) 96 06/08/18 04:00 82 06/08/18 04:00 97.9 87 18 139/89 (106) 96 06/08/18 00:46 Room Air 06/08/18 00:30 97.5 20 154/99 (117) 95 06/08/18 00:00 96 Intake and Output 06/07/18 06/08/18 19:00 07:00 Intake Total 225 ml Output Total 400 ml Balance -175 ml Intake IV Total 225 ml Output Urine Total 400 ml # Bowel Movements 1 Laboratory Tests Test 06/08/18 03:12 White Blood Count 8.8 K/UL (4.8-10.8) Red Blood Count 4.05 M/UL (4.20-5.40) L Hemoglobin 12.0 G/DL (12.0-16.0) Hematocrit 35.8 % (37.0-47.0) L Mean Corpuscular Volume 88 FL (80-99) Mean Corpuscular Hemoglobin 29.6 PG (27.0-31.0) Mean Corpuscular Hemoglobin Concent 33.5 G/DL (32.0-36.0) Red Cell Distribution Width 14.0 % (11.6-14.8) Platelet Count 243 K/UL (150-450) Mean Platelet Volume 5.4 FL (6.5-10.1) L Neutrophils (%) (Auto) 69.8 % (45.0-75.0) Lymphocytes (%) (Auto) 21.9 % (20.0-45.0) Monocytes (%) (Auto) 7.2 % (1.0-10.0) Eosinophils (%) (Auto) 0.8 % (0.0-3.0) Basophils (%) (Auto) 0.3 % (0.0-2.0) Sodium Level 141 MMOL/L (136-145) Potassium Level 2.9 MMOL/L (3.5-5.1) L Chloride Level 103 MMOL/L (98-107) Carbon Dioxide Level 27 MMOL/L (21-32) Anion Gap 11 mmol/L (5-15) Blood Urea Nitrogen 8 mg/dL (7-18) Creatinine 0.4 MG/DL (0.55-1.30) L Estimat Glomerular Filtration Rate > 60 mL/min (>60) Glucose Level 115 MG/DL (74-106) H Calcium Level 8.7 MG/DL (8.5-10.1) Phosphorus Level 3.1 MG/DL (2.5-4.9) Magnesium Level 1.8 MG/DL (1.8-2.4) Total Bilirubin 0.4 MG/DL (0.2-1.0) Aspartate Amino Transf (AST/SGOT) 27 U/L (15-37) Alanine Aminotransferase (ALT/SGPT) 64 U/L (12-78) Alkaline Phosphatase 97 U/L (46-116) Total Protein 6.1 G/DL (6.4-8.2) L Albumin 2.5 G/DL (3.4-5.0) L Globulin 3.6 g/dL Albumin/Globulin Ratio 0.7 (1.0-2.7) L Height (Feet): 5 Weight (Pounds): 246 Medications Current Medications Medications (Trade) Dose Ordered Sig/Gloria Route PRN Reason Start Time Stop Time Status Last Admin Dose Admin Heparin Sodium (Porcine) (Heparin 5000 units/ml) 5,000 units EVERY 8 HOURS SUBQ 06/08/18 06:00 07/08/18 05:59 06/08/18 05:59 Levetiracetam 100 ml @ 400 mls/hr Q12HR IVPB 06/08/18 09:00 07/08/18 08:59 06/08/18 09:02 Lorazepam (Ativan 2mg/ml 1ml) 1 mg Q2H PRN IV For Seizures 06/08/18 01:30 06/15/18 01:29 06/08/18 07:57 Potassium Chloride (K-Dur) 40 meq Q8H ORAL 06/08/18 07:30 06/08/18 15:31 06/08/18 07:57 Sodium Chloride 1,000 ml @ 75 mls/hr [id number] IV 06/08/18 03:00 07/08/18 02:59 06/08/18 03:15 Assessment/Plan Problem List: (1) Uncontrolled seizures ICD Codes: R56.9 - Unspecified convulsions SNOMED: 59741713 (2) Metastatic cancer ICD Codes: C79.9 - Secondary malignant neoplasm of unspecified site SNOMED: 332148149 (3) Breast cancer ICD Codes: C50.919 - Malignant neoplasm of unspecified site of unspecified female breast SNOMED: 953647153 (4) Morbid obesity ICD Codes: E66.01 - Morbid (severe) obesity due to excess calories SNOMED: 725280586 Assessment/Plan symptomatic treatment seizure precaution on Keppra comfort care agree with hospice care check electrolytes. Miguel A Lenz MD Jun 08, 2018 09:59
[2018-06-08 12:00] VITALS: BP 148/88
[2018-06-08] MEDS ORDERED: KEPPRA1000 MG ORAL (12:12)
[2018-06-08] MEDS ORDERED: DEXAMETHASONE1.5 M1 PO (12:13)
[2018-06-08] MEDS ORDERED: TRAZODONE HCL50 MG ORAL (12:15)
[2018-06-08] MEDS ORDERED: UNOBMED (12:17)
[2018-06-08 16:00] VITALS: BP 154/95
[2018-06-08] MEDS ORDERED: LINZESS145 MCG PO (18:26)
[2018-06-08] MEDS ORDERED: METOPROLOL TART25 MG ORAL (18:26)
[2018-06-08] MEDS ORDERED: FUROSEMIDE20 M1 ORAL (18:26)
[2018-06-08 20:00] VITALS: BP 152/101
--- NOTE | 2018-06-08 20:14 | History & Physical ---
History and Physical History & Physicial Dictated for Int Med-Dr Braga no. [id number]. Ayo Roth MD Jun 08, 2018 20:14
[2018-06-08] MEDS ORDERED: LORazepam Inj 2mg/ml 1ml IV PRN (21:00)
[2018-06-09] VITALS: BP 140/87
--- NOTE | 2018-06-09 | History and Physical Report ---
DATE OF ADMISSION: 06/08/2018 CHIEF COMPLAINT: The patient is a 62-year-old female with history of breast cancer with brain metastases, who presents with chief complaint of intractable seizure activity. HISTORY OF PRESENT ILLNESS: The patient has a history of breast cancer with metastases to the brain. The patient was admitted to [facility] in December of 2017. Please see history and physical and discharge summary dictated at that time. The patient has a history of breast cancer with metastases to the brain. The patient had previously been in chemotherapy. The patient apparently has been on hospice at home. According to family who is present, the patient has approximately two to three seizures per week. Family states that yesterday, 06/07/2018, the patient had four seizures [id number]. The patient initially went to [facility] emergency room. The patient was transferred to [facility] for insurance purposes. The patient is admitted for breast cancer with metastases to the brain and intractable seizure disorder. PAST MEDICAL HISTORY: Significant for: 1. Breast cancer with metastases to the brain, diagnosed in 2014. 2. Seizure disorder. PAST SURGICAL HISTORY: Significant for resection of brain tumor in 2016. CURRENT MEDICATIONS: 1. Vimpat 100 mg p.o. twice daily. 2. Keppra 1000 mg p.o. twice daily. 3. Lasix 20 mg p.o. daily. 4. Metoprolol 25 mg p.o. twice daily. ALLERGIES: No known drug allergies. SOCIAL HISTORY: The patient is . The patient's and family members are at the bedside. The patient denies tobacco or alcohol use. REVIEW OF SYSTEMS: CONSTITUTIONAL: The patient denies weight loss or gain. The patient denies fevers or chills. HEENT: The patient denies ear or throat pain. The patient denies headache. CARDIOVASCULAR: The patient denies palpitations or chest pain. CHEST: The patient denies wheeze or shortness of breath. ABDOMINAL: The patient denies nausea, vomiting, diarrhea, or constipation. GENITOURINARY: The patient denies dysuria or increased frequency of urination. NEUROMUSCULAR: The patient has seizures as above. The patient denies generalized weakness. PHYSICAL EXAMINATION: VITAL SIGNS: Temperature 97.9, respirations 20, pulse 117, and blood pressure 148/80. GENERAL: The patient is a well-developed and well-nourished obese female, in no apparent distress. HEENT: Eyes, pupils equal and responsive to light and accommodation. Extraocular movements are intact. NECK: Supple without lymphadenopathy. CHEST: Lungs are clear to auscultation bilaterally without wheezes or rales. CARDIOVASCULAR: Regular rate. S1, S2 are normal without murmurs, rubs, or gallops. ABDOMEN: Soft, nontender, and nondistended with positive bowel sounds. No evidence of hepatosplenomegaly. Currently, no rebound or guarding noted. EXTREMITIES: Negative for clubbing, cyanosis, or edema. RECTAL: Refused. GENITAL: Refused. NEUROLOGIC: Cranial nerves II through XII are grossly intact without focal deficits. Motor strength is 5/5 on the left and 3/5 on the right. Deep tendon reflexes are 2+, plantar. LABORATORY STUDIES: WBC 10.5, hemoglobin 12.8, hematocrit 37.7, and platelets 258,000. Sodium 136, potassium 3.4, chloride 98, CO2 26, BUN 8, creatinine 0.52, and glucose 135. A chest x-ray was reported as no acute . A CT scan of the brain showed previous right parietal craniotomy with abnormal white matter involving the right cerebral hemisphere diffusely with generalized cerebral edema in the right cerebral hemisphere. ASSESSMENT: This is a 62-year-old female with: 1. Intractable seizure. 2. Breast cancer with metastases to the brain. 3. Hypertension. 4. Depression. 5. Cerebral edema. TREATMENT: 1. Intractable seizure/cerebral edema. A Neurology consultation has been obtained with Dr. Juan Davis. The patient has been started on intravenous Solu-Medrol for cerebral edema. The patient has been started on Keppra intravenously with Ativan intravenously for breakthrough seizures. 2. Hypertension. Continue metoprolol as above. 3. Depression. 4. Cerebral edema. Ayo Roth M.D. DR: SAIGE JOB#: [id number] CC:
[2018-06-09 04:00] VITALS: BP 151/93
[2018-06-09] MEDS: Heparin 5000 units/ml inj SUBQ SCH ×3 (06:40→21:41)
[2018-06-09] MEDS: NS w/KCl 20mEq 1,000 ML IV SCH ×2 (06:54→21:42)
[2018-06-09 07:36] LABS: BASOPHILS % (AUTO) 0.6 % (0.0-2.0); EOSINOPHILS % (AUTO) 1.1 % (0.0-3.0); HEMOGLOBIN 12.6 G/DL (12.0-16.0); LYMPHOCYTES % (AUTO) 21.8 % (20.0-45.0); MEAN CORPUSCULAR VOLUME 90 FL (80-99); MONOCYTES % (AUTO) 8.9 % (1.0-10.0); NEUTROPHILS % (AUTO) 67.6 % (45.0-75.0); PLATELET COUNT 243 K/UL (150-450); RED BLOOD COUNT 4.23 M/UL (4.20-5.40); RED CELL DISTRIBUTION WIDTH 14.7 % (11.6-14.8); WHITE BLOOD COUNT 7.1 K/UL (4.8-10.8)
[2018-06-09 07:45] LABS: ALANINE AMINOTRANSFERASE 68 U/L (12-78); ALBUMIN 2.7 G/DL (3.4-5.0); ALBUMIN/GLOBULIN RATIO 0.7 (1.0-2.7); ALKALINE PHOSPHATASE 106 U/L (46-116); ANION GAP 9 mmol/L (5-15); ASPARTATE AMINO TRANSFERASE 27 U/L (15-37); BILIRUBIN,TOTAL 0.5 MG/DL (0.2-1.0); BLOOD UREA NITROGEN 16 mg/dL (7-18); CALCIUM 8.9 MG/DL (8.5-10.1); CARBON DIOXIDE 25 MMOL/L (21-32); CHLORIDE 107 MMOL/L (98-107); CREATININE 0.6 MG/DL (0.55-1.30); PHOSPHORUS 3.8 MG/DL (2.5-4.9); POTASSIUM 3.5 MMOL/L (3.5-5.1); SODIUM 141 MMOL/L (136-145)
[2018-06-09 08:00] VITALS: BP 176/109
--- NOTE | 2018-06-09 08:49 | Consultation ---
Consult Note Consult Note NEUROLOGY CONSULTATION: Full note dictated #[id number] 62 y/o, RH, HF with long H/O breast cancer with brain metastases associated with left sided weakness and a seizure disorder. Her usual seizure frequency has been two to three seizures per week. However on 06/07/2018, the patient had four seizures [id number]. She was taken to [facility] emergency room, and then was transferred to [facility]. She feels that she is back to her usual self now. ON EXAM: Problems with memory. Left VII central mild. Left severe paresis with G 2/5 in left FF and hip rotators. Proximal right LE paresis with G 4/5. Globally diminished DTRs Extensor left plantar. IMPRESSION: Breast cancer since 2014 with brain metastases. Seizure disorder due to brain metastases. Breakthrough seizures perhaps due to subtherapeutic Keppra and Vimpat doses - patient weighs 111 Kg. REC: 1. Increase Keppra dose to 1.5 G q 12 hours. 2. Increase Vimpat dose to 150 mg q 12 hours. Juan Davis M.D., M.S.P.H. Juan Davis MD Jun 09, 2018 08:49
[2018-06-09] MEDS: Lacosamide 50mg tablet ORAL SCH ×2 (10:02→21:41)
--- NOTE | 2018-06-09 11:46 | Pulmonology Progress Note ---
Assessment/Plan Problems: (1) Uncontrolled seizures (2) Metastatic cancer (3) Breast cancer (4) Morbid obesity Assessment/Plan one episode of seizures in the last 24 hours, yesterday morning all reviewed seizure precaution aspiration precaution f/u neurology recommendations Subjective ROS Limited/Unobtainable: Yes Interval Events: somnolent Allergies: Coded Allergies: No Known Allergies (Unverified , 01/16/18) Objective Last 24 Hour Vital Signs Date Time Temp Pulse Resp B/P (MAP) Pulse Ox O2 Delivery O2 Flow Rate FiO2 06/09/18 10:41 176/109 06/09/18 09:35 124 176/109 06/09/18 09:00 Room Air 06/09/18 08:00 98.4 124 21 176/109 (131) 96 06/09/18 08:00 120 06/09/18 04:00 107 06/09/18 04:00 98.7 126 20 151/93 (112) 96 06/09/18 00:00 113 06/09/18 00:00 98.6 113 20 140/87 (104) 94 06/08/18 20:00 128 06/08/18 20:00 98.6 124 32 152/101 (118) 95 06/08/18 18:00 Room Air 06/08/18 17:19 134 154/95 06/08/18 16:00 98.2 134 20 154/95 (114) 96 06/08/18 15:34 136 06/08/18 12:00 97.9 117 20 148/88 (108) 100 06/08/18 12:00 117 Intake and Output 06/08/18 06/09/18 19:00 07:00 Intake Total 1703.75 ml 300 ml Output Total 700 ml 450 ml Balance 1003.75 ml -150 ml Intake Oral 780 ml 300 ml IV Total 923.75 ml Output Urine Total 700 ml 450 ml # Bowel Movements 2 General Appearance: WD/WN HEENT: normocephalic, atraumatic Respiratory/Chest: chest wall non-tender, normal breath sounds Breasts: no masses Cardiovascular: normal rate Abdomen: soft, non tender, no organomegaly Laboratory Tests 06/09/18 06:20: White Blood Count 7.1, Red Blood Count 4.23, Hemoglobin 12.6, Hematocrit 38.0, Mean Corpuscular Volume 90, Mean Corpuscular Hemoglobin 29.9, Mean Corpuscular Hemoglobin Concent 33.2, Red Cell Distribution Width 14.7, Platelet Count 243, Mean Platelet Volume 5.0L, Neutrophils (%) (Auto) 67.6, Lymphocytes (%) (Auto) 21.8, Monocytes (%) (Auto) 8.9, Eosinophils (%) (Auto) 1.1, Basophils (%) (Auto ) 0.6, Sodium Level 141, Potassium Level 3.5, Chloride Level 107, Carbon Dioxide Level 25, Anion Gap 9, Blood Urea Nitrogen 16, Creatinine 0.6, Estimat Glomerular Filtration Rate > 60, Glucose Level 115H, Calcium Level 8.9, Phosphorus Level 3.8, Magnesium Level 1.8, Total Bilirubin 0.5, Aspartate Amino Transf (AST/SGOT) 27, Alanine Aminotransferase (ALT/SGPT) 68, Alkaline Phosphatase 106, Total Protein 6.5, Albumin 2.7L, Globulin 3.8, Albumin/ Globulin Ratio 0.7L Current Medications Medications (Trade) Dose Ordered Sig/Gloria Route PRN Reason Start Time Stop Time Status Last Admin Dose Admin Acetaminophen (Tylenol) 650 mg Q4H PRN ORAL Mild Pain/Temp > 100.5 06/08/18 21:30 07/08/18 21:29 Carvedilol (Coreg) 3.125 mg EVERY 12 HOURS ORAL 06/09/18 09:00 07/09/18 08:59 06/09/18 09:35 Clonidine HCl (Catapres Tab) 0.1 mg Q6H PRN ORAL High blood pressure 06/09/18 10:30 07/09/18 10:29 06/09/18 10:41 Heparin Sodium (Porcine) (Heparin 5000 units/ml) 5,000 units EVERY 8 HOURS SUBQ 06/08/18 22:00 07/08/18 05:59 06/09/18 06:40 Lacosamide (Vimpat) 150 mg Q12HR ORAL 06/09/18 09:00 07/09/18 08:59 06/09/18 10:02 Levetiracetam (Keppra) 1,500 mg Q12HR ORAL 06/09/18 09:00 07/09/18 08:59 06/09/18 09:35 Lorazepam (Ativan 2mg/ml 1ml) 1 mg Q2H PRN IV For Seizures 06/08/18 21:00 06/15/18 20:59 Sodium Chloride 1,000 ml @ 75 mls/hr [id number] IV 06/08/18 20:30 07/08/18 02:59 06/09/18 06:54 Miguel A Lenz MD Jun 09, 2018 11:46
[2018-06-09 12:00] VITALS: BP 123/87
[2018-06-09 16:00] VITALS: BP 152/79
--- NOTE | 2018-06-09 18:15 | Consultation ---
DATE OF CONSULTATION: 06/09/2018 NEUROLOGY CONSULTATION CONSULTING PHYSICIAN: Juan Davis M.D. REQUESTING PHYSICIAN: Ayo Roth M.D. HISTORY: Ms. Jesi Chicas is a 62-year-old, right-handed, lady with a long history of breast cancer since 2014 with brain metastasis for which she has had surgery associated with left-sided weakness and a seizure disorder. She takes Keppra 1 G twice a day and Vimpat 100 mg twice a day and her usual seizure frequency has been 2 to 3 seizures in a week. However, on 06/07/2018, she had 4 seizures one after the other. She was taken to [facility] emergency room and then transferred to [facility]. Since she has been here, she has been seizure-free. At this point in time, she feels that she is back to her usual self. PAST MEDICAL HISTORY: Significant for breast cancer with brain metastasis associated with left-sided weakness and a seizure disorder. FAMILY HISTORY: Nothing significant. PERSONAL HISTORY: Home: She lives with her family. 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 Habits: She denies use of alcohol, tobacco, or illicit drugs. MEDICATIONS AT HOME: Included Vimpat 100 mg twice a day, Keppra 1000 mg twice a day, Lasix 20 mg daily, and metoprolol 25 mg twice a day. PHYSICAL EXAMINATION: GENERAL: She is a well-developed, well-nourished, obese, cushingoid lady, lying in bed, in no acute distress. VITAL SIGNS: Pulse 124/minute, blood pressure 176/109 mmHg, respirations 20/minute, and temperature 98.4 degrees Fahrenheit. HEAD: Normocephalic. EENT: Examination benign. NECK: No neck rigidity was observed. NEUROLOGIC EXAMINATION: MENTAL STATUS EXAMINATION: She was awake and alert. She was oriented to self, hospital, and date. She did not know the name of the hospital. She was able to recall 3/3 words immediately, but could only remember 2/3 words in 1 minute and 3 minutes. She was able to remember Presidents Trump through Kelley Jules, but could not remember Presidents prior to that. Her mathematical skills were minimally impaired. Her visuospatial function was also minimally impaired. SPEECH: She had a mild dysarthria. LANGUAGE: Could not be tested adequately. CRANIAL NERVE EXAMINATION: II: The visual quezada were intact on confrontation testing. III, IV & : The external ocular movements were full and the pupils 3 mm in diameter, equal, round, regular, and reactive to light. V: She had normal facial sensations and the temporales, masseters, and pterygoids functioned normally. VII: She had a trace left seventh central facial paresis. VIII: She was able to hear and had no nystagmus. IX: The palate moved symmetrically on phonation. X: She had no hoarseness of voice. XI: The sternocleidomastoids and trapezii functioned normally. XII: The tongue was in the midline without any fasciculations or atrophy. MOTOR SYSTEM: The tone was normal on the right side and minimally decreased on the left side. Examination of muscle mass revealed no focal wasting. Examination of power was exceedingly difficult to perform because of varying degrees of effort. She, however, had a severe left paresis with G 0/5 except for G 2/5 in the left finger flexors and hip rotators. On the right side, she had approximately G 5/5 power except for G 4/5 power in the right iliopsoas. SENSORY EXAMINATION: She complained of a subjective alteration to pinprick and light touch over entire left body. REFLEXES: Trace+ and bilaterally symmetrical at the biceps, triceps, brachioradialis, and knees, 0 at both ankles. The plantar response was flexor on the right and extensor on the left. COORDINATION: She performed well on [id number] testing on the right side. She was unable to perform on the left side. [id number] testing could not be tested. STANCE & GAIT: Could not be tested. DIAGNOSTIC IMPRESSION: 1. Ms. Jesi Chicas is a 62-year-old, right-handed, lady, with a history of breast cancer since 2015 with brain metastasis as a result of which, she has been significantly weak on the left side and has had a seizure disorder. Her usual seizure frequency is 2 to 3 seizures per week, however, on 06/07/2018, she had a flurry of 4 seizures 1 after the other. She does not remember what exactly happened. 2. On neurological examination at this time, she does have problems with recent and remote memory, visuospatial function, higher cognitive function, a mild dysarthria, the left seventh central facial paresis, severe left-sided paresis with mild proximal right lower extremity paresis, globally diminished deep tendon reflexes, and an extensor plantar response on the left side. 3. The patient's history and neurological examination are most consistent with breast cancer with brain metastasis leading to a seizure disorder. The patient's breakthrough seizures are most probably due to the fact that she is on subtherapeutic doses of Keppra and Vimpat. The patient weighs 111 kilograms. RECOMMENDATIONS: 1. Would increase the dose of Keppra to 1.5 grams q.12 hours. 2. Would increase the dose of Vimpat to 150 mg q.12 hours. 3. Depending on how the patient fares over the next day or so, further recommendations will be given. Thank you for entrusting me with the care of Ms. Chicas. I shall follow her with you. Juan Davis M.D., M.S.P.H. DR: CARLTON JOB#: [id number]
[2018-06-09 20:00] VITALS: BP 125/71
--- NOTE | 2018-06-09 21:44 | Internal Med Progress Note ---
Subjective Physician Name Sander Christensen Attending Physician Sander Christensen MD Current Medications Medications (Trade) Dose Ordered Sig/Gloria Route PRN Reason Start Time Stop Time Status Last Admin Dose Admin Acetaminophen (Tylenol) 650 mg Q4H PRN ORAL Mild Pain/Temp > 100.5 06/08/18 21:30 07/08/18 21:29 06/09/18 19:55 Carvedilol (Coreg) 3.125 mg EVERY 12 HOURS ORAL 06/09/18 09:00 07/09/18 08:59 06/09/18 09:35 Clonidine HCl (Catapres Tab) 0.1 mg Q6H PRN ORAL High blood pressure 06/09/18 10:30 07/09/18 10:29 06/09/18 10:41 Heparin Sodium (Porcine) (Heparin 5000 units/ml) 5,000 units EVERY 8 HOURS SUBQ 06/08/18 22:00 07/08/18 05:59 06/09/18 13:27 Lacosamide (Vimpat) 150 mg Q12HR ORAL 06/09/18 09:00 07/09/18 08:59 06/09/18 10:02 Levetiracetam (Keppra) 1,500 mg Q12HR ORAL 06/09/18 09:00 07/09/18 08:59 06/09/18 09:35 Lorazepam (Ativan 2mg/ml 1ml) 1 mg Q2H PRN IV For Seizures 06/08/18 21:00 06/15/18 20:59 Sodium Chloride 1,000 ml @ 75 mls/hr [id number] IV 06/08/18 20:30 07/08/18 02:59 06/09/18 06:54 Allergies: Coded Allergies: No Known Allergies (Unverified , 01/16/18) Subjective awake, alert, responsive, NAD, No chest pain or SOB Objective Last Vital Signs Date Time Temp Pulse Resp B/P (MAP) Pulse Ox O2 Delivery O2 Flow Rate FiO2 06/09/18 20:00 130 06/09/18 20:00 99.0 24 125/71 (89) 95 06/09/18 09:00 Room Air Laboratory Tests Test 06/09/18 06:20 White Blood Count 7.1 K/UL (4.8-10.8) Red Blood Count 4.23 M/UL (4.20-5.40) Hemoglobin 12.6 G/DL (12.0-16.0) Hematocrit 38.0 % (37.0-47.0) Mean Corpuscular Volume 90 FL (80-99) Mean Corpuscular Hemoglobin 29.9 PG (27.0-31.0) Mean Corpuscular Hemoglobin Concent 33.2 G/DL (32.0-36.0) Red Cell Distribution Width 14.7 % (11.6-14.8) Platelet Count 243 K/UL (150-450) Mean Platelet Volume 5.0 FL (6.5-10.1) L Neutrophils (%) (Auto) 67.6 % (45.0-75.0) Lymphocytes (%) (Auto) 21.8 % (20.0-45.0) Monocytes (%) (Auto) 8.9 % (1.0-10.0) Eosinophils (%) (Auto) 1.1 % (0.0-3.0) Basophils (%) (Auto) 0.6 % (0.0-2.0) Sodium Level 141 MMOL/L (136-145) Potassium Level 3.5 MMOL/L (3.5-5.1) Chloride Level 107 MMOL/L (98-107) Carbon Dioxide Level 25 MMOL/L (21-32) Anion Gap 9 mmol/L (5-15) Blood Urea Nitrogen 16 mg/dL (7-18) Creatinine 0.6 MG/DL (0.55-1.30) Estimat Glomerular Filtration Rate > 60 mL/min (>60) Glucose Level 115 MG/DL (74-106) H Calcium Level 8.9 MG/DL (8.5-10.1) Phosphorus Level 3.8 MG/DL (2.5-4.9) Magnesium Level 1.8 MG/DL (1.8-2.4) Total Bilirubin 0.5 MG/DL (0.2-1.0) Aspartate Amino Transf (AST/SGOT) 27 U/L (15-37) Alanine Aminotransferase (ALT/SGPT) 68 U/L (12-78) Alkaline Phosphatase 106 U/L (46-116) Total Protein 6.5 G/DL (6.4-8.2) Albumin 2.7 G/DL (3.4-5.0) L Globulin 3.8 g/dL Albumin/Globulin Ratio 0.7 (1.0-2.7) L Levetiracetam (Keppra) Level Pending Intake and Output 06/08/18 06/09/18 19:00 07:00 Intake Total 1703.75 ml 300 ml Output Total 700 ml 450 ml Balance 1003.75 ml -150 ml Intake Oral 780 ml 300 ml IV Total 923.75 ml Output Urine Total 700 ml 450 ml # Bowel Movements 2 Objective General: No acute distress, awake and alert HEENT: NCAT, sclera anicteric, PERRL, EOMI. Neck: Supple, no significant jugular venous distention, Lungs: Fair inspiratory effort, Decrease breath sound at bases, no Wheeze or Rales. Heart: Regular rate and rhythm, normal S1/S2, no murmurs Abdomen: soft, nontender, nondistended. Normoactive bowel sounds, Morbid obesity. / Rectal: Refused and deferred. Extremities: No Cyanosis , clubbing or edema. Neuro: A&O x 3, Able to move all extremities but left side 3/5 motor and right side 5/5 motor. Skin: warm, no rashes Assessment/Plan Assessment/Plan 1. Breakthrough seizure. 2. Breast cancer with metastases to the brain. 3. Hypertension. 4. Depression. 5. Cerebral edema. 6. Left side weakness. Plan: F/U with Dr. Davis recommendations: 1. I would increase the dose of Keppra to 1.5 grams q.12 hours. 2. I would increase the dose of Vimpat to 150 mg q.12 hours. Monitor for seizure precaution PT Mobility F/U with labs in AM. Sander Christensen MD Jun 09, 2018 21:44
[2018-06-10] VITALS: BP 116/63
[2018-06-10 04:00] VITALS: BP 147/83
[2018-06-10] MEDS: Heparin 5000 units/ml inj SUBQ SCH ×3 (05:31→21:09)
[2018-06-10] MEDS ORDERED: LORazepam Inj 2mg/ml 1ml IV PRN (07:30)
[2018-06-10 08:00] VITALS: BP 132/95
[2018-06-10] MEDS: Lacosamide 50mg tablet ORAL SCH ×2 (09:05→21:28)
[2018-06-10] MEDS: NS w/KCl 20mEq 1,000 ML IV SCH ×2 (09:06→21:06)
--- NOTE | 2018-06-10 11:20 | Consultation ---
History of Present Illness Present Illness HPI 62-year-old female with history of breast cancer with brain metastases, who presents with chief complaint of intractable seizure activity. the pt is well known to me from the previous admission. the pt has anxiety and depression and has been on remeron the pt is forgetful Allergies: Coded Allergies: No Known Allergies (Unverified , 01/16/18) Medication History Scheduled Ceftriaxone Sod (Ceftriaxone 2 gm-D5w Bag), 2 GM IV DAILY, (Reported) Dexamethasone (Dexamethasone), Unknown Dose PO DAILY, (Reported) Fluoxetine Hcl* (Fluoxetine Hcl*), 20 MG ORAL DAILY Furosemide* (Lasix*), 20 MG ORAL DAILY, (Reported) Lacosamide (Vimpat), 100 MG PO BID, (Reported) Lacosamide (Vimpat), 100 MG ORAL Q12HR Levetiracetam (Keppra), 1,000 MG ORAL BID, (Reported) Metoprolol Tartrate* (Metoprolol Tartrate*), 25 MG ORAL EVERY 12 HOURS, ( Reported) Mirtazapine* (Mirtazapine*), 7.5 MG ORAL BEDTIME Omeprazole (Omeprazole), Unknown Dose ORAL DAILY, (Reported) Trazodone Hcl* (Desyrel*), Unknown Dose ORAL BEDTIME, (Reported) Miscellaneous Medications Linaclotide (Linzess), 145 MCG PO, (Reported) Unable to Obtain Medications (Unable To Obtain Meds), (Reported) Patient History Limited by: medical condition History Provided By: Patient, Medical Record, PMD Healthcare decision maker Resuscitation status Advanced Directive on File Past Medical/Surgical History Past Medical/Surgical History: (1) Morbid obesity (2) Metastatic cancer (3) Uncontrolled seizures (4) Breast cancer (5) History of seizure (6) Tachycardia (7) Hypokalemia (8) ATN (acute tubular necrosis) (9) Ulcer of left lower leg Review of Systems Psychiatric: Reports: prior hx, anxiety, depressed feelings, emotional problems Physical Exam General Appearance: no apparent distress, alert, confused, morbidly obese Neurologic: responsive Last 24 Hour Vital Signs Date Time Temp Pulse Resp B/P (MAP) Pulse Ox O2 Delivery O2 Flow Rate FiO2 06/10/18 09:05 110 132/95 06/10/18 08:00 98.4 110 20 132/95 (107) 98 06/10/18 04:00 98.9 108 24 147/83 (104) 96 06/10/18 04:00 108 06/10/18 00:00 105 06/10/18 00:00 98.7 105 24 116/63 (80) 98 06/09/18 21:40 130 125/71 06/09/18 21:00 Room Air 06/09/18 20:00 130 06/09/18 20:00 99.0 118 24 125/71 (89) 95 06/09/18 16:00 98.2 121 21 152/79 (103) 95 06/09/18 16:00 120 06/09/18 12:00 116 06/09/18 12:00 98.1 114 22 123/87 (99) 97 Intake and Output 06/09/18 06/10/18 19:00 07:00 Intake Total 200 ml 300 ml Output Total 650 ml 375 ml Balance -450 ml -75 ml Intake Oral 200 ml 300 ml Output Urine Total 650 ml 375 ml # Bowel Movements 1 2 Height (Feet): 5 Weight (Pounds): 246 Medications Current Medications Medications (Trade) Dose Ordered Sig/Gloria Route PRN Reason Start Time Stop Time Status Last Admin Dose Admin Acetaminophen (Tylenol) 650 mg Q4H PRN ORAL Mild Pain/Temp > 100.5 06/10/18 07:30 07/08/18 07:29 06/10/18 10:51 Carvedilol (Coreg) 3.125 mg EVERY 12 HOURS ORAL 06/10/18 09:00 07/09/18 08:59 06/10/18 09:05 Clonidine HCl (Catapres Tab) 0.1 mg Q6H PRN ORAL High blood pressure 06/10/18 07:30 07/09/18 07:29 Heparin Sodium (Porcine) (Heparin 5000 units/ml) 5,000 units EVERY 8 HOURS SUBQ 06/10/18 14:00 07/08/18 05:59 Lacosamide (Vimpat) 150 mg Q12HR ORAL 06/10/18 09:00 07/09/18 08:59 06/10/18 09:05 Levetiracetam (Keppra) 1,500 mg Q12HR ORAL 06/10/18 09:00 07/09/18 08:59 06/10/18 09:06 Lorazepam (Ativan 2mg/ml 1ml) 1 mg Q2H PRN IV For Seizures 06/10/18 07:30 06/15/18 07:29 Sodium Chloride 1,000 ml @ 75 mls/hr [id number] IV 06/10/18 07:15 07/08/18 02:59 06/10/18 09:06 Assessment/Plan Problem List: (1) encephalopathy due to toxin (2) Anxiety disorder ICD Codes: F41.9 - Anxiety disorder, unspecified SNOMED: [id number] Assessment/Plan remeron [facility] seroquel prn raise the head Anna Marie Rodgers MD Jun 10, 2018 11:20
[2018-06-10 12:00] VITALS: BP 165/98
--- NOTE | 2018-06-10 14:39 | Pulmonology Progress Note ---
Assessment/Plan Problems: (1) Uncontrolled seizures (2) Metastatic cancer (3) Breast cancer (4) Morbid obesity Assessment/Plan all noted Depakote dose was increased all reviewed seizure precaution aspiration precaution f/u neurology recommendations Subjective ROS Limited/Unobtainable: No Constitutional: Reports: no symptoms HEENT: Repors: no symptoms Respiratory: Reports: no symptoms Allergies: Coded Allergies: No Known Allergies (Unverified , 01/16/18) Objective Last 24 Hour Vital Signs Date Time Temp Pulse Resp B/P (MAP) Pulse Ox O2 Delivery O2 Flow Rate FiO2 06/10/18 12:26 165/98 06/10/18 12:00 99.7 116 22 165/98 (120) 96 06/10/18 11:21 98.4 06/10/18 09:05 110 132/95 06/10/18 09:00 Room Air 06/10/18 08:00 98.4 110 20 132/95 (107) 98 06/10/18 04:00 98.9 108 24 147/83 (104) 96 06/10/18 04:00 108 06/10/18 00:00 105 06/10/18 00:00 98.7 105 24 116/63 (80) 98 06/09/18 21:40 130 125/71 06/09/18 21:00 Room Air 06/09/18 20:00 130 06/09/18 20:00 99.0 118 24 125/71 (89) 95 06/09/18 16:00 98.2 121 21 152/79 (103) 95 06/09/18 16:00 120 Intake and Output 06/09/18 06/10/18 19:00 07:00 Intake Total 200 ml 300 ml Output Total 650 ml 375 ml Balance -450 ml -75 ml Intake Oral 200 ml 300 ml Output Urine Total 650 ml 375 ml # Bowel Movements 1 2 General Appearance: WD/WN HEENT: normocephalic, atraumatic Respiratory/Chest: chest wall non-tender, lungs clear Breasts: no masses Cardiovascular: normal peripheral pulses, normal rate Abdomen: normal bowel sounds, soft, non tender 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 grossly normal Current Medications Medications (Trade) Dose Ordered Sig/Gloria Route PRN Reason Start Time Stop Time Status Last Admin Dose Admin Acetaminophen (Tylenol) 650 mg Q4H PRN ORAL Mild Pain/Temp > 100.5 06/10/18 07:30 07/08/18 07:29 06/10/18 10:51 Carvedilol (Coreg) 3.125 mg EVERY 12 HOURS ORAL 06/10/18 09:00 07/09/18 08:59 06/10/18 09:05 Clonidine HCl (Catapres Tab) 0.1 mg Q6H PRN ORAL High blood pressure 06/10/18 07:30 07/09/18 07:29 06/10/18 12:26 Heparin Sodium (Porcine) (Heparin 5000 units/ml) 5,000 units EVERY 8 HOURS SUBQ 06/10/18 14:00 07/08/18 05:59 06/10/18 14:35 Lacosamide (Vimpat) 150 mg Q12HR ORAL 06/10/18 09:00 07/09/18 08:59 06/10/18 09:05 Levetiracetam (Keppra) 1,500 mg Q12HR ORAL 06/10/18 09:00 07/09/18 08:59 06/10/18 09:06 Lorazepam (Ativan 2mg/ml 1ml) 1 mg Q2H PRN IV For Seizures 06/10/18 07:30 06/15/18 07:29 Sodium Chloride 1,000 ml @ 75 mls/hr [id number] IV 06/10/18 07:15 07/08/18 02:59 06/10/18 09:06 Miguel A Lenz MD Jun 10, 2018 14:39
[2018-06-10 16:00] VITALS: BP 134/82
[2018-06-10 20:00] VITALS: BP 121/85
--- NOTE | 2018-06-10 20:26 | Neurology Progress Note ---
Interim History Interim History Interim History Ms. Chicas feels well. She continues to be seizure free. The mind is clear. She is tolerating the medicines well. She continues to be weaker on the left than on the right. She continues to be weaker in the lower than upper extremities. Review of Systems Neuro Review of Systems Benign. Objective Physical Exam Last Vital Signs Date Time Temp Pulse Resp B/P (MAP) Pulse Ox O2 Delivery O2 Flow Rate FiO2 06/10/18 16:00 98.7 108 20 134/82 (99) 99 06/10/18 09:00 Room Air Neurologic Exam Objective PHYSICAL EXAMINATION: GENERAL: She is a well-developed, well-nourished, obese, cushingoid lady, lying in bed, in no acute distress. HEAD: Normocephalic. EENT: Examination benign. NECK: No neck rigidity was observed. NEUROLOGIC EXAMINATION: MENTAL STATUS EXAMINATION: She was awake and alert. She was oriented to self, hospital, and date. She did not know the name of the hospital. She was able to recall 3/3 words immediately, but could only remember 2/3 words in 1 minute and 3 minutes. She was able to remember Presidents Trump through Kelley Jules, but could not remember Presidents prior to that. Her mathematical skills were minimally impaired. Her visuospatial function was also minimally impaired. SPEECH: She had a mild dysarthria. LANGUAGE: Could not be tested adequately. CRANIAL NERVE EXAMINATION: II: The visual quezada were intact on confrontation testing. III, IV & : The external ocular movements were full and the pupils 3 mm in diameter, equal, round, regular, and reactive to light. V: She had normal facial sensations and the temporales, masseters, and pterygoids functioned normally. VII: She had a trace left seventh central facial paresis. VIII: She was able to hear and had no nystagmus. IX: The palate moved symmetrically on phonation. X: She had no hoarseness of voice. XI: The sternocleidomastoids and trapezii functioned normally. XII: The tongue was in the midline without any fasciculations or atrophy. MOTOR SYSTEM: The tone was normal on the right side and minimally decreased on the left side. Examination of muscle mass revealed no focal wasting. Examination of power was exceedingly difficult to perform because of varying degrees of effort. She, however, had a severe left paresis with G 0/5 except for G 2/5 in the left finger flexors and hip rotators. On the right side, she had approximately G 5/5 power except for G 4/5 power in the right iliopsoas. SENSORY EXAMINATION: She complained of a subjective alteration to pinprick and light touch over entire left body. REFLEXES: Trace+ and bilaterally symmetrical at the biceps, triceps, brachioradialis, and knees, 0 at both ankles. The plantar response was flexor on the right and extensor on the left. COORDINATION: She performed well on [id number] testing on the right side. She was unable to perform on the left side. [id number] testing could not be tested. STANCE & GAIT: Could not be tested. Impression/Recommendations Diagnostic Impression 1. Ms. Jesi Chicas is a 62-year-old, right-handed, lady, with a history of breast cancer since 2014 with brain metastases as a result of which, she has been significantly weak on the left side and has had a seizure disorder. Her usual seizure frequency is 2 to 3 seizures per week, however, on 06/07/2018, she had a flurry of 4 seizures 1 after the other. She does not remember what exactly happened. 2. She feels well. She continues to be seizure free. The mind is clear. She is tolerating the medicines well. She continues to be weaker on the left than on the right. She continues to be weaker in the lower than upper extremities. 3. On neurological examination at this time, she does have problems with recent and remote memory, visuospatial function, higher cognitive function, a mild dysarthria, the left seventh central facial paresis, severe left-sided paresis with mild proximal right lower extremity paresis, globally diminished deep tendon reflexes, and an extensor plantar response on the left side. 4. The patient's history and neurological examination are most consistent with breast cancer with brain metastasis leading to a seizure disorder. The patient' s breakthrough seizures are most probably due to the fact that she is on subtherapeutic doses of Keppra and Vimpat. The patient weighs 111 kilograms. Recommendations 1. Continue Keppra to 1.5 grams q.12 hours. 2. Continue Vimpat to 150 mg q.12 hours. 3. Observe closely. Juan Davis M.D., M.S.P.H. Juan Davis MD Jun 10, 2018 20:26
[2018-06-11] VITALS: BP 145/93
[2018-06-11 04:00] VITALS: BP 117/82
[2018-06-11] MEDS: Heparin 5000 units/ml inj SUBQ SCH ×3 (05:52→22:59)
--- NOTE | 2018-06-11 07:41 | Pulmonology Progress Note ---
Assessment/Plan Assessment/Plan ASSESSMENT Breakthrough seizure episode Breast cancer with brain metastasis Morbid obesity Hypokalemia HTN Depression PLAN of CARE Med Surg floor neuro follows breakthrough seizure episode likely secondary to sub-therapeutic levels Vimpat and Keppra doses increased seizure precautions; no new seizures seizure disorder 2 to brain metastasis f/up with further neuro recs IVF, monitor renal parameters ,electrolytes, correct electrolytes as needed and avoid nephrotoxic BP management with BB and optimize further prn DVT prophylaxis psych followed, optimized psych med regimen overall prognosis poor patient DNR/DNI status dc plan as per PMD, appropriate end of life care/palliative care/hospice services case discussed and evaluated by supervising physician Subjective Allergies: Coded Allergies: No Known Allergies (Unverified , 01/16/18) Subjective no further seizure activity not eating no SOB, no resp distress Objective Last 24 Hour Vital Signs Date Time Temp Pulse Resp B/P (MAP) Pulse Ox O2 Delivery O2 Flow Rate FiO2 06/11/18 04:00 99.0 108 20 117/82 (94) 96 06/11/18 00:00 99.1 114 20 145/93 (110) 96 06/10/18 21:07 105 125/81 06/10/18 21:00 Room Air 06/10/18 20:00 98.7 105 20 121/85 (97) 99 06/10/18 16:00 98.7 108 20 134/82 (99) 99 06/10/18 12:26 165/98 06/10/18 12:00 99.7 116 22 165/98 (120) 96 06/10/18 11:21 98.4 06/10/18 09:05 110 132/95 06/10/18 09:00 Room Air 06/10/18 08:00 98.4 110 20 132/95 (107) 98 Intake and Output 06/10/18 06/11/18 18:59 06:59 Intake Total 1030 ml 1320 ml Output Total 625 ml Balance 1030 ml 695 ml Intake Oral 580 ml 420 ml IV Total 450 ml 900 ml Output Urine Total 625 ml # Bowel Movements 1 1 General Appearance: no acute distress, other - chroncially ill looking obese female in NAD, awake, responsive HEENT: normocephalic, atraumatic Respiratory/Chest: lungs clear - with moderate air exchange Cardiovascular: normal peripheral pulses, normal rate, edema - +2 BLE and BUE Abdomen: normal bowel sounds, soft, non tender - obese Extremities: pedal pulses normal, other - edema +2 BUE and BLE Neurologic/Psychiatric: abnormal gait, alert, responsive Current Medications Medications (Trade) Dose Ordered Sig/Gloria Route PRN Reason Start Time Stop Time Status Last Admin Dose Admin Acetaminophen (Tylenol) 650 mg Q4H PRN ORAL Mild Pain/Temp > 100.5 06/10/18 07:30 07/08/18 07:29 06/10/18 10:51 Carvedilol (Coreg) 3.125 mg EVERY 12 HOURS ORAL 06/10/18 09:00 07/09/18 08:59 06/10/18 21:07 Clonidine HCl (Catapres Tab) 0.1 mg Q6H PRN ORAL High blood pressure 06/10/18 07:30 07/09/18 07:29 06/10/18 12:26 Heparin Sodium (Porcine) (Heparin 5000 units/ml) 5,000 units EVERY 8 HOURS SUBQ 06/10/18 14:00 07/08/18 05:59 06/11/18 05:52 Lacosamide (Vimpat) 150 mg Q12HR ORAL 06/10/18 09:00 07/09/18 08:59 06/10/18 21:28 Levetiracetam (Keppra) 1,500 mg Q12HR ORAL 06/10/18 09:00 07/09/18 08:59 06/10/18 21:07 Lorazepam (Ativan 2mg/ml 1ml) 1 mg Q2H PRN IV For Seizures 06/10/18 07:30 06/15/18 07:29 Mirtazapine (Remeron) 7.5 mg BEDTIME ORAL 06/10/18 21:00 07/10/18 20:59 06/10/18 21:12 Sodium Chloride 1,000 ml @ 75 mls/hr [id number] IV 06/10/18 07:15 07/08/18 02:59 06/10/18 21:06 Diana Virk NP Jun 11, 2018 07:41
[2018-06-11 08:00] VITALS: BP 139/95
[2018-06-11] MEDS: Lacosamide 50mg tablet ORAL SCH ×2 (08:43→21:26)
[2018-06-11] MEDS ORDERED: NS w/KCl 20mEq 1,000 ML IV SCH (10:00)
[2018-06-11 12:00] VITALS: BP 141/95
--- NOTE | 2018-06-11 13:11 | Neurology Progress Note ---
Interim History Interim History Interim History Ms. Chicas feels well. She continues to be seizure free. The mind is clear. She is tolerating the medicines well. She continues to be weaker on the left than on the right. She continues to be weaker in the lower than upper extremities. She is still in bed all the time. Review of Systems Neuro Review of Systems Benign. Objective Physical Exam Last Vital Signs Date Time Temp Pulse Resp B/P (MAP) Pulse Ox O2 Delivery O2 Flow Rate FiO2 06/11/18 09:00 Room Air 06/11/18 08:43 113 139/95 06/11/18 08:00 99.0 20 96 Neurologic Exam Objective PHYSICAL EXAMINATION: GENERAL: She is a well-developed, well-nourished, obese, cushingoid lady, lying in bed, in no acute distress. HEAD: Normocephalic. EENT: Examination benign. NECK: No neck rigidity was observed. NEUROLOGIC EXAMINATION: MENTAL STATUS EXAMINATION: She was awake and alert. She was oriented to self, hospital, and month and year but not to the exact date. She did not know the name of the hospital. She was able to recall 3/3 words immediately, but could only remember 2/3 words in 1 minute and 3 minutes. She was able to remember Presidents Trump through [employer], but could not remember Presidents prior to that. Her mathematical skills were minimally impaired. Her visuospatial function was also minimally impaired. SPEECH: She had a mild dysarthria. LANGUAGE: Could not be tested adequately. CRANIAL NERVE EXAMINATION: II: The visual quezada were intact on confrontation testing. III, IV & : The external ocular movements were full and the pupils 3 mm in diameter, equal, round, regular, and reactive to light. V: She had normal facial sensations and the temporales, masseters, and pterygoids functioned normally. VII: She had a trace left seventh central facial paresis. VIII: She was able to hear and had no nystagmus. IX: The palate moved symmetrically on phonation. X: She had no hoarseness of voice. XI: The sternocleidomastoids and trapezii functioned normally. XII: The tongue was in the midline without any fasciculations or atrophy. MOTOR SYSTEM: The tone was normal on the right side and minimally decreased on the left side. Examination of muscle mass revealed no focal wasting. Examination of power was exceedingly difficult to perform because of varying degrees of effort. She, however, had a severe left paresis with G 0/5 except for G 2/5 in the left finger flexors and hip rotators. On the right side, she had approximately G 5/5 power except for G 4/5 power in the right iliopsoas. SENSORY EXAMINATION: She complained of a subjective alteration to pinprick and light touch over entire left body. REFLEXES: Trace+ and bilaterally symmetrical at the biceps, triceps, brachioradialis, and knees, 0 at both ankles. The plantar response was flexor on the right and extensor on the left. COORDINATION: She performed well on [id number] testing on the right side. She was unable to perform on the left side. [id number] testing could not be tested. STANCE & GAIT: Could not be tested. Impression/Recommendations Diagnostic Impression 1. Ms. Jesi Chicas is a 62-year-old, right-handed, lady, with a history of breast cancer since 2014 with brain metastases as a result of which, she has been significantly weak on the left side and has had a seizure disorder. Her usual seizure frequency is 2 to 3 seizures per week, however, on 06/07/2018, she had a flurry of 4 seizures 1 after the other. She does not remember what exactly happened. 2. She feels well. She continues to be seizure free. The mind is clear. She is tolerating the medicines well. She continues to be weaker on the left than on the right. She continues to be weaker in the lower than upper extremities. She is still in bed all the time. 3. On neurological examination at this time, she does have problems with recent and remote memory, visuospatial function, higher cognitive function, a mild dysarthria, the left seventh central facial paresis, severe left-sided paresis with mild proximal right lower extremity paresis, globally diminished deep tendon reflexes, and an extensor plantar response on the left side. 4. The patient's history and neurological examination are most consistent with breast cancer with brain metastasis leading to a seizure disorder. The patient' s breakthrough seizures are most probably due to the fact that she is on subtherapeutic doses of Keppra and Vimpat. The patient weighs 111 kilograms. Recommendations 1. Continue Keppra to 1.5 grams q.12 hours. 2. Continue Vimpat to 150 mg q.12 hours. 3. Observe. Juan Davis M.D., M.S.P.H. Juan Davis MD Jun 11, 2018 13:11
[2018-06-11] MEDS ORDERED: Tubing IV Secondary IV ONE (13:46)
--- NOTE | 2018-06-11 14:11 | Internal Med Progress Note ---
Subjective Physician Name Sander Christensen Attending Physician Sander Christensen MD Current Medications Medications (Trade) Dose Ordered Sig/Gloria Route PRN Reason Start Time Stop Time Status Last Admin Dose Admin Acetaminophen (Tylenol) 650 mg Q4H PRN ORAL Mild Pain/Temp > 100.5 06/10/18 07:30 07/08/18 07:29 06/10/18 10:51 Carvedilol (Coreg) 3.125 mg EVERY 12 HOURS ORAL 06/10/18 09:00 07/09/18 08:59 06/11/18 08:43 Clonidine HCl (Catapres Tab) 0.1 mg Q6H PRN ORAL High blood pressure 06/10/18 07:30 07/09/18 07:29 06/10/18 12:26 Heparin Sodium (Porcine) (Heparin 5000 units/ml) 5,000 units EVERY 8 HOURS SUBQ 06/10/18 14:00 07/08/18 05:59 06/11/18 05:52 Lacosamide (Vimpat) 150 mg Q12HR ORAL 06/10/18 09:00 07/09/18 08:59 06/11/18 08:43 Levetiracetam (Keppra) 1,500 mg Q12HR ORAL 06/10/18 09:00 07/09/18 08:59 06/11/18 08:43 Lorazepam (Ativan 2mg/ml 1ml) 1 mg Q2H PRN IV For Seizures 06/10/18 07:30 06/15/18 07:29 Mirtazapine (Remeron) 7.5 mg BEDTIME ORAL 06/10/18 21:00 07/10/18 20:59 06/10/18 21:12 Allergies: Coded Allergies: No Known Allergies (Unverified , 01/16/18) Subjective awake, alert, responsive, NAD, No chest pain or SOB, She feels well. She continues to be seizure free. Objective Last Vital Signs Date Time Temp Pulse Resp B/P (MAP) Pulse Ox O2 Delivery O2 Flow Rate FiO2 06/11/18 12:00 98.6 116 20 141/95 (110) 96 06/11/18 09:00 Room Air Intake and Output 06/10/18 06/11/18 19:00 07:00 Intake Total 955 ml 1245 ml Output Total 625 ml Balance 955 ml 620 ml Intake Oral 580 ml 420 ml IV Total 375 ml 825 ml Output Urine Total 625 ml # Bowel Movements 1 1 Objective General: No acute distress, awake and alert HEENT: NCAT, sclera anicteric, PERRL, EOMI. Neck: Supple, no significant jugular venous distention, Lungs: Fair inspiratory effort, Decrease breath sound at bases, no Wheeze or Rales. Heart: Regular rate and rhythm, normal S1/S2, no murmurs Abdomen: soft, nontender, nondistended. Normoactive bowel sounds, Morbid obesity. / Rectal: Refused and deferred. Extremities: No Cyanosis , clubbing or edema. Neuro: A&O x 3, Able to move all extremities but left side 3/5 motor and right side 5/5 motor. Skin: warm, no rashes Assessment/Plan Assessment/Plan 1. Breakthrough seizure. 2. Breast cancer with metastases to the brain. 3. Hypertension. 4. Depression. 5. Cerebral edema. 6. Left side weakness. Plan: F/U with Dr. Davis recommendations: 1. I would increase the dose of Keppra to 1.5 grams q.12 hours. 2. I would increase the dose of Vimpat to 150 mg q.12 hours. Monitor for seizure precaution PT Mobility F/U with labs Discuss with regarding SNF placement. Sander Christensen MD Jun 11, 2018 14:11
[2018-06-11 16:00] VITALS: BP 160/95
[2018-06-11 20:00] VITALS: BP 127/86
[2018-06-12] VITALS: BP 136/92
[2018-06-12 04:00] VITALS: BP 133/94
[2018-06-12] MEDS: Heparin 5000 units/ml inj SUBQ SCH ×3 (05:50→21:24)
[2018-06-12 07:33] LABS: BASOPHILS % (AUTO) 0.4 % (0.0-2.0); EOSINOPHILS % (AUTO) 1.6 % (0.0-3.0); HEMATOCRIT 35.4 % (37.0-47.0); HEMOGLOBIN 12.1 G/DL (12.0-16.0); LYMPHOCYTES % (AUTO) 20.1 % (20.0-45.0); MEAN CORPUSCULAR VOLUME 88 FL (80-99); MONOCYTES % (AUTO) 10.9 % (1.0-10.0); PLATELET COUNT 230 K/UL (150-450); RED BLOOD COUNT 4.03 M/UL (4.20-5.40)
[2018-06-12 07:50] LABS: ANION GAP 12 mmol/L (5-15); BLOOD UREA NITROGEN 4 mg/dL (7-18); CALCIUM 8.4 MG/DL (8.5-10.1); CARBON DIOXIDE 23 MMOL/L (21-32); CHLORIDE 100 MMOL/L (98-107); CREATININE 0.6 MG/DL (0.55-1.30); POTASSIUM 3.1 MMOL/L (3.5-5.1); SODIUM 135 MMOL/L (136-145)
--- NOTE | 2018-06-12 08:09 | Pulmonology Progress Note ---
Assessment/Plan Assessment/Plan ASSESSMENT Breakthrough seizure episode Breast cancer with brain metastasis Morbid obesity Hypokalemia HTN Depression PLAN of CARE Med Surg floor neuro follows breakthrough seizure episode likely secondary to sub-therapeutic levels Vimpat and Keppra doses increased seizure precautions; no new seizures seizure disorder 2 to brain metastasis f/up with further neuro recs dc IVF, edema BLE and BUE push po intak, aware monitor renal parameters ,electrolytes, correct electrolytes as needed and avoid nephrotoxic BP management with BB and optimize further prn DVT prophylaxis psych followed, optimized psych med regimen overall prognosis poor patient DNR/DNI status dc plan as per PMD, appropriate end of life care/palliative care/hospice services ( was on hospice services before) want to take her home case discussed and evaluated by supervising physician Subjective Allergies: Coded Allergies: No Known Allergies (Unverified , 01/16/18) Subjective no further seizure activity not eating well at the bedside no SOB, no resp distress Objective Last 24 Hour Vital Signs Date Time Temp Pulse Resp B/P (MAP) Pulse Ox O2 Delivery O2 Flow Rate FiO2 06/12/18 04:00 97.6 104 22 133/94 (107) 97 06/12/18 00:00 98.3 109 22 136/92 (107) 96 06/11/18 21:43 Room Air 06/11/18 21:29 111 137/77 06/11/18 20:00 98.9 112 20 127/86 (100) 97 06/11/18 16:00 98.1 110 20 160/95 (116) 96 06/11/18 12:00 98.6 116 20 141/95 (110) 96 06/11/18 09:00 Room Air 06/11/18 08:43 113 139/95 Intake and Output 06/11/18 06/12/18 19:00 07:00 Intake Total 75 ml 180 ml Balance 75 ml 180 ml Intake Oral 180 ml IV Total 75 ml # Voids 3 # Bowel Movements 1 3 Objective General Appearance: no acute distress, chronically ill looking obese female in NAD, awake, responsive HEENT: normocephalic, atraumatic Respiratory/Chest: lungs clear - with moderate air exchange Cardiovascular: normal peripheral pulses, normal rate, edema - +2 BLE and BUE Abdomen: normal bowel sounds, soft, non tender - obese Extremities: pedal pulses normal, edema +2 BUE and BLE Neurologic/Psychiatric: abnormal gait, alert, responsive Laboratory Tests 06/12/18 06:15: White Blood Count 7.0, Red Blood Count 4.03L, Hemoglobin 12.1, Hematocrit 35.4L , Mean Corpuscular Volume 88, Mean Corpuscular Hemoglobin 29.9, Mean Corpuscular Hemoglobin Concent 34.1, Red Cell Distribution Width 14.0, Platelet Count 230, Mean Platelet Volume 5.2L, Neutrophils (%) (Auto) 67.0, Lymphocytes ( %) (Auto) 20.1, Monocytes (%) (Auto) 10.9H, Eosinophils (%) (Auto) 1.6, Basophils (%) (Auto) 0.4, Sodium Level 135L, Potassium Level 3.1L, Chloride Level 100, Carbon Dioxide Level 23, Anion Gap 12, Blood Urea Nitrogen 4L, Creatinine 0.6, Estimat Glomerular Filtration Rate > 60, Glucose Level 134H, Calcium Level 8.4L Current Medications Medications (Trade) Dose Ordered Sig/Gloria Route PRN Reason Start Time Stop Time Status Last Admin Dose Admin Acetaminophen (Tylenol) 650 mg Q4H PRN ORAL Mild Pain/Temp > 100.5 06/10/18 07:30 07/08/18 07:29 06/11/18 16:25 Carvedilol (Coreg) 3.125 mg EVERY 12 HOURS ORAL 06/10/18 09:00 07/09/18 08:59 06/11/18 21:29 Clonidine HCl (Catapres Tab) 0.1 mg Q6H PRN ORAL High blood pressure 06/10/18 07:30 07/09/18 07:29 06/10/18 12:26 Heparin Sodium (Porcine) (Heparin 5000 units/ml) 5,000 units EVERY 8 HOURS SUBQ 06/10/18 14:00 07/08/18 05:59 06/12/18 05:50 Lacosamide (Vimpat) 150 mg Q12HR ORAL 06/10/18 09:00 07/09/18 08:59 06/11/18 21:26 Levetiracetam (Keppra) 1,500 mg Q12HR ORAL 06/10/18 09:00 07/09/18 08:59 06/11/18 21:26 Lorazepam (Ativan 2mg/ml 1ml) 1 mg Q2H PRN IV For Seizures 06/10/18 07:30 06/15/18 07:29 Mirtazapine (Remeron) 7.5 mg BEDTIME ORAL 06/10/18 21:00 07/10/18 20:59 06/11/18 21:26 Diana Virk NP Jun 12, 2018 08:09
[2018-06-12 08:27] VITALS: BP 128/71
[2018-06-12] MEDS: Lacosamide 50mg tablet ORAL SCH ×2 (09:37→21:21)
[2018-06-12] MEDS ORDERED: KEPPRA500 MG ORAL (10:19)
[2018-06-12] MEDS ORDERED: VIMPAT50 MG ORAL (10:19)
--- NOTE | 2018-06-12 10:44 | Neurology Progress Note ---
Interim History Interim History Interim History Ms. Chicas is sleepy. She however can be aroused easily. She feels well generally. She continues to be seizure free. The mind is clear. She is tolerating the medicines well. She continues to be weaker on the left than on the right. She continues to be weaker in the lower than upper extremities. She is still in bed all the time. Review of Systems Neuro Review of Systems Benign. Objective Physical Exam Last Vital Signs Date Time Temp Pulse Resp B/P (MAP) Pulse Ox O2 Delivery O2 Flow Rate FiO2 06/12/18 09:37 116 128/71 06/12/18 08:27 98.5 23 96 06/11/18 21:43 Room Air Laboratory Tests Test 06/12/18 06:15 White Blood Count 7.0 K/UL (4.8-10.8) Red Blood Count 4.03 M/UL (4.20-5.40) L Hemoglobin 12.1 G/DL (12.0-16.0) Hematocrit 35.4 % (37.0-47.0) L Mean Corpuscular Volume 88 FL (80-99) Mean Corpuscular Hemoglobin 29.9 PG (27.0-31.0) Mean Corpuscular Hemoglobin Concent 34.1 G/DL (32.0-36.0) Red Cell Distribution Width 14.0 % (11.6-14.8) Platelet Count 230 K/UL (150-450) Mean Platelet Volume 5.2 FL (6.5-10.1) L Neutrophils (%) (Auto) 67.0 % (45.0-75.0) Lymphocytes (%) (Auto) 20.1 % (20.0-45.0) Monocytes (%) (Auto) 10.9 % (1.0-10.0) H Eosinophils (%) (Auto) 1.6 % (0.0-3.0) Basophils (%) (Auto) 0.4 % (0.0-2.0) Sodium Level 135 MMOL/L (136-145) L Potassium Level 3.1 MMOL/L (3.5-5.1) L Chloride Level 100 MMOL/L (98-107) Carbon Dioxide Level 23 MMOL/L (21-32) Anion Gap 12 mmol/L (5-15) Blood Urea Nitrogen 4 mg/dL (7-18) L Creatinine 0.6 MG/DL (0.55-1.30) Estimat Glomerular Filtration Rate > 60 mL/min (>60) Glucose Level 134 MG/DL (74-106) H Calcium Level 8.4 MG/DL (8.5-10.1) L Neurologic Exam Objective PHYSICAL EXAMINATION: GENERAL: She is a well-developed, well-nourished, obese, cushingoid lady, lying in bed, in no acute distress. HEAD: Normocephalic. EENT: Examination benign. NECK: No neck rigidity was observed. NEUROLOGIC EXAMINATION: MENTAL STATUS EXAMINATION: When aroused, she was awake and alert. She was oriented to self, hospital, and month and year but not to the exact date. She did not know the name of the hospital. She was able to recall 3/3 words immediately, but could only remember 2/3 words in 1 minute and 3 minutes. She was able to remember Presidents Trump through [employer], but could not remember Presidents prior to that. Her mathematical skills were minimally impaired. Her visuospatial function was also minimally impaired. SPEECH: She had a mild dysarthria. LANGUAGE: Could not be tested adequately. CRANIAL NERVE EXAMINATION: II: The visual quezada were intact on confrontation testing. III, IV & : The external ocular movements were full and the pupils 3 mm in diameter, equal, round, regular, and reactive to light. V: She had normal facial sensations and the temporales, masseters, and pterygoids functioned normally. VII: She had a trace left seventh central facial paresis. VIII: She was able to hear and had no nystagmus. IX: The palate moved symmetrically on phonation. X: She had no hoarseness of voice. XI: The sternocleidomastoids and trapezii functioned normally. XII: The tongue was in the midline without any fasciculations or atrophy. MOTOR SYSTEM: The tone was normal on the right side and minimally decreased on the left side. Examination of muscle mass revealed no focal wasting. Examination of power was exceedingly difficult to perform because of varying degrees of effort. She, however, had a severe left paresis with G 0/5 except for G 2/5 in the left finger flexors and hip rotators. On the right side, she had approximately G 5/5 power except for G 4/5 power in the right iliopsoas. SENSORY EXAMINATION: She complained of a subjective alteration to pinprick and light touch over entire left body. REFLEXES: Trace+ and bilaterally symmetrical at the biceps, triceps, brachioradialis, and knees, 0 at both ankles. The plantar response was flexor on the right and extensor on the left. COORDINATION: She performed well on [id number] testing on the right side. She was unable to perform on the left side. Keaz-[id number]-[id number] testing could not be tested. STANCE & GAIT: Could not be tested. Impression/Recommendations Diagnostic Impression 1. Ms. Jesi Chicas is a 62-year-old, right-handed, lady, with a history of breast cancer since 2015 with brain metastases as a result of which, she has been significantly weak on the left side and has had a seizure disorder. Her usual seizure frequency is 2 to 3 seizures per week, however, on 06/07/2018, she had a flurry of 4 seizures 1 after the other. She does not remember what exactly happened. 2. She is sleepy. She however can be aroused easily. She feels well generally. She continues to be seizure free. The mind is clear. She is tolerating the medicines well. She continues to be weaker on the left than on the right. She continues to be weaker in the lower than upper extremities. She is still in bed all the time. 3. On neurological examination at this time, she does have problems with recent and remote memory, visuospatial function, higher cognitive function, a mild dysarthria, the left seventh central facial paresis, severe left-sided paresis with mild proximal right lower extremity paresis, globally diminished deep tendon reflexes, and an extensor plantar response on the left side. 4. The patient's history and neurological examination are most consistent with breast cancer with brain metastasis leading to a seizure disorder. The patient' s breakthrough seizures are most probably due to the fact that she is on subtherapeutic doses of Keppra and Vimpat. The patient weighs 111 kilograms. Recommendations 1. Continue Keppra to 1.5 grams q.12 hours. 2. Continue Vimpat to 150 mg q.12 hours. 3. Observe. Sadler K. Susan, M.D., M.S.P.H. Juan Davis MD Jun 12, 2018 10:44
[2018-06-12 12:00] VITALS: BP 141/76
[2018-06-12 16:21] VITALS: BP 148/93
[2018-06-12 20:00] VITALS: BP 131/82
--- NOTE | 2018-06-12 22:48 | Internal Med Progress Note ---
Subjective Physician Name Sander Christensen Attending Physician Sander Christensen MD Current Medications Medications (Trade) Dose Ordered Sig/Gloria Route PRN Reason Start Time Stop Time Status Last Admin Dose Admin Acetaminophen (Tylenol) 650 mg Q4H PRN ORAL Mild Pain/Temp > 100.5 06/10/18 07:30 07/08/18 07:29 06/12/18 16:39 Carvedilol (Coreg) 3.125 mg EVERY 12 HOURS ORAL 06/10/18 09:00 07/09/18 08:59 06/12/18 21:21 Clonidine HCl (Catapres Tab) 0.1 mg Q6H PRN ORAL High blood pressure 06/10/18 07:30 07/09/18 07:29 06/10/18 12:26 Heparin Sodium (Porcine) (Heparin 5000 units/ml) 5,000 units EVERY 8 HOURS SUBQ 06/10/18 14:00 07/08/18 05:59 06/12/18 21:24 Lacosamide (Vimpat) 150 mg Q12HR ORAL 06/10/18 09:00 07/09/18 08:59 06/12/18 21:21 Levetiracetam (Keppra) 1,500 mg Q12HR ORAL 06/10/18 09:00 07/09/18 08:59 06/12/18 21:22 Lorazepam (Ativan 2mg/ml 1ml) 1 mg Q2H PRN IV For Seizures 06/10/18 07:30 06/15/18 07:29 Mirtazapine (Remeron) 7.5 mg BEDTIME ORAL 06/10/18 21:00 07/10/18 20:59 06/12/18 21:21 Allergies: Coded Allergies: No Known Allergies (Unverified , 01/16/18) Subjective sleepy but responsive to stimuli , NAD, No chest pain or SOB, She continues to be seizure free. Objective Last Vital Signs Date Time Temp Pulse Resp B/P (MAP) Pulse Ox O2 Delivery O2 Flow Rate FiO2 06/12/18 21:21 118 131/82 06/12/18 20:00 100.7 20 98 06/12/18 09:00 Room Air Laboratory Tests Test 06/12/18 06:15 White Blood Count 7.0 K/UL (4.8-10.8) Red Blood Count 4.03 M/UL (4.20-5.40) L Hemoglobin 12.1 G/DL (12.0-16.0) Hematocrit 35.4 % (37.0-47.0) L Mean Corpuscular Volume 88 FL (80-99) Mean Corpuscular Hemoglobin 29.9 PG (27.0-31.0) Mean Corpuscular Hemoglobin Concent 34.1 G/DL (32.0-36.0) Red Cell Distribution Width 14.0 % (11.6-14.8) Platelet Count 230 K/UL (150-450) Mean Platelet Volume 5.2 FL (6.5-10.1) L Neutrophils (%) (Auto) 67.0 % (45.0-75.0) Lymphocytes (%) (Auto) 20.1 % (20.0-45.0) Monocytes (%) (Auto) 10.9 % (1.0-10.0) H Eosinophils (%) (Auto) 1.6 % (0.0-3.0) Basophils (%) (Auto) 0.4 % (0.0-2.0) Sodium Level 135 MMOL/L (136-145) L Potassium Level 3.1 MMOL/L (3.5-5.1) L Chloride Level 100 MMOL/L (98-107) Carbon Dioxide Level 23 MMOL/L (21-32) Anion Gap 12 mmol/L (5-15) Blood Urea Nitrogen 4 mg/dL (7-18) L Creatinine 0.6 MG/DL (0.55-1.30) Estimat Glomerular Filtration Rate > 60 mL/min (>60) Glucose Level 134 MG/DL (74-106) H Calcium Level 8.4 MG/DL (8.5-10.1) L Intake and Output 06/11/18 06/12/18 19:00 07:00 Intake Total 75 ml 180 ml Balance 75 ml 180 ml Intake Oral 180 ml IV Total 75 ml # Voids 3 # Bowel Movements 1 3 Objective General: No acute distress, awake and alert HEENT: NCAT, sclera anicteric, PERRL, EOMI. Neck: Supple, no significant jugular venous distention, Lungs: Fair inspiratory effort, Decrease breath sound at bases, no Wheeze or Rales. Heart: Regular rate and rhythm, normal S1/S2, no murmurs Abdomen: soft, nontender, nondistended. Normoactive bowel sounds, Morbid obesity. / Rectal: Refused and deferred. Extremities: No Cyanosis , clubbing or edema. Neuro: A&O x 3, Able to move all extremities but left side 3/5 motor and right side 5/5 motor. Skin: warm, no rashes Assessment/Plan Assessment/Plan 1. Breakthrough seizure. 2. Breast cancer with metastases to the brain. 3. Hypertension. 4. Depression. 5. Cerebral edema. 6. Left side weakness. Plan: F/U with Dr. Davis recommendations: 1. I would increase the dose of Keppra to 1.5 grams q.12 hours. 2. I would increase the dose of Vimpat to 150 mg q.12 hours. Monitor for seizure precaution PT Mobility F/U with labs Discuss with regarding SNF placement. Sander Christensen MD Jun 12, 2018 22:48
[2018-06-13] VITALS: BP 126/79
[2018-06-13 04:00] VITALS: BP 138/75
[2018-06-13] MEDS: Heparin 5000 units/ml inj SUBQ SCH ×2 (05:07→13:08)
[2018-06-13 08:00] VITALS: BP 121/71
[2018-06-13] MEDS: Lacosamide 50mg tablet ORAL SCH (09:09)
[2018-06-13 12:00] VITALS: BP 132/87
--- NOTE | 2018-06-13 15:01 | Pulmonology Progress Note ---
Assessment/Plan Problems: (1) Uncontrolled seizures (2) Metastatic cancer (3) Breast cancer (4) Morbid obesity Assessment/Plan all noted doing better Depakote dose was increased all reviewed seizure precaution aspiration precaution f/u neurology recommendations dc home with home hospice Subjective ROS Limited/Unobtainable: Yes Constitutional: Reports: no symptoms HEENT: Repors: no symptoms Respiratory: Reports: no symptoms Cardiovascular: Reports: no symptoms Allergies: Coded Allergies: No Known Allergies (Unverified , 01/16/18) Objective Last 24 Hour Vital Signs Date Time Temp Pulse Resp B/P (MAP) Pulse Ox O2 Delivery O2 Flow Rate FiO2 06/13/18 12:00 99.7 122 26 132/87 (102) 96 06/13/18 09:09 122 121/71 06/13/18 08:38 Room Air 06/13/18 08:00 98.5 122 22 121/71 (88) 96 06/13/18 05:35 99.7 06/13/18 04:00 100.9 122 20 138/75 (96) 96 06/13/18 00:00 100.5 121 20 126/79 (95) 96 06/12/18 21:21 118 131/82 06/12/18 21:00 Room Air 06/12/18 20:00 100.7 118 20 131/82 (98) 98 06/12/18 16:21 100.7 112 22 148/93 (111) 97 Intake and Output 06/12/18 06/13/18 19:00 07:00 Intake Total 480 ml Output Total 150 ml 50 ml Balance 330 ml -50 ml Intake Oral 480 ml Output Urine Total 150 ml 50 ml # Voids 1 # Bowel Movements 2 General Appearance: WD/WN Respiratory/Chest: chest wall non-tender, normal breath sounds Breasts: no masses Cardiovascular: normal rate, no gallop/murmur Abdomen: normal bowel sounds, no scars Extremities: no clubbing Skin: no lesions Current Medications Medications (Trade) Dose Ordered Sig/Gloria Route PRN Reason Start Time Stop Time Status Last Admin Dose Admin Acetaminophen (Tylenol) 650 mg Q4H PRN ORAL Mild Pain/Temp > 100.5 06/10/18 07:30 07/08/18 07:29 06/13/18 05:05 Carvedilol (Coreg) 3.125 mg EVERY 12 HOURS ORAL 06/10/18 09:00 07/09/18 08:59 06/13/18 09:09 Clonidine HCl (Catapres Tab) 0.1 mg Q6H PRN ORAL High blood pressure 06/10/18 07:30 07/09/18 07:29 06/10/18 12:26 Heparin Sodium (Porcine) (Heparin 5000 units/ml) 5,000 units EVERY 8 HOURS SUBQ 06/10/18 14:00 07/08/18 05:59 06/13/18 13:08 Lacosamide (Vimpat) 150 mg Q12HR ORAL 06/10/18 09:00 07/09/18 08:59 06/13/18 09:09 Levetiracetam (Keppra) 1,500 mg Q12HR ORAL 06/10/18 09:00 07/09/18 08:59 06/13/18 09:09 Lorazepam (Ativan 2mg/ml 1ml) 1 mg Q2H PRN IV For Seizures 06/10/18 07:30 06/15/18 07:29 Mirtazapine (Remeron) 7.5 mg BEDTIME ORAL 06/10/18 21:00 07/10/18 20:59 06/12/18 21:21 Miguel A Lenz MD Jun 13, 2018 15:01
[2018-06-13 15:47] VITALS: BP 141/84
--- NOTE | 2018-06-13 22:36 | Internal Med Progress Note ---
Subjective Physician Name Sander Christensen Attending Physician Sander Christensen MD Allergies: Coded Allergies: No Known Allergies (Unverified , 01/16/18) Subjective Responsive to stimuli , NAD, No chest pain or SOB, She continues to be seizure free. Objective Last Vital Signs Date Time Temp Pulse Resp B/P (MAP) Pulse Ox O2 Delivery O2 Flow Rate FiO2 06/13/18 15:47 99.7 123 24 141/84 (103) 96 06/13/18 08:38 Room Air Intake and Output 06/12/18 06/13/18 19:00 07:00 Intake Total 480 ml Output Total 150 ml 50 ml Balance 330 ml -50 ml Intake Oral 480 ml Output Urine Total 150 ml 50 ml # Voids 1 # Bowel Movements 2 Objective General: No acute distress, awake and alert HEENT: NCAT, sclera anicteric, PERRL, EOMI. Neck: Supple, no significant jugular venous distention, Lungs: Fair inspiratory effort, Decrease breath sound at bases, no Wheeze or Rales. Heart: Regular rate and rhythm, normal S1/S2, no murmurs Abdomen: soft, nontender, nondistended. Normoactive bowel sounds, Morbid obesity. / Rectal: Refused and deferred. Extremities: No Cyanosis , clubbing or edema. Neuro: A&O x 3, Able to move all extremities but left side 3/5 motor and right side 5/5 motor. Skin: warm, no rashes Assessment/Plan Assessment/Plan 1. Breakthrough seizure. 2. Breast cancer with metastases to the brain. 3. Hypertension. 4. Depression. 5. Cerebral edema. 6. Left side weakness. Plan: F/U with Dr. Davis recommendations: 1. I would increase the dose of Keppra to 1.5 grams q.12 hours. 2. I would increase the dose of Vimpat to 150 mg q.12 hours. Monitor for seizure precaution PT Mobility F/U with labs Dc Home. . Sander Christensen MD Jun 13, 2018 22:36
--- NOTE | 2018-06-15 11:24 | Discharge Summary ---
Discharge Summary Discharge Summary _ DATE OF ADMISSION: 06/07/2018 DATE OF DISCHARGE: 06/13/2018 DISCHARGED BY: Dr. Christensen REASON FOR ADMISSION: 62 years old female with history of metastatic breast cancer with metastasis to brain, seizure disorder, reportedly on hospice care at home, was taken to [facility] with chief complaint of uncontrolled seizure episode. Upon arrival to the hospital she was still postictal. CT scan of the brain showed previous right parietal craniotomy with abnormal white matter involving the right cerebral hemisphere diffusely with generalized cerebral edema in the right cerebral hemisphere. After initial therapy she was stabilized and transferred to [facility] for further management. CONSULTANTS: neurologist Dr. Davis pulmonary Dr. Lenz psychiatrist [facility] COURSE: Patient admitted. Seizure precautions were maintained. Neurologist closely followed. Per neurologist , patient history ,neurological examinations were most consistent with breast cancer with brain metastases, leading to seizure disorder. The breakthrough episode was most probably due to the fact that she was on subtherapeutic dose of Keppra. Dose of Keppra and Vimpat up titrated by neurologist. No further seizure activity. Patient was on IV fluids initially . However patient with severe edema bilateral upper and lower extremity. IV fluids were discontinued. Oral intake was pushed. Renal parameters and electrolytes were closely monitored. Nephrotoxins were avoided. Blood pressure was managed with beta-mahesh. Pain management was addressed. DVT prophylaxis provided. Symptomatic treatment provided , Psychiatrist followed and optimize psychiatric medication regimen. Overall prognosis was poor. Patient with DNR/DNI status. verbalized decision to continue with hospice care at home . Patient was subsequently discharged home for end-of-life care with hospice services. FINAL DIAGNOSES: Breakthrough seizure episode Breast cancer with brain metastasis Morbid obesity Hypertension Cerebral edema Depression Severe left sided weakness/paresis Hypokalemia DISCHARGE MEDICATIONS: See Medication Reconciliation list. DISCHARGE INSTRUCTIONS: Patient was discharged home with hospice services. Diana Virk NP Jun 15, 2018 11:24
== END 2018-06-13 16:47 | disposition hospice, home (50) | DRG 54 ==
LOC: 2W 23:57 → 2E 06-08 18:38 → 3E 06-10 06:55
DX: C79.31 Secondary malignant neoplasm of brain (principal); G93.6 Cerebral edema; G40.89 Other seizures; G81.94 Hemiplegia, unspecified affecting left nondominant side; E66.01 Morbid (severe) obesity due to excess calories; C50.919 Malignant neoplasm of unspecified site of unspecified female breast; Z66 Do not resuscitate; I10 Essential (primary) hypertension; F32.9 Major depressive disorder, single episode, unspecified; E87.6 Hypokalemia
CPT/HCPCS: 36415; 80048; 80053; 80299; 83735; 84100; 85025; J8499